=== PATIENT | male | born 1970 | race Caucasian/White ===

== ENCOUNTER → 2016-12-13 | Outpatient (CLI) | payer BC, OTHER ==
[~2016-12-13] MED LIST: ALBUAER INH; AMIO200T4 PO; AMOX500C3 PO; ASPI-232 PO; ATOR-24 PO; CARV3.122 PO; CEPH500C PO; CEPH500C2 PO; CIPR1TAB11 PO; FRS/40 PO; GLC5 PO; GLC850 PO; INSDGI SC; LISI-461 PO; LVQ750 PO; METF-383 PO; POTA20TA16 PO; ROSU40TA PO; SITA100T3 PO; SULF800T23 PO
[2016-12-13 09:56] LABS: ESTIMATED AVERAGE GLUCOSE 289 mg/dl; HA1C FLAG Normal (Normal)
[2016-12-13 10:25] LABS: ALB/GLOB RATIO 1.2 (0.9-2); ALKALINE PHOSPHATASE 126 U/L (45-117); ALT/SGPT 28 U/L (12-78); AST/SGOT 13 U/L (15-37); BLOOD UREA NITROGEN 21 mg/dl (7-18); BUN/CREATININE RATIO 24.2 (10-20); CALCIUM 9.5 mg/dl (8.5-10.1); CARBON DIOXIDE 25 mmol/L (21-32); CHLORIDE 102 mmol/L (98-107); CHOLESTEROL 151 mg/dl (0-200); CREATININE 0.86 mg/dl (0.60-1.40); GLUCOSE 350 mg/dl (70-99); POTASSIUM 4.3 mmol/L (3.5-5.1); SODIUM 137 mmol/L (136-145)
[2016-12-13 10:37] LABS: CHOLESTEROL/HDL RATIO 6.3; HDL CHOLESTEROL 24 mg/dl; TRIGLYCERIDES 724 mg/dl (0-150)
[2016-12-13 10:50] LABS: BETA-HYDROXYBUTYRATE 3.19 mg/dL (0.2-2.81)
== END | disposition home or self-care (01) ==
LOC: C.LAB 07:16
PROVIDERS: ATTEND Family Medicine
DX: E11.9 Type 2 diabetes mellitus without complications (principal)

== ENCOUNTER 2016-12-15 21:05 | Emergency (ER) | payer BC, OTHER ==
[~2016-12-15] VITALS: Ht 172.7 cm; Wt 121.5 kg
[~2016-12-15 21:05] MED LIST changes: -AMIO200T4 PO; -AMOX500C3 PO; -ASPI-232 PO; -CARV3.122 PO; -CEPH500C PO; -CIPR1TAB11 PO; -FRS/40 PO; -INSDGI SC; -LVQ750 PO; -METF-383 PO; -POTA20TA16 PO; -ROSU40TA PO; -SULF800T23 PO
[2016-12-15 21:09] VITALS: TEMP 36.7; Ht 172.7 cm; Wt 121.5 kg
[2016-12-15] MEDS ORDERED: INSDGI SC (21:23)
[2016-12-15] MEDS ORDERED: CEPHALEXIN MONOHYDRATE 250 MG CAP PO STA (21:26)
[2016-12-15] MEDS ORDERED: SULFAMETHOXAZOLE/TRIMETHOPRIM DS 800/160MG TAB PO STA (21:26)
--- NOTE | 2016-12-15 21:27 | EMERGENCY ROOM VISIT NOTE ---
History Report prepared by Vida: Antonietta Frazier Under the Supervision of: Dr. Celestino Monet M.D. First contact with patient: 21:14 Chief Complaint: WOUND INFECTION Stated Complaint: TOE WOUND RIGHT History of Present Illness The patient is a 46 year old male who presents to the Emergency Room with complaints of a constant right toe wound infection beginning a few days ago. The patient states that he has a history of diabetes and neuropathy. He reports that he has an infection on one of his toes on his right foot and saw his PCP yesterday for the pain. He notes that today the toe started swelling and getting red so he decided to come in to the ED. The patient states that he was told to follow up with a formulator compounder. He denies any fever. Source of History: patient Onset: a few days ago Position: toe(s) Quality: other (infection) Timing: constant Associated Symptoms: No fevers Note: Pt has redness and swelling. Review of Systems See HPI for pertinent positives & negatives. A total of 10 systems reviewed and were otherwise negative. Past Medical & Surgical Medical Problems: (1) Diabetes (2) HTN (hypertension) Family History Cancer Diabetes mellitus Gallbladder disease Heart disease Hypertension Kidney disease Kidney stones Social History Smoking Status: Never Smoker Drug Use: none Marital Status: Occupation Status: employed Current/Historical Medications Scheduled Atorvastatin (Lipitor), 1 TAB PO DAILY Cephalexin Monohydrate (Keflex), 1 CAP PO QID Insulin Glargine (Lantus), 20 UNITS SC BID Lisinopril (Zestril), 10 MG PO DAILY Metformin HCl (Metformin HCl), 850 MG PO BID Sitagliptin Phosphate (Januvia), 100 MG PO DAILY Sulfa/Trimethoprim (Bactrim Ds 800MG/160MG), 1 TAB PO BID Allergies Coded Allergies: No Known Allergies (Verified Allergy, Unknown, 07/23/02) Uncoded Allergies: NONE (Allergy, Unknown, 09/04/03) Physical Exam Vital Signs Date Time Temp Pulse Resp B/P (MAP) Pulse Ox O2 Delivery O2 Flow Rate FiO2 12/15/16 21:41 84 16 136/89 97 Room Air 12/15/16 21:09 36.7 89 18 153/103 100 Room Air Physical Exam GENERAL: Patient is a healthy-appearing well-nourished [] HEAD: Normocephalic atraumatic EYES: Ocular movements intact pupils equal and react to light OROPHARYNX mucous membranes are moist no exudates present no erythema or edema present NECK: Supple no nuchal rigidity CHEST: Good equal expansion LUNGS: Clear and equal to auscultation CARDIAC: Normal S1 and S2 ABDOMEN: Soft nontender no guarding BACK: No CVA tenderness EXTREMITIES: No pain upon palpation normal muscle strength in all groups no clubbing cyanosis. The patients second toe was grossly inflamed. NEURO: Patient is following commands and answering questions appropriately. Alert and oriented x3 Cranial Nerves 2-12 grossly intact Medical Decision & Procedures Medications Administered Medications (Trade) Dose Ordered Sig/Paul Route Start Time Stop Time Status Last Admin Dose Admin Cephalexin Monohydrate (Keflex 500MG Home Pack) 1 homepack NOW ONCE PO 12/15/16 21:30 12/15/16 21:31 DC 12/15/16 21:40 1 HOMEPACK Trimethoprim/ Sulfamethoxazole (Septra Ds 800/ 160MG Tab) 1 tab NOW STAT PO 12/15/16 21:26 12/15/16 21:28 DC 12/15/16 21:40 1 TAB Trimethoprim/ Sulfamethoxazole (Sulfameth/ Trimeth Ds 800/ 160MG Home Pack) 1 homepack UD ONCE PO 12/15/16 21:30 12/15/16 21:31 DC 12/15/16 21:40 1 HOMEPACK Cephalexin Monohydrate (Keflex Cap) 500 mg NOW STAT PO 12/15/16 21:26 12/15/16 21:28 DC 12/15/16 21:40 500 MG ED Course 2113: Past medical records reviewed. The patient was evaluated in room C6. A complete history and physical examination was performed. 2125: Keflex Cap 500mg PO, Trimethoprim/Sulfamethoxazole 1 tab PO. 2129: Trimethoprim/Sulfamethoxazole 1 homepack PO, Keflex 500mg Home Pack 1 homepack PO. 2142: Upon reexamination the patient is doing well. I discussed results and treatment plan with the patient. He verbalizes agreement and understanding. The patient is ready for discharge. Medical Decision Differential diagnosis: Etiologies such as cellulitis, abscess, MRSA infection, DVT, necrotizing fasciitis, dermatitis, drug eruption, as well as others were entertained. Medication Reconciliation: I attest that I have personally reviewed the patient' s current medication list Blood Pressure Screening: Patient was found to have an elevated blood pressure and was referred to their primary care doctor for recheck and further treatment This is a 46-year-old male who is a history of diabetes who presents emergency Department with inflammation to his toe. There is no evidence of necrosis yet on exam. I do believe we can start the patient on Keflex and Bactrim however I stressed the need for follow-up with wound clinic. Patient was in agreement with the treatment plan. Impression Primary Impression: Cellulitis Scribe Attestation The scribe's documentation has been prepared under my direction and personally reviewed by me in its entirety. I confirm that the note above accurately reflects all work, treatment, procedures, and medical decision making performed by me. Departure Information Dispostion Home / Self-Care Prescriptions Sulfa/Trimethoprim (Bactrim Ds 800MG/160MG) Tab 1 TAB PO BID for 10 Days, #20 TAB Prov: Celestino Monet MD 12/15/16 Cephalexin Monohydrate (Keflex) 500 Mg Cap 1 CAP PO QID for 10 Days, #40 CAP Prov: Celestino Monet MD 12/15/16 Referrals Jc Cagle M.D. (PCP) Forms HOME CARE DOCUMENTATION FORM, IMPORTANT VISIT INFORMATION, WORK / SCHOOL INSTRUCTIONS Patient Instructions Cellulitis - [facility], [facility], [facility] Additional Instructions Keep toe elevated Follow up with wound clinic You have been examined and treated today on an emergency basis only. This is not a substitute for, or an effort to provide, complete comprehensive medical care. It is impossible to recognize and treat all injuries or illnesses in a single emergency department visit. It is therefore important that you follow up closely with Dr Cagle. Call as soon as possible for an appointment. Thank you for your time and consideration. I look forward to speaking with you again soon. Please don't hesitate to call us if you have any questions. Problem Qualifiers Primary Impression: Cellulitis Site of cellulitis: unspecified site Qualified Codes: L03.90 - Cellulitis, unspecified
[2016-12-15] MEDS ORDERED: CEPH500C PO (21:29)
[2016-12-15] MEDS ORDERED: SULF800T23 PO (21:29)
[2016-12-15] MEDS ORDERED: SEPTRA DS HOME PACK 1 EA VIAL PO ONE (21:30)
[2016-12-15] MEDS ORDERED: CEPHALEXIN 500MG HOME PACK 1 EA BTL PO ONE (21:30)
[2016-12-15 21:41] VITALS: BP 136/89; PULSE 84; O2SAT 97
== END 2016-12-15 21:52 | disposition home or self-care (01) ==
LOC: C.EDB 21:06 → C.EDC 21:52
DX: L03.031 Cellulitis of right toe (principal); E11.40 Type 2 diabetes mellitus with diabetic neuropathy, unspecified; I10 Essential (primary) hypertension; Z83.3 Family history of diabetes mellitus; Z82.49 Family history of ischemic heart disease and other diseases of the circulatory system; Z84.1 Family history of disorders of kidney and ureter; Z79.4 Long term (current) use of insulin; Z79.84 Long term (current) use of oral hypoglycemic drugs; Z79.899 Other long term (current) drug therapy

== ENCOUNTER → 2017-01-04 | Outpatient (CLI) | payer BC, OTHER ==
[~2017-01-04] MED LIST changes: -ALBUAER INH; +AMIO200T4 PO; +AMOX500C3 PO; +ASPI-232 PO; +CARV3.122 PO; +CEPH500C PO; +CIPR1TAB11 PO; +FRS/40 PO; -GLC5 PO; +INSDGI SC; +LVQ750 PO; +METF-383 PO; +POTA20TA16 PO; +ROSU40TA PO; +SULF800T23 PO
--- NOTE | 2017-01-04 10:26 | DIAGNOSTIC IMAGING REPORT ---
RIGHT SECOND TOE 3 VIEWS CLINICAL HISTORY: Right second toe erythema and swelling. FINDINGS: 3 views of the right second toe are obtained. No prior studies are available for comparison at the time of dictation. The skeletal structures are well mineralized. A fracture is identified at the plantar base of the second middle phalanx, seen on the oblique view. No additional fracture is seen. The joint spaces appear maintained. Soft tissue edema is present in the forefoot. No radiodense foreign body seen. IMPRESSION: There is fracture seen at the plantar base of the second middle phalanx. Associated soft tissue swelling is present in the second toe and forefoot. Electronically signed by: Elliot Kidd M.D. 01/04/2017 10:24 AM Dictated Date/Time: 01/04/2017 10:18 AM
== END | disposition home or self-care (01) ==
LOC: C.RAD 09:45
PROVIDERS: ATTEND Emergency Medicine
DX: S92.501A Displaced unspecified fracture of right lesser toe(s), initial encounter for closed fracture (principal); X58.XXXA Exposure to other specified factors, initial encounter

== ENCOUNTER → 2017-01-05 | Outpatient (CLI) | payer BC, OTHER ==
[~2017-01-05] MED LIST changes: +GADAVIST IV PRN
--- NOTE | 2017-01-05 15:06 | DIAGNOSTIC IMAGING REPORT ---
MRI OF THE RIGHT SECOND TOE WITHOUT AND WITH CONTRAST CLINICAL HISTORY: Nonhealing wound. Redness. Swelling. COMPARISON STUDY: Conventional radiographic study dated 01/04/2017 FINDINGS: There is T1 and T2 marrow edema involving the distal phalanx of the second toe. There is surrounding soft tissue edema. There is adjacent soft tissue ulceration. The findings are indicative of acute osteomyelitis. There are no drainable soft tissue abscesses. There is a partially visualized 9 mm focus of marrow replacement involving the base of the second metatarsal. This is incompletely characterized as it is included only on sagittal images.. IMPRESSION: 1. T1 and T2 marrow edema involving the distal phalanx of the second toe consistent with acute osteomyelitis 2. Nonspecific partially visualized 9 mm focus of marrow replacement involving the base of the second metatarsal Electronically signed by: Devin Mo M.D. 01/05/2017 3:05 PM Dictated Date/Time: 01/05/2017 2:56 PM
== END | disposition home or self-care (01) ==
LOC: C.MRI 13:33
PROVIDERS: ATTEND Emergency Medicine
DX: L97.519 Non-pressure chronic ulcer of other part of right foot with unspecified severity (principal)

== ENCOUNTER → 2017-03-02 | Outpatient (CLI) | payer BC, OTHER ==
[~2017-03-02] MED LIST changes: -ATOR-24 PO; -CEPH500C PO; -CEPH500C2 PO; -CIPR1TAB11 PO; -GADAVIST IV PRN; -LVQ750 PO
[2017-03-02 13:08] LABS: HEMATOCRIT 30.9 % (42-52); MEAN CELL VOLUME 81.1 fL (80-100); MEAN CORPUSCULAR HEMOGLOBIN 26.2 pg (25-34); MEAN CORPUSCULAR HGB CONC 32.4 g/dl (32-36); MEAN PLATELET VOLUME 10.7 fL (7.4-10.4); PLATELET COUNT 118 K/uL (130-400); RED BLOOD COUNT 3.81 M/uL (4.7-6.1); WHITE BLOOD COUNT 6.13 K/uL (4.8-10.8)
[2017-03-02 13:30] LABS: BLOOD UREA NITROGEN 37 mg/dl (7-18); BUN/CREATININE RATIO 14.9 (10-20); CALCIUM 9.3 mg/dl (8.5-10.1); CARBON DIOXIDE 24 mmol/L (21-32); CHLORIDE 105 mmol/L (98-107); GLUCOSE 96 mg/dl (70-99); SODIUM 139 mmol/L (136-145)
== END | disposition home or self-care (01) ==
LOC: C.LAB1850 10:28
PROVIDERS: ATTEND Internal Medicine Clinical Cardiac Electrophysiology
DX: I25.10 Atherosclerotic heart disease of native coronary artery without angina pectoris (principal)

== ENCOUNTER → 2017-05-18 | Outpatient (CLI) | payer BC, OTHER ==
[~2017-05-18] MED LIST changes: -AMIO200T4 PO; -AMOX500C3 PO; +CEPH500C PO; -LISI-461 PO; +LISI-729 PO; +LVQ750 PO; -METF-383 PO; +POTA10CA28 PO; -POTA20TA16 PO; +ROSU20TA PO; -ROSU40TA PO; -SULF800T23 PO
[2017-05-18 12:06] LABS: HEMATOCRIT 32.8 % (42-52); MEAN CELL VOLUME 80.6 fL (80-100); MEAN CORPUSCULAR HEMOGLOBIN 26.8 pg (25-34); MEAN CORPUSCULAR HGB CONC 33.2 g/dl (32-36); MEAN PLATELET VOLUME 11.5 fL (7.4-10.4); PLATELET COUNT 127 K/uL (130-400); RED BLOOD COUNT 4.07 M/uL (4.7-6.1)
[2017-05-18 12:15] LABS: BLOOD UREA NITROGEN 29 mg/dl (7-18); BUN/CREATININE RATIO 29.2 (10-20); CALCIUM 9.5 mg/dl (8.5-10.1); CARBON DIOXIDE 27 mmol/L (21-32); CHLORIDE 107 mmol/L (98-107); CREATININE 0.98 mg/dl (0.60-1.40); GLUCOSE 105 mg/dl (70-99); MAGNESIUM 1.7 mg/dl (1.8-2.4); POTASSIUM 4.5 mmol/L (3.5-5.1); SODIUM 140 mmol/L (136-145)
== END | disposition home or self-care (01) ==
LOC: C.LAB1850 11:00
PROVIDERS: ATTEND Internal Medicine Clinical Cardiac Electrophysiology
DX: I48.0 Paroxysmal atrial fibrillation (principal); I25.5 Ischemic cardiomyopathy

== ENCOUNTER 2017-05-24 08:05 | Observation (INO) | payer BC, OTHER ==
[2017-05-24] VITALS (12 sets, daily range): BP systolic 110–154; BP diastolic 55–90; PULSE 73–83; TEMP 36.6–36.8; O2SAT 95–99; Ht 172.7 cm; Wt 107.4 kg
[~2017-05-24] VITALS: Ht 172.7 cm; Wt 107.4 kg
[~2017-05-24 08:05] MED LIST changes: +CEFAZOLIN 1000MG IV PUSH 5 ML IV SCH; +LACTATED RINGER'S 1000ML 1,000 ML IV SCH; +PATIENT'S HEIGHT AND/OR WEIGHT NEEDED SCH
[2017-05-24] MEDS ORDERED: CARV12.52 PO (08:31)
[2017-05-24] MEDS ORDERED: APIX1TAB3 PO (08:34)
[2017-05-24] MEDS ORDERED: SLOW MAG PO (08:40)
[2017-05-24] MEDS ORDERED: CEFAZOLIN 2000MG IV PUSH 10 ML IV SCH (09:00)
[2017-05-24] MEDS ORDERED: BACITRACIN 50000 UNIT VIAL ONE (10:26)
[2017-05-24] MEDS ORDERED: LIDOCAINE HCL 1% 20 ML VIAL ONE (10:26)
[2017-05-24] MEDS ORDERED: BACITRACIN OINT 0.9 GM PKT ONE (10:26)
[2017-05-24] MEDS ORDERED: MIDAZOLAM HCL 5 MG/ML 1 ML VIAL ONE ×2 (10:43→11:17)
[2017-05-24] MEDS ORDERED: FENTANYL CITRATE INJ 50 MCG/1 ML 2 ML VIAL ONE ×2 (10:43→11:17)
--- NOTE | 2017-05-24 10:43 | History & Physical Bridge Note ---
H&P Re-Evaluation Bridge Note: I have examined the patient, reviewed the History & Physical and in the interval since the performance of the History & Physical I have noted the following changes of clinical significance: No changes noted. I reviewed the indications, procedure, risks and alternatives with the patient and his and they understand and he agrees to proceed. Consent obtained. Sedation reviewed as well and consent obtained.
--- NOTE | 2017-05-24 10:58 | Pre Sedation Assessment ---
Pre Sedation Assessment General Date of Sedation: May 24, 2017. Vital Signs Past 12 Hours Date Time Temp Pulse Resp B/P (MAP) Pulse Ox O2 Delivery O2 Flow Rate FiO2 05/24/17 08:41 36.8 83 18 125/78 (94) 98 Room Air Review Cardiovascular: regular rate, rhythm Lungs: chest non-tender, lungs clear, normal breath sounds, no respiratory distress, no accessory muscle use Pre-Sedation Airway Assessment Smoking Status: Never Smoker Hx of Sleep Apnea: Yes Short Thick Neck: Yes Thyro-mental Distance: > 3 Finger Breadths Oral Cavity: WNL Mallampati Classification: Class II ASA Classification: Class III NPO Status Date of Last Intake of Fluids: May 23, 2017 Time of Last Intake of Fluids: 0 Date of Last Intake of Solids: May 23, 2017 Time of Last Intake of Solids: 1999 Procedure Planning Contraindications for Sedation: None Current Medications Reviewed: Yes Notes The planned sedation has been discussed with the patient. Informed Consent was obtained. I have identified the patient, determined the appropriateness of sedation and have assessed the patient immediately prior to the procedure. All medicine(s) and interventions are by my order.
--- NOTE | 2017-05-24 12:04 | Cardiology Procedure Brief Nt ---
Preliminary Cardiology Note Procedure Date May 24, 2017. Pre-Procedure Diagnosis ischemic cardiomyopathy Post-Procedure Diagnosis same Procedure(s) Performed Left subclavian venogram Single-chamber ICD implantation Homoeopath Dr. Malone Special Agent(s) none Estimated Blood Loss 30 cc Preliminary Findings Good lead position, good measurements Recommendations Monitor overnight Specimens None Anesthesia local with sedation Complication(s) None Disposition PCU
--- NOTE | 2017-05-24 12:13 | Post Sedation Assessment ---
Post Sedation Assessment General Date of Sedation May 24, 2017. Vital Signs: Vital Signs Past 12 Hours Date Time Temp Pulse Resp B/P (MAP) Pulse Ox O2 Delivery O2 Flow Rate FiO2 05/24/17 08:41 36.8 83 18 125/78 (94) 98 Room Air Post Procedure Recovery Score Activity: (2) Moves 4 extremities * Respiration: (2) Deep breath/cough Circulation: (2) +/-20% PreAnes Value Consciousness: (2) Fully Awake Oxygen Saturation: (2) > 92% On Room Air Post Anesthesia Score: 10 Discharge Sedation Level of Care: Fast Track Phase II Post Sedation Plan On clinical assessment, the patient appears to have tolerated the sedation without complications. Patient is recovering as anticipated. Patient will continue to be monitored by nursing and may be discharged when sedation discharge criteria are met per below protocol. Upon Completions of procedure and additional 15 minutes continue every 5 minute vital signs and the P.A.R. score; then discharge to a Phase I or Fast Track to Phase II per the following guidelines: * Discharge Patient to appropriate Phase II area if PAR is 8 or greater or return to pre- procedure baseline. The post - procedure orders will be as directed. * If PAR score is less than 8 or not return to pre-procedure baseline then patient will follow Phase I monitoring till PAR is reached for Phase II. The Phase I may be done in procedure room or may call to secure a Phase I area. * If naloxone or flumazenil are used for reversal, hold in Phase I for an additional 60 -120 minutes before discharge to Phase II. Please call the Sedation Physician to re-evaluate and complete post-note for discharge to Phase II area. Do NOT discharge from procedure sedation or Phase 1 until post- sedation evaluation note is complete by procedure /sedation MD Sedation Discharge Instructions to be given to the patient at discharge to home.
[2017-05-24] MEDS ORDERED: KETOROLAC TROMETHAMINE 10 MG TAB PO PRN (12:15)
[2017-05-24] MEDS ORDERED: ACETAMINOPHEN 325 MG TAB PO PRN (12:15)
--- NOTE | 2017-05-24 12:35 | [facility] Operative Report ---
Operative Report Operative Date May 24, 2017. Pre-Operative Diagnosis Ischemic cardiomyopathy Post-Operative Diagnosis same Procedure(s) Performed Left subclavian venogram Single-chamber ICD implantation Surgeon Dr. Malone Change Advisor Surgeon(s) none Estimated Blood Loss 30 cc Findings Good lead position, good measurements Specimens None Anesthesia local with sedation Complication(s) None Disposition PCU Description of Procedure After obtaining informed consent for the procedure, the patient was brought to the laboratory and prepped and draped in the standard sterile manner. The left prepectoral region was anesthetized with 1% lidocaine local anesthetic and dye was injected in the left arm IV site to opacify the left subclavian vein. The subclavian vein was identified and found to be free of obstruction. Left axillary venipuncture was performed by percutaneous technique and a guidewire placed through the left subclavian vein into the superior vena cava. The area was further infiltrated with 1% lidocaine local anesthetic and a 7 cm incision was made parallel to the left clavicle and 2 cm below it and carried down to the anterior pectoralis fascia. An ICD pocket was formed by blunt dissection anterior to the pectoralis fascia and a bacitracin-soaked sponge (50,000 units in 50 cc normal saline solution) was placed in the pocket. A 10.5 [place] Med[employer] lead introducer was placed over the guidewire into the left subclavian vein, the dilator and guidewire were removed and a bipolar dual coil active fixation steroid tipped ventricular ICD lead was advanced through the introducer into the superior vena cava. A guidewire was placed through the introducer and the introducer was stripped from the lead and guidewire. Using a curved stylette the ventricular lead was advanced through the right ventricular outflow tract into the pulmonary artery and then using a straight stylette was positioned in the right ventricular apex. The screw was extended fixing the lead in position. Pacing and sensing thresholds were evaluated in bipolar configuration and are recorded on the implant data sheet. Once the lead was in position it was attached to the anterior pectoralis fascia using 2 sutures of 2-0 silk around the lead collar. The bacitracin-soaked sponge was removed from the pocket, hemostasis was obtained, the ICD was attached to the lead and placed in the pocket with the lead coiled beneath it. The incision was closed with a running double subcutaneous closure of 3-0 Vicryl absorbable suture, followed by running subcuticular skin closure of 4-0 V -Richi absorbable suture. Bacitracin ointment was placed on the incision and a pressure dressing applied. I attest to the content of the Intraoperative Record and any orders documented therein. Any exceptions are noted below.
[2017-05-24] MEDS ORDERED: IV FLUIDS COMPLETED PRN (12:45)
[2017-05-24] MEDS ORDERED: PHARMACY GLYCEMIC MGMT CONSULT PRN (13:14)
[2017-05-24] MEDS: INSULIN ASPART 100 UNITS/ML 3 ML PEN SC SCH ×2 (16:48→20:47)
[2017-05-24] MEDS: CEFAZOLIN IV 1,000 MG in SYRINGE 0 ML IV SCH (16:53)
[2017-05-24] MEDS: CARVEDILOL 12.5 MG TAB PO SCH (20:47)
[2017-05-25] MEDS: CEFAZOLIN IV 1,000 MG in SYRINGE 0 ML IV SCH ×2 (01:07→10:16)
[2017-05-25 03:46] VITALS: BP 123/77; PULSE 83; TEMP 36.6; O2SAT 98
--- NOTE | 2017-05-25 07:01 | DIAGNOSTIC IMAGING REPORT ---
CHEST 2 VIEWS ROUTINE HISTORY: 47 years-old Male EXACT TIME ORDERED Evaluate for pneumothorax and lead placement status post placement of a left subclavian pacer/AICD COMPARISON: None available TECHNIQUE: PA and lateral views of the chest FINDINGS: Cardiac silhouette is upper limits of normal. Status post placement of a single lead left subclavian pacer/AICD with single lead overlying the right ventricle. No postprocedural pneumothorax identified. Prior median sternotomy with probable CABG. No pleural effusion, focal airspace consolidation or overt pulmonary edema. Bones of the chest are grossly intact. Degenerative changes are seen within the spine and shoulders. IMPRESSION: Status post placement of a single lead left subclavian pacer/AICD with lead overlying the right ventricle. No postprocedural pneumothorax identified. The above report was generated using voice recognition software. It may contain grammatical, syntax or spelling errors. Electronically signed by: Dalton Garcia M.D. 05/25/2017 7:00 AM Dictated Date/Time: 05/25/2017 6:58 AM
[2017-05-25 07:30] VITALS: BP 129/76; PULSE 86; TEMP 37; O2SAT 99
[2017-05-25] MEDS: INSULIN ASPART 100 UNITS/ML 3 ML PEN SC SCH ×2 (08:18→11:00)
[2017-05-25] MEDS: CARVEDILOL 12.5 MG TAB PO SCH (08:19)
[2017-05-25 08:26] LABS: ESTIMATED AVERAGE GLUCOSE 85 mg/dl; HA1C FLAG Normal (Normal)
--- NOTE | 2017-05-25 08:50 | Discharge Instructions ---
Discharge Instructions Date of Service May 25, 2017. Admission Reason for Admission: Ischemic Cardiomyopathy Discharge Discharge Diagnosis / Problem: Ischemic cardiomyopathy status post ICD placement Discharge Goals Goal(s): Improve disease control Activity Recommendations Activity Limitations: per Instructions/Follow-up section . Instructions / Follow-Up Instructions / Follow-Up ACTIVITY RECOMMENDATIONS: * Do not raise affected arm over head for 2 weeks. SPECIAL CARE INSTRUCTIONS: * If bleeding occurs, apply direct pressure to area for 5 minutes. * Call your doctor if you have severe pain, fever, drainage or bleeding at site. * Keep dressing on and dry for 48 hours then remove. * Keep any scheduled doctor's appointment. * Implant Card - hand held device with website information given. SKIN IRRITATION: * You may experience some redness and/or swelling in the area where radiation was administered. If any skin irritation occurs, please contact your family physician. FOLLOW UP VISIT: Dr. Malone's office 05/29/17 2:00 PM for wound check [facility] 06/27/16 1:30 PM for device check Current Hospital Diet Patient's current hospital diet: AHA Diet (Heart Healthy), Diabetes Type 2 Diet Discharge Diet Recommended Diet: AHA Diet (Heart Healthy) Pending Studies Studies pending at discharge: no Laboratory Results Hemoglobin A1c Test 05/25/17 06:58 Range/Units Medical Emergencies . Who to Call and When: Medical Emergencies: If at any time you feel your situation is an emergency, please call 911 immediately. . Non-Emergent Contact Non-Emergency issues call your: Primary Care Provider . . "Provider Documentation" section prepared by Mildred Hope. . VTE Core Measure Inpt VTE Proph given/why not?: Other Anticoagulation
--- NOTE | 2017-05-25 08:57 | Discharge Summary ---
Discharge Summary Admission Date: May 24, 2017 at 12:08 Discharge Date: May 25, 2017 Discharge Disposition: Home Primary Diagnosis: Ischemic cardiomyopathy Secondary Diagnoses/Problems: Medical Problems: (1) Cellulitis Status: Acute Procedures: single lead ICD placement Discharge Instructions Last Recorded Wt (Kilograms): 107.400 Activity Recommendations: resume regular activity Allergies: Coded Allergies: Sulfamethoxazole w/Trimethoprim (Verified Allergy, Unknown, "severe vomiting", 05/24/17) Special Care: Call your doctor if: * Temperature above 101 degrees * Pain not relieved by pain medicine ordered * There is increased drainage or redness from any incision * You have any unanswered questions or concerns. Avoid all tobacco products. If you need help to stop smoking, call [place]'s FREE QUITLINE at . This is a free call. Admission HPI The patient is a 47-year-old gentleman with a history of coronary disease, non ST elevation myocardial infarction complicated by cardiogenic shock and subsequent surgical revascularization. His echocardiogram demonstrated persistently low ejection fraction. His LV function is in the range where we should consider prophylactic ICD implant. Admission Physical Exam The patient is alert and oriented. Mood and affect appeared normal. He answered all questions appropriately. HEENT: Pupils are equal and reactive to light and accommodation. Extraocular movements are intact. The sclerae are anicteric. Neuro: Cranial nerves intact Neck: Short thick neck. Extremities: There was no evidence of hypoperfusion. There is no cyanosis or clubbing. There is no edema. Pulse is regular today Skin: I did not appreciate any rashes on examination today. Hospital Course Patient underwent single chamber ICD placement on 05/24/17 without complication. Post procedure chest x-ray demonstrate good lead placement without pneumothorax. Device check performed with excellent sensing and pacing characteristics. Patient deemed stable for discharge. Recheck incision as scheduled in our office on 05/29/17. Total time spent on discharge = This includes examination of the patient, discharge planning, medication reconciliation, and communication with other providers.
[2017-05-25] MEDS ORDERED: ASPIRIN 81 MG ECTAB PO SCH (09:00)
[2017-05-25] MEDS ORDERED: LISINOPRIL 2.5 MG TAB PO SCH (09:00)
[2017-05-25] MEDS ORDERED: SITAGLIPTIN 100 MG TAB PO SCH (09:00)
[2017-05-25] MEDS ORDERED: FUROSEMIDE 20 MG TAB PO SCH (09:00)
[2017-05-25] MEDS ORDERED: POTASSIUM CHLORIDE 10 MEQ TABCR PO SCH (09:00)
[2017-05-25] MEDS ORDERED: ROSUVASTATIN CALCIUM 20 MG TAB PO SCH (09:00)
[2017-05-25] MEDS ORDERED: LANTUS PER UNIT CHARGE SQ ONE (10:00)
--- NOTE | 2017-05-25 10:08 | Pharmacy Progress Note ---
Pharmacy Glycemic Short Note 2 Date of Service May 25, 2017. OUTPATIENT ANTIDIABETIC REGIMEN: * Lantus 40 units SQ daily * Metformin 850mg PO BID * Januvia 100mg PO daily * HbA1c: 4.6% (05/25/17) ASSESSMENT: * Pt admitted yesterday for ICD implantation, pt is POD #1. * Patient has been without basal insulin for ~48 hours now, with BSGs still below goal range. * Current A1c indicates well-controlled diabetes, with maybe even a slightly over-aggressive outpatient regimen. PLAN FOR INPATIENT GLYCEMIC CONTROL: * Basal insulin * Lantus 30 units SQ x1 dose this morning prior to discharge -- patient is eating well post-op and anticipates return to regular diet * Bolus insulin * NovoLog per scale ACHS or Q6hrs while NPO * Goal Range: Low 110 mg/dL - High 140 mg/dL * Correction Factor: 25 mg/dL/unit * Nutritional / Prandial insulin per carb ratio of 1 unit per 8 grams CHO consumed PLAN FOR DISCHARGE: * Anticipate that it will be appropriate to resume home regimen on discharge.
--- NOTE | 2017-05-25 10:12 | Cardiology Follow-Up ---
Subjective Date of Service: May 25, 2017. Pt evaluation today including: conversation w/ patient, physical exam, lab review, review of studies, review of inpatient medication list History of Present Illness Patient feels well today, no significant incisional discomfort, no cardiovascular complaints. Social History Smoking Status: Never Smoker History of Alcohol Use: Yes (Occasionally) Review of Systems Respiratory: No shortness of breath Cardiac: No chest pain Objective Vital Signs Past 12 Hours Date Time Temp Pulse Resp B/P (MAP) Pulse Ox O2 Delivery O2 Flow Rate FiO2 05/25/17 08:00 Room Air 05/25/17 07:30 37.0 86 16 129/76 (93) 99 Room Air 05/25/17 04:00 CPAP 05/25/17 03:46 36.6 83 18 123/77 (92) 98 CPAP 05/25/17 00:00 CPAP 05/24/17 23:44 36.6 83 18 137/81 (99) 98 CPAP Last Recorded Weight-Kilograms: 107.400 Physical Exam Constitutional: Level of Distress: NAD Lungs: Auscultation: breath sounds normal Cardiovascular: Heart Auscultation: RRR, no rubs Extremities: no edema Incision is clean and dry, no swelling or bleeding Data Laboratory Results: Last 24 Hours Test 05/24/17 15:22 05/24/17 20:37 05/25/17 06:53 05/25/17 06:58 Bedside Glucose 104 mg/dl 92 mg/dl 103 mg/dl Estimated Average Glucose 85 mg/dl Hemoglobin A1c 4.6 % Imaging: Chest x-ray shows good lead position, no pneumothorax EKG: Sinus rhythm, appropriate device inhibition Telemetry reviewed: Sinus rhythm, no pacing appropriately ICD evaluation: Excellent pacing characteristics, acceptable sensing. Assessment and Plan #1. Postop day #1: Doing well postop, the device is working well, the x-ray looks good. Stable for discharge today. Follow-up arranged. Procedures: single lead ICD placement
[2017-05-25 10:23] VITALS: BP 129/76; PULSE 86; TEMP 37; O2SAT 99
== END 2017-05-25 12:49 | disposition home or self-care (01) ==
LOC: C.ACU 08:05 → ENRESERV 11:45 → C.2T 12:08
PROVIDERS: ADMIT Internal Medicine Cardiovascular Disease; ATTEND Internal Medicine Cardiovascular Disease
DX: I25.5 Ischemic cardiomyopathy (principal); I48.0 Paroxysmal atrial fibrillation; I25.10 Atherosclerotic heart disease of native coronary artery without angina pectoris; E78.5 Hyperlipidemia, unspecified; I25.2 Old myocardial infarction; E11.9 Type 2 diabetes mellitus without complications; I10 Essential (primary) hypertension; E66.01 Morbid (severe) obesity due to excess calories; G47.33 Obstructive sleep apnea (adult) (pediatric); J45.909 Unspecified asthma, uncomplicated; I50.20 Unspecified systolic (congestive) heart failure; Z83.3 Family history of diabetes mellitus; Z82.49 Family history of ischemic heart disease and other diseases of the circulatory system; Z79.01 Long term (current) use of anticoagulants; Z79.899 Other long term (current) drug therapy; Z79.84 Long term (current) use of oral hypoglycemic drugs; Z79.82 Long term (current) use of aspirin

== ENCOUNTER 2019-12-10 13:06 | Observation (INO) ==
[2019-12-10 14:25] LABS: Basophils # (auto) 0.02 K/uL (0-0.2); Basophils % (auto) 0.2 %; Eosinophils # (auto) 0.09 K/uL (0-0.5); Hematocrit (blood only) 35.8 % (42-52); Hemoglobin 11.7 g/dL (14.0-18.0); Immature Granulocytes # (auto) 0.04 K/uL (0.00-0.02); Immature Granulocytes % (auto) 0.4 %; Lymphocytes # (auto) 1.29 K/uL (1.2-3.4); Lymphocytes % (auto) 13.9 %; Mean Corpuscular Hemoglobin 25.6 pg (25-34); Mean Corpuscular Hgb Conc 32.7 g/dL (32-36); Mean Corpuscular Volume 78.3 fL (80-100); Mean Platelet Volume 10.2 fL (7.4-10.4); Monocytes # (auto) 0.71 K/uL (0.11-0.59); Monocytes % (auto) 7.7 %; Neutrophils # (auto) 7.13 K/uL (1.4-6.5); Neutrophils % (auto) 76.8 %; Platelet Count 167 K/uL (130-400); RDW Coefficient of Variation 13.9 % (11.5-14.5); RDW Standard Deviation 39.2 fL (36.4-46.3); Red Blood Count 4.57 M/uL (4.7-6.1); White Blood Count 9.28 K/uL (4.8-10.8)
--- NOTE | 2019-12-10 14:35 | Emergency Department Note ---
Impression & Plan Defibrillator discharge, Hypomagnesemia, Acute dehydration, Elevated troponin ED Provider Note NAME: TARA GALLEGOS AGE: 49 SEX: M : 1970 ARRIVES VIA: Walk-In INFORMANT: [Patient] ED PROVIDER(S): [Elliot Mo MD] CHIEF COMPLAINT: Defibrillator firing HISTORY OF PRESENT ILLNESS: The patient is a 49-year-old male who presents to the ED with a defibrillator firing twice today. He has had the defibrillator for about 2-1/2 to 3 years and it has never gone off. Patient states that around 10:00 in the morning and then at 1:00 in the PM, his defibrillator went off. He was not having chest pain or dyspnea. He was not exerting himself. With the first firing, he felt his heart flutter a bit just before it went off. No cough or cold or congestion. He has had no recent fevers. He has been in baseline health. He has noticed some increased leg edema over the last several months that he thinks may be related to his medications. The patient states he now feels back to baseline. He states she has a history of a poor EF. His recycling assistant is Dr. Pagan. REVIEW OF SYSTEMS: See HPI for pertinent positives and negatives. A total of ten systems were reviewed and were otherwise negative. PMHx/PSHx: See Below SOCIAL HISTORY: See Below. PHYSICAL EXAM: GENERAL: Patient is in no acute distress. HEENT: No acute trauma, normocephalic atraumatic, mucous membranes moist, no nasal congestion, no scleral icterus. NECK: No stridor, no adenopathy, no meningismus, trachea is midline. LUNGS: Clear to auscultation bilaterally, no wheeze, no rhonchi, breath sounds equal. HEART: Without murmurs gallops or rubs, regular rate and rhythm. ABDOMEN: Soft, nontender, bowel sounds positive, no hernias, no peritonitis. EXTREMITIES: No cyanosis, moderate bilateral pedal edema, full range of motion of all the joints without pain or difficulty, no signs for acute trauma. NEUROLOGIC: Oriented x 3, no acute motor or sensory deficits, no focal weakness. SKIN: No rash, no jaundice, no diaphoresis. DIFFERENTIAL DIAGNOSIS: Cardiac ischemia, aortic dissection, pulmonary embolism, V. tach, A. fib, a flutter, SVT, CHF, pneumothorax, pneumonia, pericarditis, myocarditis, esophageal rupture, GERD, cholecystitis, pancreatitis, musculoskeletal, as well as other pathologies. EMERGENCY DEPARTMENT COURSE/PROCEDURES: ECG: Indication was chest pain. The ECG shows a normal sinus rhythm with a rate of 95. There is an old inferior infarct. The QTc is 442. There is no ST elevation, no PVCs. Continuous Cardiac Monitoring: An order was placed for continuous cardiac monitoring. The monitor shows a rate of 92 with normal sinus rhythm. MEDICAL DECISION MAKING: There is no leukocytosis. The patient does have a mild anemia, this appears baseline looking back at previous testing. There is a normal platelet count. No concerning coagulopathy. Creatinine is elevated somewhat at 1.43, this is above baseline for him. Magnesium was quite low at 1.5. Alk phos was elevated, the bilirubin was normal. EKG shows a sinus rhythm, no acute ischemia. Cardiac enzyme testing x1 is slightly elevated. This elevation could be consistent with cardiac strain or injury or the elevation could be from the defibrillation firing itself. Chest film does not show pneumonia or CHF. There was no pneumothorax. The patient was given oral and IV magnesium, he received a small IV saline bolus. I discussed this case with cardiology. Hospitalization, monitoring were suggested. I spoke to the patient and medical case manager. The on-call hospitalist was consulted. Of note, we did have a defibrillator evaluation performed. It appears that the patient was shocked 3 times for V. tach. All 3 shocks were successful. Past Med/Surg History Medical History Atrial fibrillation, currently in sinus rhythm CAD (coronary artery disease) (Chronic) Diabetes mellitus type II, uncontrolled (Chronic) Diabetic peripheral neuropathy associated with type 2 diabetes mellitus (Chronic) Dyslipidemia (Chronic) Goiter (Chronic) History of cellulitis lower extremity History of diabetic ulcer of foot (Resolved) HTN (hypertension) (Chronic) Ischemic cardiomyopathy (Chronic) Sleep apnea (Chronic) cpap Surgical History H/O vasectomy (Chronic) History of implantable cardiac defibrillator (ICD) 05/2017 MEDTRONIC Hx of CABG (Chronic) [place], [place]ATH - UNABLE TO STENT AND THEN CABG X - [facility] FOLLOWS WITH DR PAAGN Hx of foot surgery REMOVAL OF BIG TOE AND SECOND TOE 04/2017 Family History Other Diabetes Heart disease Social History Preferred Language: Portuguese Communication Ability: Effective Visual Impairment: No Limitations Supervisor Matrix Required: No Beliefs That Will Affect Care: None marital status: Current Living Situation: Spouse current occupational status: employed Feels Safe at Home: Yes Smoking Status: Never smoker Second Hand Exposure: No ; Hx Alcohol Use: Yes Alcohol type: beer Hx Substance Use: No Allergies Allergies Allergy/AdvReac Type Severity Reaction Status Date / Time Bactrim Allergy Unknown "severe Verified 05/24/17 08:28 vomiting" sulfamethoxazole AdvReac Unknown "severe Verified 12/10/19 14:48 vomiting" trimethoprim AdvReac Unknown "severe Verified 12/10/19 14:48 vomiting" Home Meds Home Medications Medication Instructions Recorded Confirmed insulin glargine [Lantus Solostar 40 unit SUBCUT DAILY 12/10/19 12/10/19 U-100 Insulin] insulin lispro [Humalog KwikPen 20 unit SUBCUT TIDM 12/10/19 12/10/19 Insulin] Previous Rx's Medication Instructions Recorded metformin 850 mg tablet 850 mg PO BID #180 tab 12/23/18 sitagliptin 100 mg tablet 100 mg PO QAM #90 tab 12/23/18 apixaban 5 mg tablet 5 mg PO BID #180 tab 07/14/19 furosemide 20 mg tablet 20 mg PO DAILY #90 tab 07/14/19 magnesium chloride 64 mg 64 mg PO BID #90 tab 07/14/19 (magnesium chloride) tablet,delayed release potassium chloride 10 mEq 10 meq PO QAM #90 tab 07/14/19 tablet,extended release rosuvastatin 20 mg tablet 20 mg PO HS #90 tab 07/14/19 sacubitril 24 mg-valsartan 26 mg 1 tab PO BID #60 tab 10/13/19 tablet Results & Data (ED) Vital Signs Vital Signs - 24 hr 12/10/19 13:12 12/10/19 14:30 12/10/19 15:00 Temperature 37.0 C Temperature Source Oral Pulse Rate 101 H 91 H 92 H Respiratory Rate 18 13 14 Blood Pressure 149/93 H 155/84 H 148/89 H Blood Pressure Mean 111 99 112 Pulse Oximetry 99 99 Oxygen Delivery Method Room Air Room Air Sepsis Recent Fever Within 48 Hours No Sepsis New/Unexplained Change in Mental Status No Sepsis Action Taken by Nursing No Action Required Home Medications Current Medication List: was personally reviewed by me Laboratory Data Attestation: I reviewed the patient's lab results. Result diagrams: 12/10/19 14:15 12/10/19 14:15 Lab Results 12/10/19 12/10/19 12/10/19 Range/Units 14:15 14:15 14:15 WBC 9.28 (4.8-10.8) K/uL RBC 4.57 L (4.7-6.1) M/uL Hgb 11.7 L (14.0-18.0) g/dL Hct 35.8 L (42-52) % MCV 78.3 L (80-100) fL MCH 25.6 (25-34) pg MCHC 32.7 (32-36) g/dL RDW Std Deviation 39.2 (36.4-46.3) fL RDW Coeff of Baldo 13.9 (11.5-14.5) % Plt Count 167 (130-400) K/uL MPV 10.2 (7.4-10.4) fL Immature Gran % (Auto) 0.4 % Neut % (Auto) 76.8 % Lymph % (Auto) 13.9 % [place] % (Auto) 7.7 % Eos % (Auto) 1.0 % Baso % (Auto) 0.2 % Neut # (Auto) 7.13 H (1.4-6.5) K/uL Lymph # (Auto) 1.29 (1.2-3.4) K/uL [place] # (Auto) 0.71 H (0.11-0.59) K/uL Eos # (Auto) 0.09 (0-0.5) K/uL Baso # (Auto) 0.02 (0-0.2) K/uL Immature Gran # (Auto) 0.04 H (0.00-0.02) K/uL PT 12.2 H (9.0-12.0) Seconds INR 1.2 H (0.9-1.1) APTT 29.3 (21.0-31.0) Seconds PTT Ratio 1.1 Sodium 138 (136-145) mmol/L Potassium 4.6 (3.5-5.1) mmol/L Chloride 105 (98-107) mmol/L Carbon Dioxide 26 (21-32) mmol/L Anion Gap 7.0 (3-11) BUN 28 H (7-18) mg/dl Creatinine 1.43 H (0.6-1.4) mg/dl Est Cr Clr Drug Dosing 79.2 ml/min Est GFR ( Amer) 65.7 Est GFR (Non-Af Amer) 56.7 BUN/Creatinine Ratio 19.3 (10-20) Glucose 221 H (70-99) mg/dl Calcium 9.5 (8.5-10.1) mg/dl Magnesium 1.5 L (1.8-2.4) mg/dl Total Bilirubin 0.4 (0.2-1) mg/dl AST 14 L (15-37) U/L ALT 23 (12-78) U/L Alkaline Phosphatase 140 H (45-117) U/L Troponin I 0.503 H* (0-0.045) ng/ml Total Protein 8.1 (6.4-8.2) gm/dl Albumin 3.3 L (3.4-5.0) gm/dl Globulin 4.8 H (2.5-4.0) gm/dl Albumin/Globulin Ratio 0.7 L (0.9-2) Administered Medications Magnesium Sulfate/Dextrose (Magnesium Sulfate / D5w) 1 gm in 100 mls @ 100 mls/hr IV Q1H BRITANY Stop: 12/10/19 17:37 Last Admin: 12/10/19 17:03 Dose: 100 mls/hr Documented by: [id number] Discontinued Medications Sodium Chloride (Nss 1000ml) 500 mls @ 999 mls/hr IV .Q31M ONE Stop: 12/10/19 15:17 Last Infusion: 12/10/19 16:11 Dose: 0 mls/hr Documented by: [id number] Admin: 12/10/19 15:03 Dose: 999 mls/hr Documented by: [id number] Magnesium Oxide (Mag-Ox) 400 mg PO NOW STA Stop: 12/10/19 15:38 Last Admin: 12/10/19 17:03 Dose: 400 mg Documented by: [id number] Imaging Data Radiologist's Impression: R chest 1V portable CLINICAL HISTORY: Chest pain. COMPARISON STUDY: Chest radiograph April 15, 2018. FINDINGS: Lung volumes are normal. Lungs are clear. There is no pneumothorax or pleural effusion. Cardiomegaly is unchanged. There is a left subclavian pacer/AICD, median sternotomy wires and mediastinal surgical clips. Mediastinal contours are normal. There is no evidence for pulmonary edema. The patient is mi ldly rotated. IMPRESSION: No acute cardiopulmonary findings. Blood Pressure Blood Pressure Findings: Elevated blood pressure Blood Pressure Disposition: further management by hospitalist Discharge Plan Visit Data Chief Complaint: Cardiac Assessment Stated Complaint: INTERNAL DEFIB ED Provider: Elliot Mo Discharge Problem: Defibrillator discharge, Hypomagnesemia, Acute dehydration, Elevated troponin Patient Disposition: Admitted As Inpatient Condition: Good Forms Stand Alone Forms: [employer] Prescriptions Prescriptions: No Action metformin 850 mg tablet 850 mg PO BID Qty: 180 RF: 3 sitagliptin 100 mg tablet 100 mg PO QAM Qty: 90 RF: 3 Entresto 24-26 mg tablet 1 tab PO BID Qty: 60 RF: 2 Eliquis 5 mg tablet 5 mg PO BID Qty: 180 RF: 1 furosemide 20 mg tablet 20 mg PO DAILY Qty: 90 RF: 3 magnesium chloride 64 mg tablet,delayed release (DR/EC) 64 mg PO BID Qty: 90 RF: 3 potassium chloride 10 mEq tablet extended release 10 meq PO QAM Qty: 90 RF: 3 rosuvastatin 20 mg tablet 20 mg PO HS Qty: 90 RF: 3 insulin lispro [Humalog KwikPen Insulin] 100 unit/mL insulin pen 20 unit SUBCUT TIDM RF: 0 Lantus Solostar U-100 Insulin 100 unit/mL (3 mL) insulin pen 40 unit SUBCUT DAILY RF: 0 Referrals Referrals: Jc Cagle MD [Primary Care Provider] -
[2019-12-10 14:37] LABS: INR 1.2 (0.9-1.1); Partial Thromboplastin Ratio 1.1; Partial Thromboplastin Time 29.3 Seconds (21.0-31.0); Prothrombin Time 12.2 Seconds (9.0-12.0)
[2019-12-10 14:45] LABS: Albumin Level 3.3 gm/dl (3.4-5.0); BUN Creatinine Ratio 19.3 (10-20); Calcium 9.5 mg/dl (8.5-10.1); Creatinine Clr Calc Pharmacy 79.2 ml/min; Est GFR (African American) 65.7; Est GFR (Non-African American) 56.7; Potassium 4.6 mmol/L (3.5-5.1)
[2019-12-10] MEDS ORDERED: SODIUM CHLORIDE 0.9% 1000ML 500 ML IV ONE (14:47)
[2019-12-10 15:02] LABS: Albumin Globulin Ratio 0.7 (0.9-2); Bilirubin,Total 0.4 mg/dl (0.2-1); Globulin 4.8 gm/dl (2.5-4.0); Total Protein 8.1 gm/dl (6.4-8.2); Troponin I 0.503 ng/ml (0-0.045)
--- NOTE | 2019-12-10 15:09 | XRay Report ---
XR chest 1V portable CLINICAL HISTORY: Chest pain. COMPARISON STUDY: Chest radiograph April 15, 2018. FINDINGS: Lung volumes are normal. Lungs are clear. There is no pneumothorax or pleural effusion. Car diomegaly is unchanged. There is a left subclavian pacer/AICD, median sternotomy wires and mediastina l surgical clips. Mediastinal contours are normal. There is no evidence for pulmonary edema. The andrea ent is mildly rotated. IMPRESSION: No acute cardiopulmonary findings. ACT 112: Negative or not required by law. Electronically signed by: Marcus Josue M.D. 12/10/2019 3:08 PM
[2019-12-10 15:31] LABS: Magnesium 1.5 mg/dl (1.8-2.4)
[2019-12-10] MEDS ORDERED: MAGNESIUM OXIDE 400 MG TAB PO STA (15:37)
--- NOTE | 2019-12-10 16:58 | History & Physical Report ---
Date of Service December 10, 2019 Assessment & Plan (1) Defibrillator discharge: Pt is 49 y/o M with PMH Ischemic cardiomyopathy s/p ICD with EF 35 to 40% in 2018, CAD s/p CABG in 2017, insulin-dependent DM II, JENNIFER on CPAP, dyslipidemia presented to ER with complaint of ICD firing x 2 today with reported mild palpitations prior to initial device firing today. Denies any associated chest pain, shortness of breath, dizziness, syncope. In ER pt afebrile, P: 101 down to 92, R: 18, BP: 149/93, 99% on RA. No leukocytosis, magnesium: 1.5 Pt asymptomatic at this time In ER magnesium sulfate IV total 2 grams given and 400mg magnesium po In ER medtronic device interrogation: 3 shocks for VT/VF, AF>6hrs for 2 days Tele to monitor Cardiology consult, ER spoke to Dr Perez CBC, BMP, magnesium labs in am (2) Ischemic cardiomyopathy: CAD s/p CABG in 2017 S/P ICD in 2017. EF: 35-40% on echo in 2018 No CP, SOB Pt reports has not been taking metoprolol succinate 200mg daily as he thought that was discontinued when he started the Entresto. Outpatient cardiology note in 07/2019 states he was to stop lisinopril and start Entresto, stop aspirin Continue rosuvastatin Consider restarting metoprolol at lower dose Pt with noted creatine elevation at 1.4 from 1.1 on prior labs in 08/2018. Will continue Entresto currently with close monitoring and further recommendation per cardiology. Cardiology consult, would appreciate further recommendation regarding metoprolol and Entresto. (3) Hypomagnesemia: Magnesium: 1.5 In ER given total 2GM magnesium sulfate IV and 400mg oral magnesium Continue home oral magnesium supplement Monitor magnesium level (4) Elevated troponin: Troponin: 0.5. No CP, SOB, no acute ST changes on EKG Suspect secondary to ICD firing Trend troponin (5) Atrial fibrillation, currently in sinus rhythm: H/O Atrial fibrillation Current sinus rhythm Continue Eliquis (6) Renal insufficiency: Cr 1.4.Cr was 1.1 on prior labs in 08/2018 Monitor renal functions (7) Type 2 diabetes mellitus: A1c: 5.2 in 08/2018 Continue home Lantus Hold home Humalog, metformin and Januvia NovoLog sliding scale per protocol (8) JENNIFER on CPAP: CPAP HS DVT Prophylaxis -On Eliquis Full Code as per discussion with pt Follows with Dr Cagle for routine care Pt was seen and care coordinated with Dr Camarillo. See addendum History of Present Illness Chief Complaint: ICD firing Primary Care Provider: Jc Cagle MD Pt is 49 y/o M with PMH Ischemic cardiomyopathy s/p ICD with EF 35 to 40% in 2018, CAD s/p CABG in 2017, insulin-dependent DM II, JENNIFER on CPAP, dyslipidemia presented to ER with complaint of ICD firing x 2 today. 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 He states was sitting in vehicle eating lunch around 1PM today when had another firing of ICD and denies any prior symptoms. Patient denies any associated chest pain, shortness of breath, dizziness, syncope. He reports feels at his baseline. Reports some BLE edema for past couple of months. Wears compression hose. Pt follows with Dr Pagan, cardiology. In note 07/2019 device episodes were thought to appear to be more consistent with an SVT, possibly reentrant. Even the ventricular tachycardia episodes were likely an SVT. Pt states that he is not taking metoprolol succinate for couple of months as he thought that was discontinued when he started the Entresto. Outpatient cardio logy note in 07/2019 states he was to stop lisinopril and start Entresto and his aspirin was discontinued. (Appears metoprolol succinate 200mg daily was filled at pharmacy in 10/2019 for 90 day supply.) Pt following with podiatry for callus that was removed and ulcer to right foot, denies any surrounding erythema or any discharge, last seen yesterday. Denies fever/chills, diaphoresis, N/V/D/C, PARKER, dizziness, syncope, vision changes, neck pain, CP, SOB, orthopnea, PND, cough, sore throat, choking, otalgia, rhinorrhea, abdominal pain, paresthesias, weakness, extremity weakness, rashes, urinary symptoms. Allergies Allergy/AdvReac Type Severity Reaction Status Date / Time Bactrim Allergy Unknown "severe Verified 05/24/17 08:28 vomiting" sulfamethoxazole AdvReac Unknown "severe Verified 12/10/19 14:48 vomiting" trimethoprim AdvReac Unknown "severe Verified 12/10/19 14:48 vomiting" Home Medications Home Medications Medication Instructions Recorded Confirmed Type metformin 850 mg tablet 850 mg PO BID #180 tab 12/23/18 12/10/19 Rx sitagliptin 100 mg tablet 100 mg PO QAM #90 tab 12/23/18 12/10/19 Rx apixaban 5 mg tablet 5 mg PO BID #180 tab 07/14/19 12/10/19 Rx furosemide 20 mg tablet 20 mg PO DAILY #90 tab 07/14/19 12/10/19 Rx magnesium chloride 64 mg 64 mg PO BID #90 tab 07/14/19 12/10/19 Rx (magnesium chloride) tablet,delayed release potassium chloride 10 mEq 10 meq PO QAM #90 tab 07/14/19 12/10/19 Rx tablet,extended release rosuvastatin 20 mg tablet 20 mg PO HS #90 tab 07/14/19 12/10/19 Rx sacubitril 24 mg-valsartan 26 mg 1 tab PO BID #60 tab 10/13/19 12/10/19 Rx tablet insulin glargine [Lantus Solostar 40 unit SUBCUT DAILY 12/10/19 12/10/19 History U-100 Insulin] insulin lispro [Humalog KwikPen 20 unit SUBCUT TIDM 12/10/19 12/10/19 History Insulin] Past Med/Surg History Medical History (Updated 12/10/19 @ 20:21 by Nidhi Dobson PA-C) Atrial fibrillation, currently in sinus rhythm CAD (coronary artery disease) (Chronic) Diabetes mellitus type II, uncontrolled (Chronic) Diabetic peripheral neuropathy associated with type 2 diabetes mellitus (Chronic) Dyslipidemia (Chronic) Goiter (Chronic) History of cellulitis lower extremity History of diabetic ulcer of foot (Resolved) HTN (hypertension) (Chronic) Ischemic cardiomyopathy (Chronic) 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) Sepsis (Inactive) Sleep apnea (Chronic) cpap Surgical History H/O vasectomy (Chronic) History of implantable cardiac defibrillator (ICD) 05/2017 MEDTRONIC Hx of CABG (Chronic) [place], [place]ART CATH - UNABLE TO STENT AND THEN CABG X [address] [place] [address] PAGAN Hx of foot surgery REMOVAL OF BIG TOE AND SECOND TOE 04/2017 Family History Other Diabetes Heart disease Social History Preferred Language: Algerian Communication Ability: Effective Visual Impairment: No Limitations Crystallographer Required: No Beliefs That Will Affect Care: None marital status: Current Living Situation: Spouse current occupational status: employed Other Information That Helps Us Care for You: No Feels Safe at Home: Yes Safety Concerns: Feels Safe At This Time Smoking Status: Never smoker Second Hand Exposure: No ; Hx Alcohol Use: Yes Alcohol type: beer Hx Substance Use: No Review of Systems Review of Systems: All systems reviewed & are unremarkable except as noted in HPI & below Physical Exam Physical Exam: General: no distress, obese Head: normocephalic, atraumatic Eyes: PERRL, EOM's intact, conjunctiva non-injected, anicteric ENT: normal inspection external ears, nose, mucous membranes moist Neck: supple, trachea midline Lungs: clear, no respiratory distress, no wheezing/rhonchi/rales CV: RRR, no murmur, 1+ pretibial edema Abd: normal BS, soft, non-tender Ext: no cyanosis, no calf tenderness Neuro: A&O x 3, no focal deficits noted, normal affect Skin: warm, dry Results & Data Results & Data ([facility]) Vital Signs (Past 12 Hours) Vital Signs Temp Pulse Resp BP Pulse Ox 12/10/19 15:00 92 H 14 148/89 H 99 12/10/19 14:30 91 H 13 155/84 H 12/10/19 13:12 37.0 C 101 H 18 149/93 H 99 Laboratory Results Short CBC 12/10/19 Range/Units 14:15 WBC 9.28 (4.8-10.8) K/uL Hgb 11.7 L (14.0-18.0) g/dL Hct 35.8 L (42-52) % Plt Count 167 (130-400) K/uL BMP 12/10/19 14:15 Sodium 138 Potassium 4.6 Chloride 105 Carbon Dioxide 26 BUN 28 H Creatinine 1.43 H Glucose 221 H Calcium 9.5 Cardiac Enzymes 12/10/19 12/10/19 Range/Units 14:15 19:35 Troponin I 0.503 H* 1.530 H* (0-0.045) ng/ml Liver Function 12/10/19 Range/Units 14:15 Total Bilirubin 0.4 (0.2-1) mg/dl AST 14 L (15-37) U/L ALT 23 (12-78) U/L Alkaline Phosphatase 140 H (45-117) U/L Albumin 3.3 L (3.4-5.0) gm/dl Diagnostic Findings CXR: IMPRESSION: No acute cardiopulmonary findings. ECG Rhythm: sinus rhythm Findings: + Q waves (Inferior) Supervising Physician Co-Signing Physician Notes HISTORY: Record reviewed. Patient interviewed and examined. Care coordinated with Nidhi Dobson PA-C; please refer to her documentation for complete history. Briefly, 49 YO male with history of ischemic cardiomyopathy, PAF, DM, and other problems as noted. Experienced discharges of AICD today and came to ED for evaluation. Noted some palpitations; no anginal symptoms, SOB, lightheadedness, loss of consciousness. EXAM: General- no distress Neck- large neck mass, R>L, probable multinodular goiter Lungs- clear to auscultation; no respiratory distress Cardiovascular- RRR; no murmur or gallop appreciated; no JVD; 1-2+ pretibial edema Abdomen- + bowel sounds, soft, nontender Extremities- no cyanosis; no calf tenderness; wearing elastic stockings Neuro- alert, oriented Skin- warm & dry DATA: 12/10/19 14:15 12/10/19 14:15 Mg 1.5. Troponin 0.503. Other lab studies as noted. Chest x-ray reviewed and demonstrated sternotomy, left subclavian pacer/defibrillator, cardiomegaly, no infiltrates, effusions, CHF. EKG performed at 1318 reviewed and demonstrated NSR at 95 / minute, possible age-indeterminate inferior infarct, no acute ST or T-wave changes. ASSESSMENT AND PLAN: AICD DISCHARGE AICD placed for ischemic cardiomyopathy. Device discharged twice today. Mg 1.5. Replace Mg. Check TFT's. Device interrogation. Cardiology consulted. CAD / ISCHEMIC CARDIOMYOPATHY History of CAD, s/p CABG. LVEF 35-40% by echo in 2018. Chronic left ventricular systolic heart failure. Started on Entresto a few months ago. Instructed to stop lisinopril before starting Entresto. Patient apparently confused about instructions and stopped metoprolol succinate 200 mg daily as well as Entresto. Continue Entresto with caution in light of worsening renal function. Hold furosemide; then follow and titrate diuretic therapy. Resume beta liam pending Cardiology input- initially metoprolol tartrate 25 mg BID, with anticipated transition to metoprolol succinate. ELEVATED TROPONIN Serum troponin 0.503 after 2 or 3 discharges of AICD. Known underlying CAD, no anginal symptoms or acute EKG changes. Suspect that troponin elevation secondary to AICD discharges. Trend troponins. Further evaluation / management per Cardiology. PAF Resume metoprolol. Correct low Mg. Continue apixaban. SLEEP APNEA Continue CPAP. RENAL INSUFFICIENCY Serum creatinine 1.43, compared to 1.06 on 06/03/18. May have volume depletion from working outside in hot summer weather. Hold furosemide. Received 500 ml NSS in ED. Continue Entresto with caution. Follow serum chemistries. Check SPEP and UPEP. Consult Nephrology if ongoing concerns. THYROMEGALY Large neck mass, probable multinodular goiter. Check US, TFT's. ELEVATED SERUM GLOBULIN Serum globulin 4.8, alb/glob ration 0.7. Check SPEP and UPEP. Please refer to RHONDA Dobson's documentation for discussion of other issues. 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
[2019-12-10] MEDS: MAGNESIUM SULFATE / D5W 1 GM/100 ML BAG IV SCH ×2 (17:03→17:53)
[2019-12-10] MEDS ORDERED: GLUCOSE 40% GEL 15 GM TUBE PO PRN (18:26)
[2019-12-10] MEDS ORDERED: CARBOHYDRATES FOR HYPOGLYCEMIA PO PRN (18:26)
[2019-12-10] MEDS ORDERED: GLUCAGON FOR INJ 1 MG VIAL SQ PRN (18:26)
[2019-12-10] MEDS ORDERED: DEXTROSE 50% 50 ML SYRINGE IV PRN (18:26)
[2019-12-10] MEDS ORDERED: ACETAMINOPHEN 325 MG TAB PO PRN (18:26)
[2019-12-10] MEDS ORDERED: GLUCOSE 10 TABS/TUBE PO PRN (18:26)
[2019-12-10] MEDS ORDERED: ROSUVASTATIN CALCIUM 20 MG TAB PO SCH (21:00)
[2019-12-10] MEDS: SACUBITRIL-VALSARTAN 24-26 MG TAB PO SCH (21:01)
[2019-12-10] MEDS: MAGNESIUM CHLORIDE 64MG DELAYED REL TAB PO SCH (21:01)
[2019-12-10] MEDS: APIXABAN 5 MG TABLET PO SCH (21:01)
[2019-12-10] MEDS: METOPROLOL TARTRATE 25 MG TAB PO SCH (21:19)
[2019-12-10] MEDS: INSULIN ASPART 100 UNITS/ML 3 ML PEN SC SCH (21:45)
[2019-12-11 06:21] LABS: Hematocrit (blood only) 32.4 % (42-52); Hemoglobin 10.3 g/dL (14.0-18.0); Mean Corpuscular Hemoglobin 25.6 pg (25-34); Mean Corpuscular Hgb Conc 31.8 g/dL (32-36); Mean Corpuscular Volume 80.6 fL (80-100); Mean Platelet Volume 10.4 fL (7.4-10.4); Platelet Count 157 K/uL (130-400); RDW Coefficient of Variation 14.1 % (11.5-14.5); RDW Standard Deviation 41.7 fL (36.4-46.3); Red Blood Count 4.02 M/uL (4.7-6.1); White Blood Count 6.82 K/uL (4.8-10.8)
[2019-12-11 06:55] LABS: Estimated Average Glucose 263 mg/dl; Hemoglobin A1C 10.8 % (4.5-5.6)
[2019-12-11 07:05] LABS: BUN Creatinine Ratio 23.1 (10-20); Calcium 8.9 mg/dl (8.5-10.1); Creatinine Clr Calc Pharmacy 121.1 ml/min; Est GFR (African American) 110.6; Est GFR (Non-African American) 95.4; Magnesium 1.9 mg/dl (1.8-2.4); Potassium 4.1 mmol/L (3.5-5.1)
[2019-12-11 07:18] LABS: T4 Free Thyroxine 1.21 ng/dl (0.8-1.6); Thyroid Stimulating Hormone 1.16 uIu/ml (0.300-4.500); Troponin I 0.785 ng/ml (0-0.045)
--- NOTE | 2019-12-11 07:52 | XRay Report ---
XR chest 1V portable CLINICAL HISTORY: CHF dyspnea COMPARISON STUDY: 12/10/2019 FINDINGS: Moderate stable cardiomegaly. Prior median sternotomy. Unipolar cardiac pacemaker/defibrill ator unchanged in position. Lungs are considered clear. Diaphragms are smooth. IMPRESSION: Chronic and postoperative change. No acute process. No change from the prior exam. ACT 112: Negative or not required by law. The above report was generated using voice recognition software. It may contain grammatical, syntax or spelling errors. Electronically signed by: Arias Manzanares M.D. 12/11/2019 7:50 AM
[2019-12-11] MEDS: INSULIN ASPART 100 UNITS/ML 3 ML PEN SC SCH ×2 (07:57→12:06)
[2019-12-11] MEDS: APIXABAN 5 MG TABLET PO SCH (07:58)
[2019-12-11] MEDS: SACUBITRIL-VALSARTAN 24-26 MG TAB PO SCH (07:58)
[2019-12-11] MEDS: METOPROLOL TARTRATE 25 MG TAB PO SCH (07:58)
[2019-12-11] MEDS: MAGNESIUM CHLORIDE 64MG DELAYED REL TAB PO SCH (07:59)
[2019-12-11] MEDS ORDERED: FUROSEMIDE 20 MG TAB PO SCH (09:00)
[2019-12-11] MEDS ORDERED: INSULIN GLARGINE SOLOSTAR 100 UNITS/ML 3 ML PEN SQ SCH (09:00)
[2019-12-11] MEDS ORDERED: POTASSIUM CHLORIDE 10 MEQ TABCR PO SCH (09:00)
--- NOTE | 2019-12-11 10:16 | Ultrasound Report ---
US thyroid HISTORY: Neck mass large neck mass, probable multinodular goiter COMPARISON: 05/07/2012 FINDINGS: Right lobe: Maximum dimension of the right thyroid is 13 cm. Partially calcified nodule is present m easuring 2.3 x 2.1 cm at maximum. Internal echogenicity of the right thyroid lobe is heterogeneous Left lobe: Maximum dimension 7 cm. 1.4 cm lower pole nodule with a 9 mm upper pole nodule. Isthmus: No nodules. IMPRESSION: 1. Findings consistent with a multinodular thyroid/goiter. 2. Dimensions are similar as compared to the prior study. 3. Mild increase in size of a partially calcified nodule mid right thyroid measuring 2.3 x 2.1 cm at maximum. 4. Ultrasound-guided biopsy if clinically indicated is recommended. ACT 112: Negative or not required by law. The above report was generated using voice recognition software. It may contain grammatical, syntax or spelling errors. Electronically signed by: Arias Manzanares M.D. 12/11/2019 10:14 AM
--- NOTE | 2019-12-11 11:13 | XCELERA ---
[id number] \\[id number]
--- NOTE | 2019-12-11 12:30 | Cardiology Consultation ---
Date of Consultation December 11, 2019 Assessment & Plan (1) Ventricular tachycardia: I reviewed the intracardiac electrograms suggested this was ventricular tachycardia. He has a history of atrial fibrillation and there certainly can be some overlap in rates between ventricular tachycardia and atrial fibrillation. However, this was a very regular tachycardia which did not meet morphology criteria. The etiology of this arrhythmia is likely scar mediated VT from his ischemic cardiomyopathy. I do not believe this was related to acute ischemia. While he did have a slightly low magnesium at the time of admission some likely this precipitated the arrhythmia either. I think we should increase his metoprolol to 250 milligrams daily. I would like to start him on amiodarone 400 milligrams twice daily for 10 days and then reduced to 400 milligrams daily. This is a short-term intervention. We will keep him on amiodarone for a couple of months and then begin weaning. Recurrent events may require more aggressive antiarrhythmic therapy, increasing beta-blockade or catheter based therapy. (2) Elevated troponin: I believe this is likely related to his ventricular tachycardia, therapy for ventricular tachycardia and cardiomyopathy. I do not believe this represents an acute coronary syndrome or requires any additional evaluation at this point. (3) Hypomagnesemia: I think he should double his outpatient dose of magnesium supplementation. (4) Atrial fibrillation with RVR: His device does record occasional episodes of atrial fibrillation. This is an irregular rhythm which also has high rates. I think increasing his metoprolol on the initiation amiodarone will help reduce the chance of inappropriate therapies. (5) CAD (coronary artery disease): Status post surgical revascularization. No current symptoms suggestive of ischemia. Continue aggressive secondary prevention with apixaban, metoprolol and rosuvastatin (6) Ischemic cardiomyopathy: He continues to have element of LV dysfunction. This is not changed much over time. He is on appropriate medical therapy to include metoprolol succinate, Entresto and a diuretic. I think we will monitor his blood pressure response to the increased dose of metoprolol and consider increasing his Entresto at his follow-up visit. History of Present Illness Reason for Consultation: Ventricular tachycardia Requesting Physician: Alfredo Attending Physician: True Fuentes MD History of Present Illness Patient is a 49-year-old gentleman with a history of an ischemic cardiomyopathy, coronary artery disease and atrial fibrillation who presented to the emergency room yesterday after receiving therapy from his ICD. Patient states that initial episode happened mid morning. He was not doing anything particularly strenuous. He felt a very mild sensation of palpitations leading up to a shock from his device. He felt well afterwards and continued his daily activity. However, approximately 2 hours later he received another therapy and proceeded to the emergency room for evaluation. He did not notice any additional symptoms. He did not lose consciousness. He has not had therapy in the past. He claims to have been feeling well otherwise recently. He has maintained his usual level of activity without any new limitations or symptoms. He denies any exertional chest pain or chest pain at rest. No chest pain associated with his event yesterday. He has not report limiting dyspnea. He denies orthopnea or paroxysmal nocturnal dyspnea. He has some mild lower extremity edema for which he uses compression stockings. This may have become slightly worse recently. He feels that his weight however has remained stable at home. He appears to be compliant with his diet. There was some concern that he was noncompliant with his medical therapy but I believe this was erroneous. Currently he is feeling well. He denies any current symptoms of chest discomfort or breathing difficulty. Allergies Allergy/AdvReac Type Severity Reaction Status Date / Time Bactrim Allergy Unknown "severe Verified 05/24/17 08:28 vomiting" sulfamethoxazole AdvReac Unknown "severe Verified 12/10/19 14:48 vomiting" trimethoprim AdvReac Unknown "severe Verified 12/10/19 14:48 vomiting" Home Medications Home Medications Medication Instructions Recorded Confirmed Type metformin 850 mg tablet 850 mg PO BID #180 tab 12/23/18 12/10/19 Rx sitagliptin 100 mg tablet 100 mg PO QAM #90 tab 12/23/18 12/10/19 Rx apixaban 5 mg tablet 5 mg PO BID #180 tab 07/14/19 12/10/19 Rx furosemide 20 mg tablet 20 mg PO DAILY #90 tab 07/14/19 12/10/19 Rx magnesium chloride 64 mg 64 mg PO BID #90 tab 07/14/19 12/10/19 Rx (magnesium chloride) tablet,delayed release potassium chloride 10 mEq 10 meq PO QAM #90 tab 07/14/19 12/10/19 Rx tablet,extended release rosuvastatin 20 mg tablet 20 mg PO HS #90 tab 07/14/19 12/10/19 Rx sacubitril 24 mg-valsartan 26 mg 1 tab PO BID #60 tab 10/13/19 12/10/19 Rx tablet insulin glargine [Lantus Solostar 40 unit SUBCUT DAILY 12/10/19 12/10/19 History U-100 Insulin] insulin lispro [Humalog KwikPen 20 unit SUBCUT TIDM 12/10/19 12/10/19 History Insulin] Patient History Medical History Atrial fibrillation, currently in sinus rhythm CAD (coronary artery disease) (Chronic) Diabetes mellitus type II, uncontrolled (Chronic) Diabetic peripheral neuropathy associated with type 2 diabetes mellitus (Chronic) Dyslipidemia (Chronic) Goiter (Chronic) History of cellulitis lower extremity History of diabetic ulcer of foot (Resolved) HTN (hypertension) (Chronic) Ischemic cardiomyopathy (Chronic) 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) Sepsis (Inactive) Sleep apnea (Chronic) cpap Surgical History H/O vasectomy (Chronic) History of implantable cardiac defibrillator (ICD) 05/2017 [employer] Hx of CABG (Chronic) 2017 [place], HEART CATH - UNABLE TO STENT AND THEN CABG X - [facility] FOLLOWS WITH DR PAGAN Hx of foot surgery REMOVAL OF BIG TOE AND SECOND TOE 04/2017 Family History Other Diabetes Heart disease Social History Preferred Language: Hebrew Communication Ability: Effective Visual Impairment: No 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 Mood and affect appeared normal. He answered all questions appropriately. HEENT: Pupils are equal and reactive to light and accommodation. Extraocular movements are intact. The sclerae are anicteric. Neuro: Cranial nerves intact Neck: Patient has asymmetric enlargement of the neck with what appears to be a firm mass which is nontender and the right neck. Lungs: Clear to auscultation bilaterally. He has good air movement without use of accessory muscles. No rales wheezes or rhonchi. Cardiac: Heart demonstrates a regular rate and rhythm. Normal S1 and S2. No murmurs on examination. Pulses: The patient has palpable radial pulses bilaterally that are equal in intensity Extremities: There was no evidence of hypoperfusion. There is no cyanosis or clubbing. Is wearing compression stockings on both legs. Mild lower extremity edema. Skin: I did not appreciate any rashes on examination today. Results & Data ([facility]) Vital Signs (Past 12 Hours) Vital Signs Temp Pulse Pulse Pulse Resp BP Pulse Ox 12/11/19 12:10 37.1 C 76 21 157/93 H 97 12/11/19 07:49 36.8 C 93 H 20 155/93 H 100 12/11/19 03:39 72 18 97 12/11/19 02:55 36.8 C 71 136/85 98 Laboratory Results Abnormal Lab Results 12/10/19 12/10/19 12/10/19 14:15 14:15 14:15 WBC 9.28 RBC 4.57 L Hgb 11.7 L Hct 35.8 L MCV 78.3 L MCH 25.6 MCHC 32.7 RDW Std Deviation 39.2 RDW Coeff of Baldo 13.9 Plt Count 167 MPV 10.2 Immature Gran % (Auto) 0.4 Neut % (Auto) 76.8 Lymph % (Auto) 13.9 [place] % (Auto) 7.7 Eos % (Auto) 1.0 Baso % (Auto) 0.2 Neut # (Auto) 7.13 H Lymph # (Auto) 1.29 [place] # (Auto) 0.71 H Eos # (Auto) 0.09 Baso # (Auto) 0.02 Immature Gran # (Auto) 0.04 H PT 12.2 H INR 1.2 H APTT 29.3 PTT Ratio 1.1 Sodium 138 Potassium 4.6 Chloride 105 Carbon Dioxide 26 Anion Gap 7.0 BUN 28 H Creatinine 1.43 H Est Cr Clr Drug Dosing 79.2 Est GFR ( Amer) 65.7 Est GFR (Non-Af Amer) 56.7 BUN/Creatinine Ratio 19.3 Glucose 221 H POC Glucose Estimat Average Glucose Hemoglobin A1c Calcium 9.5 Magnesium 1.5 L Total Bilirubin 0.4 AST 14 L ALT 23 Alkaline Phosphatase 140 H Troponin I 0.503 H* Total Protein 8.1 Albumin 3.3 L Globulin 4.8 H Albumin/Globulin Ratio 0.7 L TSH Free T4 Free T3 12/10/19 12/10/19 12/10/19 18:35 19:35 20:20 WBC RBC Hgb Hct MCV MCH MCHC RDW Std Deviation RDW Coeff of Blado Plt Count MPV Immature Gran % (Auto) Neut % (Auto) Lymph % (Auto) [place] % (Auto) Eos % (Auto) Baso % (Auto) Neut # (Auto) Lymph # (Auto) [place] # (Auto) Eos # (Auto) Baso # (Auto) Immature Gran # (Auto) PT INR APTT PTT Ratio Sodium Potassium Chloride Carbon Dioxide Anion Gap BUN Creatinine Est Cr Clr Drug Dosing Est GFR ( Amer) Est GFR (Non-Af Amer) BUN/Creatinine Ratio Glucose POC Glucose 166 H 127 H Estimat Average Glucose Hemoglobin A1c Calcium Magnesium Total Bilirubin AST ALT Alkaline Phosphatase Troponin I 1.530 H* Total Protein Albumin Globulin Albumin/Globulin Ratio TSH Free T4 Free T3 12/11/19 12/11/19 12/11/19 05:57 05:57 05:57 WBC 6.82 RBC 4.02 L Hgb 10.3 L Hct 32.4 L MCV 80.6 MCH 25.6 MCHC 31.8 L RDW Std Deviation 41.7 RDW Coeff of Baldo 14.1 Plt Count 157 MPV 10.4 Immature Gran % (Auto) Neut % (Auto) Lymph % (Auto) [place] % (Auto) Eos % (Auto) Baso % (Auto) Neut # (Auto) Lymph # (Auto) [place] # (Auto) Eos # (Auto) Baso # (Auto) Immature Gran # (Auto) PT INR APTT PTT Ratio Sodium 142 Potassium 4.1 Chloride 110 H Carbon Dioxide 27 Anion Gap 5.0 BUN 22 H Creatinine 0.93 D Est Cr Clr Drug Dosing 121.1 Est GFR ( Amer) 110.6 Est GFR (Non-Af Amer) 95.4 BUN/Creatinine Ratio 23.1 H Glucose 141 H POC Glucose Estimat Average Glucose 263 Hemoglobin A1c 10.8 H Calcium 8.9 Magnesium 1.9 Total Bilirubin AST ALT Alkaline Phosphatase Troponin I 0.785 H* Total Protein Albumin Globulin Albumin/Globulin Ratio TSH 1.160 Free T4 1.21 Free T3 12/11/19 12/11/19 12/11/19 05:57 07:08 12:05 WBC RBC Hgb Hct MCV MCH MCHC RDW Std Deviation RDW Coeff of Baldo Plt Count MPV Immature Gran % (Auto) Neut % (Auto) Lymph % (Auto) [place] % (Auto) Eos % (Auto) Baso % (Auto) Neut # (Auto) Lymph # (Auto) [place] # (Auto) Eos # (Auto) Baso # (Auto) Immature Gran # (Auto) PT INR APTT PTT Ratio Sodium Potassium Chloride Carbon Dioxide Anion Gap BUN Creatinine Est Cr Clr Drug Dosing Est GFR ( Amer) Est GFR (Non-Af Amer) BUN/Creatinine Ratio Glucose POC Glucose 149 H 232 H Estimat Average Glucose Hemoglobin A1c Calcium Magnesium Total Bilirubin AST ALT Alkaline Phosphatase Troponin I Total Protein Albumin Globulin Albumin/Globulin Ratio TSH Free T4 Free T3 2.71 Diagnostic Findings Chest x-ray obtained this admission not reveal any acute cardiopulmonary process Echocardiogram obtained today revealed mild to moderately reduced LV systolic function with ejection fraction between 40 and 45 percent. No significant valvular heart disease. Interrogation of his device did reveal 3 episodes of ventricular tachycardia. This was a very regular and fast rhythm. Attempts at ATP did not resolve the arrhythmia and he did require cardioversion on 3 occasions. Sensing threshold parameters were normal. PG Care Time/CCT Total # of Minutes Spent Total Time Spent with Patient: Total time spent is greater than 50% in coordination of care (as documented) at patient's floor/unit and/or counseling patient: Coding Level of Care Code 21874 Office/OBS Consult Lvl 5 Diagnoses Ventricular tachycardia I47.2 Elevated troponin R79.89 Hypomagnesemia E83.42 Atrial fibrillation with RVR I48.91 CAD (coronary artery disease) I25.10 Coronary Disease-Associated Artery/Lesion type: [place] artery [place] vs. transplanted heart: [place] heart Associated angina: without angina Ischemic cardiomyopathy I25.5 (1) CAD (coronary artery disease) Coronary Disease-Associated Artery/Lesion type: [place] artery [place] vs. transplanted heart: [place] heart Associated angina: without angina Qualified Code(s): I25.10 - Atherosclerotic heart disease of [place] coronary artery without angina pectoris
[2019-12-11] MEDS ORDERED: METOPROLOL SUCC 50MG EXT REL TAB PO ONE (13:00)
--- NOTE | 2019-12-11 13:13 | Hospitalist Progress Note ---
Date of Service December 11, 2019 Assessment & Plan (1) Defibrillator discharge: Defibrillator discharge because of Ventricular Tachycardia Pt is 49 y/o M with PMH Ischemic cardiomyopathy s/p ICD with EF 35 to 40% in 2018, CAD s/p CABG in 2017, insulin-dependent DM II, JENNIFER on CPAP, dyslipidemia presented to ER with complaint of ICD firing x 2 today with reported mild palpitations prior to initial device firing today. Denies any associated chest pain, shortness of breath, dizziness, syncope. In ER pt afebrile, P: 101 down to 92, R: 18, BP: 149/93, 99% on RA. No leukocytosis, magnesium: 1.5 Pt asymptomatic at this time In ER magnesium sulfate IV total 2 grams given and 400mg magnesium po In ER medtronic device interrogation: 3 shocks for VT/VF, AF>6hrs for [address] Pagan discussed with hospitalist that patient did have episode of Ventricular Tachycardia which led to defibrillator firing for which patient came to [facility] on 12/10/2019. Dr. Pagan also reports that his current echocardiogram with unchanged cardiomyopathy. Dr. Pagan allows for hospital discharge from [facility] on 12/11/2019 and recommend increased outpatient magnesium supplements, metoprolol succinate to be as 250 mg daily, amiodarone as 400 mg twice a day for the first 10 days and then as 400 mg once a day dosing patient received metoprolol and amiodarone medication changes in hospital on 12/11/2019. discharge medication sent electronically to [facility] [place] [address] patient may start night time dose of amiodarone on 12/11/2019 and start metoprolol succinate dose on 12/12/2019 at home [facility] cardiology Dr. Pagan reports patient should be having upcoming cardiology clinic appointent Patient should confirm cardiology appointment with [facility] Address: [address] [place] [address], [place] [address] (2) Elevated troponin: -elevated Troponin related to his ventricular tachycardia, therapy for ventricular tachycardia and cardiomyopathy. Cardiology service does not assess this as guest experience representative of an acute coronary syndrome or requires any additional evaluation at this point (3) Ischemic cardiomyopathy: -CAD s/p CABG in 2017 -S/P ICD in 2017. -management as above (4) Hypomagnesemia: -admission serum Magnesium: 1.5, In ER given total 2GM magnesium sulfate IV and 400mg oral magnesium -increase oral magnesium on discharge (5) Atrial fibrillation, currently in sinus rhythm: -history of Atrial fibrillation in the past -Current sinus rhythm -Continue Eliquis (6) Renal insufficiency: Renal insufficiency (improved) Elevated serum globulin level -Cr 1.4 on 12/10/2019 (was 1.1 on prior labs in 08/2018), -normalized creatinine by 12/11/2019 -elevated globulin level of 4.8 gm/dl (reference level of normal is 2.5 to 4) on 12/11/2019, Serum and urine protein electrophoresis labs are pending were sent, to be followed up by primary care doctor (7) Type 2 diabetes mellitus: 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 breathing on room air, no shortness of breath, no dizziness. no headache, ate the food, no vomiting. discharge recommendations and instructions discussed at length Review of Systems Review of Systems: All systems reviewed & are unremarkable except as noted in Subjective Physical Exam Constitutional: comfortable Eyes: PERRL, conjunctivae normal, anicteric sclerae EOM intact bilaterally ENMT: external ear and nose normal, oropharynx normal Neck: trachea midline, no thyromegaly normal visual inspection Respiratory: normal respiratory effort, lungs clear to auscultation Cardiovascular: Rate/Rhythm: regular rate Gastrointestinal (Abdomen): normal bowel sounds, soft, nontender, no hepatosplenomegaly Musculoskeletal: Head/Neck/Chest: normocephalic and head atraumatic Neurologic: PERRL, EOMI, accommodation nl, no face palsy, no dysarthria CN's II-XI intact bilaterally Psychiatric: A+Ox3, euthymic affect Results & Data Results & Data (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
--- NOTE | 2019-12-11 13:21 | Discharge Summary ---
Date of Service December 11, 2019 Admission HPI Per Admitting Provider Pt is 49 y/o M with PMH Ischemic cardiomyopathy s/p ICD with EF 35 to 40% in 2018, CAD s/p CABG in 2017, insulin-dependent DM II, JENNIFER on CPAP, dyslipidemia presented to ER with complaint of ICD firing x 2 today. 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 He states was sitting in vehicle eating lunch around 1PM today when had another firing of ICD and denies any prior symptoms. Patient denies any associated chest pain, shortness of breath, dizziness, syncope. He reports feels at his baseline. Reports some BLE edema for past couple of months. Wears compression hose. Pt follows with Dr Pagan, cardiology. In note 07/2019 device episodes were thought to appear to be more consistent with an SVT, possibly reentrant. Even the ventricular tachycardia episodes were likely an SVT. Pt states that he is not taking metoprolol succinate for couple of months as he thought that was discontinued when he started the Entresto. Outpatient cardiology note in 07/2019 states he was to stop lisinopril and start Entresto and his aspirin was discontinued. (Appears metoprolol succinate 200mg daily was filled at pharmacy in 10/2019 for 90 day supply.) Pt following with podiatry for callus that was removed and ulcer to right foot, denies any surrounding erythema or any discharge, last seen yesterday. Denies fever/chills, diaphoresis, N/V/D/C, PARKER, dizziness, syncope, vision changes, neck pain, CP, SOB, orthopnea, PND, cough, sore throat, choking, otalgia, rhinorrhea, abdominal pain, paresthesias, weakness, extremity weakness, rashes, urinary symptoms. Principal Diagnosis Defibrillator discharge because of Ventricular Tachycardia Elevated troponins Ischemic Cardiomyopathy Hypomagnesemia Diabetes Type 2 with halfway current use of insulin Renal insufficiency (improved) Elevated serum globulin level Discharge Exam Constitutional comfortable Eyes PERRL, conjunctivae normal, anicteric sclerae EOM intact bilaterally ENMT external ear and nose normal, oropharynx normal Neck trachea midline, no thyromegaly normal visual inspection Respiratory normal respiratory effort, lungs clear to auscultation Cardiovascular Rate/Rhythm: regular rate Gastrointestinal (Abdomen) normal bowel sounds, soft, nontender, no hepatosplenomegaly Musculoskeletal Head/Neck/Chest: normocephalic and head atraumatic Neurologic PERRL, EOMI, accommodation nl, no face palsy, no dysarthria CN's II-XI intact bilaterally Psychiatric A+Ox3, euthymic affect Discharge Data Allergies Allergy/AdvReac Type Severity Reaction Status Date / Time Bactrim Allergy Unknown "severe Verified 05/24/17 08:28 vomiting" sulfamethoxazole AdvReac Unknown "severe Verified 12/10/19 14:48 vomiting" trimethoprim AdvReac Unknown "severe Verified 12/10/19 14:48 vomiting" Consultations 12/10/19 15:55 ED Decision to Admit Stat 12/10/19 18:26 Consult Cardiology Routine Ordered Studies 12/11/19 09:00 thyroid Routine Hospital Course (1) Defibrillator discharge: Defibrillator discharge because of Ventricular Tachycardia Pt is 49 y/o M with PMH Ischemic cardiomyopathy s/p ICD with EF 35 to 40% in 2018, CAD s/p CABG in 2017, insulin-dependent DM II, JENNIFER on CPAP, dyslipidemia presented to ER with complaint of ICD firing x 2 today with reported mild palpitations prior to initial device firing today. Denies any associated chest pain, shortness of breath, dizziness, syncope. In ER pt afebrile, P: 101 down to 92, R: 18, BP: 149/93, 99% on RA. No leukocytosis, magnesium: 1.5 Pt asymptomatic at this time In ER magnesium sulfate IV total 2 grams given and 400mg magnesium po In ER medtronic device interrogation: 3 shocks for VT/VF, AF>6hrs for [address] Pagan discussed with hospitalist that patient did have episode of Ventricular Tachycardia which led to defibrillator firing for which patient came to [facility] on 12/10/2019. Dr. Pagan also reports that his current echocardiogram with unchanged cardiomyopathy. Dr. Pagan allows for hospital discharge from [facility] on 12/11/2019 and recommend increased outpatient magnesium supplements, metoprolol succinate to be as 250 mg daily, amiodarone as 400 mg twice a day for the first 10 days and then as 400 mg once a day dosing patient received metoprolol and amiodarone medication changes in hospital on 12/11/2019. discharge medication sent electronically to [facility] [address] [place] [address] patient may start night time dose of amiodarone on 12/11/2019 and start metoprolol succinate dose on 12/12/2019 at home [facility] cardi[facility] Dr. Pagan reports patient should be having upcoming cardiology clinic appointent Patient should confirm cardiology appointment with [facility] Address: [facility] [address], [place] [address] (2) Elevated troponin: -elevated Troponin related to his ventricular tachycardia, therapy for ventricular tachycardia and cardiomyopathy. 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 -management as above (4) Hypomagnesemia: -admission serum Magnesium: 1.5, In ER given total 2GM magnesium sulfate IV and 400mg oral magnesium -increase oral magnesium on discharge (5) Atrial fibrillation, currently in sinus rhythm: -history of Atrial fibrillation in the past -Current sinus rhythm -Continue Eliquis (6) Renal insufficiency: Renal insufficiency (improved) Elevated serum globulin level -Cr 1.4 on 12/10/2019 (was 1.1 on prior labs in 08/2018), -normalized creatinine by 12/11/2019 -elevated globulin level of 4.8 gm/dl (reference level of normal is 2.5 to 4) on 12/11/2019, Serum and urine protein electrophoresis labs are pending were sent, to be followed up by primary care doctor (7) Type 2 diabetes mellitus: Diabetes Type 2 with intermediate teacher current use of insulin -A1c: 5.2 in 08/2018 -given insulin in the hospital -Patient noted to have elevated Hemoglobin A1c of 10.8 on 12/11/2019 and should closely follow home blood sugars and discuss with family doctor about tighter diabetes control with medications or cutting back on daily sugar intake -primary care appointment 12/17/2019 11:20 AM Provider Jc Cagle MD [facility] (8) JENNIFER on CPAP: -CPAP HS Total Time Total Time Spent Total Time Spent (In Minutes): 40 minutes Total Time Includes: Examination of the Patient, Discharge Planning, Medication Reconciliation and Communication With Other Providers Discharge Plan Discharge Items Patient Disposition: Home - Self-Care Reason For Visit: ICD FIRING Discharge Diagnosis: Defibrillator discharge because of Ventricular Tachycardia Elevated troponins Ischemic Cardiomyopathy Hypomagnesemia Diabetes Type 2 with intermediate teacher current use of insulin Renal insufficiency (improved) Elevated serum globulin level Condition on Discharge: Good Activity: Resume your previous activity Non-emergency contact: Primary Care Provider Call non-emergency contact if: you have any medication questions Follow-up/Referrals: Jc Cagle MD [Primary Care Provider] - 12/17/19 11:20 am Diet: Carb Consistent or DM2 and Heart Healthy Addtl Attending Provider Instructions: Dr. Pagan discussed with hospitalist that patient did have episode of Ventricular Tachycardia which led to defibrillator firing for which patient came to [facility] on 12/10/2019. Dr. Pagan also reports that his current echocardiogram with unchanged cardiomyopathy. Dr. Pagan allows for hospital discharge from [facility] on 12/11/2019 and recommend increased outpatient magnesium supplements, metoprolol succinate to be as 250 mg daily, amiodarone as 400 mg twice a day for the first 10 days and then as 400 mg once a day dosing patient received metoprolol and amiodarone medication changes in hospital on 12/11/2019. discharge medication sent electronically to [facility] [address] [place] [id number] patient may start night time dose of amiodarone on 12/11/2019 and start metoprolol succinate dose on 12/12/2019 at home [facility] cardiology Dr. Pagan reports patient should be having upcoming cardiology clinic appointent Patient should confirm cardiology appointment with [facility] Address: [address] [address], [place] [address] Patient noted to have elevated Hemoglobin A1c of 10.8 on 12/11/2019 and should closely follow home blood sugars and discuss with family doctor about tighter diabetes control with medications or cutting back on daily sugar intake primary care appointment 12/17/2019 11:20 AM Provider Jc Cagle MD [facility] Pending Studies at Discharge: Yes Studies:: elevated globulin level of 4.8 gm/dl (reference level of normal is 2.5 to 4) on 12/11/2019, Serum and urine protein electrophoresis labs are pending were sent, to be followed up by primary care doctor Stand-Alone Forms: My [facility], Smoking Cessation Medications and DC Order Prescriptions: New amiodarone 200 mg Tablet 400 mg PO UD 40 Days Qty: 80 RF: 0 metoprolol succinate 50 mg Tablet Extended Release 24 Hr 250 mg PO QAM 30 Days Qty: 150 RF: 0 magnesium chloride [Mag 64] 64 mg Tablet,Delayed Release (Dr/Ec) 64 mg PO QID 30 Days Qty: 120 RF: 0 Continued metformin 850 mg tablet 850 mg PO BID Qty: 180 RF: 3 sitagliptin 100 mg tablet 100 mg PO QAM Qty: 90 RF: 3 Entresto 24-26 mg tablet 1 tab PO BID Qty: 60 RF: 2 Eliquis 5 mg tablet 5 mg PO BID Qty: 180 RF: 1 furosemide 20 mg tablet 20 mg PO DAILY Qty: 90 RF: 3 potassium chloride 10 mEq tablet extended release 10 meq PO QAM Qty: 90 RF: 3 rosuvastatin 20 mg tablet 20 mg PO HS Qty: 90 RF: 3 insulin lispro [Humalog KwikPen Insulin] 100 unit/mL insulin pen 20 unit SUBCUT TIDM RF: 0 Lantus Solostar U-100 Insulin 100 unit/mL (3 mL) insulin pen 40 unit SUBCUT DAILY RF: 0 Discontinued magnesium chloride 64 mg tablet,delayed release (DR/EC) 64 mg PO BID Qty: 90 RF: 3 Discharge Orders: Discharge Order (Routine); Ordered 12/11/19 Ordered By: True Herrera/Other Patient Handouts: Diabetes and Heart Disease, Long-Term Complications of Diabetes, Healthy Meals for Diabetes, Diabetes: The Benefits of Exercise, Managing Diabetes: The A1C Test Admission Data Admit Date/Time: 12/10/19 16:19 Attending Provider: True Fuentes Admit Provider: Abdi Camarillo Primary Care Provider: Jc Cagle Other Providers: Abdi Camarillo ; Joselo Perez
[2019-12-11] MEDS ORDERED: AMIODARONE 200 MG TAB PO SCH ×2 (17:00)
--- NOTE | 2019-12-12 04:46 | Electrocardiogram Report ---
Test Reason : Blood Pressure : / mmHG Vent. Rate : 081 BPM Atrial Rate : 081 BPM P-R Int : 180 ms QRS Dur : 094 ms QT Int : 394 ms P-R-T Axes : 075 -48 111 degrees QTc Int : 457 ms Sinus rhythm with occasional Premature ventricular complexes Left axis deviation Inferior infarct (cited on or before 16-MAY-2017) Nonspecific T wave abnormality Abnormal ECG When compared with ECG of 10-DEC-2019 13:18, Premature ventricular complexes are now Present Confirmed by Joselo Perez ([id number]) on 12/12/2019 4:45:49 AM Referred By: REFERRED SELF Confirmed By:Joselo Perez
[2019-12-12] MEDS ORDERED: METOPROLOL SUCC 50MG EXT REL TAB PO SCH (09:00)
[2019-12-12 19:05] LABS: Alpha 1 Globulin 0.4 g/dL (0.2-0.3); Beta-1-Globulin 0.4 g/dL (0.4-0.6); Beta-2-Globulin 0.4 g/dL (0.2-0.5); Monoclonal Protein Band 1 DNR g/dL (NONE DETECTED); Monoclonal Protein Band 2 DNR g/dL (NONE DETECTED); Monoclonal Protein Band 3 DNR g/dL (NONE DETECTED); Total Protein 6.2 g/dL (6.1-8.1)
[2019-12-15 10:04] LABS: Creatinine Ur 74 mg/dL (20-320); Protein, Urine Random 53 mg/dL (5-25); Ur Protein/Creat Ratio mg/g 716 mg/g creat (22-128); Urine Abnormal Protein Band 1 DNR mg/dL (NONE DETECTED); Urine Abnormal Protein Band 2 DNR mg/dL (NONE DETECTED); Urine Abnormal Protein Band 3 DNR mg/dL (NONE DETECTED); Urine Protein/Creatinine Ratio 0.716 (0.022-0.128)
--- NOTE | 2019-12-16 15:00 | Communication Note ---
Date of Service: December 16, 2019 SPEP results pending at time of discharge. Possible M-spike noted. PCP notified & serum immunoelectrophoresis recommended.
== END 2019-12-11 17:39 | disposition home or self-care (01) ==
LOC: 2E 13:06 → ED 13:06 → SUATTDRO 16:19 → 2E 17:45

== ENCOUNTER 2019-12-25 07:08 | Inpatient (IN) ==
--- NOTE | 2019-12-25 07:46 | Emergency Department Note ---
History of Present Illness General Chief complaint: Foot Injury/Pain Stated complaint: RT FOOT WOUND Time Seen by Provider: 12/25/19 07:18 Source: patient Mode of arrival: ambulatory Limitations: no limitations History of Present Illness This patient is a 49-year-old male who presents the emergency department for evaluation of a right foot wound. Patient reports he has had a wound on his right foot for the past few months. He states there was initially a callus which came off. [facility] sees [facility]. He has been having appointments every few weeks. He states that about 1 week ago, he noticed a foul odor from the wound as well as some increased drainage. 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 They started him on doxycycline which he just started taking yesterday. Patient states that last night, he felt chills but did not develop a fever. He denies a ny fever/chills at this time. He denies any nausea, weakness, chest pain, shortness of breath. Patient has neuropathy in the foot and does not have much pain. He is a type II diabetic. He has had prior amputations with the right first and second toes. Home Medications Home Medications Medication Instructions Recorded Confirmed Type metformin 850 mg tablet 850 mg PO BID #180 tab 12/23/18 12/25/19 Rx sitagliptin 100 mg tablet 100 mg PO QAM #90 tab 12/23/18 12/25/19 Rx apixaban 5 mg tablet 5 mg PO BID #180 tab 07/14/19 12/25/19 Rx potassium chloride 10 mEq 10 meq PO QAM #90 tab 07/14/19 12/25/19 Rx tablet,extended release rosuvastatin 20 mg tablet 20 mg PO HS #90 tab 07/14/19 12/25/19 Rx sacubitril 24 mg-valsartan 26 mg 1 tab PO BID #60 tab 10/13/19 12/25/19 Rx tablet Lantus Solostar U-100 Insulin 40 unit SUBCUT QAM 12/10/19 12/25/19 History insulin lispro [Humalog KwikPen 20 unit SUBCUT TIDM 12/10/19 12/25/19 History Insulin] magnesium chloride [Mag 64] 64 mg PO QID 30 Days #120 tab 12/11/19 12/25/19 Rx metoprolol succinate 250 mg PO QAM 30 Days #150 tab 12/11/19 12/25/19 Rx amiodarone 400 mg PO QAM 12/25/19 12/25/19 History doxycycline hyclate 75 mg PO BID 12/25/19 12/25/19 History furosemide 20 mg PO QAM 12/25/19 12/25/19 History Allergies Allergy/AdvReac Type Severity Reaction Status Date / Time Bactrim Allergy Unknown "severe Verified 05/24/17 08:28 vomiting" sulfamethoxazole AdvReac Unknown "severe Verified 12/25/19 07:55 vomiting" trimethoprim AdvReac Unknown "severe Verified 12/25/19 07:55 vomiting" Past Med/Surg History Medical History Atrial fibrillation, currently in sinus rhythm CAD (coronary artery disease) (Chronic) Diabetes mellitus type II, uncontrolled (Chronic) Diabetic peripheral neuropathy associated with type 2 diabetes mellitus (Ch ronic) Dyslipidemia (Chronic) Goiter (Chronic) History of cellulitis lower extremity History of diabetic ulcer of foot (Resolved) HTN (hypertension) (Chronic) Ischemic cardiomyopathy (Chronic) 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) Sepsis (Inactive) Sleep apnea (Chronic) cpap Surgical History H/O vasectomy (Chronic) History of implantable cardiac defibrillator (ICD) 05/2017 MEDTRONIC Hx of CABG (Chronic) 2017 [place], HEART CATH - UNABLE TO STENT AND THEN CABG X - [facility] FOLLOWS WITH DR KIMBLE Hx of foot surgery REMOVAL OF BIG TOE AND SECOND TOE 04/2017 Family History Other Diabetes Heart disease Social History Smoking Status: Never smoker Second Hand Exposure: No; Hx Alcohol Use: Yes Alcohol type: beer Hx Substance Use: No Preferred Language: Frisian Communication Ability: Effective Visual Impairment: No Limitations Retail Service Specialist Required: No Beliefs That Will Affect Care: None marital status: Current Living Situation: Spouse current occupational status: employed Feels Safe at Home: Yes Review of Systems A total of 10 systems reviewed and were otherwise negative Physical Exam Vital Signs Vital Signs - 24 hr 12/25/19 07:13 12/25/19 08:41 Temperature 36.8 C Temperature Source Oral Pulse Rate 80 Pulse Rate [Finger] 74 Pulse Rhythm Regular Pulse Rhythm [Finger] Regular Pulse Strength Normal Pulse Strength [Finger] Normal Respiratory Rate 20 18 Respiratory Effort / Characteristics Non-Labored Spontaneous Non-Labored Spontaneous Respiratory Depth Normal Normal Respiratory Pattern Regular Regular Blood Pressure 119/73 Blood Pressure [Right Arm] 118/69 Blood Pressure Mean 88 Blood Pressure Mean [Right Arm] 85 Blood Pressure Position Sitting Blood Pressure Position [Right Arm] Lying Pulse Oximetry 100 96 Oxygen Delivery Method Room Air Room Air Sepsis Recent Fever Within 48 Hours No Sepsis New/Unexplained Change in Mental Status N/A Sepsis Action Taken by Nursing No Action Required VITALS: Vitals are noted on the nurse's note and reviewed by myself. GENERAL: This is a 49-year-old male, in no acute distress, nondiaphoretic, well- developed well-nourished. EYES: Pupils equal round and reactive to light and accommodation. MOUTH: Mucous membranes moist. NECK: Supple without nuchal rigidity. No lymphadenopathy. HEART: Regular rate and rhythm without murmurs gallops or rubs. LUNGS: Clear to auscultation bilaterally without wheezes, rales or rhonchi. ABDOMEN: Soft, nontender palpation. EXTREMITIES: There is a necrotic ulcerated wound over the plantar aspect of the right foot, over the head of the first metatarsal. There is a foul odor from the wound. No significant surrounding erythema. There have been prior amputations of the right first and second toes. NEURO: Patient was alert and oriented to person place and time. Decreased distal sensation over the lower extremities bilaterally. Course Consultations Consultation #1: [place] Hospitalist Administered Medications Vancomycin HCl 2,500 mg/ (Sodium Chloride) 550 mls @ 200 mls/hr IV NOW ONE Stop: 12/25/19 11:09 Last Admin: 12/25/19 09:19 Dose: 200 mls/hr Documented by: [id number] Discontinued Medications Piperacillin Sod/Tazobactam (Sod 3.375 gm/ Dextrose) 100 ml in 115 mls @ 230 mls/hr IV NOW STA Stop: 12/25/19 08:54 Last Infusion: 12/25/19 09:12 Dose: 0 mls/hr Documented by: [id number] Admin: 12/25/19 08:42 Dose: 230 mls/hr Documented by: [id number] Medical Decision Making Differential Diagnosis Differential diagnosis includes cellulitis, abscess, osteomyelitis, necrotizing fasciitis, sepsis, among others. Medical Records Attestation: I reviewed the patient's medical records. Home Medications Current Medication List: was personally reviewed by me Laboratory Data Attestation: I reviewed the patient's lab results. Result diagrams: 12/25/19 07:59 12/25/19 07:59 Lab Results 12/25/19 12/25/19 12/25/19 Range/Units 07:59 07:59 08:11 WBC 10.25 (4.8-10.8) K/uL RBC 4.12 L (4.7-6.1) M/uL Hgb 10.3 L (14.0-18.0) g/dL Hct 31.3 L (42-52) % MCV 76.0 L (80-100) fL MCH 25.0 (25-34) pg MCHC 32.9 (32-36) g/dL RDW Std Deviation 41.5 (36.4-46.3) fL RDW Coeff of Baldo 14.8 H (11.5-14.5) % Plt Count 124 L (130-400) K/uL MPV 10.2 (7.4-10.4) fL Immature Gran % (Auto) 0.4 % Neut % (Auto) 80.5 % Lymph % (Auto) 9.2 % [place] % (Auto) 9.1 % Eos % (Auto) 0.6 % Baso % (Auto) 0.2 % Neut # (Auto) 8.26 H (1.4-6.5) K/uL Lymph # (Auto) 0.94 L (1.2-3.4) K/uL [place] # (Auto) 0.93 H (0.11-0.59) K/uL Eos # (Auto) 0.06 (0-0.5) K/uL Baso # (Auto) 0.02 (0-0.2) K/uL Immature Gran # (Auto) 0.04 H (0.00-0.02) K/uL Sodium 133 L (136-145) mmol/L Potassium 4.5 (3.5-5.1) mmol/L Chloride 104 (98-107) mmol/L Carbon Dioxide 22 (21-32) mmol/L Anion Gap 8.0 (3-11) BUN 32 H (7-18) mg/dl Creatinine 1.37 (0.6-1.4) mg/dl Est Cr Clr Drug Dosing 80.8 ml/min Est GFR ( Amer) 69.2 Est GFR (Non-Af Amer) 59.7 BUN/Creatinine Ratio 23.6 H (10-20) Glucose 121 H (70-99) mg/dl Lactate 1.6 (0.4-2.0) mmol/L Calcium 9.5 (8.5-10.1) mg/dl Total Bilirubin 0.6 (0.2-1) mg/dl AST 12 L (15-37) U/L ALT 18 (12-78) U/L Alkaline Phosphatase 119 H (45-117) U/L Total Protein 7.8 (6.4-8.2) gm/dl Albumin 2.8 L (3.4-5.0) gm/dl Globulin 5.0 H (2.5-4.0) gm/dl Albumin/Globulin Ratio 0.6 L (0.9-2) Imaging Data Attestation: I personally reviewed and interpreted this imaging study as follows: Radiologist's Impression: RIGHT FOOT 3 VIEWS CLINICAL HISTORY: Diabetic wound infection. FINDINGS: 3 views of the right foot are compared to study dated 04/16/2018. The skeletal structures are osteopenic. No acute fracture is seen. Again seen is postoperative change from amputation of the first and second toes through the distal metatarsal shafts. Erosive change is seen at the resection margin of the first metatarsal shaft. There is overlying soft tissue edema and subcutaneous gas at this site and this is concerning for osteomyelitis. Milder soft tissue edema is present throughout the remainder of the foot. There is atherosclerotic calcification of the regional arteries. Moderate osteoarthritic changes seen throughout the midfoot. There are large plantar and small dorsal calcaneal enthesophytes. Degenerative spurring seen along the dorsal aspect of the tarsal bones. IMPRESSION: 1. Erosive change is seen at the resection margin of the first metatarsal. There is overlying soft tissue edema and subcutaneous gas, and this is highly conc erning for osteomyelitis. 2. No fracture is seen. 3. Osteopenia, heel spurs, and degenerative change as above. Blood Pressure Blood Pressure Findings: Normal blood pressure MDM Narrative The patient is a 49-year-old male who presents today complaining of a diabetic foot wound. Patient has had a diabetic foot ulcer for the past several months with worsening drainage/odor recently. Patient sees a fleet assistant at the [facility]. A call was made there regarding the patient's recent culture, which has not yet resulted. Labs revealed no leukocytosis. Patient is anemic at his baseline. Kidney function within normal limits. Lactate was not elevated. An additional wound culture as well as blood cultures were obtained in the ER. X-ray shows evidence of osteomyelitis. Patient was started on broad-spectrum IV antibiotics and consultation was placed with the hospitalist service. They will evaluate the patient for further care. Impression & Plan Osteomyelitis of foot Discharge Plan Visit Data Chief Complaint: Foot Injury/Pain Stated Complaint: RT FOOT WOUND ED Provider: Celestino Monet ED Midlevel Provider: Ana Jara Discharge Problem: Osteomyelitis of foot Forms Stand Alone Forms: [facility] [place] Prescriptions Prescriptions: No Action metformin 850 mg tablet 850 mg PO BID Qty: 180 RF: 3 sitagliptin 100 mg tablet 100 mg PO QAM Qty: 90 RF: 3 Entresto 24-26 mg tablet 1 tab PO BID Qty: 60 RF: 2 Eliquis 5 mg tablet 5 mg PO BID Qty: 180 RF: 1 potassium chloride 10 mEq tablet extended release 10 meq PO QAM Qty: 90 RF: 3 rosuvastatin 20 mg tablet 20 mg PO HS Qty: 90 RF: 3 doxycycline hyclate 75 mg tablet,delayed release (DR/EC) 75 mg PO BID RF: 0 amiodarone 200 mg tablet 400 mg PO QAM RF: 0 furosemide 20 mg tablet 20 mg PO QAM RF: 0 insulin lispro [Humalog KwikPen Insulin] 100 unit/mL insulin pen 20 unit SUBCUT TIDM RF: 0 Lantus Solostar U-100 Insulin 100 unit/mL (3 mL) insulin pen 40 unit SUBCUT QAM RF: 0 metoprolol succinate 50 mg Tablet Extended Release 24 Hr 250 mg PO QAM 30 Days Qty: 150 RF: 0 magnesium chloride [Mag 64] 64 mg Tablet,Delayed Release (Dr/Ec) 64 mg PO QID 30 Days Qty: 120 RF: 0 Discharge Problem: Osteomyelitis of foot Qualifiers: Osteomyelitis type: unspecified type Laterality: right Qualified Code(s): M86.9 - Osteomyelitis, unspecified
--- NOTE | 2019-12-25 08:00 | XRay Report ---
RIGHT FOOT 3 VIEWS CLINICAL HISTORY: Diabetic wound infection. FINDINGS: 3 views of the right foot are compared to study dated 04/16/2018. The skeletal structures a re osteopenic. No acute fracture is seen. Again seen is postoperative change from amputation of the f irst and second toes through the distal metatarsal shafts. Erosive change is seen at the resection ma rgin of the first metatarsal shaft. There is overlying soft tissue edema and subcutaneous gas at this site and this is concerning for osteomyelitis. Milder soft tissue edema is present throughout the re mainder of the foot. There is atherosclerotic calcification of the regional arteries. Moderate osteoa rthritic changes seen throughout the midfoot. There are large plantar and small dorsal calcaneal enth esophytes. Degenerative spurring seen along the dorsal aspect of the tarsal bones. IMPRESSION: 1. Erosive change is seen at the resection margin of the first metatarsal. There is overlying soft ti ssue edema and subcutaneous gas, and this is highly concerning for osteomyelitis. 2. No fracture is seen. 3. Osteopenia, heel spurs, and degenerative change as above. Electronically signed by: Elliot Kidd M.D. 12/25/2019 7:59 AM
[2019-12-25 08:13] LABS: Basophils # (auto) 0.02 K/uL (0-0.2); Basophils % (auto) 0.2 %; Eosinophils # (auto) 0.06 K/uL (0-0.5); Eosinophils % (auto) 0.6 %; Hematocrit (blood only) 31.3 % (42-52); Hemoglobin 10.3 g/dL (14.0-18.0); Immature Granulocytes # (auto) 0.04 K/uL (0.00-0.02); Immature Granulocytes % (auto) 0.4 %; Lymphocytes # (auto) 0.94 K/uL (1.2-3.4); Lymphocytes % (auto) 9.2 %; Mean Corpuscular Hgb Conc 32.9 g/dL (32-36); Mean Platelet Volume 10.2 fL (7.4-10.4); Monocytes # (auto) 0.93 K/uL (0.11-0.59); Monocytes % (auto) 9.1 %; Neutrophils # (auto) 8.26 K/uL (1.4-6.5); Neutrophils % (auto) 80.5 %; Platelet Count 124 K/uL (130-400); RDW Coefficient of Variation 14.8 % (11.5-14.5); RDW Standard Deviation 41.5 fL (36.4-46.3); Red Blood Count 4.12 M/uL (4.7-6.1); White Blood Count 10.25 K/uL (4.8-10.8)
[2019-12-25 08:23] LABS: Albumin Level 2.8 gm/dl (3.4-5.0); BUN Creatinine Ratio 23.6 (10-20); Calcium 9.5 mg/dl (8.5-10.1); Creatinine Clr Calc Pharmacy 80.8 ml/min; Est GFR (African American) 69.2; Est GFR (Non-African American) 59.7; Potassium 4.5 mmol/L (3.5-5.1)
[2019-12-25] MEDS ORDERED: PIPERACILL/TAZOBAC CONSULT ACTIVE PRN ×2 (08:25→10:43)
[2019-12-25] MEDS ORDERED: VANCOMYCIN CONSULT ACTIVE PRN (08:25)
[2019-12-25] MEDS ORDERED: VANCOMYCIN HCL 2,500 MG in SODIUM CHLORIDE 0.9% 500 ML IV ONE (08:25)
[2019-12-25] MEDS ORDERED: PIPERACILLIN/TAZOBACTAM 3.375 GM in DEXTROSE 5% 100 ML/100 ML BAG IV STA (08:25)
[2019-12-25 08:26] LABS: Albumin Globulin Ratio 0.6 (0.9-2); Bilirubin,Total 0.6 mg/dl (0.2-1); Total Protein 7.8 gm/dl (6.4-8.2)
[2019-12-25] MEDS ORDERED: ONDANSETRON INJ 2 MG/ML 2 ML VIAL IV PRN (09:07)
[2019-12-25] MEDS ORDERED: GLUCOSE 40% GEL 15 GM TUBE PO PRN (09:07)
[2019-12-25] MEDS ORDERED: GLUCOSE 10 TABS/TUBE PO PRN (09:07)
[2019-12-25] MEDS ORDERED: NITROGLYCERIN SL 0.4 MG/TAB TAB SL PRN (09:07)
[2019-12-25] MEDS ORDERED: DEXTROSE 50% 50 ML SYRINGE IV PRN (09:07)
[2019-12-25] MEDS ORDERED: ACETAMINOPHEN 325 MG TAB PO PRN (09:07)
[2019-12-25] MEDS ORDERED: CARBOHYDRATES FOR HYPOGLYCEMIA PO PRN (09:07)
[2019-12-25] MEDS ORDERED: GLUCAGON FOR INJ 1 MG VIAL SQ PRN (09:07)
[2019-12-25] MEDS ORDERED: POLYETHYLENE (MIRALAX) 17 GM PACK PO PRN (09:07)
[2019-12-25] MEDS ORDERED: PHARMACY GLYCEMIC MGMT CONSULT PRN (09:35)
[2019-12-25] MEDS ORDERED: DAPTOmycin 350 MG in SYRINGE 0 ML IV SCH (09:45)
--- NOTE | 2019-12-25 10:09 | History & Physical Report ---
Date of Service December 25, 2019 Assessment & Plan (1) Osteomyelitis of foot: (2) Foot ulcer, right: This is a 49-year-old male who has significant past medical history of uncontrolled IDDM 2, ischemic cardiomyopathy status post AICD with EF of 35 to 40%, CAD with history of CABG x4 in 2017, JENNIFER on CPAP, HTN, HLD, PAF anticoagulated on Eliquis who presents to ED secondary to worsening right foot wound x1 week. In ED patient remained hemodynamically stable. Lab work notable for H&H 10.3 and 31.3, platelet 124, sodium 133, BUN 32, creatinine 1.37, glucose 121, lactate 1.6. R Foot x-ray Erosive change is seen at the resection margin of the first metatarsal. There is overlying soft tissue edema and subcutaneous gas, and this is highly concerning for osteomyelitis. He was started on IV vancomycin and Zosyn. Blood and wound cultures were obtained. Patient did have wound culture done at [facility] as outpatient, these have yet to result. admit to tele obtain CT of foot, unable to obtain MRI given AICD IV Daptomycin and zosyn consult orthopedics ( amputations previously done by podiatry who no longer have privileges here) wound and blood culture pending obtain esr/crp NWB to R foot consult wound nurse (3) Type 2 diabetes mellitus: Uncontrolled insulin-dependent type 2 DM Counseled on importance of strict glycemic control A1c 10.8 on 12/11/2019 Hold metformin and Januvia Glycemic pharmacist consulted Consult clinical education manager (4) CAD (coronary artery disease): (5) Ischemic cardiomyopathy: History of CABG x4 in 2017, Chronic Systolic CHF Echocardiogram 12/2019 revealed EF 40 to 45%, left atrium severely dilated, mild concentric left ventricular hypertrophy, moderate global hypokinesis with more pronounced hypokinesis and distal lateral inferior gary follows [facility] cardiology, AICD in place euvolemic continue metoprolol, Lasix, Entresto continue amiodarone, mag supplemenation Daily weights, strict I's and O's, low-sodium diet will need cardiology clearance if any procedure warranted (6) HTN (hypertension): Blood pressure stable Continue metoprolol, Lasix (7) CKD (chronic kidney disease) stage 3, GFR 30-59 ml/min: baseline cr 1.0-1.1 bun/cr 32 and 1.37 today ACUTE on CHRONIC CKD 3 monitor renal fxn, avoid nephrotoxic agents gentle IVF (8) Dyslipidemia: Hold Crestor while on rosuvastatin Monitor CK (9) JENNIFER on CPAP: CPAP at HS (10) DVT prophylaxis: SQ lovenox Disposition: admit to tele Follow up: PCP Dr. Cagle upon discharge Pt was seen and examined in collaboration with Dr. Hood, please see addendum History of Present Illness Chief Complaint: Worsening foot wound to right foot x1 week. Primary Care Provider: Jc Cagle MD This is a 49-year-old male who has significant past medical history of uncontrolled IDDM 2, ischemic cardiomyopathy status post AICD with EF of 35 to 40%, CAD with history of CABG x4 in 2017, JENNIFER on CPAP, HTN, HLD, PAF anticoagulated on Eliquis who presents to ED secondary to worsening right foot wound x1 week. Wound has been present for the past approximately 1 month. He has been following with podiatry at foot and ankle. He denies any pain due to history of neuropathy. Over the past week he has noticed increased drainage as well as foul smelling odor. Yesterday and this morning he felt significantly chilled and therefore came to ED due to concern for infection. He denies any documented fever, sweats, lightheadedness, dizziness, syncope, chest pain, shortness of breath, cough, palpitations, nausea, vomiting, diarrhea, abdominal pain, dysuria, increased urgency or frequency with urination. Appetite is normal. He denies any significant weight gain or loss, edema, PND orthopnea. He does have prior history of osteomyelitis requiring resection of right toe 2 and 3. Approximately 1 year ago he had well-controlled diabetes however recent A1c on 12 10 reveals A1c of 10.8. He is insulin-dependent and admits to higher blood sugars. Of significance he was recently hospitalized secondary to firing of his AICD due to V. tach. He was seen and evaluated by cardiology and was felt to be secondary to hypomagnesemia. His magnesium was increased, metoprolol increased to 250 mg daily and he increased amiodarone to 400 mg twice daily for 10 days. He is now on 400 mg daily of amiodarone. This is since been stable and he has had no firings of his AICD. In ED patient remained hemodynamically stable. Lab work notable for H&H 10.3 and 31.3, platelet 124, sodium 133, BUN 32, creatinine 1.37, glucose 121, lactate 1.6. R Foot x-ray Erosive change is seen at the resection margin of the first metatarsal. There is overlying soft tissue edema and subcutaneous gas, and this is highly concerning for osteomyelitis. He was started on IV vancomycin and Zosyn. Blood and wound cultures were obtained. Patient did have wound culture done at foot and ankle specialist as outpatient, these have yet to result. Allergies Allergy/AdvReac Type Severity Reaction Status Date / Time Bactrim Allergy Unknown "severe Verified 05/24/17 08:28 vomiting" sulfamethoxazole AdvReac Unknown "severe Verified 12/25/19 07:55 vomiting" trimethoprim AdvReac Unknown "severe Verified 12/25/19 07:55 vomiting" Home Medications Home Medications Medication Instructions Recorded Confirmed Type metformin 850 mg tablet 850 mg PO BID #180 tab 12/23/18 12/25/19 Rx sitagliptin 100 mg tablet 100 mg PO QAM #90 tab 12/23/18 12/25/19 Rx apixaban 5 mg tablet 5 mg PO BID #180 tab 07/14/19 12/25/19 Rx potassium chloride 10 mEq 10 meq PO QAM #90 tab 07/14/19 12/25/19 Rx tablet,extended release rosuvastatin 20 mg tablet 20 mg PO HS #90 tab 07/14/19 12/25/19 Rx sacubitril 24 mg-valsartan 26 mg 1 tab PO BID #60 tab 10/13/19 12/25/19 Rx tablet Lantus Solostar U-100 Insulin 40 unit SUBCUT QAM 12/10/19 12/25/19 History insulin lispro [Humalog KwikPen 20 unit SUBCUT TIDM 12/10/19 12/25/19 History Insulin] magnesium chloride [Mag 64] 64 mg PO QID 30 Days #120 tab 12/11/19 12/25/19 Rx metoprolol succinate 250 mg PO QAM 30 Days #150 tab 12/11/19 12/25/19 Rx amiodarone 400 mg PO QAM 12/25/19 12/25/19 History doxycycline hyclate 75 mg PO BID 12/25/19 12/25/19 History furosemide 20 mg PO QAM 12/25/19 12/25/19 History Past Med/Surg History Medical History Atrial fibrillation, currently in sinus rhythm CAD (coronary artery disease) (Chronic) Diabetes mellitus type II, uncontrolled (Chronic) Diabetic peripheral neuropathy associated with type 2 diabetes mellitus (Chronic) Dyslipidemia (Chronic) Goiter (Chronic) History of cellulitis lower extremity History of diabetic ulcer of foot (Resolved) HTN (hypertension) (Chronic) Ischemic cardiomyopathy (Chronic) 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) PAF (paroxysmal atrial fibrillation) Sepsis (Inactive) Sleep apnea (Chronic) cpap Surgical History H/O vasectomy (Chronic) History of implantable cardiac defibrillator (ICD) 05/2017 [employer] Hx of CABG (Chronic) 2017 [place], HEART CATH - UNABLE TO STENT AND THEN CABG X - [facility] FOLLOWS WITH DR KIMBLE Hx of foot surgery REMOVAL OF BIG TOE AND SECOND TOE 04/2017 Family History Other Diabetes Heart disease Social History Smoking Status: Never smoker Second Hand Exposure: No; Hx Alcohol Use: Yes Alcohol type: beer Hx Substance Use: No Preferred Language: Luxembourgish Communication Ability: Effective Visual Impairment: No Limitations Ethics Instructor Required: No Beliefs That Will Affect Care: None marital status: Current Living Situation: Spouse and Family current occupational status: employed Other Information That Helps Us Care for You: No Feels Safe at Home: Yes Safety Concerns: Feels Safe At This Time Review of Systems Review of Systems: All systems reviewed & are unremarkable except as noted in HPI & below Physical Exam Physical Exam: Constitutional: WD/WN, male, vitals as above, NAD, sitting up in bed, pleasant, conversing easily Head: Normocephalic, Atraumatic Eyes: PERRL, conjunctivae normal, anicteric sclerae ENMT: external ear and nose normal, oropharynx normal Neck: trachea midline, no thyromegaly normal visual inspection Respiratory: normal respiratory effort, lungs clear to auscultation, no wheeze, rales, rhonchi. Normal insp/exp effort, no accessory muscle use Cardiovascular: RRR, 1/6 JESS noted RUSB, AICD LACW, no edema, bilateral pedal pulse in PT pulse +2 vessels: no JVD or carotid bruit Chest: normal inspection of chest Abdomen: normal bowel sounds, soft, nontender, no hepatosplenomegaly Musculoskeletal: no cyanosis or clubbing, extremities motor strength 5/5 , patient with significant wound to plantar aspect of right foot at base of right great toe and MTP region, erythematous wound bed with clear foul-smelling drainage, patient with decreased sensation to right lateral foot Skin: no rashes, warm and dry normal turgor Neurologic: PERRL, EOMI, accommodation nl, no face palsy, no dysarthria CN's II-XI intact bilaterally and moves all extremities Psychiatric: A+Ox3, euthymic affect Lymphatic: no cervical or axillary lymphadenopathy : deferred Results & Data Results & Data ([facility]) Vital Signs (Past 12 Hours) Vital Signs Temp Pulse Pulse Resp BP BP Pulse Ox 12/25/19 08:41 74 18 118/69 96 12/25/19 07:13 36.8 C 80 20 119/73 100 Laboratory Results Short CBC 12/25/19 12/25/19 Range/Units 07:59 07:59 WBC 10.25 (4.8-10.8) K/uL Hgb 10.3 L (14.0-18.0) g/dL Hct 31.3 L (42-52) % Plt Count 124 L (130-400) K/uL Creatinine 1.37 (0.6-1.4) mg/dl BMP 12/25/19 07:59 Sodium 133 L Potassium 4.5 Chloride 104 Carbon Dioxide 22 BUN 32 H Creatinine 1.37 Glucose 121 H Calcium 9.5 Liver Function 12/25/19 Range/Units 07:59 Total Bilirubin 0.6 (0.2-1) mg/dl AST 12 L (15-37) U/L ALT 18 (12-78) U/L Alkaline Phosphatase 119 H (45-117) U/L Albumin 2.8 L (3.4-5.0) gm/dl Diagnostic Findings R Foot Xray: IMPRESSION: 1. Erosive change is seen at the resection margin of the first metatarsal. There is overlying soft tissue edema and subcutaneous gas, and this is highly concerning for osteomyelitis. 2. No fracture is seen. 3. Osteopenia, heel spurs, and degenerative change as above. Medications Administered Vancomycin HCl 2,500 mg/ (Sodium Chloride) 550 mls @ 200 mls/hr IV NOW ONE Stop: 12/25/19 11:09 Last Admin: 12/25/19 09:19 Dose: 200 mls/hr Documented by: [id number] Discontinued Medications Piperacillin Sod/Tazobactam (Sod 3.375 gm/ Dextrose) 100 ml in 115 mls @ 230 mls/hr IV NOW STA Stop: 12/25/19 08:54 Last Infusion: 12/25/19 09:12 Dose: 0 mls/hr Documented by: [id number] Admin: 12/25/19 08:42 Dose: 230 mls/hr Documented by: [id number] Code Status & VTE Plan Code Status Full Code VTE Prophylaxis Plan VTE Prophylaxis will be ordered: Yes Supervising Physician Co-Signing Physician Notes Attending addendum : 49 yo male with complex past medical hx presetned with rt foot diabetic infection Xray shows possible osteomyelitis ordered for CT of foot Ortho consulted cardiology consulted for pre op eval empiric abx with Zosyn and daptomycin please refer to further documentation by Heidi Hector PA-C for discussion of other chronic issues Kaley Hood MD (1) Type 2 diabetes mellitus Diabetes mellitus complication detail: with other circulatory complications Diabetes mellitus complication status: with circulatory complication Diabetes mellitus exterminator helper insulin use: with exterminator helper use Qualified Code(s): E11.59 - Type 2 diabetes mellitus with other circulatory complications; Z79.4 - senior care (current) use of insulin (2) CAD (coronary artery disease) Associated angina: without angina Coronary Disease-Associated Artery/Lesion type: [place] artery [place] vs. transplanted heart: [place] heart Qualified Code(s): I25.10 - Atherosclerotic heart disease of [place] coronary artery without angina pectoris (3) Osteomyelitis of foot Laterality: right Osteomyelitis type: unspecified type Qualified Code(s): M86.9 - Osteomyelitis, unspecified (4) HTN (hypertension) Hypertension type: unspecified Qualified Code(s): I10 - Essential (primary) hypertension
[2019-12-25] MEDS ORDERED: SODIUM CHLORIDE 0.9% 1000ML 1,000 ML IV SCH (10:15)
--- NOTE | 2019-12-25 10:25 | Pharmacy Report ---
Glycemic Control Consultation - Date of Service December 25, 2019 - Scope Scope: Glycemic Pharmacist consulted for glycemic control and to write orders per [facility] inpatient glycemic control protocol. - Objective Weight: 118.9 kg Accuchecks BSG (last 24hrs): 12/25/19 07:59 Glucose 121 H Laboratory Data (last 24hrs): 12/25/19 07:59 Potassium 4.5 Carbon Dioxide 22 Anion Gap 8.0 Creatinine 1.37 Est Cr Clr Drug Dosing 80.8 - Recent Pertinent Medications Outpatient Anti-diabetic Regimen: * Lantus 40 units Qam, Lispro 20 units TIDM, sitagliptan * A1c = 10.8 % 12/11/19 Risk Factors for Insulin Resistance: * Infection: osteomyelitis * Diet: yes - Assessment & Plan Assessment & Plan: ASSESSMENT: * 49 year old with PMHx significant for DM2, ischemic cardiomyopathy, CAD with CABG, htn, hld, PAF. Presents to ED with worsening right foot. Foot xray concerning for osteomyelitis * Patient DM2, with A1C of 10.8% on admission. Pharmacy consulted for glycemic management. Plan to stress home dose as likely insulin coverage at home not adequate * Spoke with RN this AM and confirmed patient already took AM Lantus 40 units prior to admission, therefore will hold further basal today * Appears patient NPO at midnight / will reassess basal needs in AM PLAN FOR INPATIENT GLYCEMIC CONTROL: * Basal insulin * Lantus 40 units daily (patient took CALENDER OPERATOR 12/24) * Bolus insulin * NovoLog per scale ACHS or Q6hrs while NPO * Goal Range: Low 110 mg/dL - High 140 mg/dL * Correction Factor: 15 mg/dL/unit * Nutritional / Prandial insulin per carb ratio of 1 unit per 4 grams CHO consumed * Please note that the plan above was derived based on current level of insulin resistance and hospital stress. These recommendations are appropriate for inpatient admission only. Plan of care upon discharge will need to be reassessed to avoid potential outpatient hypo/hyperglycemia. Thank you.
[2019-12-25] MEDS ORDERED: DAPTOMYCIN CONSULT ACTIVE PRN (10:43)
[2019-12-25 10:51] LABS: C Reactive Protein 16.1 mg/dl (0-0.29)
[2019-12-25] MEDS: MAGNESIUM CHLORIDE 64MG DELAYED REL TAB PO SCH ×3 (11:49→19:31)
[2019-12-25] MEDS: INSULIN ASPART 100 UNITS/ML 3 ML PEN SC SCH ×3 (11:49→20:28)
[2019-12-25] MEDS: PIPERACILLIN/TAZOBACTAM 4.5 GM in DEXTROSE 5% 100 ML IV SCH ×2 (12:59→21:50)
[2019-12-25] MEDS ORDERED: IOVERSOL 100ml IV PRN (14:48)
--- NOTE | 2019-12-25 15:14 | CT Scan Report ---
CT foot RT w con HISTORY: Right foot wound. Assess for osteomyelitis. Abnormal x-ray. TECHNIQUE: Multiaxial CT images the right performed following the use of 2 venous contrast. COMPARISON STUDY: Right foot radiograph 12/25/2019. FINDINGS: Diffuse soft tissue edema seen throughout the foot. This most pronounced at the head of the first metatarsal. Prior amputation of the first and second toes. There is a 2.6 cm skin ulceration a t the level of the first metatarsal head. There is packing material noted within the wound. The soft tissue gas extends to the distal first metatarsal. There is gas seen within the medullary cavity of t he first metatarsal. Therefore, these findings are consistent with osteomyelitis. Dorsal to abutting the mid shaft of the first metatarsal there is a 14 x 7 mm peripheral enhancing gas and fluid collect ion. This is consistent with an abscess. Extensive edema surrounding the head of the first metatarsal which demonstrates faint peripheral enhancement. This likely represents a developing abscess. There is also extensive soft tissue thickening and edema with possible developing abscess at the head of th e second metatarsal. This measures 11 mm. Irregularity at the head of the second metatarsal with mild periostitis. This favors old postoperative change. However, a developing osteomyelitis cannot be exc luded. No acute fractures within the foot. Plantar and posterior calcaneal spurs are noted. Degenerat samson changes are seen throughout the foot. Mild periostitis along the medial shaft of the first metata rsal remains unchanged. IMPRESSION: 1. Prior amputation of the first and second toes. 2. A 2.6 cm focal skin ulceration at the level of the first metatarsal head. There is packing materia l noted within the wound. There is also soft tissue gas projecting stents to the head of the first me tatarsal and is seen within the medullary cavity of the first metatarsal. Therefore, this is consiste nt with osteomyelitis. 3. A 14 x 7 mm abscess dorsal to and abutting the mid shaft of the first metatarsal. 4. Focal areas of edema surrounding the heads of the first and second tarsals demonstrating partial p eripheral enhancement. These areas are concerning for developing abscesses. 5. Irregularity at the head of the second metatarsal with mild periostitis. This could be due to the old postoperative change or developing osteomyelitis. ACT 112: Negative or not required by law. Electronically signed by: Eric Olea M.D. 12/25/2019 3:13 PM
--- NOTE | 2019-12-25 15:48 | Ultrasound Report ---
RIGHT LOWER EXTREMITY ARTERIAL DOPPLER ULTRASOUND CLINICAL HISTORY: ulcer COMPARISON STUDY: Bilateral lower extremity arterial Doppler ultrasound April 15, 2018. TECHNIQUE: Ankle to brachial indices were obtained. Grayscale, color and duplex Doppler sonography of the arterial system of the right lower extremity was performed. FINDINGS: Right ankle-brachial index measured 1.23 when using posterior tibial artery and 1.17 when u sing the dorsalis pedis. The left measures 1.29 when using posterior tibial artery and 1.25 when usin g the dorsalis pedis. There is triphasic flow within the right common femoral, superficial femoral, p opliteal, anterior tibial, posterior tibial, peroneal and dorsalis pedis vessels. No elevated velocit ies were identified. IMPRESSION: 1. Normal bilateral ankle to brachial indices. 2. No evidence for a hemodynamically significant stenosis within the right lower extremity. Patent ve ssels. ACT 112: Negative or not required by law. Electronically signed by: Marcus Josue M.D. 12/25/2019 3:46 PM
--- NOTE | 2019-12-25 16:29 | Cardiology Consultation ---
Date of Consultation December 25, 2019 Assessment & Plan (1) Preop cardiovascular exam: (2) Ventricular tachycardia: (3) PAF (paroxysmal atrial fibrillation): (4) CAD (coronary artery disease): (5) Ischemic cardiomyopathy: (6) HTN (hypertension): ASSESSMENT/PLAN: 1. Preoperative cardiac assessment: He appears to be well compensated with his cardiac issues since amiodarone was started approximately 2 weeks ago for ventricular tachycardia. He is able to achieve greater than 4 METS without anginal symptoms. Given his multiple cardiac issues including ischemic cardiomyopathy and recent ventricular tachycardia, his cardiac risk is somewhat elevated however he appears to be optimized at this time and these issues would not preclude him from undergoing appropriate surgery for osteomyelitis. Would recommend he remain on amiodarone and metoprolol succinate without interruption throughout the perioperative period. 2. Ventricular tachycardia: He has not had any further ICD shocks. Continue amiodarone. Monitor ECG. Avoid medications which can prolonged QT while on amiodarone if possible. 3. Ischemic cardiomyopathy: He appears compensated. He is not hypervolemic. Lab suggest possible mild azotemia. Monitor renal function closely. Can continue beta-liam and Entresto (if renal function remains stable). ICD in place. 4. ICD: As per EP. No shocks since amiodarone earlier this month. 5. Paroxysmal atrial fibrillation: Sinus on telemetry. ECG ordered after being loaded with amiodarone. Anticoagulation therapy is on hold per primary service for possible upcoming surgical procedure. Resume anticoagulation when safe from a surgical standpoint. 6. Hypertension: Blood pressure well controlled. No changes made at this time. 7. CAD s/p CABG: No angina. Resume high-intensity statin therapy. Continue beta-liam. 8. Disposition: Cardiology will sign off at this time. Please call with any other questions or concerns. Thank you for allowing me to participate in the care of your patient. Please call for any other questions or concerns. Sincerely, Han Perez M.D. History of Present Illness Reason for Consultation: pre-op cardiac assessment Requesting Physician: Dr. Hood Attending Physician: Kaley Hood MD History of Present Illness Mr. Cunningham is a very pleasant 49-year-old gentleman with a history significant for CAD s/p CABG x 4 (2017, ischemic cardiomyopathy, ventricular tachycardia on amiodarone, ICD, paroxysmal AFib, hypertension, dyslipidemia, type 2 diabetes, and obstructive sleep apnea on CPAP Q. His primary channel account manager is Dr. Pagan. He was recently hospitalized on 12/10/2019 with ICD shock. He was found have ventricular tachycardia and amiodarone 400 mg twice daily was initiated and has since been reduced to 400 mg once daily. Metoprolol succinate was also increased to 250 mg daily. He has not had any further ICD shocks. He reported to the emergency department earlier today with concerns of osteomyelitis involving his right foot wound. He was started empirically on doxycycline recently by his quality inspector and on presentation here, he was placed on vancomycin and Zosyn by the hospitalist service. Ortho was consulted for possible surgical intervention. A CT scan of the foot demonstrated soft tissue gas within the right foot, consistent with osteomyelitis. There was also a 14 x 7 mm abscess near the first metatarsal. Despite his right foot issues, he remains active. He states that he is on his feet all day for work. He recently has walked 0.5 miles at a time without chest pain or shortness of breath. Approximately 1 month ago, he was walking 1 mi at a time, also without exertional cardiac symptoms. He is able to climb a flight of stairs and go grocery shopping without exertional symptoms. He has not had any further ICD shock. He is tolerating his cardiac medications well. He denies palpitations, syncope, near-syncope, significant edema, or bleeding such as melena, hematochezia, or hematuria. Review of systems: As above. Review of systems otherwise negative/unremarkable. Family history: Father had CAD and diabetes, passing away at the age of 62 from MS. Social history: He does not smoke. No drug abuse. Rare alcohol. Lives at home with his and daughter. He also has a son. 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 He is unaccompanied. Allergies Allergy/AdvReac Type Severity Reaction Status Date / Time Bactrim Allergy Unknown "severe Verified 05/24/17 08:28 vomiting" sulfamethoxazole AdvReac Unknown "severe Verified 12/25/19 07:55 vomiting" trimethoprim AdvReac Unknown "severe Verified 12/25/19 07:55 vomiting" Home Medications Home Medications Medication Instructions Recorded Confirmed Type metformin 850 mg tablet 850 mg PO BID #180 tab 12/23/18 12/25/19 Rx sitagliptin 100 mg tablet 100 mg PO QAM #90 tab 12/23/18 12/25/19 Rx apixaban 5 mg tablet 5 mg PO BID #180 tab 07/14/19 12/25/19 Rx potassium chloride 10 mEq 10 meq PO QAM #90 tab 07/14/19 12/25/19 Rx tablet,extended release rosuvastatin 20 mg tablet 20 mg PO HS #90 tab 07/14/19 12/25/19 Rx sacubitril 24 mg-valsartan 26 mg 1 tab PO BID #60 tab 10/13/19 12/25/19 Rx tablet Lantus Solostar U-100 Insulin 40 unit SUBCUT QAM 12/10/19 12/25/19 History insulin lispro [Humalog KwikPen 20 unit SUBCUT TIDM 12/10/19 12/25/19 History Insulin] magnesium chloride [Mag 64] 64 mg PO QID 30 Days #120 tab 12/11/19 12/25/19 Rx metoprolol succinate 250 mg PO QAM 30 Days #150 tab 12/11/19 12/25/19 Rx amiodarone 400 mg PO QAM 12/25/19 12/25/19 History doxycycline hyclate 75 mg PO BID 12/25/19 12/25/19 History furosemide 20 mg PO QAM 12/25/19 12/25/19 History Patient History Medical History Atrial fibrillation, currently in sinus rhythm CAD (coronary artery disease) (Chronic) Diabetes mellitus type II, uncontrolled (Chronic) Diabetic peripheral neuropathy associated with type 2 diabetes mellitus (Chronic) Dyslipidemia (Chronic) Goiter (Chronic) History of cellulitis lower extremity History of diabetic ulcer of foot (Resolved) HTN (hypertension) (Chronic) Ischemic cardiomyopathy (Chronic) 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) PAF (paroxysmal atrial fibrillation) Sepsis (Inactive) Sleep apnea (Chronic) cpap Surgical History H/O vasectomy (Chronic) History of implantable cardiac defibrillator (ICD) 05/2017 [employer] Hx of CABG (Chronic) 2017 MS, HEART CATH - UNABLE TO STENT AND THEN CABG X - [facility] FOLLOWS WITH DR SHYANNE Hx of foot surgery REMOVAL OF BIG TOE AND SECOND TOE 04/2017 Family History Other Diabetes Heart disease Social History Smoking Status: Never smoker Second Hand Exposure: No; Hx Alcohol Use: Yes Alcohol type: beer Hx Substance Use: No Preferred Language: Emirati Communication Ability: Effective Visual Impairment: No Limitations Clay Temperer Required: No Beliefs That Will Affect Care: None marital status: Current Living Situation: Spouse and Family current occupational status: employed Other Information That Helps Us Care for You: No Feels Safe at Home: Yes Safety Concerns: Feels Safe At This Time Physical Exam Physical Exam: Gen.: No acute distress. Alert and oriented. HEENT: Anicteric sclera. Neck: Thick neck, cannot assess JVD. Goiter. No bruits. Normal carotid upstrokes bilaterally. Cardiac: PMI was nonpalpable. No ventricular heave. Regular. Normal S1-S2. No murmurs, rubs, or gallops. Pulmonary: Clear to auscultation bilaterally without wheezes, rales, or rhonchi. Abdomen: Soft, nontender, nondistended, with normoactive bowel sounds. No bruits noted. Extremities: 2+ radial pulses bilaterally. 2+ posterior tibialis pulses bilaterally. Trace bilateral lower extremity edema. No cyanosis. Right foot was bandaged. Psychiatric: Affect appears appropriate. Results & Data ([facility]) Vital Signs (Past 12 Hours) Vital Signs Temp Pulse Pulse Resp BP BP BP 12/25/19 11:45 36.8 C 69 18 128/84 12/25/19 10:34 37.2 C 69 18 117/73 12/25/19 09:52 70 16 116/67 12/25/19 08:41 74 18 118/69 12/25/19 07:13 36.8 C 80 20 119/73 Pulse Ox 12/25/19 11:45 100 12/25/19 10:34 100 12/25/19 09:52 98 12/25/19 08:41 96 12/25/19 07:13 100 Laboratory Results Laboratory Results - last 24 hr 07/23/20 07/23/20 07/23/20 07:59 07:59 07:59 WBC 10.25 RBC 4.12 L Hgb 10.3 L Hct 31.3 L MCV 76.0 L MCH 25.0 MCHC 32.9 RDW Std Deviation 41.5 RDW Coeff of Baldo 14.8 H Plt Count 124 L MPV 10.2 Immature Gran % (Auto) 0.4 Neut % (Auto) 80.5 Lymph % (Auto) 9.2 Andrews % (Auto) 9.1 Eos % (Auto) 0.6 Baso % (Auto) 0.2 Neut # (Auto) 8.26 H Lymph # (Auto) 0.94 L Andrews # (Auto) 0.93 H Eos # (Auto) 0.06 Baso # (Auto) 0.02 Immature Gran # (Auto) 0.04 H ESR 66 H Sodium 133 L Potassium 4.5 Chloride 104 Carbon Dioxide 22 Anion Gap 8.0 BUN 32 H Creatinine 1.37 Est Cr Clr Drug Dosing 80.8 Est GFR ( Amer) 69.2 Est GFR (Non-Af Amer) 59.7 BUN/Creatinine Ratio 23.6 H Glucose 121 H POC Glucose Lactate Calcium 9.5 Total Bilirubin 0.6 AST 12 L ALT 18 Alkaline Phosphatase 119 H Total Creatine Kinase C-Reactive Protein Total Protein 7.8 Albumin 2.8 L Globulin 5.0 H Albumin/Globulin Ratio 0.6 L 12/25/19 12/25/19 12/25/19 07:59 07:59 08:11 WBC RBC Hgb Hct MCV MCH MCHC RDW Std Deviation RDW Coeff of Baldo Plt Count MPV Immature Gran % (Auto) Neut % (Auto) Lymph % (Auto) Andrews % (Auto) Eos % (Auto) Baso % (Auto) Neut # (Auto) Lymph # (Auto) Andrews # (Auto) Eos # (Auto) Baso # (Auto) Immature Gran # (Auto) ESR Sodium Potassium Chloride Carbon Dioxide Anion Gap BUN Creatinine Est Cr Clr Drug Dosing Est GFR ( Amer) Est GFR (Non-Af Amer) BUN/Creatinine Ratio Glucose POC Glucose Lactate 1.6 Calcium Total Bilirubin AST ALT Alkaline Phosphatase Total Creatine Kinase 52 Cancelled C-Reactive Protein 16.10 H Total Protein Albumin Globulin Albumin/Globulin Ratio 12/25/19 12/25/19 12/25/19 10:37 11:09 16:22 WBC RBC Hgb Hct MCV MCH MCHC RDW Std Deviation RDW Coeff of Baldo Plt Count MPV Immature Gran % (Auto) Neut % (Auto) Lymph % (Auto) Andrews % (Auto) Eos % (Auto) Baso % (Auto) Neut # (Auto) Lymph # (Auto) Andrews # (Auto) Eos # (Auto) Baso # (Auto) Immature Gran # (Auto) ESR Sodium Potassium Chloride Carbon Dioxide Anion Gap BUN Creatinine Est Cr Clr Drug Dosing Est GFR ( Amer) Est GFR (Non-Af Amer) BUN/Creatinine Ratio Glucose POC Glucose 120 H 113 H 100 H Lactate Calcium Total Bilirubin AST ALT Alkaline Phosphatase Total Creatine Kinase C-Reactive Protein Total Protein Albumin Globulin Albumin/Globulin Ratio Diagnostic Findings Telemetry personally reviewed: Sinus rhythm. No arrhythmia. Foot CT scan from 12/25/2019 report reviewed as noted above in the HPI. Lower extremity arterial duplex 12/25/2019: Normal bilateral BRIANNE. No evidence of hemodynamically significant stenosis within the right lower extremity per Radiology. ECG personally reviewed: ECG 12/11/2019: Sinus rhythm with PVCs 81 bpm. Nonspecific T-wave abnormality. Inferior infarct. Echo 12/11/2019: LV EF 40-45%. Moderate global hypokinesis with more pronounced hypokinesis in the distal lateral and inferior gary. Severe left atrial dilation. Normal RVSP. No significant valvular abnormalities reported. Medications Administered Current Inpatient Medications Acetaminophen (Tylenol) 650 mg PO Q4H PRN PRN Reason: Pain or Fever Stop: 01/24/20 09:06 Amiodarone HCl (Cordarone) 400 mg PO QAM [facility] Stop: 01/25/20 08:59 Dextrose (Dextrose 50%) 25 - 50 ml IV UD PRN; Protocol PRN Reason: Hypoglycemia Protocol Stop: 01/24/20 09:06 Enoxaparin Sodium (Lovenox) 40 mg SQ QAM [facility] Stop: 01/25/20 08:59 Furosemide (Lasix) 20 mg PO QAM [facility] Stop: 01/25/20 08:59 Glucagon (Glucagen) 1 mg SQ UD PRN; Protocol PRN Reason: Hypoglycemia Protocol Stop: 01/24/20 09:06 Glucose (Dex4 Glucose) 4 - 8 tabs PO UD PRN; Protocol PRN Reason: Hypoglycemia Protocol Stop: 01/24/20 09:06 Glucose (Glucose 40%) 15 - 30 gm PO UD PRN; Protocol PRN Reason: Hypoglycemia Protocol Stop: 01/24/20 09:06 Sodium Chloride (Nss 1000ml) 1,000 mls @ 80 mls/hr IV .[id number] [facility] Stop: 12/25/19 22:44 Last Admin: 12/25/19 10:56 Dose: 80 mls/hr Documented by: Piperacillin Sod/Tazobactam (Sod 4.5 gm/ Dextrose) 120 mls @ 28.75 mls/hr IV Q8H [facility]; Protocol Stop: 02/05/20 13:59 Last Admin: 12/25/19 12:59 Dose: 28.8 mls/hr Documented by: Daptomycin 525 mg/ Syringe 10.5 mls @ 5 mls/min IV DAILY@1600 [facility]; Protocol Stop: 02/05/20 15:59 Insulin Aspart (Novolog Flexpen) 0 units SC ACHS [facility]; Protocol Stop: 01/24/20 11:29 Last Admin: 12/25/19 11:49 Dose: 8 units Documented by: Ioversol (Optiray 320 100ml) 94 ml IV ONCE PRN PRN Reason: Interaction Checking Stop: 12/29/19 14:47 Last Admin: 12/25/19 14:48 Dose: 94 ml Documented by: Magnesium Chloride (Slow-Mag) 64 mg PO QID [facility] Stop: 01/24/20 12:59 Last Admin: 12/25/19 11:49 Dose: 64 mg Documented by: Metoprolol Succinate (Toprol Xl) 250 mg PO QAM [facility] Stop: 01/25/20 08:59 Miscellaneous (Carbohydrates For Hypoglycemia) 15 - 30 gm PO UD PRN PRN Reason: Hypoglycemia Protocol Stop: 01/24/20 09:06 Miscellaneous Information (Consult Glycemic Management Pharmacy) 1 ea N/A UD P RN; Protocol PRN Reason: Consult Stop: 01/24/20 09:34 Miscellaneous Information (Consult) 1 ea N/A UD PRN PRN Reason: Consult Stop: 01/24/20 10:42 Miscellaneous Information (Consult) 1 ea N/A UD PRN PRN Reason: Consult Stop: 01/24/20 10:42 Nitroglycerin (Nitrostat) 0.4 mg SL UD PRN PRN Reason: Chest Pain Stop: 01/24/20 09:06 Ondansetron HCl (Zofran) 4 mg IV Q6H PRN PRN Reason: Nausea Stop: 01/24/20 09:06 Polyethylene Glycol (Miralax Powder Packet) 17 gm PO DAILY PRN PRN Reason: Constipation Stop: 01/24/20 09:06 Potassium Chloride (Klor-Con M10) 10 meq PO QAM [facility] Stop: 01/25/20 08:59 Sacubitril/Valsartan (Entresto 24/26mg) 1 tab PO BID [facility] Stop: 01/24/20 20:59 PG Care Time/CCT Total # of Minutes Spent Total Time Spent with Patient: Total time spent is greater than 50% in coordination of care (as documented) at patient's floor/unit and/or counseling patient: Coding Level of Care Code 54751 Inpt Consult Level 4 Diagnoses Preop cardiovascular exam Z01.810 Ventricular tachycardia I47.2 PAF (paroxysmal atrial fibrillation) I48.0 CAD (coronary artery disease) I25.10 Associated angina: without angina Coronary Disease-Associated Artery/Lesion type: [place] artery [place] vs. transplanted heart: [place] heart Ischemic cardiomyopathy I25.5 HTN (hypertension) I10 Hypertension type: unspecified (1) CAD (coronary artery disease) Associated angina: without angina Coronary Disease-Associated Artery/Lesion type: [place] artery [place] vs. transplanted heart: [place] heart Qualified Code(s): I25.10 - Atherosclerotic heart disease of [place] coronary artery without angina pectoris (2) HTN (hypertension) Hypertension type: unspecified Qualified Code(s): I10 - Essential (primary) hypertension
[2019-12-25] MEDS: DAPTOmycin 525 MG in SYRINGE 0 ML IV SCH (16:48)
[2019-12-25] MEDS: SACUBITRIL-VALSARTAN 24-26 MG TAB PO SCH (19:31)
[2019-12-26] MEDS: PIPERACILLIN/TAZOBACTAM 4.5 GM in DEXTROSE 5% 100 ML IV SCH ×3 (05:45→21:38)
[2019-12-26] MEDS: INSULIN ASPART 100 UNITS/ML 3 ML PEN SC SCH ×4 (05:49→20:28)
--- NOTE | 2019-12-26 08:16 | Discharge Summary ---
Date of Service December 26, 2019 Admission HPI Per Admitting Provider This is a 49-year-old male who has significant past medical history of uncontrolled IDDM 2, ischemic cardiomyopathy status post AICD with EF of 35 to 40%, CAD with history of CABG x4 in 2017, JENNIFER on CPAP, HTN, HLD, PAF a nticoagulated on Eliquis who presents to ED secondary to worsening right foot wound x1 week. Wound has been present for the past approximately 1 month. He has been following with podiatry at [facility]. He denies any pain due to history of neuropathy. Over the past week he has noticed increased drainage as well as foul smelling odor. Yesterday and this morning he felt significantly chilled and therefore came to ED due to concern for infection. He denies any documented fever, sweats, lightheadedness, dizziness, syncope, chest pain, shortness of breath, cough, palpitations, nausea, vomiting, diarrhea, abdominal pain, dysuria, increased urgency or frequency with urination. Appetite is normal. He denies any significant weight gain or loss, edema, PND orthopnea. He does have prior history of osteomyelitis requiring resection of right toe 2 and 3. Approximately 1 year ago he had well-controlled diabetes however recent A1c on 12 10 reveals A1c of 10.8. He is insulin-dependent and admits to higher blood sugars. Of significance he was recently hospitalized secondary to firing of his AICD due to V. tach. He was seen and evaluated by cardiology and was felt to be secondary to hypomagnesemia. His magnesium was increased, metoprolol increased to 250 mg daily and he increased amiodarone to 400 mg twice daily for 10 days. He is now on 400 mg daily of amiodarone. This is since been stable and he has had no firings of his AICD. In ED patient remained hemodynamically stable. Lab work notable for H&H 10.3 and 31.3, platelet 124, sodium 133, BUN 32, creatinine 1.37, glucose 121, lactate 1.6. R Foot x-ray Erosive change is seen at the resection margin of the first metatarsal. There is overlying soft tissue edema and subcutaneous gas, and this is highly concerning for osteomyelitis. He was started on IV vancomycin and Zosyn. Blood and wound cultures were obtained. Patient did have wound culture done at [facility] as outpatient, these have yet to result. Discharge Data Allergies Allergy/AdvReac Type Severity Reaction Status Date / Time Bactrim Allergy Unknown "severe Verified 05/24/17 08:28 vomiting" sulfamethoxazole AdvReac Unknown "severe Verified 12/25/19 07:55 vomiting" trimethoprim AdvReac Unknown "severe Verified 12/25/19 07:55 vomiting" Consultations 12/25/19 08:45 ED Decision to Admit Stat 12/25/19 09:10 Consult Case Management - Discharge Planning Routine 12/25/19 10:43 Consult Orthopedic Surgery Routine 12/25/19 10:58 Consult Cardiology Routine 12/25/19 11:43 Consult Anesthesiology Routine Ordered Studies 12/25/19 CT foot RT w con Routine 12/25/19 14:30 US arterial duplex LE RT Routine Discharge Plan Discharge Items Reason For Visit: LEFT FOOT INFECTION,DIABETIC WOUND Medications and DC Order Prescriptions: No Action metformin 850 mg tablet 850 mg PO BID Qty: 180 RF: 3 sitagliptin 100 mg tablet 100 mg PO QAM Qty: 90 RF: 3 Entresto 24-26 mg tablet 1 tab PO BID Qty: 60 RF: 2 Eliquis 5 mg tablet 5 mg PO BID Qty: 180 RF: 1 potassium chloride 10 mEq tablet extended release 10 meq PO QAM Qty: 90 RF: 3 rosuvastatin 20 mg tablet 20 mg PO HS Qty: 90 RF: 3 doxycycline hyclate 75 mg tablet,delayed release (DR/EC) 75 mg PO BID RF: 0 amiodarone 200 mg tablet 400 mg PO QAM RF: 0 furosemide 20 mg tablet 20 mg PO QAM RF: 0 insulin lispro [Humalog KwikPen Insulin] 100 unit/mL insulin pen 20 unit SUBCUT TIDM RF: 0 Lantus Solostar U-100 Insulin 100 unit/mL (3 mL) insulin pen 40 unit SUBCUT QAM RF: 0 metoprolol succinate 50 mg Tablet Extended Release 24 Hr 250 mg PO QAM 30 Days Qty: 150 RF: 0 magnesium chloride [Mag 64] 64 mg Tablet,Delayed Release (Dr/Ec) 64 mg PO QID 30 Days Qty: 120 RF: 0 Admission Data Admit Date/Time: 12/25/19 09:08 Attending Provider: Kaley Hood Admit Provider: Erwin,Kaley H. Primary Care Provider: Jc Cagle Other Providers: Kaley Hood ; Raul Das ; Vance Terry ; Jose Luis Astudillo ; Mildred Peterson ; Thony Sanchez ; Mallory Boyle ; Prem Lai ; Arias Cat ; Walter Rodriguez ; Arias Hernandez ; Marc Shipman. ; Walter Marion ; Tom Caicedo ; Rickey Augustine ; Clayton Tate ; Gerber Galeano ; Chente Hartman ; Mallory Slater ; Grey Rodas ; Jr Brooks ; Linda Sagastume ; Abdi Beltran ; Kenya Murray ; Joselo Perez. ; Alfonzo Felix Coding
[2019-12-26 08:30] LABS: Hematocrit (blood only) 32.6 % (42-52); Hemoglobin 10.4 g/dL (14.0-18.0); Mean Corpuscular Hemoglobin 24.8 pg (25-34); Mean Corpuscular Hgb Conc 31.9 g/dL (32-36); Mean Corpuscular Volume 77.6 fL (80-100); Mean Platelet Volume 10.4 fL (7.4-10.4); Platelet Count 144 K/uL (130-400); RDW Coefficient of Variation 15.2 % (11.5-14.5); RDW Standard Deviation 43.2 fL (36.4-46.3); White Blood Count 8.28 K/uL (4.8-10.8)
[2019-12-26 08:48] LABS: BUN Creatinine Ratio 18.7 (10-20); Calcium 9.1 mg/dl (8.5-10.1); Creatinine Clr Calc Pharmacy 85.3 ml/min; Est GFR (African American) 73.7; Est GFR (Non-African American) 63.6; Potassium 4.3 mmol/L (3.5-5.1)
--- NOTE | 2019-12-26 08:53 | Orthopedic Consultation ---
Date of Consultation December 26, 2019 Assessment & Plan (1) Foot ulcer, right: Infection of the right diabetic foot ulcer at the plantar surface of the the first metatarsal with osteomyelitis of the first metatarsal that is remaining. CT as noted with a small abscess noted in the same area. Plan for irrigation debridement and possible partial or full resection of the remaining first metatarsal bone today. Possible debridement of questionable early abscesses as noted in the CT scan. Current wound surface culture showing rare gram-positive cocci History of Present Illness Reason for Consultation: Infection right first metatarsal diabetic ulcer with first metatarsal osteomyelitis Attending Physician: Kaley Hood MD History of Present Illness Patient is a 49-year-old male who has significant past medical history of uncontrolled IDDM 2 with peripheral neuropathy, ischemic cardiomyopathy status post AICD with EF of 35 to 40%, CAD with history of CABG x4 in 2017, JENNIFER on CPAP, HTN, HLD, PAF anticoagulated on Eliquis who presents to ED secondary to worsening right foot wound x1 week. Wound has been present for the past approximately 1 month. He has been following with [facility]. The patient states he has been seeing Dr. Baldwin who has since moved from the area. He states that at one time they did do a wound VAC on the ulceration. He denies any fevers or chills. Denies any unusual nausea vomiting or overall feeling ill. Over the last week, he noticed a worsening of his ulcer with drainage. The drainage began to become malodorous and he needs to be seen. [facility] He was then seen by [facility] service and was admitted for further care. We have been asked to see him for his foot infection. Allergies Allergy/AdvReac Type Severity Reaction Status Date / Time Bactrim Allergy Unknown "severe Verified 05/24/17 08:28 vomiting" sulfamethoxazole AdvReac Unknown "severe Verified 12/25/19 07:55 vomiting" trimethoprim AdvReac Unknown "severe Verified 12/25/19 07:55 vomiting" Home Medications Home Medications Medication Instructions Recorded Confirmed Type metformin 850 mg tablet 850 mg PO BID #180 tab 12/23/18 12/25/19 Rx sitagliptin 100 mg tablet 100 mg PO QAM #90 tab 12/23/18 12/25/19 Rx apixaban 5 mg tablet 5 mg PO BID #180 tab 07/14/19 12/25/19 Rx potassium chloride 10 mEq 10 meq PO QAM #90 tab 07/14/19 12/25/19 Rx tablet,extended release rosuvastatin 20 mg tablet 20 mg PO HS #90 tab 07/14/19 12/25/19 Rx sacubitril 24 mg-valsartan 26 mg 1 tab PO BID #60 tab 10/13/19 12/25/19 Rx tablet Lantus Solostar U-100 Insulin 40 unit SUBCUT QAM 12/10/19 12/25/19 History insulin lispro [Humalog KwikPen 20 unit SUBCUT TIDM 12/10/19 12/25/19 History Insulin] magnesium chloride [Mag 64] 64 mg PO QID 30 Days #120 tab 12/11/19 12/25/19 Rx metoprolol succinate 250 mg PO QAM 30 Days #150 tab 12/11/19 12/25/19 Rx amiodarone 400 mg PO QAM 12/25/19 12/25/19 History doxycycline hyclate 75 mg PO BID 12/25/19 12/25/19 History furosemide 20 mg PO QAM 12/25/19 12/25/19 History Patient History Medical History Atrial fibrillation, currently in sinus rhythm CAD (coronary artery disease) (Chronic) Diabetes mellitus type II, uncontrolled (Chronic) Diabetic peripheral neuropathy associated with type 2 diabetes mellitus (Chronic) Dyslipidemia (Chronic) Goiter (Chronic) History of cellulitis lower extremity History of diabetic ulcer of foot (Resolved) HTN (hypertension) (Chronic) Ischemic cardiomyopathy (Chronic) 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) PAF (paroxysmal atrial fibrillation) Sepsis (Inactive) Sleep apnea (Chronic) cpap Surgical History H/O vasectomy (Chronic) History of implantable cardiac defibrillator (ICD) 05/2017 [employer] Hx of CABG (Chronic) 2017 [place], HEART CATH - UNABLE TO STENT AND THEN CABG X 4 - [facility] FOLLOWS WITH DR KIMBLE Hx of foot surgery REMOVAL OF BIG TOE AND SECOND TOE 04/2017 Family History Other Diabetes Heart disease Social History Smoking Status: Never smoker Second Hand Exposure: No; Hx Alcohol Use: Yes Alcohol type: beer Hx Substance Use: No Preferred Language: Turkish Communication Ability: Effective Visual Impairment: No Limitations Home And School Visitor Required: No Beliefs That Will Affect Care: None marital status: Current Living Situation: Spouse and Family current occupational status: employed Other Information That Helps Us Care for You: No Feels Safe at Home: Yes Safety Concerns: Feels Safe At This Time Review of Systems Review of Systems: No recent fevers, chills, lightheadedness, increased cough or sputum production. No history of shortness of breath at rest or chest pain, chest pressure. No unusual nausea ,vomiting, diarrhea, abdominal pain, melena, hematuria, pyuria, dysuria Physical Exam Physical Exam: Patient is a 49-year-old white male, alert and oriented x3, pleasant cooperative, no acute distress. Focusing the exam on the right lower e xtremity, his sock is removed from the right foot revealing an OPTi foam bandage over the bottom of his foot at the first metatarsal region. This is removed revealing a fairly sizable ulcer approximately 2 to 3 cm in width with a central portion that is approximately 3 to 4 mm that has green purulent drainage. There is a very foul odor to it. Patient is nontender at this time and has history of neuropathy. Large area of erythema around the outer circumference of the ulcer itself. Dressing was placed back on. Results & Data ([facility]) Vital Signs (Past 12 Hours) Vital Signs Temp Pulse Pulse Resp BP Pulse Ox 12/26/19 07:04 36.7 C 76 20 119/72 99 12/26/19 03:33 74 16 97 12/26/19 03:12 37.3 C 72 16 153/92 H 99 12/25/19 23:41 79 16 98 12/25/19 23:19 37.4 C 78 16 113/73 98 Laboratory Results Laboratory Results WBC 8.28 K/uL (4.8-10.8) 12/26/19 08:07 RBC 4.20 M/uL (4.7-6.1) L 12/26/19 08:07 Hgb 10.4 g/dL (14.0-18.0) L 12/26/19 08:07 Hct 32.6 % (42-52) L 12/26/19 08:07 MCV 77.6 fL (80-100) L 12/26/19 08:07 MCH 24.8 pg (25-34) L 12/26/19 08:07 MCHC 31.9 g/dL (32-36) L 12/26/19 08:07 RDW Std Deviation 43.2 fL (36.4-46.3) 12/26/19 08:07 RDW Coeff of Baldo 15.2 % (11.5-14.5) H 12/26/19 08:07 Plt Count 144 K/uL (130-400) 12/26/19 08:07 MPV 10.4 fL (7.4-10.4) 12/26/19 08:07 Immature Gran % (Auto) 0.4 % 12/25/19 07:59 Neut % (Auto) 80.5 % 12/25/19 07:59 Lymph % (Auto) 9.2 % 12/25/19 07:59 [place] % (Auto) 9.1 % 12/25/19 07:59 Eos % (Auto) 0.6 % 12/25/19 07:59 Baso % (Auto) 0.2 % 12/25/19 07:59 Neut # (Auto) 8.26 K/uL (1.4-6.5) H 12/25/19 07:59 Lymph # (Auto) 0.94 K/uL (1.2-3.4) L 12/25/19 07:59 [place] # (Auto) 0.93 K/uL (0.11-0.59) H 12/25/19 07:59 Eos # (Auto) 0.06 K/uL (0-0.5) 12/25/19 07:59 Baso # (Auto) 0.02 K/uL (0-0.2) 12/25/19 07:59 Immature Gran # (Auto) 0.04 K/uL (0.00-0.02) H 12/25/19 07:59 ESR 66 mm/hr (0-14) H 12/25/19 07:59 Sodium 137 mmol/L (136-145) 12/26/19 08:07 Potassium 4.3 mmol/L (3.5-5.1) 12/26/19 08:07 Chloride 107 mmol/L (98-107) 12/26/19 08:07 Carbon Dioxide 23 mmol/L (21-32) 12/26/19 08:07 Anion Gap 7.0 (3-11) 12/26/19 08:07 BUN 24 mg/dl (7-18) H 12/26/19 08:07 Creatinine 1.30 mg/dl (0.6-1.4) 12/26/19 08:07 Est Cr Clr Drug Dosing 85.3 ml/min 12/26/19 08:07 Est GFR ( Amer) 73.7 12/26/19 08:07 Est GFR (Non-Af Amer) 63.6 12/26/19 08:07 BUN/Creatinine Ratio 18.7 (10-20) 12/26/19 08:07 Glucose 109 mg/dl (70-99) H 12/26/19 08:07 POC Glucose 106 mg/dl (70-99) H 12/26/19 05:44 Lactate 1.6 mmol/L (0.4-2.0) 12/25/19 08:11 Calcium 9.1 mg/dl (8.5-10.1) 12/26/19 08:07 Total Bilirubin 0.6 mg/dl (0.2-1) 12/25/19 07:59 AST 12 U/L (15-37) L 12/25/19 07:59 ALT 18 U/L (12-78) 12/25/19 07:59 Alkaline Phosphatase 119 U/L (45-117) H 12/25/19 07:59 Total Creatine Kinase 52 U/L (39-308) 12/25/19 07:59 Total Creatine Kinase Cancelled 12/25/19 07:59 C-Reactive Protein 16.10 mg/dl (0-0.29) H 12/25/19 07:59 Total Protein 7.8 gm/dl (6.4-8.2) 12/25/19 07:59 Albumin 2.8 gm/dl (3.4-5.0) L 12/25/19 07:59 Globulin 5.0 gm/dl (2.5-4.0) H 12/25/19 07:59 Albumin/Globulin Ratio 0.6 (0.9-2) L 12/25/19 07:59 Diagnostic Findings Patient: TARA GALLEGOS Date: 12/25/19 MR#: [id number] [address] [facility] Acct ID:[id number]: Date: 1970City Zip: [place] [address] Age: 49Location: 2S Sex: M Room/Bed: [facility] Att Phy: Kaley Hood MDDiagnosis: LEFT FOOT INFECTION,DIABETIC WOUND Radha Phy: EricksonyamilaJc MDService Date: 12/25/19 Fam Phy:Interpreting Phy: Eric Olea MD Admit Phy: Kaley Hood MD Ordering Phy: Kaley Hood MD cc: ~ CT foot RT w con HISTORY: Right foot wound. Assess for osteomyelitis. Abnormal x-ray. TECHNIQUE: Multiaxial CT images the right performed following the use of 2 venous contrast. COMPARISON STUDY: Right foot radiograph 12/25/2019. FINDINGS: Diffuse soft tissue edema seen throughout the foot. This most pronounced at the head of the first metatarsal. Prior amputation of the first and second toes. There is a 2.6 cm skin ulceration at the level of the first metatarsal head. There is packing material noted within the wound. The soft tissue gas extends to the distal first metatarsal. There is gas seen within the medullary cavity of the first metatarsal. Therefore, these findings are consistent with osteomyelitis. Dorsal to abutting the mid shaft of the first metatarsal there is a 14 x 7 mm peripheral enhancing gas and fluid collection. This is consistent with an abscess. Extensive edema surrounding the head of the first metatarsal which demonstrates faint peripheral enhancement. This likely represents a developing abscess. There is also extensive soft tissue thickening and edema with possible developing abscess at the head of the second metatarsal. This measures 11 mm. Irregularity at the head of the second metatarsal with mild periostitis. This favors old postoperative change. However, a developing osteomyelitis cannot be excluded. No acute fractures within the foot. Plantar and posterior calcaneal spurs are noted. Degenerative changes are seen throughout the foot. Mild periostitis along the medial shaft of the first metatarsal remains unchanged. IMPRESSION: 1. Prior amputation of the first and second toes. 2. A 2.6 cm focal skin ulceration at the level of the first metatarsal head. There is packing material noted within the wound. There is also soft tissue gas projecting stents to the head of the first metatarsal and is seen within the medullary cavity of the first metatarsal. Therefore, this is consistent with osteomyelitis. 3. A 14 x 7 mm abscess dorsal to and abutting the mid shaft of the first metatarsal. 4. Focal areas of edema surrounding the heads of the first and second tarsals demonstrating partial peripheral enhancement. These areas are concerning for developing abscesses. 5. Irregularity at the head of the second metatarsal with mild periostitis. This could be due to the old postoperative change or developing osteomyelitis.
[2019-12-26] MEDS: MAGNESIUM CHLORIDE 64MG DELAYED REL TAB PO SCH ×4 (09:46→20:27)
[2019-12-26] MEDS: FUROSEMIDE 20 MG TAB PO SCH (09:47)
[2019-12-26] MEDS: AMIODARONE 200 MG TAB PO SCH (09:47)
[2019-12-26] MEDS: SACUBITRIL-VALSARTAN 24-26 MG TAB PO SCH ×2 (09:47→20:27)
[2019-12-26] MEDS: POTASSIUM CHLORIDE 10 MEQ TABCR PO SCH (09:47)
[2019-12-26] MEDS: METOPROLOL SUCC 50MG EXT REL TAB PO SCH (09:47)
[2019-12-26] MEDS ORDERED: ONDANSETRON INJ 2 MG/ML 2 ML VIAL ONE (12:30)
[2019-12-26] MEDS ORDERED: fentaNYL citrate 100 MCG/2 ML VIAL ONE (12:30)
[2019-12-26] MEDS ORDERED: MIDAZOLAM HCL 1 MG/ML 2ML VIAL ONE ×2 (12:30→14:01)
[2019-12-26] MEDS ORDERED: DEXAMETHASONE SOD INJ 4 MG/ML VIAL ONE (12:30)
[2019-12-26] MEDS ORDERED: PROPOFOL IV EMULSION 10 MG/ML 20 ML VIAL IV ONE ×3 (12:30→14:51)
[2019-12-26] MEDS ORDERED: INSULIN GLARGINE SOLOSTAR 100 UNITS/ML 3 ML PEN SC ONE (12:30)
[2019-12-26] MEDS ORDERED: LIDOCAINE HCL 2% 2 ML VIAL/AMP(20MG/ML) INFIL ONE (12:30)
--- NOTE | 2019-12-26 13:00 | Anesthesiology Consultation ---
Date of Service December 26, 2019 Assessment & Plan (1) Encounter for pre-operative examination: Chart Review Chart Review: Acceptable Risk for Surgery History Surgery Operation Date: 12/26/19 10:00 Proposed Procedures p Right Incision and Drainage Foot Ulcer, Possible Stimulan Beads - Vance Terry DO s Possible Excision of 1st Metatarsal - Vance Terry DO Height/Weight Height: 5 ft 8 in Weight: 119.3 kg Allergies Allergy/AdvReac Type Severity Reaction Status Date / Time Bactrim Allergy Unknown "severe Verified 05/24/17 08:28 vomiting" sulfamethoxazole AdvReac Unknown "severe Verified 12/25/19 07:55 vomiting" trimethoprim AdvReac Unknown "severe Verified 12/25/19 07:55 vomiting" Medications Home Medications Medication Instructions Recorded Confirmed Last Taken metformin 850 mg tablet 850 mg PO BID #180 tab 12/23/18 12/25/19 12/24/19 sitagliptin 100 mg tablet 100 mg PO QAM #90 tab 12/23/18 12/25/19 12/24/19 apixaban 5 mg tablet 5 mg PO BID #180 tab 07/14/19 12/25/19 12/24/19 potassium chloride 10 mEq 10 meq PO QAM #90 tab 07/14/19 12/25/19 12/24/19 tablet,extended release rosuvastatin 20 mg tablet 20 mg PO HS #90 tab 07/14/19 12/25/19 12/24/19 sacubitril 24 mg-valsartan 26 mg 1 tab PO BID #60 tab 10/13/19 12/25/19 12/24/19 tablet Lantus Solostar U-100 Insulin 40 unit SUBCUT QAM 12/10/19 12/25/19 12/24/19 insulin lispro [Humalog KwikPen 20 unit SUBCUT TIDM 12/10/19 12/25/19 12/24/19 Insulin] magnesium chloride [Mag 64] 64 mg PO QID 30 Days #120 tab 12/11/19 12/25/19 12/24/19 metoprolol succinate 250 mg PO QAM 30 Days #150 tab 12/11/19 12/25/19 12/24/19 amiodarone 400 mg PO QAM 12/25/19 12/25/19 12/24/19 doxycycline hyclate 75 mg PO BID 12/25/19 12/25/19 12/24/19 furosemide 20 mg PO QAM 12/25/19 12/25/19 12/24/19 Active Medications Generic Name Dose Route Start Last Admin Trade Name Ese PRN Reason Stop Dose Admin Amiodarone HCl 400 mg 12/26/19 09:00 12/26/19 09:47 Cordarone PO 01/25/20 08:59 400 mg QAM BRITANY Administration Furosemide 20 mg 12/26/19 09:00 12/26/19 09:47 Lasix PO 01/25/20 08:59 20 mg QAM BRITANY Administration Piperacillin Sod/Tazobactam 120 mls @ 28.75 mls/hr 12/25/19 14:00 12/26/19 10:01 Sod 4.5 gm/ Dextrose IV 02/05/20 13:59 Infused Q8H BRITANY Infusion Protocol Daptomycin 525 mg/ Syringe 10.5 mls @ 5 mls/min 12/25/19 16:00 12/25/19 16:48 IV 02/05/20 15:59 5 mls/min DAILY@1600 BRITANY Administration Protocol Insulin Aspart 0 units 12/25/19 11:30 12/26/19 12:33 Novolog Flexpen SC 01/24/20 11:29 Not Given ACHS BRITANY Protocol Ioversol 94 ml 12/25/19 14:48 12/25/19 14:48 Optiray 320 100ml IV 12/29/19 14:47 94 ml ONCE PRN Administration Interaction Checking Magnesium Chloride 64 mg 12/25/19 13:00 12/26/19 09:46 Slow-Mag PO 01/24/20 12:59 64 mg QID BRITANY Administration Metoprolol Succinate 250 mg 12/26/19 09:00 12/26/19 09:47 Toprol Xl PO 01/25/20 08:59 250 mg QAM BRITANY Administration Potassium Chloride 10 meq 12/26/19 09:00 12/26/19 09:47 Klor-Con M10 PO 01/25/20 08:59 10 meq QAM BRITANY Administration Sacubitril/Valsartan 1 tab 12/25/19 21:00 12/26/19 09:47 Entresto 24/26mg PO 01/24/20 20:59 1 tab BID BRITANY Administration Past Medical History Medical History Atrial fibrillation, currently in sinus rhythm CAD (coronary artery disease) (Chronic) Diabetes mellitus type II, uncontrolled (Chronic) Diabetic peripheral neuropathy associated with type 2 diabetes mellitus (Chronic) Dyslipidemia (Chronic) Goiter (Chronic) History of cellulitis lower extremity History of diabetic ulcer of foot (Resolved) HTN (hypertension) (Chronic) Ischemic cardiomyopathy (Chronic) 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) PAF (paroxysmal atrial fibrillation) Sepsis (Inactive) Sleep apnea (Chronic) cpap Ventricular tachycardia ICD shock Past Family History Family History Other Diabetes Heart disease Past Surgical History Surgical History H/O vasectomy (Chronic) History of implantable cardiac defibrillator (ICD) 05/2017 [employer] Hx of CABG (Chronic) 2017 [place], HEART CATH - UNABLE TO STENT AND THEN CABG X 4 - [facility] FOLLOWS WITH DR KIMBLE Hx of foot surgery REMOVAL OF BIG TOE AND SECOND TOE 04/2017 Social History Smoking Status: Never smoker Hx Alcohol Use: Yes Alcohol type: beer alcohol intake frequency: holidays/special occasions only Hx Substance Use: No substance use type: does not use Physical Exam Vital Signs Last Vital Signs Temp 36.9 C 12/26/19 10:51 Pulse 74 12/26/19 10:51 Resp 19 12/26/19 10:51 BP 129/76 12/26/19 10:51 Pulse Ox 99 12/26/19 10:51 Testing Laboratory Results 12/26/19 08:07 12/26/19 08:07 12/25/19 07:59 Aerobic Blood Culture - Preliminary Blood No growth in Aerobic bottle after 24 hours. Anaerobic Blood Culture - Preliminary No growth in Anaerobic bottle after 24 hours. 12/25/19 08:11 Aerobic Blood Culture - Preliminary Blood No growth in Aerobic bottle after 24 hours. Anaerobic Blood Culture - Preliminary No growth in Anaerobic bottle after 24 hours. 12/25/19 08:28 Gram Stain - Final Foot 12/26/19 12/26/19 12:07 05:44 POC Glucose 123 H 106 H Electrocardiogram Date: 12/11/19 Findings: + NSR @ (81 PVC's) Echocardiogram Date: 12/11/19 EF: 40-45% RWMA: + hypokinetic Valvular Disease: + no significant valvular disease
[2019-12-26] MEDS ORDERED: GENTAMICIN SULFATE 40 MG/ML 2 ML VIAL ONE (13:08)
[2019-12-26] MEDS ORDERED: VANCOMYCIN HCL 1000MG/20ML VIAL ONE (13:08)
[2019-12-26] MEDS ORDERED: BACITRACIN INJ 50,000 UNIT VIAL ONE ×2 (13:08→14:17)
[2019-12-26] MEDS ORDERED: BUPIVACAINE 0.5 % 5 MG/1 ML MPF 30ML VIAL ONE (13:08)
[2019-12-26] MEDS ORDERED: ROPIVACAINE 0.5% 5 MG/ML 30 ML VIAL ONE (13:29)
[2019-12-26] MEDS ORDERED: SODIUM CHLORIDE 0.9% INJ 10 ML VIAL ONE (13:29)
--- NOTE | 2019-12-26 13:29 | History & Physical Bridge Note ---
Date of Service December 26, 2019 History & Physical Bridge Note I have examined the patient, reviewed the History & Physical and in the interval since the performance of the History & Physical I have noted the following changes of clinical significance: no changes noted
[2019-12-26] MEDS ORDERED: ATROPINE SULFATE 0.1 MG/ML 10ML SYR IV PRN (13:39)
[2019-12-26] MEDS ORDERED: fentaNYL citrate 100 MCG/2 ML VIAL IV PRN (13:39)
[2019-12-26] MEDS ORDERED: LABETALOL HCL IV 5 MG/ML 20ML IV PRN (13:39)
[2019-12-26] MEDS ORDERED: ONDANSETRON INJ 2 MG/ML 2 ML VIAL IV PRN (13:39)
[2019-12-26] MEDS ORDERED: PHENYLEPHRINE 100MCG/ML 5ML SYR ONE (14:18)
--- NOTE | 2019-12-26 14:48 | Pharmacy Report ---
Pharmacy Glycemic Short Note 2 - Date of Service December 26, 2019 - Glycemic Short BSG Results (Last 24 hours): 12/25/19 12/25/19 12/26/19 16:22 20:20 05:44 Glucose POC Glucose 100 H 98 106 H 12/26/19 12/26/19 08:07 12:07 Glucose 109 H POC Glucose 123 H ASSESSMENT: * 49 year old with PMHx significant for DM2, ischemic cardiomyopathy, CAD with CABG, htn, hld, PAF. Presents to ED with worsening right foot. Foot xray concerning for osteomyelitis * Patient DM2, with A1C of 10.8% on admission. Pharmacy consulted for glycemic management. Plan to stress home dose as likely insulin coverage at home not adequate * Spoke with RN this AM and confirmed patient already took AM Lantus 40 units prior to admission, therefore will hold further basal today * Appears patient NPO at midnight / will reassess basal needs in AM 12/25 * Patient received total of 60 units of insulin yesterday, of which 40 were basal insulin * Fasting BSG 106 mg/dL - patient NPO this AM / ordered 50% of basal insulin at lunch time for NPO status * Patient in OR currently / plan to loosen CR slightly with dinner as BSGs yesterday on lower end of range PLAN FOR INPATIENT GLYCEMIC CONTROL: * Basal insulin * Lantus 20 x 1 at lunch * Bolus insulin * NovoLog per scale ACHS or Q6hrs while NPO * Goal Range: Low 110 mg/dL - High 140 mg/dL * Correction Factor: 15 mg/dL/unit * Nutritional / Prandial insulin per carb ratio of 1 unit per 6 grams CHO consumed * Please note that the plan above was derived based on current level of insulin resistance and hospital stress. These recommendations are appropriate for inpatient admission only. Plan of care upon discharge will need to be reassessed to avoid potential outpatient hypo/hyperglycemia. Thank you.
--- NOTE | 2019-12-26 15:41 | Anesthesiology Progress Note ---
Date of Service December 26, 2019 Anesthesia Post Procedure Vital Signs Vital Signs: Temp Pulse Pulse Pulse Resp BP Pulse Ox 12/26/19 15:35 36.1 C L 68 15 123/78 99 12/26/19 15:25 72 16 129/74 99 12/26/19 15:19 36.1 C L 75 16 115/72 97 12/26/19 13:53 77 12/26/19 12:52 36.7 C 75 20 135/97 99 12/26/19 10:51 36.9 C 74 19 129/76 99 12/26/19 07:04 36.7 C 76 20 119/72 99 12/26/19 03:33 74 16 97 12/26/19 03:12 37.3 C 72 16 153/92 H 99 12/25/19 23:41 79 16 98 12/25/19 23:19 37.4 C 78 16 113/73 98 12/25/19 19:44 36.7 C 75 19 124/78 99 12/25/19 16:21 37.1 C 69 20 110/64 100 Transfer of Care Handoff Completed per policy Notes Mental Status: alert / awake / arousable Patient Amnestic to Procedure: Yes Nausea / Vomiting: adequately controlled Pain: adequately controlled Airway Patency, RR, SpO2: stable & adequate BP & HR: stable & adequate Hydration State: stable & adequate Anesthetic Complications: no major complications apparent
--- NOTE | 2019-12-26 15:41 | Post Operative Brief Note ---
Immediate Post Op Note v1 Date of Surgery December 26, 2019 Pre & Post Diagnosis Operation Date: 12/26/19 10:00 Pre-Op Diagnosis: Right foot plantar neuropathic diabetic ulcer measuring 4 cm x 4 cm x 1.5 cm, deep abscess dorsal forefoot, osteomyelitis first metatarsal, osteomyelitis second metatarsal, infection right foot, cellulitis right foot Post-Op Diagnosis: Right foot plantar neuropathic diabetic ulcer measuring 4 cm x 4 cm x 1.5 cm, deep abscess dorsal forefoot, osteomyelitis first metatarsal, osteomyelitis second metatarsal, infection right foot, cellulitis right foot I identified the patient and participated in the time-out.: Yes Procedure Operation Date: 12/26/19 10:00 Actual Procedures p Right foot irrigation and debridement plantar neuropathic diabetic ulcer measuring 4 cm x 4 cm x 1.5 cm, irrigation and debridement right foot including skin/dermis/plantar fascia/flexor tendon and extensor tendon, placement of antibiotic Stimulan Beads, Evacuation of Abscess dorsal forefoot, Excision Partial First Metatarsal, Excision partial second metatarsal (Right) - Vance Terry DO Surgeon Vance Terry DO [employer] Jose Luis Astudillo PA-C Estimated Blood Loss 15 Findings Consistent with Post-Op Diagnosis Specimens Aerobic anaerobic Gram stain right foot plantar diabetic neuropathic ulcer. Aerobic anaerobic Gram stain first metatarsal infected bone. First metatarsal for pathology Drains Other (1/2 inch iodoform gauze packing) Anesthesia Type MAC Regional Complications none Disposition Accompanied Patient To Recovery: No Disposition: Recovery Room Overlapping Procedure I was present for: the critical portions of procedure. I was immediately available: during the entire case.
[2019-12-26] MEDS ORDERED: MAGNESIUM HYDROXIDE SUSP 30 ML UDC PO PRN (15:58)
[2019-12-26] MEDS ORDERED: NALOXONE HCL 0.4 MG/1 ML VIAL/CARP IV PRN (15:58)
[2019-12-26] MEDS ORDERED: OXYCODONE HCL IR 5 MG TAB (IMMEDIATE RELEASE) PO PRN (15:58)
[2019-12-26] MEDS ORDERED: bisacodyL 10 MG SUPP PR PRN (15:58)
[2019-12-26] MEDS ORDERED: HYDROmorphone INJ 0.5 MG/0.5 ML SYR IV PRN (15:58)
[2019-12-26] MEDS ORDERED: SODIUM CHLORIDE 0.9% 1000ML 1,000 ML IV SCH (16:00)
[2019-12-26] MEDS: DAPTOmycin 525 MG in SYRINGE 0 ML IV SCH (16:02)
--- NOTE | 2019-12-26 17:07 | Hospitalist Progress Note ---
Date of Service December 26, 2019 Assessment & Plan (1) Osteomyelitis of foot: (2) Foot ulcer, right: This is a 49-year-old male who has significant past medical history of uncontrolled IDDM 2, ischemic cardiomyopathy status post AICD with EF of 35 to 40%, CAD with history of CABG x4 in 2017, JENNIFER on CPAP, HTN, HLD, PAF anticoagulated on Eliquis who presents to ED secondary to worsening right foot wound x1 week. . R Foot x-ray Erosive change is seen at the resection margin of the first met atarsal. There is overlying soft tissue edema and subcutaneous gas, and this is highly concerning for osteomyelitis. CT of foot shows extensive osteomyelitis appreciate input from [facility] s/p rt put surgery I&D with partial metatarsal amputation He was started on IV vancomycin and Zosyn-cont (3) Type 2 diabetes mellitus: Uncontrolled insulin-dependent type 2 DM Counseled on importance of strict glycemic control A1c 10.8 on 12/11/2019 Hold metformin and Celestino Glycemic pharmacist consulted Consult inclusion paraeducator (4) CAD (coronary artery disease): (5) Ischemic cardiomyopathy: History of CABG x4 in 2017, Chronic Systolic CHF Echocardiogram 12/2019 revealed EF 40 to 45%, left atrium severely dilated, mild concentric left ventricular hypertrophy, moderate global hypokinesis with more pronounced hypokinesis and distal lateral inferior gary follows [facility] [place] cardiology, AICD in place euvolemic continue metoprolol, Lasix, Entresto continue amiodarone, mag supplemenation Daily weights, strict I's and O's, low-sodium diet apprecaite input from Cardiology for pre op risk assessment (6) HTN (hypertension): Blood pressure stable Continue metoprolol, Lasix (7) CKD (chronic kidney disease) stage 3, GFR 30-59 ml/min: ACUTE on CHRONIC CKD 3 monitor renal fxn, avoid nephrotoxic agents gentle IVF baseline cr 1.0-1.1 bun/cr 32 and 1.37 today (8) Dyslipidemia: Hold Crestor while on daptomycin (9) JENNIFER on CPAP: CPAP at HS (10) DVT prophylaxis: SQ lovenox Disposition:monitor in tele Follow up: PCP Dr. Cagle upon discharge Admission and Anticipated Discharge Date Admission Date: December 25, 2019 Subjective Status post right foot surgery today, Pt resting in bed, pain controlled, denies complaints no fever of chills no complain of shortness of breath . no fever or chills Physical Exam Physical Exam: Constitutional: WD/WN, male, vitals as above, NAD, sitting up in bed, pleasant, conversing easily Head: Normocephalic, Atraumatic Eyes: PERRL, conjunctivae normal, anicteric sclerae ENMT: external ear and nose normal, oropharynx normal Neck: trachea midline, no thyromegaly normal visual inspection Respiratory: normal respiratory effort, lungs clear to auscultation, no wheeze, rales, rhonchi. Normal insp/exp effort, no accessory muscle use Cardiovascular: RRR, 1/6 JESS noted RUSB, AICD LACW, no edema, bilateral pedal pulse in PT pulse +2 vessels: no JVD or carotid bruit Chest: normal inspection of chest Abdomen: normal bowel sounds, soft, nontender, no hepatosplenomegaly Musculoskeletal: s/p right foot surgery bandage present Skin: no rashes, warm and dry normal turgor Neurologic: PERRL, EOMI, accommodation nl, no face palsy, no dysarthria CN's II-XI intact bilaterally and moves all extremities Psychiatric: A+Ox3, euthymic affect Results & Data Results & Data ([facility]) Vital Signs (Past 12 Hours) Vital Signs Temp Pulse Pulse Pulse Resp BP Pulse Ox 12/26/19 15:52 36.9 C 67 22 133/78 100 12/26/19 15:35 36.1 C L 68 15 123/78 99 12/26/19 15:25 72 16 129/74 99 12/26/19 15:19 36.1 C L 75 16 115/72 97 12/26/19 13:53 77 12/26/19 12:52 36.7 C 75 20 135/97 99 12/26/19 10:51 36.9 C 74 19 129/76 99 12/26/19 07:04 36.7 C 76 20 119/72 99 (1) Osteomyelitis of foot Laterality: right Osteomyelitis type: unspecified type Qualified Code(s): M86.9 - Osteomyelitis, unspecified (2) Type 2 diabetes mellitus Diabetes mellitus exterminator insulin use: with retirement use Diabetes mellitus complication status: with circulatory complication Diabetes mellitus complication detail: with other circulatory complications Qualified Code(s): E11.59 - Type 2 diabetes mellitus with other circulatory complications; Z79.4 - USP (current) use of insulin (3) CAD (coronary artery disease) Coronary Disease-Associated Artery/Lesion type: [place] artery [place] vs. transplanted heart: [place] heart Associated angina: without angina Qualified Code(s): I25.10 - Atherosclerotic heart disease of [place] coronary artery without angina pectoris (4) HTN (hypertension) Hypertension type: unspecified Qualified Code(s): I10 - Essential (primary) hypertension
--- NOTE | 2019-12-26 18:03 | Operative Report (OR) ---
DATE OF OPERATION: 12/26/2019 PREOPERATIVE DIAGNOSES: 1. Right foot plantar diabetic neuropathic ulcer measuring 4 cm x 4 cm x 1.5 cm. 2. Deep abscess dorsal forefoot. 3. Osteomyelitis of first metatarsal. 4. Osteomyelitis of the second metatarsal. 5. Deep infection, right foot. 6. Cellulitis, right foot. POSTOPERATIVE DIAGNOSES: 1. Right foot plantar diabetic neuropathic ulcer measuring 4 cm x 4 cm x 1.5 cm. 2. Deep abscess dorsal forefoot. 3. Osteomyelitis of first metatarsal. 4. Osteomyelitis of the second metatarsal. 5. Deep infection, right foot. 6. Cellulitis, right foot. PROCEDURES: 1. Right foot resection, first metatarsal. 2. Right foot resection, second metatarsal. 3. Evacuation deep abscess dorsal mid foot. 4. Irrigation and debridement plantar diabetic neuropathic foot ulcer measuring 4 cm x 4 cm x 1.5 cm. 5. Debridement of right foot, skin, dermis, fascia, flexor hallucis longus tendon and extensor hallucis longus tendon. 6. Implantation of Stimulan antibiotic beads. SURGEON: Vance Terry DO. CLIENT PROFESSIONAL: Jose Luis Astudillo PA-C, who was present for patient positioning, sterile prep and drape, management of retractors and instruments. He was present through the critical portions of the case including wound closure, application of sterile dressing and transport of the patient to recovery. ANESTHESIA: MAC, regional. SPECIMENS: 1. Aerobic, anaerobic, Gram stain, right foot plantar diabetic neuropathic ulcer. 2. Aerobic, anaerobic, Gram stain first metatarsal infected bone. 3. First metatarsal resected pieces for pathology. COMPLICATIONS: None. BLOOD LOSS: 15 mL. DRAINS: A 1/2 inch iodoform gauze packing. PERTINENT HISTORY: This is a 49-year-old gentleman who has been unfortunately dealing with severe infection, ulceration and previous osteomyelitis of his right foot for an extended period of time. 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 Ellis, who is no longer in the area and Waleska Schwartz DPM. The patient has had several surgeries in the right foot and was in and out of wound care and in and out of the podiatric offices and he presented with a cardiac event with his AICD within the last 2 weeks and then presented with foul odor and large ulceration with drainage of his right foot. Subsequently had an x-ray and CT scan, which demonstrated a deep abscess and osteomyelitis of first and second metatarsals. The patient was then scheduled for surgery as indicated. All potential risks, benefits, complications, alternatives, rehab, potential for incomplete relief of symptoms, need for further surgery, DVT, PE, , persistent pain, swelling, scarring, weakness, neurovascular injury, wound complications, need for further surgery and amputation were discussed with the patient. The patient decided to proceed with the procedure as indicated. The patient is also aware of the high risk of recurrence due to the extensive degree of infection that has collected in his right foot. DESCRIPTION OF PROCEDURE: The patient was taken to the operative suite, placed supine on the operating table. After review of consent and identification of proper operative site, the patient was sedated. Right lower extremity was then sterilely prepped and draped in usual fashion, elevated and partially exsanguinated from the hindfoot proximally with an Esmarch bandage. Esmarch tourniquet applied over sterile surgical towel. Next, a 15 blade scalpel was used to make a dorsal incision at the site of prior incision across the bridge of the distal 1/3rd of the first metatarsal and second metatarsal. This incision was then deepened through subcutaneous tissue. An ellipse of hypertrophic scar tissue was then excised exposing the first and second metatarsals. Periosteum was elevated proximally with a Rich elevator. The plantar ulceration on the plantar aspect of the foot is 4 cm x 4 cm x 1.5 cm, was then carefully debrided with a 15 blade scalpel and a rongeur. There was noted to be foul smelling material and darkened tissue plantar. This was then taken for specimen and culture for aerobic, anaerobic, Gram stain which was then passed off. Next, after the grossly necrotic tissue was then sharply excised with a 15 blade scalpel and a rongeur in the plantar aspect of the foot, attention was then directed toward the dorsal portion of the foot. The periosteum was then stripped further in the first and second metatarsals with a Rich elevator. The abscess which had been anticipated with the CT scan was encountered. This was evacuated and irrigated with lavage with bacitracin. Next, Hohmann retractors were placed in the incision and the distal aspect of the first metatarsal was then resected with a sagittal saw. Next, the Hohmann retractors were placed surrounding the second metatarsal proximal mid shaft and the second metatarsal was then resected using a sagittal saw. Of note, the bone of the first metatarsal had a foul odor and darkened color with softened consistency, particularly distally as anticipated by the CT scan. Next, careful debridement with a 15 blade scalpel was then performed of the flexor tendon of the great toe as well as debridement of the extensor tendon of the extensor hallucis longus. This was then placed on stretch and then resected. Next, the fascia was debrided as well as the dermis and skin in the plantar aspect of the ulceration. Next, pulsatile lavage, 3 liters of bacitracin was then used to lavage the entire incision both plantar and dorsal. Next, top gloves and top sheet were changed and antibiotic laden Stimulan calcium sulfate beads were created with vancomycin and gentamicin. These were then packed into the plantar ulcer as well as to the dorsal incision. No grossly infected tissue remained and then a 1/2 inch iodoform gauze packing was placed to the plantar ulcer. Next, revision of the ulceration was performed with a 15 blade scalpel to help close the medial and lateral corners by excising the curved edges. This was then closed with space closed with interrupted 4-0 nylon sutures. The dorsal incision was then closed under low tension with 4-0 nylon suture. A sterile compressive dressing and Kaden wrap was then applied over the right foot. The tourniquet was released, the patient was awakened and taken to recovery in stable condition. I attest to the content of the Intraoperative Record and any orders documented therein. Any exception s are noted below.
[2019-12-26] MEDS: DOCUSATE SODIUM 100 MG CAP PO SCH (20:26)
[2019-12-27] MEDS: PIPERACILLIN/TAZOBACTAM 4.5 GM in DEXTROSE 5% 100 ML IV SCH ×3 (05:46→21:13)
[2019-12-27] MEDS: INSULIN ASPART 100 UNITS/ML 3 ML PEN SC SCH ×4 (08:17→21:02)
[2019-12-27] MEDS: DOCUSATE SODIUM 100 MG CAP PO SCH ×2 (08:18→20:59)
[2019-12-27] MEDS: MULTIVITAMIN TAB PO SCH (08:19)
[2019-12-27] MEDS: AMIODARONE 200 MG TAB PO SCH (08:19)
[2019-12-27] MEDS: SACUBITRIL-VALSARTAN 24-26 MG TAB PO SCH ×2 (08:19→20:59)
[2019-12-27] MEDS: MAGNESIUM CHLORIDE 64MG DELAYED REL TAB PO SCH ×4 (08:19→20:59)
[2019-12-27] MEDS: FUROSEMIDE 20 MG TAB PO SCH (08:19)
[2019-12-27] MEDS: POTASSIUM CHLORIDE 10 MEQ TABCR PO SCH (08:19)
[2019-12-27] MEDS: METOPROLOL SUCC 50MG EXT REL TAB PO SCH (08:19)
[2019-12-27] MEDS: ENOXAPARIN INJ 40 MG/0.4 ML SYR SQ SCH (08:20)
[2019-12-27 08:25] LABS: Hematocrit (blood only) 28.9 % (42-52); Hemoglobin 9.4 g/dL (14.0-18.0); Mean Corpuscular Hemoglobin 25.1 pg (25-34); Mean Corpuscular Hgb Conc 32.5 g/dL (32-36); Mean Corpuscular Volume 77.3 fL (80-100); Mean Platelet Volume 9.8 fL (7.4-10.4); Platelet Count 135 K/uL (130-400); RDW Coefficient of Variation 15.2 % (11.5-14.5); RDW Standard Deviation 43.1 fL (36.4-46.3); Red Blood Count 3.74 M/uL (4.7-6.1); White Blood Count 6.54 K/uL (4.8-10.8)
[2019-12-27 08:54] LABS: BUN Creatinine Ratio 16.5 (10-20); Calcium 8.9 mg/dl (8.5-10.1); Creatinine Clr Calc Pharmacy 87.2 ml/min; Est GFR (African American) 75.8; Est GFR (Non-African American) 65.4; Potassium 4.3 mmol/L (3.5-5.1)
[2019-12-27] MEDS ORDERED: INSULIN GLARGINE SOLOSTAR 100 UNITS/ML 3 ML PEN SC ONE ×2 (09:00→21:00)
--- NOTE | 2019-12-27 09:38 | Pharmacy Report ---
Pharmacy Glycemic Short Note 2 - Date of Service December 27, 2019 - Glycemic Short BSG Results (Last 24 hours): 12/26/19 12/26/19 12/26/19 12:07 15:21 16:24 Glucose POC Glucose 123 H 116 H 107 H 12/26/19 12/27/19 12/27/19 20:07 06:59 07:30 Glucose 123 H POC Glucose 106 H 110 H ASSESSMENT: * Patient NPO up until dinner yesterday for I&D of right foot * BSGs ranging 106-123 mg/dL yesterday - patient received only 6 units of pra ndial insulin with dinner, no basal insulin received * Fasting BSG of 110 mg/dL this morning * Patient now ordered diet - will initiate basal today at half of home dose (i.e. 20 units of Lantus x 1 this morning) * Will utilize scale this evening to give more basal insulin if needed * Continues on Zosyn and daptomycin for treatment of osteomyelitis of right foot PLAN FOR INPATIENT GLYCEMIC CONTROL: * Basal insulin * Lantus 20 SC x 1 this morning * Lantus scale this evening (0-20 units - see EHR for details) * Bolus insulin - tighten CR * NovoLog per scale ACHS or Q6hrs while NPO * Goal Range: Low 110 mg/dL - High 140 mg/dL * Correction Factor: 15 mg/dL/unit * Nutritional / Prandial insulin per carb ratio of 1 unit per 5 grams CHO consumed DISCHARGE: * Patient with poorly controlled diabetes based on A1c of 10.8. Patient also has complications associated with diabetes including, diabetic peripheral neuropathy and history of diabetic foot infections * Per telehealth nurse educator note, COVID-19 pandemic may be partially to blame for poor A1c * Reasonable A1c goal would be less than 7% for most adult patients * Will follow inpatient insulin needs and recommend outpatient adjustments as necessary * Recommend prompt outpatient follow-up * Per telehealth nurse educator note, patient has upcoming appointment with COREY robles * Please note that the plan above was derived based on current level of insulin resistance and hospital stress. These recommendations are appropriate for inpatient admission only. Plan of care upon discharge will need to be reassessed to avoid potential outpatient hypo/hyperglycemia. Thank you.
--- NOTE | 2019-12-27 09:46 | Orthopedic Progress Note ---
Date of Service December 27, 2019 Assessment & Plan (1) Osteomyelitis of foot: 49 yo male stable POD #1 s/p right foot I&D, partial resection metatarsals 1 and 2, implantation Stimulan beads 1. Med management- cont IV Zosyn and Dapto 2. DVT prophylaxis- Lovenox, SCDs 3. PT/OT 4. D/C planning- per medicine Admission and Anticipated Discharge Date Admission Date: December 25, 2019 Subjective Pt resting in bed, pain controlled, denies complaints Physical Exam Physical Exam: Dressing d/c'd, some packing pulled, no significant erythema, new dressing applied Results & Data ([facility]) Vital Signs (Past 12 Hours) Vital Signs Temp Pulse Pulse Pulse Resp BP Pulse Ox 12/27/19 06:56 37.2 C 72 20 112/71 100 12/27/19 03:15 74 25 H 100 12/27/19 03:11 36.5 C 76 18 108/67 99 12/27/19 00:04 37.7 C H 79 16 119/70 99 12/26/19 23:18 80 18 97 Laboratory Results 12/27/19 12/27/19 12/27/19 Range/Units 07:30 07:30 06:59 WBC 6.54 (4.8-10.8) K/uL RBC 3.74 L (4.7-6.1) M/uL Hgb 9.4 L (14.0-18.0) g/dL Hct 28.9 L (42-52) % MCV 77.3 L (80-100) fL MCH 25.1 (25-34) pg MCHC 32.5 (32-36) g/dL RDW Std Deviation 43.1 (36.4-46.3) fL RDW Coeff of Baldo 15.2 H (11.5-14.5) % Plt Count 135 (130-400) K/uL MPV 9.8 (7.4-10.4) fL Sodium 137 (136-145) mmol/L Potassium 4.3 (3.5-5.1) mmol/L Chloride 109 H (98-107) mmol/L Carbon Dioxide 21 (21-32) mmol/L Anion Gap 7.0 (3-11) BUN 21 H (7-18) mg/dl Creatinine 1.27 (0.6-1.4) mg/dl Est Cr Clr Drug Dosing 87.2 ml/min Est GFR ( Amer) 75.8 Est GFR (Non-Af Amer) 65.4 BUN/Creatinine Ratio 16.5 (10-20) Glucose 123 H (70-99) mg/dl POC Glucose 110 H (70-99) mg/dl Calcium 8.9 (8.5-10.1) mg/dl 12/26/19 12/26/19 12/26/19 Range/Units 20:07 16:24 15:21 WBC (4.8-10.8) K/uL RBC (4.7-6.1) M/uL Hgb (14.0-18.0) g/dL Hct (42-52) % MCV (80-100) fL MCH (25-34) pg MCHC (32-36) g/dL RDW Std Deviation (36.4-46.3) fL RDW Coeff of Baldo (11.5-14.5) % Plt Count (130-400) K/uL MPV (7.4-10.4) fL Sodium (136-145) mmol/L Potassium (3.5-5.1) mmol/L Chloride (98-107) mmol/L Carbon Dioxide (21-32) mmol/L Anion Gap (3-11) BUN (7-18) mg/dl Creatinine (0.6-1.4) mg/dl Est Cr Clr Drug Dosing ml/min Est GFR ( Amer) Est GFR (Non-Af Amer) BUN/Creatinine Ratio (10-20) Glucose (70-99) mg/dl POC Glucose 106 H 107 H 116 H (70-99) mg/dl Calcium (8.5-10.1) mg/dl 12/26/19 Range/Units 12:07 WBC (4.8-10.8) K/uL RBC (4.7-6.1) M/uL Hgb (14.0-18.0) g/dL Hct (42-52) % MCV (80-100) fL MCH (25-34) pg MCHC (32-36) g/dL RDW Std Deviation (36.4-46.3) fL RDW Coeff of Baldo (11.5-14.5) % Plt Count (130-400) K/uL MPV (7.4-10.4) fL Sodium (136-145) mmol/L Potassium (3.5-5.1) mmol/L Chloride (98-107) mmol/L Carbon Dioxide (21-32) mmol/L Anion Gap (3-11) BUN (7-18) mg/dl Creatinine (0.6-1.4) mg/dl Est Cr Clr Drug Dosing ml/min Est GFR ( Amer) Est GFR (Non-Af Amer) BUN/Creatinine Ratio (10-20) Glucose (70-99) mg/dl POC Glucose 123 H (70-99) mg/dl Calcium (8.5-10.1) mg/dl Microbiology 12/26/19 14:48 Gram Stain - Final Foot 12/26/19 14:32 Gram Stain - Final Foot,Right 12/25/19 08:28 Gram Stain - Final Foot Wound Culture - Preliminary Pin-point growth present, reincubating. 12/25/19 07:59 Aerobic Blood Culture - Preliminary Blood No growth in Aerobic bottle after 24 hours. Anaerobic Blood Culture - Preliminary No growth in Anaerobic bottle after 24 hours. 12/25/19 08:11 Aerobic Blood Culture - Preliminary Blood No growth in Aerobic bottle after 24 hours. Anaerobic Blood Culture - Preliminary No growth in Anaerobic bottle after 24 hours. (1) Osteomyelitis of foot Laterality: right Osteomyelitis type: unspecified type Qualified Code(s): M86.9 - Osteomyelitis, unspecified
[2019-12-27] MEDS: DAPTOmycin 525 MG in SYRINGE 0 ML IV SCH (15:58)
--- NOTE | 2019-12-27 18:43 | Hospitalist Progress Note ---
Date of Service December 27, 2019 Assessment & Plan (1) Osteomyelitis of foot: (2) Foot ulcer, right: This is a 49-year-old male who has significant past medical history of uncontrolled IDDM 2, ischemic cardiomyopathy status post AICD with EF of 35 to 40%, CAD with history of CABG x4 in 2017, JENNIFER on CPAP, HTN, HLD, PAF anticoagulated on Eliquis who presents to ED secondary to worsening right foot wound x1 week. . R Foot x-ray Erosive change is seen at the resection margin of the first met atarsal. There is overlying soft tissue edema and subcutaneous gas, and this is highly concerning for osteomyelitis. CT of foot shows extensive osteomyelitis appreciate input from [facility] s/p rt put surgery I&D with partial metatarsal amputation He was started on IV vancomycin and Zosyn-cont Wound culture shows group B streptococcus,\ Patient is continued on Zosyn, Patient will need PICC line placement for long-term antibiotic: 6 weeks We will wait till wound culture sensitivities back to determine mine appropriate antibiotic (3) Type 2 diabetes mellitus: Uncontrolled insulin-dependent type 2 DM Counseled on importance of strict glycemic control A1c 10.8 on 12/11/2019 Hold metformin and Celestino Glycemic pharmacist consulted (4) CAD (coronary artery disease): (5) Ischemic cardiomyopathy: History of CABG x4 in 2017, Chronic Systolic CHF Echocardiogram 12/2019 revealed EF 40 to 45%, left atrium severely dilated, mild concentric left ventricular hypertrophy, moderate global hypokinesis with more pronounced hypokinesis and distal lateral inferior gary follows [facility] [place] cardiology, AICD in place euvolemic continue metoprolol, Lasix, Entresto continue amiodarone, mag supplemenation Daily weights, strict I's and O's, low-sodium diet apprecaite input from Cardiology for pre op risk assessment (6) HTN (hypertension): Blood pressure stable Continue metoprolol, Lasix (7) CKD (chronic kidney disease) stage 3, GFR 30-59 ml/min: ACUTE on CHRONIC CKD 3 monitor renal fxn, avoid nephrotoxic agents gentle IVF baseline cr 1.0-1.1 Creatinine improved to baseline with IV hydration (8) Dyslipidemia: Hold Crestor while on daptomycin (9) JENNIFER on CPAP: CPAP at HS (10) DVT prophylaxis: SQ lovenox Disposition:monitor in tele Follow up: PCP Dr. Cagle upon discharge Admission and Anticipated Discharge Date Admission Date: December 25, 2019 Subjective Doing well, no complaint of pain or discomfort No pain at right foot surgical site No fever or chills, no shortness of breath/no cough/ no chest pain Physical Exam Physical Exam: Constitutional: WD/WN, male, vitals as above, NAD, sitting up in bed, pleasant, conversing easily Head: Normocephalic, Atraumatic Eyes: PERRL, conjunctivae normal, anicteric sclerae ENMT: external ear and nose normal, oropharynx normal Neck: trachea midline, no thyromegaly normal visual inspection Respiratory: normal respiratory effort, lungs clear to auscultation, no wheeze, rales, rhonchi. Normal insp/exp effort, no accessory muscle use Cardiovascular: RRR, 1/6 JESS noted RUSB, AICD LACW, no edema, bilateral pedal pulse in PT pulse +2 vessels: no JVD or carotid bruit Chest: normal inspection of chest Abdomen: normal bowel sounds, soft, nontender, no hepatosplenomegaly Musculoskeletal: s/p right foot surgery bandage present Skin: no rashes, warm and dry normal turgor Neurologic: PERRL, EOMI, accommodation nl, no face palsy, no dysarthria CN's II-XI intact bilaterally and moves all extremities Psychiatric: A+Ox3, euthymic affect Results & Data Results & Data ([facility]) Vital Signs (Past 12 Hours) Vital Signs Temp Pulse Pulse Pulse Resp BP Pulse Ox 12/27/19 15:08 36.8 C 65 19 122/76 99 12/27/19 12:35 73 12/27/19 12:34 12/27/19 11:12 36.8 C 73 18 105/54 L 92 12/27/19 11:07 37.0 C 78 19 100/65 100 12/27/19 06:56 37.2 C 72 20 112/71 100 Pulse Ox 12/27/19 15:08 12/27/19 12:35 12/27/19 12:34 92 12/27/19 11:12 12/27/19 11:07 12/27/19 06:56 (1) Type 2 diabetes mellitus Diabetes mellitus complication detail: with other circulatory complications Diabetes mellitus complication status: with circulatory complication Diabetes mellitus termite control servicer insulin use: with fpc use Qualified Code(s): E11.59 - Type 2 diabetes mellitus with other circulatory complications; Z79.4 - FCI (current) use of insulin (2) CAD (coronary artery disease) Associated angina: without angina Coronary Disease-Associated Artery/Lesion type: [place] artery [place] vs. transplanted heart: [place] heart Qualified Code(s): I25.10 - Atherosclerotic heart disease of [place] coronary artery without angina pectoris (3) Osteomyelitis of foot Laterality: right Osteomyelitis type: unspecified type Qualified Code(s): M86.9 - Osteomyelitis, unspecified (4) HTN (hypertension) Hypertension type: unspecified Qualified Code(s): I10 - Essential (primary) hypertension
[2019-12-28] MEDS: PIPERACILLIN/TAZOBACTAM 4.5 GM in DEXTROSE 5% 100 ML IV SCH ×2 (05:28→14:59)
--- NOTE | 2019-12-28 08:04 | Pharmacy Report ---
Pharmacy Glycemic Short Note 2 - Date of Service December 28, 2019 - Glycemic Short BSG Results (Last 24 hours): 12/27/19 12/27/19 12/27/19 07:30 11:04 16:16 Glucose 123 H POC Glucose 176 H 90 12/27/19 12/28/19 20:29 07:08 Glucose POC Glucose 123 H 150 H ASSESSMENT: * Patient now POD #2 s/p right foot I&D * BSGs ranging 90-176 mg/dL yesterday * Received 30 units of basal insulin and 36 units of prandial/correctional insulin (66 units total) * Will scale back slightly on correction factor and increase upper end of goal range given BSG of 90 mg/dL at dinner following correctional insulin for BSG of 176 mg/dL at lunch * Fasting BSG of 150 mg/dL this morning - will order Lantus 20 units BID (to align with home dose) * Continues on Zosyn and daptomycin for treatment of osteomyelitis of right foot PLAN FOR INPATIENT GLYCEMIC CONTROL: * Basal insulin - increase * Lantus 20 units SC BID * Bolus insulin - loosen CF and slightly increase upper end of goal range * NovoLog per scale ACHS or Q6hrs while NPO * Goal Range: Low 110 mg/dL - High 150 mg/dL * Correction Factor: 20 mg/dL/unit * Nutritional / Prandial insulin per carb ratio of 1 unit per 5 grams CHO consumed DISCHARGE: * Patient with poorly controlled diabetes based on A1c of 10.8. Patient also has complications associated with diabetes including, diabetic peripheral neuropathy and history of diabetic foot infections * Per nurses educator note, COVID-19 pandemic may be partially to blame for poor A1c * Reasonable A1c goal would be less than 7% for most adult patients * Will follow inpatient insulin needs and recommend outpatient adjustments as necessary * Recommend prompt outpatient follow-up * Per nurses educator note, patient has upcoming appointment with [facility] pharmacist * Please note that the plan above was derived based on current level of insulin resistance and hospital stress. These recommendations are appropriate for inpatient admission only. Plan of care upon discharge will need to be reassessed to avoid potential outpatient hypo/hyperglycemia. Thank you.
[2019-12-28] MEDS: FUROSEMIDE 20 MG TAB PO SCH (08:25)
[2019-12-28] MEDS: SACUBITRIL-VALSARTAN 24-26 MG TAB PO SCH ×2 (08:25→21:37)
[2019-12-28] MEDS: MAGNESIUM CHLORIDE 64MG DELAYED REL TAB PO SCH ×4 (08:25→21:37)
[2019-12-28] MEDS: MULTIVITAMIN TAB PO SCH (08:25)
[2019-12-28] MEDS: POTASSIUM CHLORIDE 10 MEQ TABCR PO SCH (08:25)
[2019-12-28] MEDS: DOCUSATE SODIUM 100 MG CAP PO SCH ×2 (08:25→21:34)
[2019-12-28] MEDS: METOPROLOL SUCC 50MG EXT REL TAB PO SCH (08:25)
[2019-12-28] MEDS: ENOXAPARIN INJ 40 MG/0.4 ML SYR SQ SCH (08:26)
[2019-12-28] MEDS: AMIODARONE 200 MG TAB PO SCH (08:26)
[2019-12-28] MEDS: INSULIN GLARGINE SOLOSTAR 100 UNITS/ML 3 ML PEN SC SCH ×2 (08:26→21:33)
[2019-12-28] MEDS: INSULIN ASPART 100 UNITS/ML 3 ML PEN SC SCH ×4 (08:27→21:35)
[2019-12-28 09:13] LABS: BUN Creatinine Ratio 17.4 (10-20); Calcium 9.4 mg/dl (8.5-10.1); Creatinine Clr Calc Pharmacy 95.3 ml/min; Est GFR (African American) 84.6; Potassium 4.3 mmol/L (3.5-5.1)
--- NOTE | 2019-12-28 10:09 | Orthopedic Progress Note ---
Date of Service December 28, 2019 Assessment & Plan (1) Osteomyelitis of foot: 49 yo male stable POD #2 s/p right foot I&D, partial 1st and 2nd metatarsal resection, Group B Strep on culture 1. Med management- continue IV abx 2. DVT prophylaxis- ASA, SCDs 3. PT/OT 4. D/C planning- per medicine, pt to require 6 weeks IV abx Admission and Anticipated Discharge Date Admission Date: December 25, 2019 Subjective Pt resting in chair, denies complaints Physical Exam Physical Exam: Dressing changed, some packing pulled, surgical wounds as expected Results & Data ([facility]) Vital Signs (Past 12 Hours) Vital Signs Temp Pulse Pulse Resp BP Pulse Ox 12/28/19 09:15 65 12/28/19 07:05 37.0 C 69 18 125/74 98 12/28/19 03:33 36.5 C 66 16 124/77 99 12/28/19 03:32 68 16 96 12/27/19 23:25 36.4 C L 66 18 105/66 98 12/27/19 22:30 72 20 99 12/27/19 22:20 67 Laboratory Results 12/28/19 12/28/19 12/27/19 Range/Units 07:50 07:08 21:20 Sodium 138 (136-145) mmol/L Potassium 4.3 (3.5-5.1) mmol/L Chloride 109 H (98-107) mmol/L Carbon Dioxide 24 (21-32) mmol/L Anion Gap 5.0 (3-11) BUN 20 H (7-18) mg/dl Creatinine 1.16 (0.6-1.4) mg/dl Est Cr Clr Drug Dosing 95.3 ml/min Est GFR ( Amer) 84.6 Est GFR (Non-Af Amer) 73.0 BUN/Creatinine Ratio 17.4 (10-20) Glucose 155 H (70-99) mg/dl POC Glucose 150 H (70-99) mg/dl Calcium 9.4 (8.5-10.1) mg/dl Nasal Screen MRSA (PCR) Negative (Negative) 12/27/19 12/27/19 12/27/19 Range/Units 20:29 16:16 11:04 Sodium (136-145) mmol/L Potassium (3.5-5.1) mmol/L Chloride (98-107) mmol/L Carbon Dioxide (21-32) mmol/L Anion Gap (3-11) BUN (7-18) mg/dl Creatinine (0.6-1.4) mg/dl Est Cr Clr Drug Dosing ml/min Est GFR ( Amer) Est GFR (Non-Af Amer) BUN/Creatinine Ratio (10-20) Glucose (70-99) mg/dl POC Glucose 123 H 90 176 H (70-99) mg/dl Calcium (8.5-10.1) mg/dl Nasal Screen MRSA (PCR) (Negative) (1) Osteomyelitis of foot Laterality: right Osteomyelitis type: unspecified type Qualified Code(s): M86.9 - Osteomyelitis, unspecified
[2019-12-28] MEDS ORDERED: DAPTOMYCIN CONSULT ACTIVE PRN (15:34)
--- NOTE | 2019-12-28 15:36 | Hospitalist Progress Note ---
Date of Service December 28, 2019 Assessment & Plan (1) Osteomyelitis of foot: (2) Foot ulcer, right: This is a 49-year-old male who has significant past medical history of uncontrolled IDDM 2, ischemic cardiomyopathy status post AICD with EF of 35 to 40%, CAD with history of CABG x4 in 2017, JENNIFER on CPAP, HTN, HLD, PAF anticoagulated on Eliquis who presents to ED secondary to worsening right foot wound x1 week. . R Foot x-ray Erosive change is seen at the resection margin of the first met atarsal. There is overlying soft tissue edema and subcutaneous gas, and this is highly concerning for osteomyelitis. CT of foot shows extensive osteomyelitis appreciate input from [facility] s/p rt put surgery I&D with partial metatarsal amputation Wound culture : Staph aureus MSSA /Group B streptococcus Abx adjusted to IV Daptomycin and Rocephin as per sensitivity ordered for PICC line placement will need 6 weeks of IV abx (3) Type 2 diabetes mellitus: Uncontrolled insulin-dependent type 2 DM Counseled on importance of strict glycemic control A1c 10.8 on 12/11/2019 Hold metformin and Celestino Glycemic pharmacist consulted (4) CAD (coronary artery disease): (5) Ischemic cardiomyopathy: History of CABG x4 in 2017, Chronic Systolic CHF Echocardiogram 12/2019 revealed EF 40 to 45%, left atrium severely dilated, mild concentric left ventricular hypertrophy, moderate global hypokinesis with more pronounced hypokinesis and distal lateral inferior gary follows [facility] cardiology, AICD in place euvolemic continue metoprolol, Lasix, Entresto continue amiodarone, mag supplemenation Daily weights, strict I's and O's, low-sodium diet apprecaite input from Cardiology for pre op risk assessment (6) HTN (hypertension): Blood pressure stable Continue metoprolol, Lasix (7) CKD (chronic kidney disease) stage 3, GFR 30-59 ml/min: ACUTE on CHRONIC CKD 3 monitor renal fxn, avoid nephrotoxic agents gentle IVF baseline cr 1.0-1.1 Creatinine improved to baseline with IV hydration (8) Dyslipidemia: Hold Crestor while on daptomycin (9) JENNIFER on CPAP: CPAP at HS (10) DVT prophylaxis: SQ lovenox Disposition:monitor in tele Follow up: PCP Dr. Cagle upon discharge Admission and Anticipated Discharge Date Admission Date: December 25, 2019 Subjective sitting on chair offers no complain no pain or discomfort at rt foot surgical site no fever or chills Physical Exam Physical Exam: Constitutional: WD/WN, male, vitals as above, NAD, sitting up in bed, pleasant, conversing easily Head: Normocephalic, Atraumatic Eyes: PERRL, conjunctivae normal, anicteric sclerae ENMT: external ear and nose normal, oropharynx normal Neck: trachea midline, no thyromegaly normal visual inspection Respiratory: normal respiratory effort, lungs clear to auscultation, no wheeze, rales, rhonchi. Normal insp/exp effort, no accessory muscle use Cardiovascular: RRR, 1/6 JESS noted RUSB, AICD LACW, no edema, bilateral pedal pulse in PT pulse +2 vessels: no JVD or carotid bruit Chest: normal inspection of chest Abdomen: normal bowel sounds, soft, nontender, no hepatosplenomegaly Musculoskeletal: s/p right foot surgery bandage present Skin: no rashes, warm and dry normal turgor Neurologic: PERRL, EOMI, accommodation nl, no face palsy, no dysarthria CN's II-XI intact bilaterally and moves all extremities Psychiatric: A+Ox3, euthymic affect Results & Data Results & Data ([facility]) Vital Signs (Past 12 Hours) Vital Signs Temp Pulse Pulse Resp BP Pulse Ox 12/28/19 11:08 36.7 C 65 18 119/77 100 12/28/19 09:15 65 12/28/19 07:05 37.0 C 69 18 125/74 98 (1) Type 2 diabetes mellitus Diabetes mellitus complication detail: with other circulatory complications Diabetes mellitus complication status: with circulatory complication Diabetes mellitus usp insulin use: with usp use Qualified Code(s): E11.59 - Type 2 diabetes mellitus with other circulatory complications; Z79.4 - nursing home (current) use of insulin (2) CAD (coronary artery disease) Associated angina: without angina Coronary Disease-Associated Artery/Lesion type: [place] artery [place] vs. transplanted heart: [place] heart Qualified Code(s): I25.10 - Atherosclerotic heart disease of [place] coronary artery without angina pectoris (3) Osteomyelitis of foot Laterality: right Osteomyelitis type: unspecified type Qualified Code(s): M86.9 - Osteomyelitis, unspecified (4) HTN (hypertension) Hypertension type: unspecified Qualified Code(s): I10 - Essential (primary) hypertension
[2019-12-28] MEDS ORDERED: DAPTOmycin 350 MG in SYRINGE 0 ML IV SCH (15:45)
[2019-12-28] MEDS ORDERED: cefTRIAXone SODIUM 2,000 MG in DEXTROSE 5% 50 ML IV SCH (16:00)
[2019-12-28] MEDS ORDERED: DAPTOmycin 525 MG in SYRINGE 0 ML IV SCH (16:00)
[2019-12-28] MEDS: DAPTOmycin 525 MG in SYRINGE 0 ML IV SCH (16:49)
--- NOTE | 2019-12-29 08:23 | Pharmacy Report ---
Pharmacy Glycemic Short Note 2 - Date of Service December 29, 2019 - Glycemic Short BSG Results (Last 24 hours): 12/28/19 12/28/19 12/28/19 07:50 11:05 16:11 Glucose 155 H POC Glucose 198 H 108 H 12/29/19 07:23 Glucose POC Glucose 144 H OUTPATIENT: * Lantus 40 units SC qAM * Insulin lispro 20 units TIDM * Sitagliptin 100 mg PO daily ASSESSMENT: * Patient now POD #3 s/p right foot I&D * BSGs ranging 108-198 mg/dL yesterday * Received 40 units of basal insulin and 29 units of prandial/correctional insulin (69 units total) * Fasting BSG of 144 mg/dL this morning - will continue current Lantus dose * Continues on Zosyn and daptomycin for treatment of osteomyelitis of right foot - will likely require long-term antibiotics PLAN FOR INPATIENT GLYCEMIC CONTROL: * Basal insulin - continue * Lantus 20 units SC BID * Bolus insulin - continue * NovoLog per scale ACHS or Q6hrs while NPO * Goal Range: Low 110 mg/dL - High 150 mg/dL * Correction Factor: 20 mg/dL/unit * Nutritional / Prandial insulin per carb ratio of 1 unit per 5 grams CHO consumed DISCHARGE: * Patient with poorly controlled diabetes based on A1c of 10.8%. Patient also has complications associated with diabetes including, diabetic peripheral neuropathy and history of diabetic foot infections * Per informatics educator note, COVID-19 pandemic may be partially to blame for poor A1c - based on inpatient insulin requirements, this seems likely * --May be reasonable to continue home regimen and encourage increased compliance and ensure prompt outpatient follow-up with managing [facility] pharmacist * Reasonable A1c goal would be less than 7% for most adult patients * Please note that the plan above was derived based on current level of insulin resistance and hospital stress. These recommendations are appropriate for inpatient admission only. Plan of care upon discharge will need to be reassessed to avoid potential outpatient hypo/hyperglycemia. Thank you.
[2019-12-29] MEDS: DOCUSATE SODIUM 100 MG CAP PO SCH ×2 (09:55→20:17)
[2019-12-29] MEDS: AMIODARONE 200 MG TAB PO SCH (09:55)
[2019-12-29] MEDS: MULTIVITAMIN TAB PO SCH (09:56)
[2019-12-29] MEDS: ENOXAPARIN INJ 40 MG/0.4 ML SYR SQ SCH (09:56)
[2019-12-29] MEDS: MAGNESIUM CHLORIDE 64MG DELAYED REL TAB PO SCH ×4 (09:56→20:12)
[2019-12-29] MEDS: METOPROLOL SUCC 50MG EXT REL TAB PO SCH (09:56)
[2019-12-29] MEDS: POTASSIUM CHLORIDE 10 MEQ TABCR PO SCH (09:56)
[2019-12-29] MEDS: SACUBITRIL-VALSARTAN 24-26 MG TAB PO SCH ×2 (09:56→20:12)
[2019-12-29] MEDS: INSULIN GLARGINE SOLOSTAR 100 UNITS/ML 3 ML PEN SC SCH ×2 (10:01→20:10)
[2019-12-29] MEDS: INSULIN ASPART 100 UNITS/ML 3 ML PEN SC SCH ×4 (10:02→20:11)
--- NOTE | 2019-12-29 11:06 | Orthopedic Progress Note ---
Date of Service December 29, 2019 Assessment & Plan (1) Osteomyelitis of foot: 49 yo male stable POD #3 s/p right foot I&D, partial 1st and 2nd metatarsal resection, Cx showing Group B Strep/Staph Aureus Daily dressing changes Med management- continue IV abx DVT prophylaxis- ASA, SCDs PT/OT D/C planning- per medicine, pt to require 6 weeks IV abx Admission and Anticipated Discharge Date Admission Date: December 25, 2019 Subjective POD 3 Pt sitting up in bed. Awake, alert watching TV. No complaints this AM. Pain controlled. Physical Exam Physical Exam: Dressings removed. Mild drainage noted on the dressing. No foul odor. Remainder of packing removed. Small amount of tissue maceration on the plantar surface likely due to drainage from packing. Most of the wound covered with acticoat 7 flex. The dorsal portion of the wound is well approximated. Some eschar noted. Not much erythema noted. Mild serous drainage noted when remainder of packing removed. Wounds redressed. Results & Data ([facility]) Vital Signs (Past 12 Hours) Vital Signs Temp Pulse Pulse Resp BP Pulse Ox 12/29/19 09:20 63 12/29/19 07:30 36.7 C 66 18 123/78 98 12/29/19 04:35 36.5 C 62 18 118/73 99 12/29/19 03:25 69 16 97 12/29/19 00:49 67 12/28/19 23:25 65 18 97 12/28/19 23:00 36.7 C 63 20 119/75 100 Diagnostic Findings Name: TARA GALLEGOS Acct: [id number] Status: ADM IN : 1970 [facility] Date: 12/25/19 Age: 49 Sex: M Dis Date: Loc: [address] Rm/Bed: W260-1 Spec: [id number] Collected: 12/26/19-1432 Received: 12/26/19-[address]: Vance Terry,D.O. Copy To: Kaley Hood MD Source: Foot,Right OV Order: Ordered: Aer/Madalyn Cult/Sm Comments: Comment #1 Right Foot Deep Procedure Result Verified Site Gram Stain Final 12/27/19-834 Gram Stain Result Many Polys Many Gram Positive Cocci Aero/Madalyn Cult Preliminary 12/29/19 Organism 1 Group B Beta Strep Quantity Few Sens No Sensitivities to Follow +MixWound Plus Low Counts of Probable Skin Shelbi Organism 2 Staphylococcus aureus Quantity Rare Sens No Sensitivities to Follow Please see culture number [id number] for sensitivities. (1) Osteomyelitis of foot Laterality: right Osteomyelitis type: unspecified type Qualified Code(s): M86.9 - Osteomyelitis, unspecified
[2019-12-29] MEDS: FUROSEMIDE 20 MG TAB PO SCH (12:33)
[2019-12-29] MEDS: DAPTOmycin 525 MG in SYRINGE 0 ML IV SCH (16:13)
--- NOTE | 2019-12-29 17:24 | Hospitalist Progress Note ---
Date of Service December 29, 2019 Assessment & Plan (1) Osteomyelitis of foot: (2) Foot ulcer, right: This is a 49-year-old male who has significant past medical history of uncontrolled IDDM 2, ischemic cardiomyopathy status post AICD with EF of 35 to 40%, CAD with history of CABG x4 in 2017, JENNIFER on CPAP, HTN, HLD, PAF anticoagulated on Eliquis who presents to ED secondary to worsening right foot wound x1 week. . R Foot x-ray Erosive change is seen at the resection margin of the first met atarsal. There is overlying soft tissue edema and subcutaneous gas, and this is highly concerning for osteomyelitis. CT of foot shows extensive osteomyelitis appreciate input from [facility] s/p rt put surgery I&D with partial metatarsal amputation Wound culture : Staph aureus MSSA /Group B streptococcus Abx adjusted to IV Daptomycin and Rocephin as per sensitivity pt has Midline placed will follow drug sensitivity for antibiotics when available will need 6 weeks of IV abx for IV abx (3) Type 2 diabetes mellitus: Uncontrolled insulin-dependent type 2 DM Counseled on importance of strict glycemic control A1c 10.8 on 12/11/2019 Hold metformin and Celestino Glycemic pharmacist consulted (4) CAD (coronary artery disease): (5) Ischemic cardiomyopathy: History of CABG x4 in 2017, Chronic Systolic CHF Echocardiogram 12/2019 revealed EF 40 to 45%, left atrium severely dilated, mild concentric left ventricular hypertrophy, moderate global hypokinesis with more pronounced hypokinesis and distal lateral inferior gary [facility], AICD in place euvolemic continue metoprolol, Lasix, Entresto continue amiodarone, mag supplemenation Daily weights, strict I's and O's, low-sodium diet apprecaite input from Cardiology for pre op risk assessment (6) HTN (hypertension): Blood pressure stable Continue metoprolol, Lasix (7) CKD (chronic kidney disease) stage 3, GFR 30-59 ml/min: ACUTE on CHRONIC CKD 3 monitor renal fxn, avoid nephrotoxic agents gentle IVF baseline cr 1.0-1.1 Creatinine improved to baseline with IV hydration (8) Dyslipidemia: Hold Crestor while on daptomycin (9) JENNIFER on CPAP: CPAP at HS (10) DVT prophylaxis: SQ lovenox Disposition:monitor in tele Follow up: PCP Dr. Cagle upon discharge Admission and Anticipated Discharge Date Admission Date: December 25, 2019 Subjective POD 3 Pt sitting up in bed. Awake, alert watching TV. No complaints this AM. Pain controlled. Physical Exam Physical Exam: Constitutional: WD/WN, male, vitals as above, NAD, sitting up in bed, pleasant, conversing easily Head: Normocephalic, Atraumatic Eyes: PERRL, conjunctivae normal, anicteric sclerae ENMT: external ear and nose normal, oropharynx normal Neck: trachea midline, no thyromegaly normal visual inspection Respiratory: normal respiratory effort, lungs clear to auscultation, no wheeze, rales, rhonchi. Normal insp/exp effort, no accessory muscle use Cardiovascular: RRR, 1/6 JESS noted RUSB, AICD LACW, no edema, bilateral pedal pulse in PT pulse +2 vessels: no JVD or carotid bruit Chest: normal inspection of chest Abdomen: normal bowel sounds, soft, nontender, no hepatosplenomegaly Musculoskeletal: s/p right foot surgery bandage present Skin: no rashes, warm and dry normal turgor Neurologic: PERRL, EOMI, accommodation nl, no face palsy, no dysarthria CN's II-XI intact bilaterally and moves all extremities Psychiatric: A+Ox3, euthymic affect Results & Data Results & Data ([facility]) Vital Signs (Past 12 Hours) Vital Signs Temp Pulse Pulse Resp BP Pulse Ox 12/29/19 14:59 36.7 C 64 18 122/77 98 12/29/19 11:19 36.6 C 90 18 145/80 H 99 12/29/19 09:20 63 12/29/19 07:30 36.7 C 66 18 123/78 98 (1) Type 2 diabetes mellitus Diabetes mellitus complication detail: with other circulatory complications Diabetes mellitus complication status: with circulatory complication Diabetes mellitus senior care insulin use: with senior care use Qualified Code(s): E11.59 - Type 2 diabetes mellitus with other circulatory complications; Z79.4 - [facility] (current) use of insulin (2) CAD (coronary artery disease) Associated angina: without angina Coronary Disease-Associated Artery/Lesion type: [place] artery [place] vs. transplanted heart: [place] heart Qualified Code(s): I25.10 - Atherosclerotic heart disease of [place] coronary artery without angina pectoris (3) Osteomyelitis of foot Laterality: right Osteomyelitis type: unspecified type Qualified Code(s): M86.9 - Osteomyelitis, unspecified (4) HTN (hypertension) Hypertension type: unspecified Qualified Code(s): I10 - Essential (primary) hypertension
[2019-12-30] MEDS: AMIODARONE 200 MG TAB PO SCH (08:24)
[2019-12-30] MEDS: METOPROLOL SUCC 50MG EXT REL TAB PO SCH (08:25)
[2019-12-30] MEDS: MAGNESIUM CHLORIDE 64MG DELAYED REL TAB PO SCH ×4 (08:25→20:09)
[2019-12-30] MEDS: POTASSIUM CHLORIDE 10 MEQ TABCR PO SCH (08:25)
[2019-12-30] MEDS: FUROSEMIDE 20 MG TAB PO SCH (08:25)
[2019-12-30] MEDS: MULTIVITAMIN TAB PO SCH (08:25)
[2019-12-30] MEDS: SACUBITRIL-VALSARTAN 24-26 MG TAB PO SCH ×2 (08:26→20:09)
[2019-12-30] MEDS: ENOXAPARIN INJ 40 MG/0.4 ML SYR SQ SCH (08:26)
[2019-12-30] MEDS: INSULIN GLARGINE SOLOSTAR 100 UNITS/ML 3 ML PEN SC SCH ×2 (08:27→20:16)
[2019-12-30] MEDS: INSULIN ASPART 100 UNITS/ML 3 ML PEN SC SCH ×5 (08:29→20:15)
[2019-12-30] MEDS: DOCUSATE SODIUM 100 MG CAP PO SCH ×2 (08:32→20:15)
--- NOTE | 2019-12-30 09:47 | Pharmacy Report ---
Pharmacy Glycemic Short Note 2 - Date of Service December 30, 2019 - Glycemic Short BSG Results (Last 24 hours): 12/29/19 12/29/19 12/29/19 11:30 16:52 20:05 POC Glucose 181 H 86 42 L* 12/29/19 12/29/19 12/30/19 20:06 20:08 07:25 POC Glucose 129 H 136 H 145 H OUTPATIENT: * Lantus 40 units SC qAM * Insulin lispro 20 units TIDM * Sitagliptin 100 mg PO daily ASSESSMENT: 12/29 * 73 units SQ insulin administered over last 24 hrs while patient tolerating diet * BSGs have ranged 42-181 over last 24 hrs * Fasting BSG 145 this AM with 40 units basal on board - plan to continue the same * Patient did experience hypoglycemia last evening, likely secondary to excess Novolog with dinner meal. It appears that the patient's dinner BSG was 86 and he only consumed 10gm CHOs, however was given 8 units Novolog * Post-prandial BSG pattern demonstrates mildly elevated BSG prelunch however BSGs 100 or less pre-dinner - perhaps due to insulin "stacking." Will trial using larger breakfast Novolog doses with reduced prandial doses at other meal-times. PLAN FOR INPATIENT GLYCEMIC CONTROL: * Basal insulin - continue * Lantus 20 units SC BID * Bolus insulin - change * NovoLog per scale ACHS or Q6hrs while NPO * Goal Range: Low 110 mg/dL - High 150 mg/dL * Correction Factor: 20 mg/dL/unit * Nutritional / Prandial insulin per carb ratio of 1 unit per 5 grams CHO consumed with breakfast only, use 1 unit per 6 grams CHO consume with lunch and dinner DISCHARGE: * Patient with poorly controlled diabetes based on A1c of 10.8%. Patient also has complications associated with diabetes including, diabetic peripheral neuropathy and history of diabetic foot infections * Per tobacco prevention health educator note, COVID-19 pandemic may be partially to blame for poor A1c - based on inpatient insulin requirements, this seems likely * --May be reasonable to continue home regimen and encourage increased compliance and ensure prompt outpatient follow-up with managing [facility] pharmacist * Reasonable A1c goal would be less than 7% for most adult patients * Please note that the plan above was derived based on current level of insulin resistance and hospital stress. These recommendations are appropriate for inpatient admission only. Plan of care upon discharge will need to be reassessed to avoid potential outpatient hypo/hyperglycemia. Thank you.
[2019-12-30] MEDS ORDERED: CEFEPIME 2,000 MG in SYRINGE 7.5 ML IV SCH (12:30)
--- NOTE | 2019-12-30 15:59 | Orthopedic Progress Note ---
Date of Service December 30, 2019 Assessment & Plan (1) Osteomyelitis of foot: 49 yo male stable POD #4 s/p right foot I&D, partial 1st and 2nd metatarsal resection, Cx showing Group B Strep/Staph Aureus/Prevotella [place] Daily dressing changes Med management- continue IV abx DVT prophylaxis- ASA, SCDs PT/OT D/C planning- per medicine, pt to require 6 weeks IV abx Admission and Anticipated Discharge Date Admission Date: December 25, 2019 Subjective POD 4 Pt sitting in chair at bedside. No complaints today. Comfortable. Pain controlled. Physical Exam Physical Exam: Pt is able to get to his bed on his own. Dressings with moderate drainage noted. Dressing removed. A bit less maceration around the main body of the ulcer today. Stimulan beads showing. No purulent drainage. All serous. No erythema. No pain on palpation of the foot. (h/o neuropathy) Redressed. Results & Data ([facility]) Vital Signs (Past 12 Hours) Vital Signs Temp Pulse Pulse Pulse Resp BP BP 12/30/19 14:56 36.3 C L 62 19 119/77 12/30/19 11:09 36.8 C 75 18 107/69 12/30/19 10:00 60 12/30/19 07:24 36.6 C 65 19 133/75 12/30/19 04:43 58 L 12/30/19 04:00 36.5 C 65 65 H 124/76 Pulse Ox 12/30/19 14:56 100 12/30/19 11:09 100 12/30/19 10:00 12/30/19 07:24 98 12/30/19 04:43 12/30/19 04:00 99 (1) Osteomyelitis of foot Laterality: right Osteomyelitis type: unspecified type Qualified Code(s): M86.9 - Osteomyelitis, unspecified
[2019-12-30] MEDS: DAPTOmycin 525 MG in SYRINGE 0 ML IV SCH (16:20)
--- NOTE | 2019-12-30 17:32 | Hospitalist Progress Note ---
Date of Service December 30, 2019 Assessment & Plan (1) Osteomyelitis of foot: (2) Foot ulcer, right: This is a 49-year-old male who has significant past medical history of uncontrolled IDDM 2, ischemic cardiomyopathy status post AICD with EF of 35 to 40%, CAD with history of CABG x4 in 2017, JENNIFER on CPAP, HTN, HLD, PAF anticoagulated on Eliquis who presents to ED secondary to worsening right foot wound x1 week. . R Foot x-ray Erosive change is seen at the resection margin of the first met atarsal. There is overlying soft tissue edema and subcutaneous gas, and this is highly concerning for osteomyelitis. CT of foot shows extensive osteomyelitis appreciate input from Orthpedics s/p rt put surgery I&D with partial metatarsal amputation Postoperative day 4 Orthopedics following for wound check Appreciate input wound culture : multiple organisms : Staph aureus MSSA /Group B streptococcus /pervotella Abx adjusted to IV Daptomycin -should cover for MSSA and Group B strep no sensitivity was done for Provetella on culture 12/26/19 and Pasturella noted on culture 12/23/19 pt has Midline placed /IV team unable to place a PICC Will need 6-week of IV antibiotics to treat osteomyelitis Prescription for 6 weeks of IV daptomycin given to case management We will put patient on Augmentin 1 tablet p.o. twice daily for 6 weeks: Should cover for either Prevotella or Pasteurella (3) Type 2 diabetes mellitus: Uncontrolled insulin-dependent type 2 DM Counseled on importance of strict glycemic control A1c 10.8 on 12/11/2019 Hold metformin and Januvia Glycemic pharmacist consulted (4) CAD (coronary artery disease): (5) Ischemic cardiomyopathy: History of CABG x4 in 2017, Chronic Systolic CHF Echocardiogram 12/2019 revealed EF 40 to 45%, left atrium severely dilated, mild concentric left ventricular hypertrophy, moderate global hypokinesis with more pronounced hypokinesis and distal lateral inferior gary [place] [facility] [place], AICD in place euvolemic continue metoprolol, Lasix, Entresto continue amiodarone, mag supplemenation Daily weights, strict I's and O's, low-sodium diet apprecaite input from Cardiology for pre op risk assessment (6) HTN (hypertension): Blood pressure stable Continue metoprolol, Lasix (7) CKD (chronic kidney disease) stage 3, GFR 30-59 ml/min: ACUTE on CHRONIC CKD 3 monitor renal fxn, avoid nephrotoxic agents gentle IVF baseline cr 1.0-1.1 Creatinine improved to baseline with IV hydration (8) Dyslipidemia: Hold Crestor for 6 weeks while on daptomycin Will need weekly CPK, BMP check (9) JENNIFER on CPAP: CPAP at HS (10) DVT prophylaxis: SQ lovenox Disposition: Expected to be discharged home with home IV antibiotics next 1-2 days Follow up: PCP Dr. Cagle upon discharge Will need [facility] [place] orthopedics Dr. Terry follow-up Wound clinic follow-up Admission and Anticipated Discharge Date Admission Date: December 25, 2019 Subjective POD 4 Pt sitting in chair at bedside. No complaints today. Comfortable. Pain controlled. Physical Exam Physical Exam: Constitutional: WD/WN, male, vitals as above, NAD, sitting up in bed, pleasant, conversing easily Head: Normocephalic, Atraumatic Eyes: PERRL, conjunctivae normal, anicteric sclerae ENMT: external ear and nose normal, oropharynx normal Neck: trachea midline, no thyromegaly normal visual inspection Respiratory: normal respiratory effort, lungs clear to auscultation, no wheeze, rales, rhonchi. Normal insp/exp effort, no accessory muscle use Cardiovascular: RRR, 1/6 JESS noted RUSB, AICD LACW, no edema, bilateral pedal pulse in PT pulse +2 vessels: no JVD or carotid bruit Chest: normal inspection of chest Abdomen: normal bowel sounds, soft, nontender, no hepatosplenomegaly Musculoskeletal: s/p right foot surgery bandage present Skin: no rashes, warm and dry normal turgor Neurologic: PERRL, EOMI, accommodation nl, no face palsy, no dysarthria CN's II-XI intact bilaterally and moves all extremities Psychiatric: A+Ox3, euthymic affect Results & Data Results & Data ([facility]) Vital Signs (Past 12 Hours) Vital Signs Temp Pulse Pulse Pulse Resp BP BP 12/30/19 14:56 36.3 C L 62 19 119/77 12/30/19 11:09 36.8 C 75 18 107/69 12/30/19 10:00 60 12/30/19 07:24 36.6 C 65 19 133/75 Pulse Ox 12/30/19 14:56 100 12/30/19 11:09 100 12/30/19 10:00 12/30/19 07:24 98 (1) Osteomyelitis of foot Laterality: right Osteomyelitis type: unspecified type Qualified Code(s): M86.9 - Osteomyelitis, unspecified (2) Type 2 diabetes mellitus Diabetes mellitus long-term insulin use: with intermediate accountant use Diabetes mellitus complication status: with circulatory complication Diabetes mellitus complication detail: with other circulatory complications Qualified Code(s): E11.59 - Type 2 diabetes mellitus with other circulatory complications; Z79.4 - terminal press operator (current) use of insulin (3) CAD (coronary artery disease) Coronary Disease-Associated Artery/Lesion type: [place] artery [place] vs. transplanted heart: [place] heart Associated angina: without angina Qualified Code(s): I25.10 - Atherosclerotic heart disease of [place] coronary artery without angina pectoris (4) HTN (hypertension) Hypertension type: unspecified Qualified Code(s): I10 - Essential (primary) hypertension
[2019-12-30] MEDS: AMOXICILLIN/CLAVULANATE 875 MG TAB PO SCH (20:15)
[2019-12-30] MEDS ORDERED: INSULIN GLARGINE SOLOSTAR 100 UNITS/ML 3 ML PEN SC SCH (21:00)
[2019-12-31] MEDS ORDERED: INSULIN ASPART 100 UNITS/ML 3 ML PEN SC SCH (07:30)
[2019-12-31] MEDS: ENOXAPARIN INJ 40 MG/0.4 ML SYR SQ SCH (07:53)
[2019-12-31] MEDS: MULTIVITAMIN TAB PO SCH (07:53)
[2019-12-31] MEDS: AMIODARONE 200 MG TAB PO SCH (07:53)
[2019-12-31] MEDS: FUROSEMIDE 20 MG TAB PO SCH (07:53)
[2019-12-31] MEDS: AMOXICILLIN/CLAVULANATE 875 MG TAB PO SCH ×2 (07:53→16:23)
[2019-12-31] MEDS: POTASSIUM CHLORIDE 10 MEQ TABCR PO SCH (07:53)
[2019-12-31] MEDS: SACUBITRIL-VALSARTAN 24-26 MG TAB PO SCH ×2 (07:53→20:42)
[2019-12-31] MEDS: METOPROLOL SUCC 50MG EXT REL TAB PO SCH (07:54)
[2019-12-31] MEDS: MAGNESIUM CHLORIDE 64MG DELAYED REL TAB PO SCH ×4 (07:54→20:42)
[2019-12-31] MEDS: INSULIN ASPART 100 UNITS/ML 3 ML PEN SC SCH ×4 (07:54→20:41)
[2019-12-31] MEDS: INSULIN GLARGINE SOLOSTAR 100 UNITS/ML 3 ML PEN SC SCH ×2 (07:54→20:41)
[2019-12-31] MEDS: DOCUSATE SODIUM 100 MG CAP PO SCH ×2 (07:59→20:44)
[2019-12-31 08:59] LABS: Creatinine Clr Calc Pharmacy 92.9 ml/min; Est GFR (African American) 82.1; Est GFR (Non-African American) 70.8
--- NOTE | 2019-12-31 15:46 | Orthopedic Progress Note ---
Date of Service December 31, 2019 Assessment & Plan (1) Osteomyelitis of foot: 49 yo male stable POD #4 s/p right foot I&D, partial 1st and 2nd metatarsal resection, Cx showing Group B Strep/Staph Aureus/Prevotella Bivia We will make the patient n.p.o. after midnight. He may require a second irrigation debridement of which had been discussed with him in the past. Plan for I&D tomorrow after being assessed by Dr. Terry Med management- continue IV abx DVT prophylaxis- Lovenox, SCDs -plan to hold Lovenox in the a.m. PT/OT D/C planning- per medicine, pt to require 6 weeks IV abx Admission and Anticipated Discharge Date Admission Date: December 25, 2019 Subjective Patient sitting in his chair at the bedside. No complaints today. Pain controlled. Physical Exam Physical Exam: Dressings removed from the right foot. Noticeably less drainage today on the dressing. However, the incision on the dorsum of the foot now has thickened purulent drainage compared to the previous days. The neuropathic ulcer that has been debrided with implantation of beads appears abou t the same. Mall amount of maceration on the medial aspect of the ulcer edge. Stimulan beads visible. Mild erythema noted around the dorsal wound. Wound redressed. Results & Data ([facility]) Vital Signs (Past 12 Hours) Vital Signs Temp Pulse Pulse Pulse Resp BP Pulse Ox 12/31/19 15:26 36.5 C 69 20 107/70 100 12/31/19 11:42 36.5 C 97 H 20 118/71 98 12/31/19 07:41 36.5 C 63 20 129/80 99 12/31/19 07:22 56 L 12/31/19 04:00 36.5 C 62 19 126/73 100 (1) Osteomyelitis of foot Laterality: right Osteomyelitis type: unspecified type Qualified Code(s): M86.9 - Osteomyelitis, unspecified
[2019-12-31] MEDS: DAPTOmycin 525 MG in SYRINGE 0 ML IV SCH (16:22)
--- NOTE | 2019-12-31 17:40 | Hospitalist Progress Note ---
Date of Service December 31, 2019 Assessment & Plan (1) Osteomyelitis of foot: (2) Foot ulcer, right: per Dr. Mcconnell, previous hospitalist note: This is a 49-year-old male who has significant past medical history of uncontrolled IDDM 2, ischemic cardiomyopathy status post AICD with EF of 35 to 40%, CAD with history of CABG x4 in 2017, JENNIFER on CPAP, HTN, HLD, PAF anticoagulated on Eliquis who presents to ED secondary to worsening right foot wound x1 week. R Foot x-ray Erosive change is seen at the resection margin of the first metatarsal. There is overlying soft tissue edema and subcutaneous gas, and this is highly concerning for osteomyelitis. CT of foot shows extensive osteomyelitis s/p I&D with partial metatarsal amputation Postoperative day 5 Appreciate input wound culture : multiple organisms : Staph aureus MSSA /Group B streptococcus /pervotella Abx adjusted to IV Daptomycin -should cover for MSSA and Group B strep no sensitivity was done for Provetella on culture 12/26/19 and Pasturella noted on culture 12/23/19 pt has Midline placed /IV team unable to place a PICC ID consulted- recommend Ceftri 2g IV daily and Flagyl 500mg TID x 6 weeks with weekly labs for repeat I&D tomorrow per Ortho (3) Type 2 diabetes mellitus: per Dr. Mcconnell, previous hospitalist note: Uncontrolled insulin-dependent type 2 DM Counseled on importance of strict glycemic control A1c 10.8 on 12/11/2019 Hold metformin and Celestino Glycemic pharmacist consulted (4) CAD (coronary artery disease): (5) Ischemic cardiomyopathy: per Dr. Mcconnell, previous hospitalist note: History of CABG x4 in 2017, Chronic Systolic CHF Echocardiogram 12/2019 revealed EF 40 to 45%, left atrium severely dilated, mild concentric left ventricular hypertrophy, moderate global hypokinesis with more pronounced hypokinesis and distal lateral inferior gary [place] [facility] [place], AICD in place euvolemic continue metoprolol, Lasix, Entresto continue amiodarone, Mg supplemenation -- euvolemic, no cardiac symptoms (6) HTN (hypertension): Blood pressure stable Continue metoprolol, Lasix (7) CKD (chronic kidney disease) stage 3, GFR 30-59 ml/min: ACUTE on CHRONIC CKD 3 baseline cr 1.0-1.1 Creatinine improved to baseline with IV hydration (8) Dyslipidemia: on Crestor (9) JENNIFER on CPAP: CPAP at HS (10) DVT prophylaxis: SQ lovenox Disposition: d/c home with IV Ceftri 2g daily and PO Flagyl TID x 6 weeks, when cleared by Ortho Follow up: PCP Dr. Cagle upon discharge Will need [facility] [place] orthopedics Dr. Terry follow-up Wound clinic follow-up Admission and Anticipated Discharge Date Admission Date: December 25, 2019 Subjective ff up for Right Foot Osteo s/p I&D seen sitting up in bed, comfortable in good spirits states he feels fine overall no chest pain, palpitations, dizziness no nausea/vomiting no leg or foot pain tolerating PT/OT no other symptoms Review of Systems Review of Systems: All systems reviewed & are unremarkable except as noted in HPI & below Physical Exam Physical Exam: General- oriented x 3, not in distress, speaks in sentences with no effort or accessory muscle use Head- atraumatic Eyes- PERRL, EOMI, anicteric ENT- oropharynx clear Neck- supple, no JVD, no adenopathy, no thyromegaly; carotids +2/2, no bruits appreciated Lungs- clear to auscultation bilaterally, no rales/wheezes Heart- normal rate, regular rhythm; no murmur, no gallop, no rub appreciated Abdomen- normal bowel sounds, nondistended, soft, nontender, no masses or hepatosplenomegaly Extremities- no pretibial edema, no calf tenderness; peripheral pulses intact right foot: (+) heavy dressing and boot in place Neuro- alert, oriented x 3; CN 2-12 grossly intact; motor 5/5 bilaterally;sensation 100% on all extremities; no other gross focal neurologic deficits Skin- warm & dry Results & Data Results & Data ([facility]) Vital Signs (Past 12 Hours) Vital Signs Temp Pulse Pulse Resp BP Pulse Ox 12/31/19 15:45 57 L 12/31/19 15:26 36.5 C 69 20 107/70 100 12/31/19 11:42 36.5 C 97 H 20 118/71 98 12/31/19 07:41 36.5 C 63 20 129/80 99 12/31/19 07:22 56 L Laboratory Results Laboratory Results - last 24 hr 12/30/19 12/31/19 12/31/19 20:05 07:46 08:08 Creatinine 1.19 Est Cr Clr Drug Dosing 92.9 Est GFR ( Amer) 82.1 Est GFR (Non-Af Amer) 70.8 POC Glucose 117 H 137 H 12/31/19 12/31/19 11:50 16:36 Creatinine Est Cr Clr Drug Dosing Est GFR ( Amer) Est GFR (Non-Af Amer) POC Glucose 139 H 87 (1) Type 2 diabetes mellitus Diabetes mellitus complication detail: with other circulatory complications Diabetes mellitus complication status: with circulatory complication Diabetes mellitus chcf insulin use: with chcf use Qualified Code(s): E11.59 - Type 2 diabetes mellitus with other circulatory complications; 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 transplanted heart: [place]i heart Qualified Code(s): I25.10 - Atherosclerotic heart disease of [place] coronary artery without angina pectoris (3) Osteomyelitis of foot Laterality: right Osteomyelitis type: unspecified type Qualified Code(s): M86.9 - Osteomyelitis, unspecified (4) HTN (hypertension) Hypertension type: unspecified Qualified Code(s): I10 - Essential (primary) hypertension
[2019-12-31] MEDS: metroNIDAZOLE 500 MG TAB PO SCH (20:41)
[2020-01-01] MEDS: INSULIN ASPART 100 UNITS/ML 3 ML PEN SC SCH ×4 (08:51→21:14)
[2020-01-01] MEDS: cefTRIAXone SODIUM 2,000 MG in DEXTROSE 5% 50 ML IV SCH (09:01)
[2020-01-01] MEDS: INSULIN GLARGINE SOLOSTAR 100 UNITS/ML 3 ML PEN SC SCH (09:33)
[2020-01-01] MEDS: DOCUSATE SODIUM 100 MG CAP PO SCH ×2 (11:40→21:13)
[2020-01-01] MEDS: MULTIVITAMIN TAB PO SCH (11:40)
[2020-01-01] MEDS: MAGNESIUM CHLORIDE 64MG DELAYED REL TAB PO SCH ×4 (11:40→21:12)
[2020-01-01] MEDS ORDERED: BACITRACIN INJ 50,000 UNIT VIAL ONE (12:00)
[2020-01-01] MEDS ORDERED: VANCOMYCIN HCL 1000MG/20ML VIAL ONE (12:00)
[2020-01-01] MEDS ORDERED: BUPIVACAINE 0.5 % 5 MG/1 ML MPF 30ML VIAL ONE (12:01)
[2020-01-01] MEDS ORDERED: GENTAMICIN SULFATE 40 MG/ML 2 ML VIAL ONE ×2 (12:01→13:39)
[2020-01-01] MEDS ORDERED: fentaNYL citrate 100 MCG/2 ML VIAL ONE (12:06)
[2020-01-01] MEDS ORDERED: MIDAZOLAM HCL 1 MG/ML 2ML VIAL ONE ×2 (12:06)
--- NOTE | 2020-01-01 12:37 | Anesthesiology Consultation ---
Date of Service January 01, 2020 Assessment & Plan Chart Review Chart Review: Acceptable Risk for Surgery and Patient NOT seen in Pre Admission Testing Consults Requested none Proposed Anesthesia Risk / Benefits Reviewed With: PT / POA / Parent / Guardian, Accepts Plan and Informed Consent Obtained History Surgery Operation Date: 12/26/19 10:00 Proposed Procedures p Right Incision and Drainage Foot Ulcer, Possible Stimulan Beads - Vance Terry DO s Possible Excision of 1st Metatarsal - Vance Terry DO Operation Date: 01/01/20 08:20 Proposed Procedures p Right Foot Incision and Drainage - Vance Terry DO Height/Weight Height: 5 ft 8 in Weight: 117.5 kg Allergies Allergy/AdvReac Type Severity Reaction Status Date / Time Bactrim Allergy Unknown "severe Verified 05/24/17 08:28 vomiting" sulfamethoxazole AdvReac Unknown "severe Verified 12/25/19 07:55 vomiting" trimethoprim AdvReac Unknown "severe Verified 12/25/19 07:55 vomiting" Medications Home Medications Medication Instructions Recorded Confirmed Last Taken metformin 850 mg tablet 850 mg PO BID #180 tab 12/23/18 12/25/19 12/24/19 sitagliptin 100 mg tablet 100 mg PO QAM #90 tab 12/23/18 12/25/19 12/24/19 apixaban 5 mg tablet 5 mg PO BID #180 tab 07/14/19 12/25/19 12/24/19 potassium chloride 10 mEq 10 meq PO QAM #90 tab 07/14/19 12/25/19 12/24/19 tablet,extended release rosuvastatin 20 mg tablet 20 mg PO HS #90 tab 07/14/19 12/25/19 12/24/19 sacubitril 24 mg-valsartan 26 mg 1 tab PO BID #60 tab 10/13/19 12/25/19 12/24/19 tablet Lantus Solostar U-100 Insulin 40 unit SUBCUT QAM 12/10/19 12/25/19 12/24/19 insulin lispro [Humalog KwikPen 20 unit SUBCUT TIDM 12/10/19 12/25/19 12/24/19 Insulin] magnesium chloride [Mag 64] 64 mg PO QID 30 Days #120 tab 12/11/19 12/25/19 12/24/19 metoprolol succinate 250 mg PO QAM 30 Days #150 tab 12/11/19 12/25/19 12/24/19 amiodarone 400 mg PO QAM 12/25/19 12/25/19 12/24/19 doxycycline hyclate 75 mg PO BID 12/25/19 12/25/19 12/24/19 furosemide 20 mg PO QAM 12/25/19 12/25/19 12/24/19 amoxicillin-pot clavulanate 1 tab PO BIDM 42 Days #84 tab 12/30/19 Unknown [Augmentin] daptomycin 525 mg IV DAILY 42 Days #42 ea 12/30/19 Unknown ceftriaxone 2 gm IV DAILY #42 ea 01/01/20 Unknown Active Medications Generic Name Dose Route Start Last Admin Trade Name Freq PRN Reason Stop Dose Admin Amiodarone HCl 400 mg 12/26/19 09:00 12/31/19 07:53 Cordarone PO 01/25/20 08:59 400 mg QAM BRITANY Administration Docusate Sodium 100 mg 12/26/19 21:00 01/01/20 11:40 Colace PO 01/25/20 20:59 Not Given BID BRITANY Furosemide 20 mg 12/26/19 09:00 12/31/19 07:53 Lasix PO 01/25/20 08:59 20 mg QAM BRITANY Administration Heparin Sodium (Beef Lung) 5 ml 12/29/19 10:24 12/31/19 06:13 Heparin Sod 10 Unit/Ml Flush FLUSH 01/28/20 10:23 5 ml PRN PRN Administration Flush Ceftriaxone Sodium 2,000 mg/ 70 mls @ 100 mls/hr 01/01/20 09:00 01/01/20 09:51 Dextrose IV 02/12/20 08:59 Infused DAILY [facility] Infusion Protocol Insulin Aspart 0 units 12/30/19 07:30 01/01/20 08:51 Novolog Flexpen SC 01/29/20 07:29 Not Given AC@0730 [facility] Protocol Insulin Aspart 0 units 12/30/19 11:30 01/01/20 11:40 Novolog Flexpen SC 01/29/20 11:29 Not Given ACHS@1130,1630,2100 [facility] Protocol Insulin Glargine 20 units 12/28/19 09:00 01/01/20 09:33 Lantus Solostar Pen SC 01/27/20 08:59 Not Given BID BRITANY Magnesium Chloride 64 mg 12/25/19 13:00 01/01/20 11:40 Slow-Mag PO 01/24/20 12:59 Not Given QID BRITANY Metoprolol Succinate 250 mg 12/26/19 09:00 12/31/19 07:54 Toprol Xl PO 01/25/20 08:59 250 mg QAM BRITANY Administration Metronidazole 500 mg 12/31/19 21:00 12/31/19 20:41 Flagyl PO 02/11/20 20:59 500 mg TID BRITANY Administration Protocol Multivitamins 1 tab 12/27/19 09:00 01/01/20 11:40 Multivitamin Tab PO 01/26/20 08:59 Not Given QAM BRITANY Potassium Chloride 10 meq 12/26/19 09:00 12/31/19 07:53 Klor-Con M10 PO 01/25/20 08:59 10 meq QAM BRITANY Administration Sacubitril/Valsartan 1 tab 12/25/19 21:00 12/31/19 20:42 Entresto 24/26mg PO 01/24/20 20:59 1 tab BID BRITANY Administration NPO Date Last Intake of Fluids: 12/31/19 Time Last Intake of Fluids: 22:00 Last Intake of Fluids Comment: sips with meds this morning Date Last Intake of Solids: 12/31/19 Time Last Intake of Solids: 17:00 Past Medical History Medical History Atrial fibrillation, currently in sinus rhythm CAD (coronary artery disease) (Chronic) Diabetes mellitus type II, uncontrolled (Chronic) Diabetic peripheral neuropathy associated with type 2 diabetes mellitus (Chronic) Dyslipidemia (Chronic) Goiter (Chronic) History of cellulitis lower extremity History of diabetic ulcer of foot (Resolved) HTN (hypertension) (Chronic) Ischemic cardiomyopathy (Chronic) 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) PAF (paroxysmal atrial fibrillation) Sepsis (Inactive) Sleep apnea (Chronic) cpap Ventricular tachycardia ICD shock Past Family History Family History Other Diabetes Heart disease Past Surgical History Surgical History H/O vasectomy (Chronic) History of implantable cardiac defibrillator (ICD) 05/2017 [employer] Hx of CABG (Chronic) 2016 [place], HEART CATH - UNABLE TO STENT AND THEN CABG X 4 - [facility] FOLLOWS WITH DR KIMBLE Hx of foot surgery REMOVAL OF BIG TOE AND SECOND TOE 04/2017 Social History Smoking Status: Never smoker Hx Alcohol Use: Yes Alcohol type: beer alcohol intake frequency: holidays/special occasions only Hx Substance Use: No substance use type: does not use Physical Exam Vital Signs Last Vital Signs Temp 36.6 C 01/01/20 12:29 Pulse 63 01/01/20 12:29 Resp 20 01/01/20 12:29 BP 142/86 H 01/01/20 12:29 Pulse Ox 100 01/01/20 12:29 Testing Laboratory Results 12/27/19 07:30 12/31/19 08:08 12/26/19 14:48 Gram Stain - Final Foot Aerobic and Anaerobic Culture - Preliminary Group B Beta Strep Staphylococcus aureus Prevotella bivia 12/26/19 14:32 Gram Stain - Final Foot,Right Aerobic and Anaerobic Culture - Preliminary Group B Beta Strep Staphylococcus aureus Prevotella bivia 12/25/19 08:28 Gram Stain - Final Foot Wound Culture - Final Staphylococcus aureus Group B Beta Strep Pasteurella multocida 12/25/19 07:59 Aerobic Blood Culture - Final Blood No growth in Aerobic bottle after 5 days. Anaerobic Blood Culture - Final No growth in Anaerobic bottle after 5 days. 12/25/19 08:11 Aerobic Blood Culture - Final Blood No growth in Aerobic bottle after 5 days. Anaerobic Blood Culture - Final No growth in Anaerobic bottle after 5 days. 01/01/20 01/01/20 11:34 07:30 POC Glucose 126 H 114 H
[2020-01-01] MEDS ORDERED: fentaNYL citrate 100 MCG/2 ML VIAL IV PRN (12:39)
[2020-01-01] MEDS ORDERED: METOCLOPRAMIDE HCL INJ 5 MG/ML 2 ML VIAL IV PRN (12:39)
[2020-01-01] MEDS ORDERED: ONDANSETRON INJ 2 MG/ML 2 ML VIAL IV PRN (12:39)
[2020-01-01] MEDS ORDERED: ATROPINE SULFATE 0.1 MG/ML 10ML SYR IV PRN (12:39)
[2020-01-01] MEDS ORDERED: HYDROmorphone INJ 2 MG/ML SYR/VIAL IV PRN (12:39)
[2020-01-01] MEDS ORDERED: ePHEDrine sulfate 50 MG/ML AMP IV PRN (12:39)
[2020-01-01] MEDS ORDERED: KETOROLAC 30 MG/ML VIAL IV PRN (12:39)
[2020-01-01] MEDS ORDERED: PROMETHAZINE HCL 12.5 MG in SODIUM CHLORIDE 0.9% 50 ML IV PRN (12:39)
--- NOTE | 2020-01-01 13:45 | History & Physical Bridge Note ---
Date of Service January 01, 2020 History & Physical Bridge Note I have examined the patient, reviewed the History & Physical and in the interval since the performance of the History & Physical I have noted the following changes of clinical significance: no changes noted
--- NOTE | 2020-01-01 13:55 | Pharmacy Report ---
Pharmacy Glycemic Short Note 2 - Date of Service January 01, 2020 - Glycemic Short BSG Results (Last 24 hours): 12/31/19 12/31/19 01/01/20 16:36 20:17 07:30 POC Glucose 87 109 H 114 H 01/01/20 11:34 POC Glucose 126 H OUTPATIENT: * Lantus 40 units SC qAM * Insulin lispro 20 units TIDM * Sitagliptin 100 mg PO daily ASSESSMENT: 12/31 * BSGs well controlled over last 24 hours * Fasting within goal range, 114 today will continue current basal, however will work to go back to once daily dosing, administer evening dose with dinner tonight * Continue current novolog parameters, prandial BSGs within goal range 12/29 * 73 units SQ insulin administered over last 24 hrs while patient tolerating diet * BSGs have ranged 42-181 over last 24 hrs * Fasting BSG 145 this AM with 40 units basal on board - plan to continue the same * Patient did experience hypoglycemia last evening, likely secondary to excess Novolog with dinner meal. It appears that the patient's dinner BSG was 86 and he only consumed 10gm CHOs, however was given 8 units Novolog * Post-prandial BSG pattern demonstrates mildly elevated BSG prelunch however BSGs 100 or less pre-dinner - perhaps due to insulin "stacking." Will trial using larger breakfast Novolog doses with reduced prandial doses at other meal-times. PLAN FOR INPATIENT GLYCEMIC CONTROL: * Basal insulin - continue * Lantus 20 units SC BID- adjusting to go back to qAM dosing * Bolus insulin - change * NovoLog per scale ACHS or Q6hrs while NPO * Goal Range: Low 110 mg/dL - High 150 mg/dL * Correction Factor: 20 mg/dL/unit * Nutritional / Prandial insulin per carb ratio of 1 unit per 5 grams CHO consumed with breakfast only, use 1 unit per 6 grams CHO consume with lunch and dinner DISCHARGE: * Patient with poorly controlled diabetes based on A1c of 10.8%. Patient also has complications associated with diabetes including, diabetic peripheral neuropathy and history of diabetic foot infections * Per post closing specialist note, COVID-19 pandemic may be partially to blame for poor A1c - based on inpatient insulin requirements, this seems likely * --May be reasonable to continue home regimen and encourage increased compliance and ensure prompt outpatient follow-up with managing MTM pharmacist * Reasonable A1c goal would be less than 7% for most adult patients * Please note that the plan above was derived based on current level of insulin resistance and hospital stress. These recommendations are appropriate for inpatient admission only. Plan of care upon discharge will need to be reassessed to avoid potential outpatient hypo/hyperglycemia. Thank you.
[2020-01-01] MEDS ORDERED: PROPOFOL IV EMULSION 10 MG/ML 20 ML VIAL IV ONE (14:00)
[2020-01-01] MEDS ORDERED: LIDOCAINE HCL 2% 2 ML VIAL/AMP(20MG/ML) INFIL ONE (14:00)
[2020-01-01] MEDS: metroNIDAZOLE 500 MG TAB PO SCH ×3 (14:34→21:12)
[2020-01-01] MEDS: SACUBITRIL-VALSARTAN 24-26 MG TAB PO SCH ×2 (14:34→21:12)
--- NOTE | 2020-01-01 14:51 | Post Operative Brief Note ---
Immediate Post Op Note v1 Date of Surgery January 01, 2020 Pre & Post Diagnosis Operation Date: 12/26/19 10:00 Pre-Op Diagnosis: Left Foot Infection Post-Op Diagnosis: Left Foot Infection Operation Date: 01/01/20 08:20 Pre-Op Diagnosis: LEFT FOOT RECURRENT DEEP INFECTION, osteomyelitis first and second metatarsals, recurrent abscess right foot, DIABETIC neuropathic ulceration plantar foot 3.0 cm diameter Post-Op Diagnosis: LEFT FOOT RECURRENT DEEP INFECTION, osteomyelitis first and second metatarsals, recurrent abscess right foot, DIABETIC neuropathic ulceration plantar foot 3.0 cm diameter I identified the patient and participated in the time-out.: Yes Procedure Operation Date: 12/26/19 10:00 Actual Procedures p Right Incision and Drainage Foot Ulcer, Placement of Stimulan Beads, Evacuation of Abscess, Excision Partial First and Second Metatarsal(Right) - Vance Terry DO Operation Date: 01/01/20 08:20 Actual Procedures p Right Foot repeat irrigation and debridement of deep infection, debridement first metatarsal bone, debridement second metatarsal bone, debridement fascia/flexor tendon/extensor tendon, removal of deep implanted calcium sulfate beads and implantation of new calcium sulfate antibiotic beads(Right) - Vance Terry DO Surgeon Vance Terry DO Critical Care Paramedic Jose Luis Astudillo PA-C Estimated Blood Loss 2 Findings Consistent with Post-Op Diagnosis Specimens None Drains Other (1/2 inch iodoform gauze packing) Anesthesia Type MAC Regional Complications none Disposition Accompanied Patient To Recovery: No Disposition: Recovery Room Overlapping Procedure I was present for: the critical portions of procedure. I was immediately available: during the entire case.
--- NOTE | 2020-01-01 15:27 | Anesthesiology Progress Note ---
Date of Service January 01, 2020 Anesthesia Post Procedure Vital Signs Vital Signs: Temp Pulse Pulse Pulse Resp BP BP 01/01/20 15:05 36.2 C L 62 16 138/72 01/01/20 14:55 61 15 122/73 01/01/20 14:49 36.2 C L 62 16 119/93 01/01/20 12:29 36.6 C 63 20 142/86 H 01/01/20 11:29 36.6 C 59 L 18 120/78 01/01/20 07:28 58 L 01/01/20 07:02 36.4 C L 62 16 115/71 01/01/20 03:07 61 14 01/01/20 03:04 36.1 C L 65 20 118/75 12/31/19 23:57 59 L 12/31/19 23:32 60 18 12/31/19 22:32 36.6 C 60 20 116/71 12/31/19 19:00 36.5 C 62 18 165/84 H 12/31/19 15:45 57 L Pulse Ox 01/01/20 15:05 100 01/01/20 14:55 100 01/01/20 14:49 100 01/01/20 12:29 100 01/01/20 11:29 100 01/01/20 07:28 01/01/20 07:02 99 01/01/20 03:07 97 01/01/20 03:04 99 12/31/19 23:57 12/31/19 23:32 98 12/31/19 22:32 98 12/31/19 19:00 100 12/31/19 15:45 Transfer of Care Handoff Completed per policy Notes Mental Status: alert / awake / arousable and participated in evaluation Patient Amnestic to Procedure: Yes Nausea / Vomiting: adequately controlled Pain: adequately controlled Airway Patency, RR, SpO2: stable & adequate BP & HR: stable & adequate Hydration State: stable & adequate Anesthetic Complications: no major complications apparent
[2020-01-01] MEDS: POTASSIUM CHLORIDE 10 MEQ TABCR PO SCH (15:35)
[2020-01-01] MEDS: AMIODARONE 200 MG TAB PO SCH (15:35)
[2020-01-01] MEDS: FUROSEMIDE 20 MG TAB PO SCH (15:35)
[2020-01-01] MEDS: METOPROLOL SUCC 50MG EXT REL TAB PO SCH (15:36)
--- NOTE | 2020-01-01 15:50 | Hospitalist Progress Note ---
Date of Service delayed entry date of service noted below January 01, 2020 Assessment & Plan (1) Osteomyelitis of foot: (2) Foot ulcer, right: per Dr. Mcconnell, previous hospitalist note: This is a 49-year-old male who has significant past medical history of uncontrolled IDDM 2, ischemic cardiomyopathy status post AICD with EF of 35 to 40%, CAD with history of CABG x4 in 2017, JENNIFER on CPAP, HTN, HLD, PAF anticoagulated on Eliquis who presents to ED secondary to worsening right foot wound x1 week. R Foot x-ray Erosive change is seen at the resection margin of the first metatarsal. There is overlying soft tissue edema and subcutaneous gas, and this is highly concerning for osteomyelitis. CT of foot shows extensive osteomyelitis s/p I&D with partial metatarsal amputation wound culture : multiple organisms : Staph aureus MSSA /Group B streptococcus /pervotella Abx adjusted to IV Daptomycin -should cover for MSSA and Group B strep no sensitivity was done for Provetella on culture 12/26/19 and Pasturella noted on culture 12/23/19 pt has Midline placed /IV team unable to place a PICC ID consulted- recommend Ceftri 2g IV daily and Flagyl 500mg TID x 6 weeks with weekly labs s/p repeat I&D, antibiotic bead placement tolerated procedure well continue to monitor (3) Type 2 diabetes mellitus: per Dr. Mcconnell, previous hospitalist note: Uncontrolled insulin-dependent type 2 DM Counseled on importance of strict glycemic control A1c 10.8 on 12/11/2019 Hold metformin and Januvia Glycemic pharmacist consulted (4) CAD (coronary artery disease): (5) Ischemic cardiomyopathy: per Dr. Mcconnell, previous hospitalist note: History of CABG x4 in 2017, Chronic Systolic CHF Echocardiogram 12/2019 revealed EF 40 to 45%, left atrium severely dilated, mild concentric left ventricular hypertrophy, moderate global hypokinesis with more pronounced hypokinesis and distal lateral inferior gary follows [facility] [place] cardiology, AICD in place euvolemic continue metoprolol, Lasix, Entresto continue amiodarone, Mg supplemenation -- euvolemic, no cardiac symptoms (6) HTN (hypertension): Blood pressure stable Continue metoprolol, Lasix (7) CKD (chronic kidney disease) stage 3, GFR 30-59 ml/min: ACUTE on CHRONIC CKD 3 baseline cr 1.0-1.1 Creatinine improved to baseline with IV hydration (8) Dyslipidemia: on Crestor (9) JENNIFER on CPAP: CPAP at HS (10) DVT prophylaxis: SQ lovenox Disposition: d/c home with IV Ceftri 2g daily and PO Flagyl TID x 6 weeks, when cleared by Ortho Follow up: PCP Dr. Cagle upon discharge Will need [facility] orthopedics Dr. Terry follow-up Wound clinic follow-up Admission and Anticipated Discharge Date Admission Date: December 25, 2019 Subjective ff up for right foot OM s/p washout, antibiotic beads placement sitting in bed, comfortable states he feels fine overall no chest pain, dyspnea, nausea minimal pain on the left foot no other symptoms Review of Systems Review of Systems: All systems reviewed & are unremarkable except as noted in HPI & below Physical Exam Physical Exam: General- oriented x 3, not in distress, speaks in sentences with no effort or accessory muscle use Eyes- anicteric Neck- no JVD Lungs- clear breath sounds bilaterally Heart- normal rate, regular rhythm; no murmurs Abdomen- normal bowel sounds, nondistended, soft, nontender Extremities- no pretibial edema, no calf tenderness right foot: heavy bandage in place Neuro- alert, oriented x 3; no gross focal neurologic deficits Skin- warm & dry Results & Data Results & Data ([facility]) Vital Signs (Past 12 Hours) Vital Signs Temp Pulse Pulse Pulse Resp BP BP 01/01/20 15:48 36.5 C 62 18 131/81 01/01/20 15:05 36.2 C L 62 16 138/72 01/01/20 14:55 61 15 122/73 01/01/20 14:49 36.2 C L 62 16 119/93 01/01/20 12:29 36.6 C 63 20 142/86 H 01/01/20 11:29 36.6 C 59 L 18 120/78 01/01/20 07:28 58 L 01/01/20 07:02 36.4 C L 62 16 115/71 Pulse Ox 01/01/20 15:48 100 01/01/20 15:05 100 01/01/20 14:55 100 01/01/20 14:49 100 01/01/20 12:29 100 07/30/20 11:29 100 01/01/20 07:28 01/01/20 07:02 99 Laboratory Results noted and reviewed (1) Type 2 diabetes mellitus Diabetes mellitus complication detail: with other circulatory complications Diabetes mellitus complication status: with circulatory complication Diabetes mellitus terminal make up operator insulin use: with terminal make up operator use Qualified Code(s): E11.59 - Type 2 diabetes mellitus with other circulatory complications; Z79.4 - continuous churn buttermaker (current) use of insulin (2) CAD (coronary artery disease) Associated angina: without angina Coronary Disease-Associated Artery/Lesion type: [place] artery [place] vs. transplanted heart: [place] heart Qualified Code(s): I25.10 - Atherosclerotic heart disease of [place] coronary artery without angina pectoris (3) Osteomyelitis of foot Laterality: right Osteomyelitis type: unspecified type Qualified Code(s): M86.9 - Osteomyelitis, unspecified (4) HTN (hypertension) Hypertension type: unspecified Qualified Code(s): I10 - Essential (primary) hypertension
[2020-01-01] MEDS ORDERED: INSULIN GLARGINE SOLOSTAR 100 UNITS/ML 3 ML PEN SC SCH (16:30)
--- NOTE | 2020-01-01 16:32 | Operative Report (OR) ---
DATE OF OPERATION: 01/01/2020 PREOPERATIVE DIAGNOSES: 1. Right foot recurrent deep infection with abscess. 2. Osteomyelitis, first and second metatarsals distally. 3. Abscess, right foot. 4. Diabetic neuropathic ulcer measuring 3.0 cm in diameter, plantar foot. POSTOPERATIVE DIAGNOSES: 1. Right foot recurrent deep infection with abscess. 2. Osteomyelitis, first and second metatarsals distally. 3. Abscess, right foot. 4. Diabetic neuropathic ulcer measuring 3.0 cm in diameter, plantar foot. PROCEDURES PERFORMED: 1. Right foot repeat irrigation and debridement deep infection. 2. Incision and drainage, recurrent abscess, right foot. 3. Debridement of first and second metatarsal bone. 4. Debridement of fascia/flexor tendon/extensor tendon of the right foot. 5. Removal of Stimulan beads. 6. Implantation of Stimulan antibiotic beads. SURGEON: Vance Terry DO. DENTISTRY PROFESSOR: Jose Luis Astudillo PA-C who was present for patient positioning, sterile prep and drape, management of retractors and instruments. He was present through the critical portions of the case including wound closure, application of sterile dressing and transport of the patient to recovery. ANESTHESIA: MAC regional with ankle block. SPECIMENS: None. DRAINS: 1/2 inch iodoform gauze packing. COMPLICATIONS: None. BLOOD LOSS: 2 mL. 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 He had undergone incision and drainage of severe abscess and debridement of a large plantar ulcer previously. Noted increasing purulence over the last 48 hours and scheduled the patient for repeat irrigation and debridement as noted above. The patient was scheduled for surgery as indicated. All potential risks, benefits, complications, alternatives, rehab potential for incomplete relief of symptoms, need for further surgery, DVT, PE, , persistent pain, swelling, scarring, weakness, neurovascular injury, wound complications, need for further surgery or amputation was discussed with the patient. The patient decided to proceed with the procedure as indicated. DESCRIPTION OF PROCEDURE: The patient was taken to the operative suite, placed supine on the operating table. After review of consent and identification of proper operative site, the patient was sedated and MAC regional was performed with sterile prep with Betadine and then injection of ankle block to the right lower extremity with 30 mL of 0.5% Marcaine without epinephrine. Next, sterile prep and drape was performed. The limb was elevated and partially exsanguinated from the mid foot proximally using a 4-inch Esmarch bandage and an Esmarch tourniquet was applied over sterile surgical towel at the level of the ankle. Next, the sutures placed previously were removed and the plantar Acticoat Flex was removed. The antibiotic beads, which were placed previously, were also removed and the more dorsal flap incision was then opened. The pulsatile lavage was then used to give initial cleansing of the tissues and then a rongeur was then used to debride the first and second metatarsals of any softened bone of which there was very little compared to the previous procedure. The abscess collection between the first and second metatarsals was then cleared with pulsatile lavage. The beads which were placed previously were removed without difficulty using a rongeur and a large curette. The tissue was then debrided including the fascia of the flexor tendon and the extensor tendon including sharp dissection using Metzenbaum scissors. After all devitalized tissue was removed, which was markedly less compared to prior surgery was completed, the pulsatile lavage 3 liters with bacitracin was then used to cleanse the tissue. Once this was completed, top gloves and top sheet were changed, new antibiotic laden cement beads with vancomycin and gentamicin was then fashioned and then placed into the foot, both dorsally and in the plantar aspect. Acticoat Flex was used to make a small pouch at the ulcer site and then the dorsal flap was then closed using interrupted 3-0 nylon sutures and a small 1/2 inch iodoform gauze wick drain was placed. Next, a sterile compressive dressing was applied. The tourniquet was released. The patient was awakened and taken to recovery room in stable condition. I attest to the content of the Intraoperative Record and any orders documented therein. Any exception s are noted below.
[2020-01-02] MEDS: MAGNESIUM CHLORIDE 64MG DELAYED REL TAB PO SCH ×4 (08:52→21:54)
[2020-01-02] MEDS: cefTRIAXone SODIUM 2,000 MG in DEXTROSE 5% 50 ML IV SCH (08:52)
[2020-01-02] MEDS: SACUBITRIL-VALSARTAN 24-26 MG TAB PO SCH ×2 (08:53→21:54)
[2020-01-02] MEDS: metroNIDAZOLE 500 MG TAB PO SCH ×3 (08:53→21:54)
[2020-01-02] MEDS: MULTIVITAMIN TAB PO SCH (08:53)
[2020-01-02] MEDS: INSULIN ASPART 100 UNITS/ML 3 ML PEN SC SCH ×4 (09:03→21:54)
[2020-01-02] MEDS: POTASSIUM CHLORIDE 10 MEQ TABCR PO SCH (10:25)
[2020-01-02] MEDS: FUROSEMIDE 20 MG TAB PO SCH (10:25)
[2020-01-02] MEDS: AMIODARONE 200 MG TAB PO SCH (10:26)
[2020-01-02] MEDS: METOPROLOL SUCC 50MG EXT REL TAB PO SCH (10:26)
[2020-01-02] MEDS: DOCUSATE SODIUM 100 MG CAP PO SCH ×2 (10:28→21:55)
[2020-01-02] MEDS ORDERED: INSULIN GLARGINE SOLOSTAR 100 UNITS/ML 3 ML PEN SC ONE (11:30)
[2020-01-02 12:55] LABS: Basophils # (auto) 0.04 K/uL (0-0.2); Basophils % (auto) 0.5 %; Eosinophils # (auto) 0.17 K/uL (0-0.5); Eosinophils % (auto) 2.1 %; Hematocrit (blood only) 34.2 % (42-52); Hemoglobin 10.8 g/dL (14.0-18.0); Immature Granulocytes # (auto) 0.15 K/uL (0.00-0.02); Immature Granulocytes % (auto) 1.9 %; Lymphocytes # (auto) 1.73 K/uL (1.2-3.4); Lymphocytes % (auto) 21.8 %; Mean Corpuscular Hemoglobin 25.2 pg (25-34); Mean Corpuscular Hgb Conc 31.6 g/dL (32-36); Mean Corpuscular Volume 79.9 fL (80-100); Mean Platelet Volume 9.8 fL (7.4-10.4); Monocytes # (auto) 0.49 K/uL (0.11-0.59); Monocytes % (auto) 6.2 %; Neutrophils # (auto) 5.37 K/uL (1.4-6.5); Neutrophils % (auto) 67.5 %; Platelet Count 191 K/uL (130-400); RDW Coefficient of Variation 15.9 % (11.5-14.5); RDW Standard Deviation 45.4 fL (36.4-46.3); Red Blood Count 4.28 M/uL (4.7-6.1); White Blood Count 7.95 K/uL (4.8-10.8)
[2020-01-02] MEDS: ENOXAPARIN INJ 40 MG/0.4 ML SYR SQ SCH (13:01)
[2020-01-02 13:12] LABS: BUN Creatinine Ratio 15.5 (10-20); Calcium 9.6 mg/dl (8.5-10.1); Creatinine Clr Calc Pharmacy 85.7 ml/min; Est GFR (African American) 75.1; Est GFR (Non-African American) 64.8; Potassium 4.6 mmol/L (3.5-5.1)
--- NOTE | 2020-01-02 13:58 | Pharmacy Report ---
Pharmacy Glycemic Short Note 2 - Date of Service January 02, 2020 - Glycemic Short BSG Results (Last 24 hours): 01/01/20 01/01/20 01/01/20 14:51 16:47 21:13 Glucose POC Glucose 95 99 93 01/02/20 01/02/20 01/02/20 07:46 11:55 12:39 Glucose 150 H POC Glucose 121 H 153 H OUTPATIENT: * Lantus 40 units SC qAM * Insulin lispro 20 units TIDM * Sitagliptin 100 mg PO daily ASSESSMENT: 01/01 * BSGs continue to be controlled, continuing current novolog parameters, lantus adjusted to once daily dosing today 12/31 * BSGs well controlled over last 24 hours * Fasting within goal range, 114 today will continue current basal, however will work to go back to once daily dosing, administer evening dose with dinner tonight * Continue current novolog parameters, prandial BSGs within goal range 12/29 * 73 units SQ insulin administered over last 24 hrs while patient tolerating diet * BSGs have ranged 42-181 over last 24 hrs * Fasting BSG 145 this AM with 40 units basal on board - plan to continue the same * Patient did experience hypoglycemia last evening, likely secondary to excess Novolog with dinner meal. It appears that the patient's dinner BSG was 86 and he only consumed 10gm CHOs, however was given 8 units Novolog * Post-prandial BSG pattern demonstrates mildly elevated BSG prelunch however BSGs 100 or less pre-dinner - perhaps due to insulin "stacking." Will trial using larger breakfast Novolog doses with reduced prandial doses at other meal-times. PLAN FOR INPATIENT GLYCEMIC CONTROL: * Basal insulin - continue * Lantus 20 units SC BID- adjusting to go back to qAM dosing * Bolus insulin - change * NovoLog per scale ACHS or Q6hrs while NPO * Goal Range: Low 110 mg/dL - High 150 mg/dL * Correction Factor: 20 mg/dL/unit * Nutritional / Prandial insulin per carb ratio of 1 unit per 5 grams CHO consumed with breakfast only, use 1 unit per 6 grams CHO consume with lunch and dinner DISCHARGE: * Patient with poorly controlled diabetes based on A1c of 10.8%. Patient also has complications associated with diabetes including, diabetic peripheral neuropathy and history of diabetic foot infections * Per breastfeeding educator note, COVID-19 pandemic may be partially to blame for poor A1c - based on inpatient insulin requirements, this seems likely * --May be reasonable to continue home regimen and encourage increased compliance and ensure prompt outpatient follow-up with managing MTM pharmacist * Reasonable A1c goal would be less than 7% for most adult patients * Please note that the plan above was derived based on current level of insulin resistance and hospital stress. These recommendations are appropriate for inpatient admission only. Plan of care upon discharge will need to be reassessed to avoid potential outpatient hypo/hyperglycemia. Thank you.
--- NOTE | 2020-01-02 15:52 | Orthopedic Progress Note ---
Date of Service January 02, 2020 Assessment & Plan (1) Osteomyelitis of foot: Status post repeat irrigation debridement with implantation new Stimulan beads right foot postop day 1. Maintain limited weightbearing right lower extremity. Continue IV antibiotics. Plan for dressing change in the a.m. (2) Foot ulcer, right: (3) Osteomyelitis: (4) Diabetes mellitus type II, uncontrolled: Admission and Anticipated Discharge Date Admission Date: December 25, 2019 Subjective Patient sitting in his chair at the bedside. No complaints today. Pain controlled. Physical Exam Physical Exam: Right lower extremity dressing intact. No strikethrough. No foul odor. Reduced edema right lower extremity. Calf soft and nontender. Results & Data ([facility]) Vital Signs (Past 12 Hours) Vital Signs Temp Pulse Pulse Pulse Resp BP Pulse Ox 01/02/20 15:06 36.7 C 54 L 18 95/63 L 99 01/02/20 11:12 36.8 C 67 19 99/63 L 100 01/02/20 07:37 36.8 C 59 L 20 113/76 99 01/02/20 07:19 52 L (1) Osteomyelitis of foot Laterality: right Osteomyelitis type: unspecified type Qualified Code(s): M86.9 - Osteomyelitis, unspecified
[2020-01-03 07:54] LABS: Creatinine Clr Calc Pharmacy 84.9 ml/min; Est GFR (African American) 74.4; Est GFR (Non-African American) 64.2
[2020-01-03] MEDS: ENOXAPARIN INJ 40 MG/0.4 ML SYR SQ SCH (08:18)
[2020-01-03] MEDS: FUROSEMIDE 20 MG TAB PO SCH (08:19)
[2020-01-03] MEDS: AMIODARONE 200 MG TAB PO SCH (08:19)
[2020-01-03] MEDS: METOPROLOL SUCC 50MG EXT REL TAB PO SCH (08:19)
[2020-01-03] MEDS: MULTIVITAMIN TAB PO SCH (08:20)
[2020-01-03] MEDS: cefTRIAXone SODIUM 2,000 MG in DEXTROSE 5% 50 ML IV SCH (08:21)
[2020-01-03] MEDS: MAGNESIUM CHLORIDE 64MG DELAYED REL TAB PO SCH ×4 (08:21→21:37)
[2020-01-03] MEDS: POTASSIUM CHLORIDE 10 MEQ TABCR PO SCH (08:21)
[2020-01-03] MEDS: SACUBITRIL-VALSARTAN 24-26 MG TAB PO SCH ×2 (08:22→21:37)
[2020-01-03] MEDS: metroNIDAZOLE 500 MG TAB PO SCH ×3 (08:22→21:37)
[2020-01-03] MEDS: INSULIN ASPART 100 UNITS/ML 3 ML PEN SC SCH ×4 (08:24→21:08)
[2020-01-03] MEDS: DOCUSATE SODIUM 100 MG CAP PO SCH ×2 (08:26→21:39)
[2020-01-03] MEDS ORDERED: INSULIN GLARGINE SOLOSTAR 100 UNITS/ML 3 ML PEN SC SCH (09:00)
--- NOTE | 2020-01-03 10:27 | Orthopedic Progress Note ---
Date of Service January 03, 2020 Assessment & Plan (1) Osteomyelitis of foot: Status post repeat irrigation debridement with implantation new Stimulan beads right foot postop day 2. Maintain limited weightbearing right lower extremity w shoe. Continue IV antibiotics- ceftriaxone with multiple organisms. As per primary service. (2) Foot ulcer, right: Infection of the right diabetic foot ulcer at the plantar surface of the the first metatarsal with osteomyelitis of the first metatarsal that is remaining. CT as noted with a small abscess noted in the same area. Plan for irrigation debridement and possible partial or full resection of the remaining first metatarsal bone today. Possible debridement of questionable early abscesses as noted in the CT scan. Current wound surface culture showing rare gram-positive cocci (3) Osteomyelitis: (4) Diabetes mellitus type II, uncontrolled: Admission and Anticipated Discharge Date Admission Date: December 25, 2019 Subjective POD #2, Doing well. Denies SOB, CP, N/V. Pain controlled well. Physical Exam Physical Exam: Right foot post op shoe in tact. Dressings c/d/i. Incisions c/d/i after removal of dressings. No active drainage, no familia erythema. Patient A&Ox3. Results & Data ([facility]) Vital Signs (Past 12 Hours) Vital Signs Temp Pulse Pulse Pulse Resp BP Pulse Ox 01/03/20 07:59 36.6 C 58 L 18 132/80 97 01/03/20 07:32 58 L 01/03/20 04:00 36.4 C L 53 L 18 106/65 98 01/03/20 03:13 54 L 16 96 01/03/20 02:59 55 L 01/02/20 23:37 36.6 C 58 L 18 111/65 99 01/02/20 23:14 58 L 16 98 (1) Osteomyelitis of foot Laterality: right Osteomyelitis type: unspecified type Qualified Code(s): M86.9 - Osteomyelitis, unspecified
--- NOTE | 2020-01-03 19:50 | Hospitalist Progress Note ---
Date of Service delayed entry date of service 01/01January 03, 2020 Assessment & Plan (1) Osteomyelitis of foot: (2) Foot ulcer, right: per Dr. Mcconnell, previous hospitalist note: This is a 49-year-old male who has significant past medical history of uncontrolled IDDM 2, ischemic cardiomyopathy status post AICD with EF of 35 to 40%, CAD with history of CABG x4 in 2017, JENNIFER on CPAP, HTN, HLD, PAF anticoagulated on Eliquis who presents to ED secondary to worsening right foot wound x1 week. R Foot x-ray Erosive change is seen at the resection margin of the first metatarsal. There is overlying soft tissue edema and subcutaneous gas, and this is highly concerning for osteomyelitis. CT of foot shows extensive osteomyelitis s/p I&D with partial metatarsal amputation wound culture : multiple organisms : Staph aureus MSSA /Group B streptococcus /pervotella Abx adjusted to IV Daptomycin -should cover for MSSA and Group B strep no sensitivity was done for Provetella on culture 12/26/19 and Pasturella noted on culture 12/23/19 pt has Midline placed /IV team unable to place a PICC ID consulted- recommend Ceftri 2g IV daily and Flagyl 500mg TID x 6 weeks with weekly labs s/p repeat I&D, antibiotic bead placement tolerated procedure well stable overall, afebrile continue antibiotics d/c when cleared by Ortho (3) Type 2 diabetes mellitus: per Dr. Mcconnell, previous hospitalist note: Uncontrolled insulin-dependent type 2 DM Counseled on importance of strict glycemic control A1c 10.8 on 12/11/2019 Hold metformin and Januvia Glycemic pharmacist consulted (4) CAD (coronary artery disease): (5) Ischemic cardiomyopathy: per Dr. Mcconnell, previous hospitalist note: History of CABG x4 in 2017, Chronic Systolic CHF Echocardiogram 12/2019 revealed EF 40 to 45%, left atrium severely dilated, mild concentric left ventricular hypertrophy, moderate global hypokinesis with more pronounced hypokinesis and distal lateral inferior gary follows [facility] cardiology, AICD in place euvolemic continue metoprolol, Lasix, Entresto continue amiodarone, Mg supplemenation -- euvolemic, no cardiac symptoms (6) HTN (hypertension): Blood pressure stable Continue metoprolol, Lasix (7) CKD (chronic kidney disease) stage 3, GFR 30-59 ml/min: ACUTE on CHRONIC CKD 3 baseline cr 1.0-1.1 Creatinine improved to baseline with IV hydration (8) Dyslipidemia: on Crestor (9) JENNIFER on CPAP: CPAP at HS (10) DVT prophylaxis: SQ lovenox Disposition: d/c home with IV Ceftri 2g daily and PO Flagyl TID x 6 weeks, when cleared by Ortho Follow up: PCP Dr. Cagle upon discharge Will need [facility] orthopedics Dr. Terry follow-up Wound clinic follow-up Admission and Anticipated Discharge Date Admission Date: December 25, 2019 Subjective ff up for r foot osteomyelitis seen resting in chair, comfortable no Chest pain, dyspnea, palpitations no pain on the foot denies other symptoms Review of Systems Review of Systems: All systems reviewed & are unremarkable except as noted in HPI & below Physical Exam Physical Exam: General- oriented x 3, not in distress, speaks in sentences with no effort or accessory muscle use Eyes- anicteric Neck- no JVD Lungs- clear BS BL Heart- normal rate, regular rhythm; no murmurs Abdomen- normal bowel sounds, nondistended, soft, nontender Extremities- no pretibial edema, no calf tenderness R foot: heavy dressing, boot in place Neuro- alert, oriented x 3; no gross focal neurologic deficits Skin- warm & dry Results & Data Results & Data ([facility]) Vital Signs (Past 12 Hours) Vital Signs Temp Pulse Pulse Resp BP Pulse Ox 01/03/20 16:00 55 L 01/03/20 14:51 36.4 C L 52 L 20 107/70 99 01/03/20 11:48 36.4 C L 59 L 20 112/71 100 01/03/20 07:59 36.6 C 58 L 18 132/80 97 Laboratory Results noted and reviewed (1) Osteomyelitis of foot Laterality: right Osteomyelitis type: unspecified type Qualified Code(s): M86.9 - Osteomyelitis, unspecified (2) Type 2 diabetes mellitus Diabetes mellitus senior care insulin use: with senior care use Diabetes mellitus complication status: with circulatory complication Diabetes mellitus complication detail: with other circulatory complications Qualified Code(s): E11.59 - Type 2 diabetes mellitus with other circulatory complications; Z79.4 - terminal operations manager (current) use of insulin (3) CAD (coronary artery disease) Coronary Disease-Associated Artery/Lesion type: [place] artery [place] vs. transplanted heart: [place] heart Associated angina: without angina Qualified Code(s): I25.10 - Atherosclerotic heart disease of [place] coronary artery without angina pectoris (4) HTN (hypertension) Hypertension type: unspecified Qualified Code(s): I10 - Essential (primary) hypertension
--- NOTE | 2020-01-03 19:55 | Hospitalist Progress Note ---
Date of Service January 03, 2020 Assessment & Plan (1) Osteomyelitis of foot: (2) Foot ulcer, right: per Dr. Mcconnell, previous hospitalist note: This is a 49-year-old male who has significant past medical history of uncontrolled IDDM 2, ischemic cardiomyopathy status post AICD with EF of 35 to 40%, CAD with history of CABG x4 in 2017, JENNIFER on CPAP, HTN, HLD, PAF anticoagulated on Eliquis who presents to ED secondary to worsening right foot wound x1 week. R Foot x-ray Erosive change is seen at the resection margin of the first metatarsal. There is overlying soft tissue edema and subcutaneous gas, and this is highly concerning for osteomyelitis. CT of foot shows extensive osteomyelitis s/p I&D with partial metatarsal amputation wound culture : multiple organisms : Staph aureus MSSA /Group B streptococcus /pervotella Abx adjusted to IV Daptomycin -should cover for MSSA and Group B strep no sensitivity was done for Provetella on culture 12/26/19 and Pasturella noted on culture 12/23/19 pt has Midline placed /IV team unable to place a PICC ID consulted- recommend Ceftri 2g IV daily and Flagyl 500mg TID x 6 weeks with weekly labs s/p repeat I&D, antibiotic bead placement tolerated procedure well remains stable continue antibiotics d/c when cleared by Ortho (3) Type 2 diabetes mellitus: per Dr. Mcconnell, previous hospitalist note: Uncontrolled insulin-dependent type 2 DM Counseled on importance of strict glycemic control A1c 10.8 on 12/11/2019 Hold metformin and Januvia Glycemic pharmacist consulted (4) CAD (coronary artery disease): (5) Ischemic cardiomyopathy: per Dr. Mcconnell, previous hospitalist note: History of CABG x4 in 2017, Chronic Systolic CHF Echocardiogram 12/2019 revealed EF 40 to 45%, left atrium severely dilated, mild concentric left ventricular hypertrophy, moderate global hypokinesis with more pronounced hypokinesis and distal lateral inferior gary follows [facility] cardiology, AICD in place euvolemic continue metoprolol, Lasix, Entresto continue amiodarone, Mg supplemenation -- euvolemic, no cardiac symptoms (6) HTN (hypertension): Blood pressure stable Continue metoprolol, Lasix (7) CKD (chronic kidney disease) stage 3, GFR 30-59 ml/min: ACUTE on CHRONIC CKD 3 baseline cr 1.0-1.1 Creatinine improved to baseline with IV hydration (8) Dyslipidemia: on Crestor (9) JENNIFER on CPAP: CPAP at HS (10) DVT prophylaxis: SQ lovenox Disposition: d/c home with IV Ceftri 2g daily and PO Flagyl TID x 6 weeks, when cleared by Ortho Follow up: PCP Dr. Cagle upon discharge Will need [facility] Dr. Terry follow-up Wound clinic follow-up Admission and Anticipated Discharge Date Admission Date: December 25, 2019 Subjective ff up for R foot osteomyelitis seen resting in bed, comfortable minimal foot pain no chest pain, dizziness, SOB no other symptoms Review of Systems Review of Systems: All systems reviewed & are unremarkable except as noted in HPI & below Physical Exam Physical Exam: General- oriented x 3, not in distress, speaks in sentences with no effort or accessory muscle use Eyes- anicteric Neck- no JVD Lungs- clear breath sounds , no rales, BL Heart- normal rate, regular rhythm; no murmurs Abdomen- normal bowel sounds, nondistended, soft, nontender Extremities- no pretibial edema, no calf tenderness R foot: heavily dressed, boot in place Neuro- alert, oriented x 3; no gross focal neurologic deficits Skin- warm & dry Results & Data Results & Data ([facility]) Vital Signs (Past 12 Hours) Vital Signs Temp Pulse Pulse Resp BP Pulse Ox 01/03/20 16:00 55 L 01/03/20 14:51 36.4 C L 52 L 20 107/70 99 01/03/20 11:48 36.4 C L 59 L 20 112/71 100 01/03/20 07:59 36.6 C 58 L 18 132/80 97 (1) Osteomyelitis of foot Laterality: right Osteomyelitis type: unspecified type Qualified Code(s): M86.9 - Osteomyelitis, unspecified (2) Type 2 diabetes mellitus Diabetes mellitus exterminator termite insulin use: with exterminator termite use Diabetes mellitus complication status: with circulatory complication Diabetes mellitus complication detail: with other circulatory complications Qualified Code(s): E11.59 - Type 2 diabetes mellitus with other circulatory complications; Z79.4 - skilled nursing (current) use of insulin (3) CAD (coronary artery disease) Coronary Disease-Associated Artery/Lesion type: [place] artery [place] vs. transplanted heart: [place] heart Associated angina: without angina Qualified Code(s): I25.10 - Atherosclerotic heart disease of [place] coronary artery without angina pectoris (4) HTN (hypertension) Hypertension type: unspecified Qualified Code(s): I10 - Essential (primary) hypertension
[2020-01-04] MEDS ORDERED: INSULIN GLARGINE SOLOSTAR 100 UNITS/ML 3 ML PEN SC SCH (09:00)
[2020-01-04] MEDS: AMIODARONE 200 MG TAB PO SCH (09:01)
[2020-01-04] MEDS: FUROSEMIDE 20 MG TAB PO SCH (09:01)
[2020-01-04] MEDS: ENOXAPARIN INJ 40 MG/0.4 ML SYR SQ SCH (09:01)
[2020-01-04] MEDS: MULTIVITAMIN TAB PO SCH (09:02)
[2020-01-04] MEDS: POTASSIUM CHLORIDE 10 MEQ TABCR PO SCH (09:02)
[2020-01-04] MEDS: METOPROLOL SUCC 50MG EXT REL TAB PO SCH (09:02)
[2020-01-04] MEDS: MAGNESIUM CHLORIDE 64MG DELAYED REL TAB PO SCH ×2 (09:03→13:34)
[2020-01-04] MEDS: SACUBITRIL-VALSARTAN 24-26 MG TAB PO SCH (09:03)
[2020-01-04] MEDS: metroNIDAZOLE 500 MG TAB PO SCH ×2 (09:03→13:34)
[2020-01-04] MEDS: cefTRIAXone SODIUM 2,000 MG in DEXTROSE 5% 50 ML IV SCH (09:05)
[2020-01-04] MEDS: INSULIN ASPART 100 UNITS/ML 3 ML PEN SC SCH ×2 (09:06→13:35)
[2020-01-04] MEDS: DOCUSATE SODIUM 100 MG CAP PO SCH (09:09)
--- NOTE | 2020-01-04 09:34 | Orthopedic Progress Note ---
Date of Service January 04, 2020 Assessment & Plan (1) Osteomyelitis of foot: Status post repeat irrigation debridement with implantation new Stimulan beads right foot postop day 3. Maintain limited weightbearing right lower extremity w shoe. Continue IV antibiotics- ceftriaxone with multiple organisms, PICC in place with set up. As per primary service and ID Stable orthopedically for D/C and will sign off. Thank you for consult. F/U with Dr. Terry 10-12 days post op, call [phone] for appt. (2) Foot ulcer, right: Infection of the right diabetic foot ulcer at the plantar surface of the the first metatarsal with osteomyelitis of the first metatarsal that is remaining. CT as noted with a small abscess noted in the same area. Plan for irrigation debridement and possible partial or full resection of the remaining first metatarsal bone today. Possible debridement of questionable early abscesses as noted in the CT scan. Current wound surface culture showing rare gram-positive cocci (3) Osteomyelitis: (4) Diabetes mellitus type II, uncontrolled: Admission and Anticipated Discharge Date Admission Date: December 25, 2019 Subjective POD #3, Doing well. Denies SOB, CP, N/V. Pain controlled well. Physical Exam Physical Exam: Right foot dressings c/d/i, shoe in tact. Patient sitting bedside comfortable, A&Ox3. Results & Data ([facility]) Vital Signs (Past 12 Hours) Vital Signs Temp Pulse Pulse Resp BP Pulse Ox 01/04/20 07:52 36.6 C 66 18 115/71 96 01/04/20 07:35 55 L 01/04/20 04:00 36.3 C L 55 L 18 124/75 98 01/04/20 03:55 55 L 16 96 01/04/20 00:00 57 L 01/03/20 23:25 36.8 C 56 L 20 124/78 97 01/03/20 23:15 58 L 18 98 (1) Osteomyelitis of foot Laterality: right Osteomyelitis type: unspecified type Qualified Code(s): M86.9 - Osteomyelitis, unspecified
--- NOTE | 2020-01-04 12:14 | Hospitalist Progress Note ---
Date of Service January 04, 2020 Assessment & Plan (1) Osteomyelitis of foot: (2) Foot ulcer, right: per Dr. Mcconnell, previous hospitalist note: This is a 49-year-old male who has significant past medical history of uncontrolled IDDM 2, ischemic cardiomyopathy status post AICD with EF of 35 to 40%, CAD with history of CABG x4 in 2017, JENNIFER on CPAP, HTN, HLD, PAF anticoagulated on Eliquis who presents to ED secondary to worsening right foot wound x1 week. R Foot x-ray Erosive change is seen at the resection margin of the first metatarsal. There is overlying soft tissue edema and subcutaneous gas, and this is highly concerning for osteomyelitis. CT of foot shows extensive osteomyelitis s/p I&D with partial metatarsal amputation wound culture : multiple organisms : Staph aureus MSSA /Group B streptococcus /pervotella Abx adjusted to IV Daptomycin -should cover for MSSA and Group B strep no sensitivity was done for Provetella on culture 12/26/19 and Pasturella noted on culture 12/23/19 pt has Midline placed /IV team unable to place a PICC ID consulted- recommend Ceftri 2g IV daily and Flagyl 500mg TID x 6 weeks with weekly labs 01/01/2020: S/p repeat I&D, antibiotic bead placement by Dr. Vance Terry, [facility] tolerated procedure well remains stable Cleared by orthopedic surgery for discharge Patient recommended to maintain limited weightbearing right lower extremity with shoe Will need IV ceftriaxone and Flagyl p.o. 3 times daily for 39 more days to complete 6 weeks of therapy= Wound care and dressing changes per home health services [facility] Terry 10 to 12 days post surgery which is between January 11-2019. For DVT prophylaxis, the patient is already on Eliquis twice a day Will need weekly lab draws while on IV antibiotics(6 weeks) including CBC, CMP, CRP starting next week and follow-up with PCP Will need for overwire exchange of midline IV access on January 26, 2020 as midline access on the last for 30 days (3) Type 2 diabetes mellitus: per Dr. Mcconnell, previous hospitalist note: Uncontrolled insulin-dependent type 2 DM Counseled on importance of strict glycemic control A1c 10.8 on 12/11/2019 Continue Januvia and metformin Follow-up with PCP for further evaluation and management of diabetic medication regimen (4) CAD (coronary artery disease): (5) Ischemic cardiomyopathy: per Dr. Hood's, previous hospitalist note: History of CABG x4 in 2017, Chronic Systolic CHF Echocardiogram 12/2019 revealed EF 40 to 45%, left atrium severely dilated, mild concentric left ventricular hypertrophy, moderate global hypokinesis with more pronounced hypokinesis and distal lateral inferior gary follows [facility] cardiology, AICD in place euvolemic continue metoprolol, Lasix, Entresto continue amiodarone, Mg supplemenation -- euvolemic, no cardiac symptoms (6) Paroxysmal atrial fibrillation: Resume Eliquis twice daily (7) HTN (hypertension): Blood pressure stable Continue metoprolol, Lasix (8) CKD (chronic kidney disease) stage 3, GFR 30-59 ml/min: ACUTE on CHRONIC CKD 3 baseline cr 1.0-1.1 Creatinine improved to baseline with IV hydration (9) Dyslipidemia: on Crestor (10) JENNIFER on CPAP: CPAP at (11) DVT prophylaxis: Given SQ lovenox, will transition to usual Eliquis twice a day Disposition: Discharge home today with home services Follow-up with Dr. Ya 10 to 12 days after surgery Follow-up with Dr. Cagle next week Admission and Anticipated Discharge Date Admission Date: December 25, 2019 Subjective Follow-up for right foot osteomyelitis Seen resting in chair, comfortable, no distress, in good spirits States he feels fine overall Very minimal discomfort in the left foot Ambulating with no problems No chest pain, shortness of breath, paresis, dizziness No other symptoms States he is ready and would like to be discharged today Review of Systems Review of Systems: All systems reviewed & are unremarkable except as noted in HPI & below Physical Exam Physical Exam: General- oriented x 3, not in distress, speaks in sentences with no effort or accessory muscle use Eyes- anicteric Neck- no JVD Lungs- clear breath sounds bilaterally, no rales, no wheezing Heart- normal rate, regular rhythm; no murmurs Abdomen- normal bowel sounds, nondistended, soft, nontender Extremities- no pretibial edema, no calf tenderness Right foot-dressing in place, boot in place, no swelling or redness or tenderness on the right lower leg Neuro- alert, oriented x 3; no gross focal neurologic deficits Skin- warm & dry Results & Data Results & Data ([facility]) Vital Signs (Past 12 Hours) Vital Signs Temp Pulse Pulse Resp BP Pulse Ox 01/04/20 11:21 36.5 C 60 18 126/76 99 01/04/20 07:52 36.6 C 66 18 115/71 96 01/04/20 07:35 55 L 01/04/20 04:00 36.3 C L 55 L 18 124/75 98 01/04/20 03:55 55 L 16 96 (1) Osteomyelitis of foot Laterality: right Osteomyelitis type: unspecified type Qualified Code(s): M86.9 - Osteomyelitis, unspecified (2) Type 2 diabetes mellitus Diabetes mellitus oysterman insulin use: with oysterman use Diabetes mellitus complication status: with circulatory complication Diabetes mellitus complication detail: with other circulatory complications Qualified Code(s): E11.59 - Type 2 diabetes mellitus with other circulatory complications; Z79.4 - [facility] (current) use of insulin (3) CAD (coronary artery disease) Coronary Disease-Associated Artery/Lesion type: [place] artery [place] vs. transplanted heart: [place] heart Associated angina: without angina Qualified Code(s): I25.10 - Atherosclerotic heart disease of [place] coronary artery without angina pectoris (4) HTN (hypertension) Hypertension type: unspecified Qualified Code(s): I10 - Essential (primary) hypertension
--- NOTE | 2020-01-04 13:13 | Discharge Summary ---
Date of Service January 04, 2020 Admission HPI Per Admitting Provider This is a 49-year-old male who has significant past medical history of uncontrolled IDDM 2, ischemic cardiomyopathy status post AICD with EF of 35 to 40%, CAD with history of CABG x4 in 2017, JENNIFER on CPAP, HTN, HLD, PAF anticoagulated on Eliquis who presents to ED secondary to worsening right foot wound x1 week. Wound has been present for the past approximately 1 month. He has been following with podiatry at [facility]. He denies any pain due to history of neuropathy. Over the past week he has noticed increased drainage as well as foul smelling odor. Yesterday and this morning he felt significantly chilled and therefore came to ED due to concern for infection. He denies any documented fever, sweats, lightheadedness, dizziness, syncope, chest pain, shortness of breath, cough, palpitations, nausea, vomiting, diarrhea, abdominal pain, dysuria, increased urgency or frequency with urination. Appetite is normal. He denies any significant weight gain or loss, edema, PND orthopnea. He does have prior history of osteomyelitis requiring resection of right toe 2 and 3. Approximately 1 year ago he had well-controlled diabetes however recent A1c on 12 10 reveals A1c of 10.8. He is insulin-dependent and admits to higher blood sugars. Of significance he was recently hospitalized secondary to firing of his AICD due to V. tach. He was seen and evaluated by cardiology and was felt to be secondary to hypomagnesemia. His magnesium was increased, metoprolol increased to 250 mg daily and he increased amiodarone to 400 mg twice daily for 10 days. He is now on 400 mg daily of amiodarone. This is since been stable and he has had no firings of his AICD. In ED patient remained hemodynamically stable. Lab work notable for H&H 10.3 and 31.3, platelet 124, sodium 133, BUN 32, creatinine 1.37, glucose 121, lactate 1.6. R Foot x-ray Erosive change is seen at the resection margin of the first metatarsal. There is overlying soft tissue edema and subcutaneous gas, and this is highly concerning for osteomyelitis. He was started on IV vancomycin and Zosyn. Blood and wound cultures were obtained. Patient did have wound culture done at [facility] as outpatient, these have yet to result. Admission Exam Per Admitting Provider Constitutional: WD/WN, male, vitals as above, NAD, sitting up in bed, pleasant, conversing easily Head: Normocephalic, Atraumatic Eyes: PERRL, conjunctivae normal, anicteric sclerae ENMT: external ear and nose normal, oropharynx normal Neck: trachea midline, no thyromegaly normal visual inspection Respiratory: normal respiratory effort, lungs clear to auscultation, no wheeze, rales, rhonchi. Normal insp/exp effort, no accessory muscle use Cardiovascular: RRR, 1/6 JESS noted RUSB, AICD LACW, no edema, bilateral pedal pulse in PT pulse +2 vessels: no JVD or carotid bruit Chest: normal inspection of chest Abdomen: normal bowel sounds, soft, nontender, no hepatosplenomegaly Musculoskeletal: no cyanosis or clubbing, extremities motor strength 5/5 , patient with significant wound to plantar aspect of right foot at base of right great toe and MTP region, erythematous wound bed with clear foul-smelling drainage, patient with decreased sensation to right lateral foot Skin: no rashes, warm and dry normal turgor Neurologic: PERRL, EOMI, accommodation nl, no face palsy, no dysarthria CN's II-XI intact bilaterally and moves all extremities Psychiatric: A+Ox3, euthymic affect Lymphatic: no cervical or axillary lymphadenopathy : deferred Principal Diagnosis Right foot osteomyelitis, status post incision and drainage, placement of antibiotic beads Discharge Exam General- oriented x 3, not in distress, speaks in sentences with no effort or accessory muscle use Eyes- anicteric Neck- no JVD Lungs- clear breath sounds bilaterally, no rales, no wheezing Heart- normal rate, regular rhythm; no murmurs Abdomen- normal bowel sounds, nondistended, soft, nontender Extremities- no pretibial edema, no calf tenderness Right foot-dressing in place, boot in place, no swelling or redness or tenderness on the right lower leg Neuro- alert, oriented x 3; no gross focal neurologic deficits Skin- warm & dry Discharge Data Allergies Allergy/AdvReac Type Severity Reaction Status Date / Time Bactrim Allergy Unknown "severe Verified 05/24/17 08:28 vomiting" sulfamethoxazole AdvReac Unknown "severe Verified 12/25/19 07:55 vomiting" trimethoprim AdvReac Unknown "severe Verified 12/25/19 07:55 vomiting" Consultations 12/25/19 08:45 ED Decision to Admit Stat 12/25/19 09:10 Consult Case Management - Discharge Planning Routine 12/25/19 10:43 Consult Orthopedic Surgery Routine 12/25/19 10:58 Consult Cardiology Routine 12/25/19 11:43 Consult Anesthesiology Routine 12/26/19 15:58 Consult Case Management - Discharge Planning Routine 12/31/19 09:43 Consult Infectious Diseases Routine Procedures Performed Operation Date: 12/26/19 10:00 Actual Procedures p Right Incision and Drainage Foot Ulcer, Placement of Stimulan Beads, Evacuation of Abscess, Excision Partial First and Second Metatarsal(Right) - Vance Terry DO Operation Date: 01/01/20 08:20 Actual Procedures p Right Foot repeat irrigation and debridement of deep infection, debridement first metatarsal and second metatarsal bone and fascia, removal and implantation of new antibiotic beads(Right) - Vance Terry DO Ordered Studies 12/25/19 CT foot RT w con Routine COMPARISON STUDY: Right foot radiograph 12/25/2019. FINDINGS: Diffuse soft tissue edema seen throughout the foot. This most pronounced at the head of the first metatarsal. Prior amputation of the first and second toes. There is a 2.6 cm skin ulceration at the level of the first metatarsal head. There is packing material noted within the wound. The soft tissue gas extends to the distal first metatarsal. There is gas seen within the medullary cavity of the first metatarsal. Therefore, these findings are consistent with osteomyelitis. Dorsal to abutting the mid shaft of the first metatarsal there is a 14 x 7 mm peripheral enhancing gas and fluid collection. This is consistent with an abscess. Extensive edema surrounding the head of the first metatarsal which demonstrates faint peripheral enhancement. This likely re presents a developing abscess. There is also extensive soft tissue thickening and edema with possible developing abscess at the head of the second metatarsal. This measures 11 mm. Irregularity at the head of the second metatarsal with mild periostitis. This favors old postoperative change. However, a developing osteomyelitis cannot be excluded. No acute fractures within the foot. Plantar and posterior calcaneal spurs are noted. Degenerative changes are seen throughout the foot. Mild periostitis along the medial shaft of the first metatarsal remains unchanged. IMPRESSION: 1. Prior amputation of the first and second toes. 2. A 2.6 cm focal skin ulceration at the level of the first metatarsal head. There is packing material noted within the wound. There is also soft tissue gas projecting stents to the head of the first metatarsal and is seen within the medullary cavity of the first metatarsal. Therefore, this is consistent with osteomyelitis. 3. A 14 x 7 mm abscess dorsal to and abutting the mid shaft of the first metatarsal. 4. Focal areas of edema surrounding the heads of the first and second tarsals demonstrating partial peripheral enhancement. These areas are concerning for dev eloping abscesses. 5. Irregularity at the head of the second metatarsal with mild periostitis. This could be due to the old postoperative change or developing osteomyelitis. 12/25/19 14:30 US arterial duplex LE RT Routine COMPARISON STUDY: Bilateral lower extremity arterial Doppler ultrasound April 15, 2018. TECHNIQUE: Ankle to brachial indices were obtained. Grayscale, color and duplex Doppler sonography of the arterial system of the right lower extremity was performed. FINDINGS: Right ankle-brachial index measured 1.23 when using posterior tibial artery and 1.17 when using the dorsalis pedis. The left measures 1.29 when using posterior tibial artery and 1.25 when using the dorsalis pedis. There is triphasic flow within the right common femoral, superficial femoral, popliteal, anterior tibial, posterior tibial, peroneal and dorsalis pedis vessels. No elevated velocities were identified. IMPRESSION: 1. Normal bilateral ankle to brachial indices. 2. No evidence for a hemodynamically significant stenosis within the right lower extremity. Patent vessels. 12/26/19 13:38 US - OR guided needle placemen Routine Hospital Course (1) Osteomyelitis of foot: (2) Foot ulcer, right: per Dr. Hood's, previous hospitalist note: This is a 49-year-old male who has significant past medical history of uncontrolled IDDM 2, ischemic cardiomyopathy status post AICD with EF of 35 to 40%, CAD with history of CABG x4 in 2017, JENNIFER on CPAP, HTN, HLD, PAF anticoagulated on Eliquis who presents to ED secondary to worsening right foot wound x1 week. R Foot x-ray Erosive change is seen at the resection margin of the first metatarsal. There is overlying soft tissue edema and subcutaneous gas, and this is highly concerning for osteomyelitis. CT of foot shows extensive osteomyelitis 12/26/2019: S/p I&D with partial metatarsal amputation by Dr. Vance Terry, [facility] wound culture : Staph aureus MSSA /Group B streptococcus /pervotella 01/01/2020: S/p repeat I&D, antibiotic bead placement by Dr. Vance Terry, [facility] tolerated procedure well remains stable [facility] service consulted-Dr. Arias Hill recommends: Ceftri 2g IV daily and Flagyl 500mg TID x 6 weeks with weekly labs Patient tolerating antibiotics well Cleared by orthopedic surgery for discharge Patient recommended to maintain limited weightbearing right lower extremity with shoe Will need IV ceftriaxone and Flagyl p.o. 3 times daily for 39 more days to complete 6 weeks of therapy= Wound care and dressing changes per home health services Follow-up with [facility] Dr. Terry 10 to 12 days post surgery which is between January 11-2019. For DVT prophylaxis, the patient is already on Eliquis twice a day Will need weekly lab draws while on IV antibiotics(6 weeks) including CBC, CMP, CRP starting next week and follow-up with PCP After antibiotics have been completed, CRP every 2 weeks until 05/06/2020 Will need for overwire exchange of midline IV access on January 22, 2020 as midline access only be used for maximum of 30 days. This can be done at the medical treatment unit of [facility]. (3) Type 2 diabetes mellitus: per Dr. Barlows, previous hospitalist note: Uncontrolled insulin-dependent type 2 DM Counseled on importance of strict glycemic control A1c 10.8 on 12/11/2019 Continue insulin, Januvia and metformin -- Follow-up with PCP for further evaluation and management of diabetic medication regimen (4) CAD (coronary artery disease): (5) Ischemic cardiomyopathy: per Dr. Mcconnell, previous hospitalist note: History of CABG x4 in 2017, Chronic Systolic CHF Echocardiogram 12/2019 revealed EF 40 to 45%, left atrium severely dilated, mild concentric left ventricular hypertrophy, moderate global hypokinesis with more pronounced hypokinesis and distal lateral inferior gary follows [facility] cardiology, AICD in place euvolemic continue metoprolol, Lasix, Entresto continue amiodarone, Mg supplemenation -- euvolemic, no cardiac symptoms (6) Paroxysmal atrial fibrillation: Resume Eliquis twice daily (7) HTN (hypertension): Blood pressure stable Continue metoprolol, Lasix (8) CKD (chronic kidney disease) stage 3, GFR 30-59 ml/min: ACUTE on CHRONIC CKD 3 baseline cr 1.0-1.1 Creatinine improved to baseline with IV hydration (9) Dyslipidemia: on Crestor (10) JENNIFER on CPAP: CPAP at HS (11) DVT prophylaxis: Given SQ lovenox, will transition to usual Eliquis twice a day Disposition: Discharge home today with home services Follow-up with Dr. Cagle next week Follow-up with Dr. Terry 10 to 12 days after surgery Total Time Total Time Spent Total Time Spent (In Minutes): 65 minutes Discharge Plan Discharge Items Patient Disposition: Home - Home Health Services Reason For Visit: LEFT FOOT INFECTION,DIABETIC WOUND Discharge Diagnosis: Osteomyelitis of the Right foot, status post irrigation and debridement, status post implantation of antibiotic beads Activity: As commented below Activity Comment: Maintain limited weightbearing of the right lower extremity with shoe Driving/Machine Use: No driving until reevaluated and allowed by orthopedic surgeon Weightbearing Comment: Limited weightbearing on the right lower extremity with shoe Non-emergency contact: Primary Care Provider Call non-emergency contact if: you have any medication questions Follow-up/Referrals: Vance Terry DO [Surgeon] - Jc Cagle MD [Primary Care Provider] - Diet: Regular and Heart Healthy Addtl Attending Provider Instructions: You can resume your Eliquis this evening of January 04, 2020. You can also resume your Rosuvastatin. Your antibiotics are ceftriaxone and Flagyl x6 weeks. Last day of antibiotics would be on February 05, 2020. You need weekly blood work care of your primary care physician while on IV antibiotics (total of 6 weeks). Please drink plenty of fluids, and eat yogurt daily, at least 1 month after finishing antibiotic course. Your midline IV access should not be used beyond January 25, 2020. The midline IV access needs to be changed via an [id number] exchange at [facility] medical treatment unit on January 22, 2020. Please call [facility] to arrange for this procedure. Follow up with Dr. Terry 10-12 days after surgery, which is between January 11- 2019. Please call [phone] for appt. Maintain partial weight bearing Right foot with walker/ cane as needed. Home Health Services for IV antibiotics as ordered and dressing changes beginning 01/05/20. Elevate as needed. Follow-up with primary care physician in 1 week. [facility] will be calling you soon for the appointment schedule. Please call your primary care physician or orthopedic surgeon, or return to the ER immediately if with worsening of symptoms, Increasing leg or foot swelling, redness, pain, discharge or bleeding, diarrhea, fevers or chills, nausea or vomiting. Pending Studies at Discharge: Yes Studies:: Weekly blood work care of primary care physician: CBC, BASIC METABOLIC PANEL , CRP , while on IV antibiotics. Then, CRP only every 2 weeks until 05/06/2020. PLEASE FAX THE REPORTS TO DR GRAVES'S OFFICE AT [facility]. Stand-Alone Forms: My [facility] [employer], Smoking Cessation Medications and DC Order Prescriptions: New ceftriaxone 2 gram recon soln 2 gm IV DAILY Qty: 42 RF: 0 metronidazole 500 mg Tablet 500 mg PO TID Qty: 117 RF: 0 Continued metformin 850 mg tablet 850 mg PO BID Qty: 180 RF: 3 sitagliptin 100 mg tablet 100 mg PO QAM Qty: 90 RF: 3 Entresto 24-26 mg tablet 1 tab PO BID Qty: 60 RF: 2 Eliquis 5 mg tablet 5 mg PO BID Qty: 180 RF: 1 potassium chloride 10 mEq tablet extended release 10 meq PO QAM Qty: 90 RF: 3 amiodarone 200 mg tablet 400 mg PO QAM RF: 0 furosemide 20 mg tablet 20 mg PO QAM RF: 0 rosuvastatin 20 mg tablet 20 mg PO HS RF: 0 insulin lispro [Humalog KwikPen Insulin] 100 unit/mL insulin pen 20 unit SUBCUT TIDM RF: 0 Lantus Solostar U-100 Insulin 100 unit/mL (3 mL) insulin pen 40 unit SUBCUT QAM RF: 0 metoprolol succinate 50 mg Tablet Extended Release 24 Hr 250 mg PO QAM 30 Days Qty: 150 RF: 0 magnesium chloride [Mag 64] 64 mg Tablet,Delayed Release (Dr/Ec) 64 mg PO QID 30 Days Qty: 120 RF: 0 Discontinued rosuvastatin 20 mg tablet 20 mg PO HS Qty: 90 RF: 3 doxycycline hyclate 75 mg tablet,delayed release (DR/EC) 75 mg PO BID RF: 0 Discharge Orders: Discharge Order (Routine); Ordered 01/04/20 Ordered By: Mathew Barber Admission Data Admit Date/Time: 12/25/19 09:08 Attending Provider: Mathew Barber Admit Provider: Kaley Hood Primary Care Provider: Jc Cagle Other Providers: Kaley Hood ; Raul Das ; Vance Terry ; Jose Luis Astudillo ; Mildred Peterson Thomas J ; Mallory Boyle ; Prem Lai ; Arias Cat ; Walter Rodriguez ; Arias Hernandez ; Marc Shipman ; Walter Marion ; Tom Caicedo ; Rickey Augustine ; Clayton Tate ; Gerber Galeano ; Chente Hartman ; Mallory Slater ; Grey Rodas ; Jr Brooks ; Linda Sagastume ; Abdi Beltran ; Kenya Murray ; Joselo Perez ; Alfonzo Felix ; Michele Lucia ; Chelsea Forrester ; Robby Najera I. ; Christophe Kilpatrick II ; Holly Muñoz ; Arias Swartz
== END 2020-01-04 14:55 | disposition home health service (06) | DRG 629 ==
LOC: ED 07:08 → SUATTDRO 09:08 → 2S 09:08 → 2W 12-28 15:30

== ENCOUNTER 2024-03-17 14:27 | Inpatient (IN) ==
[2024-03-17 15:23] LABS: Basophils # (auto) 0.09 K/uL (0.00-0.20); Basophils % (auto) 0.6 %; Eosinophils # (auto) 0.07 K/uL (0.00-0.50); Eosinophils % (auto) 0.4 %; Hematocrit (blood only) 38.5 % (42.0-52.0); Hemoglobin 12.8 g/dl (14.0-18.0); Immature Granulocytes # (auto) 0.12 K/uL (0.01-0.20); Immature Granulocytes % (auto) 0.7 %; Lymphocytes # (auto) 1.34 K/uL (1.20-3.40); Lymphocytes % (auto) 8.2 %; Mean Corpuscular Hemoglobin 28.3 pg (25.0-34.0); Mean Corpuscular Hgb Conc 33.2 g/dL (32.0-36.0); Mean Platelet Volume 10.5 fL (9.4-12.4); Monocytes # (auto) 1.43 K/uL (0.11-0.59); Monocytes % (auto) 8.8 %; Neutrophils # (auto) 13.25 K/uL (1.40-6.50); Neutrophils % (auto) 81.3 %; Platelet Count 215 K/uL (130-400); RDW Coefficient of Variation 13.3 % (11.5-14.5); RDW Standard Deviation 41.3 fL (36.4-46.3); Red Blood Count 4.53 M/uL (4.70-6.10)
[2024-03-17 15:43] LABS: Bilirubin,Total 0.7 mg/dl (0.2-1.0); Creatinine Clr Calc Pharmacy 45.3 ml/min; Potassium 4.9 mmol/L (3.5-5.1)
--- NOTE | 2024-03-17 16:13 | Emergency Department Note ---
Impression & Plan Open wound of left foot, Type 2 diabetes mellitus, ISIDORO (acute kidney injury) ED Provider Note ED Provider Note NAME: TARA GALLEGOS AGE:53 SEX: Male : 1970 ARRIVES VIA: Private vehicle INFORMANT: Patient ED PROVIDER(s): Wendi Altman DO CHIEF COMPLAINT: Left foot wound HPI: This is a 53-year-old male presents emergency department due to concern for left foot wound. Patient states he checks his feet frequently as he is a diabetic. He states he did check his feet on Sunday and they were well- appearing there were no wounds, blisters, or ulcerative areas. He states he did not check them yesterday and then when he checked them today he noticed a large wound on the bottom of his left foot as well as a wound on the top. He states since arrival here it does appear more red compared to prior. He states on Sunday he did not feel well generally but could not elicit any other focal symptoms other than fatigue. No recent change in medications. Patient has had prior wound infections that resulted in loss of toes on the opposite foot. He denies any trauma. He does have peripheral neuropathy and has minimal sensation to bilateral feet. He denies fevers, chills, chest pain, abdominal pain, other joint pains, or any other rash/sores. PAST MEDICAL HISTORY:See Below PAST SURGICAL HISTORY:See Below FAMILY HISTORY:See Below SOCIAL HISTORY:See Below HOME MEDICATIONS:See Below ALLERGIES:See Below VITALS:See Below PHYSICAL EXAMINATION: GENERAL: alert, well appearing, well nourished, no distress, non-toxic EYE EXAM: normal conjunctiva, PERRL and EOM's grossly intact OROPHARYNX: no exudate, no erythema, lips, buccal mucosa, and tongue normal and mucous membranes are moist NECK: supple, no nuchal rigidity, no adenopathy, non-tender LUNGS: Clear to auscultation. Normal chest wall mechanics, no w/r/r HEART: no murmurs, S1 normal and S2 normal SKIN: no rashes, petechiae, orbruising UPPER EXTREMITIES: upper extremities are grossly normal. FROM, nml pulses b/l. LOWER EXTREMITIES: No pitting edema. FROM, nml pulses b/l. Ulcerative wound noted to left foot along the dorsal surface, no active discharge/drainage/bleeding, surrounding erythema that appears to be a sending towards the distal tib/fib, no joint effusions, plantar aspect of the midfoot with large raised area that appears discolored, no active drainage or bleeding; no crepitus noted, +foul odor, wound culture obtained NEURO EXAM: Normal sensorium, cranial nerves II-XII grossly intact, normal speech, no facial droop,nogross weakness of arms, no gross weakness of legs. Gross sensation intact. No ataxia. Vital Signs: reviewed and remarkable Differential Diagnosis: cellulitis, abscess, septic arthritis, osteomyelitis, nec fasc, as well as others were considered MEDICAL DECISION MAKING: This is a 53 yo male who presents to the ER due to concern for left foot wound. He was afebrile and VS stable. Labs drawn and sent, IV established. Patient initially seen in a triage room, once a regular room was available he was monitored on telemetry. Wound culture obtained, procal/lactic acid/CPK added. Xray ordered and interpreted by me at bedside. After discussion with pharmacist, IV daptomycin and zosyn added additionally after review of the prior wound cultures. Patient with leukocytosis, elevated procal, and ISIDORO. Case discussed with the hospitalist team for additional evaluation and mgmt. No clinical evidence at this time for nec fasc. VS stable. Consultation(s): 1635: Discussed with Dr. Logan and Prabha, [facility] hospitalist team, for additional evaluation and management. ER Treatment Provided: See below Diagnostics Interpreted By Me: -Cardiac Monitoring: An order was placed for continuous cardiac monitoring. The monitor shows a rate of 82 with normal sinus rhythm. -Laboratory studies: As stated above and show below. -Imaging studies: xr left foot: no fb, no fx Triage Nursing Note Reviewed Prior/Outside Records Reviewed Past Med/Surg History Problem List (Updated 03/17/24 @ 16:13 by Wendi Altman DO) ISIDORO (acute kidney injury) (Acute) Open wound of left foot (Acute) Paroxysmal atrial fibrillation Preop cardiovascular exam DVT prophylaxis Foot ulcer, right Osteomyelitis of foot (Acute) Renal insufficiency Elevated troponin (Acute) Acute dehydration (Acute) Hypomagnesemia (Acute) Defibrillator discharge (Acute) Positive blood culture Atrial fibrillation with RVR (Acute) Osteomyelitis Necrotizing fasciitis Discharge planning issues Encounter for pre-operative examination Acute blood loss anemia Type 2 diabetes mellitus (Acute) CKD (chronic kidney disease) stage 3, GFR 30-59 ml/min Tenosynovitis Peripheral arterial disease Encounter for pre-operative examination CAD (coronary artery disease) (Chronic) JENNIFER on CPAP (Chronic) Ventricular tachycardia ICD shock PAF (paroxysmal atrial fibrillation) Atrial fibrillation, currently in sinus rhythm Diabetes mellitus type II, uncontrolled (Chronic) Goiter (Chronic) Dyslipidemia (Chronic) HTN (hypertension) (Chronic) Diabetic peripheral neuropathy associated with type 2 diabetes mellitus (Chronic) Ischemic cardiomyopathy (Chronic) Medical History History of kidney stones NO SURGERY REQUIRED Thyroid goiter HX BIOSPY TO MONITOR Myocardial Infarction 2017 History of cellulitis LOWER LEG CAD (coronary artery disease) Sleep apnea CPAP Surgical History History of cardiac cath 2017 (NO STENTS) Hx of foot surgery REMOVAL OF BIG TOE AND SECOND TOE (RT FOOT) History of implantable cardiac defibrillator (ICD) 05/2017 [employer] H/O vasectomy Hx of CABG 2017 [place], HEART CATH - UNABLE TO STENT AND THEN CABG X - [facility] FOLLOWS WITH DR KIMBLE Family History Father Family history of diabetes mellitus Other Diabetes Heart disease No family history of adverse response to anesthesia Social History Smoking Status: Never smoker Second Hand Exposure: No; Do You Dip or Chew Tobacco: No; Hx Alcohol Use: Yes Alcohol type: beer Hx Substance Use: No Preferred Language: Macedonian Communication Ability: Effective Visual Impairment: No Limitations Head Chopper Required: No Beliefs That Will Affect Care: None marital status: Current Living Situation: Spouse current occupational status: employed Feels Safe at Home: Yes Assistive Devices: Glasses and Hospital Bed Allergies Allergies Allergy/AdvReac Type Severity Reaction Status Date / Time Bactrim Allergy Unknown "severe Verified 05/24/17 08:28 vomiting" sulfamethoxazole AdvReac Mild "severe Verified 02/18/24 09:18 vomiting" trimethoprim AdvReac Mild "severe Verified 02/18/24 09:18 vomiting" Home Meds Home Medications Medication Instructions Recorded Confirmed insulin lispro 100 unit/mL 10 unit subcut TIDM 12/10/19 03/17/24 subcutaneous pen (Humalog KwikPen (U-100) Insulin) multivitamin 1 tab PO QAM 10/25/20 03/17/24 empagliflozin 10 mg tablet 10 mg PO DAILY 08/13/23 03/17/24 (Jardiance) insulin glargine 100 unit/mL (3 45 unit subcut QAM 02/18/24 03/17/24 mL) subcutaneous pen (Lantus Solostar U-100 Insulin) tirzepatide 5 mg/0.5 mL 15 mg subcut .weekly 02/18/24 03/17/24 subcutaneous pen injector metformin 850 mg tablet 1,000 mg PO BID 03/17/24 03/17/24 metoprolol succinate 200 mg 400 mg PO QAM 03/17/24 03/17/24 tablet,extended release 24 hr Previous Rx's Medication Instructions Recorded magnesium chloride 64 mg 64 mg PO DAILY #90 tabs 01/18/21 (magnesium chloride) tablet,delayed release apixaban 5 mg tablet (Eliquis) 5 mg PO BID #180 tabs 06/12/23 icosapent ethyl 1 gram capsule 2 g (2 x 1 gram) PO BID #360 caps 08/16/23 (Vascepa) digoxin 125 mcg (0.125 mg) tablet 125 mcg PO DAILY #90 tabs 09/06/23 furosemide 20 mg tablet 40 mg (2 x 20 mg) PO QAM #180 tabs 09/06/23 sacubitril 97 mg-valsartan 103 mg 1 tab PO BID #180 tabs 11/19/23 tablet (Entresto) potassium chloride 10 mEq 10 meq PO QAM #90 tabs 11/22/23 tablet,extended release rosuvastatin 20 mg tablet 20 mg PO HS #90 tabs 11/22/23 Results & Data (ED) Vital Signs Vital Signs - 24 hr 03/17/24 14:42 03/17/24 16:07 Temperature 36.4 C L 36.8 C Temperature Source Oral Oral Pulse Rate 84 Pulse Rate [Left Finger] 85 Respiratory Rate 16 Respiratory Effort / Characteristics Non-Labored Spontaneous Respiratory Depth Normal Respiratory Pattern Regular Blood Pressure 106/70 Blood Pressure Mean 82 Pulse Oximetry 99 Oxygen Delivery Method Room Air Sepsis Recent Fever Within 48 Hours No Sepsis New/Unexplained Change in Mental Status N/A Sepsis Action Taken by Nursing No Action Required Laboratory Data 03/17/24 15:04 03/17/24 15:04 Lab Results 03/17/24 03/17/24 Range/Units 15:04 16:45 WBC 16.30 H (4.8-10.8) K/ul RBC 4.53 L (4.70-6.10) M/uL Hgb 12.8 L (14.0-18.0) g/dl Hct 38.5 L (42.0-52.0) % MCV 85.0 (80.0-100.0) fL MCH 28.3 (25.0-34.0) pg MCHC 33.2 (32.0-36.0) g/dL RDW Std Deviation 41.3 (36.4-46.3) fL RDW Coeff of Baldo 13.3 (11.5-14.5) % Plt Count 215 (130-400) K/uL MPV 10.5 (9.4-12.4) fL Immature Gran % (Auto) 0.7 % Neut % (Auto) 81.3 % Lymph % (Auto) 8.2 % [place] % (Auto) 8.8 % Eos % (Auto) 0.4 % Baso % (Auto) 0.6 % Neut # (Auto) 13.25 H (1.40-6.50) K/uL Lymph # (Auto) 1.34 (1.20-3.40) K/uL [place]more # (Auto) 1.43 H (0.11-0.59) K/uL Eos # (Auto) 0.07 (0.00-0.50) K/uL Baso # (Auto) 0.09 (0.00-0.20) K/uL Immature Gran # (Auto) 0.12 (0.01-0.20) K/uL Sodium 136 (136-145) mmol/L Potassium 4.9 (3.5-5.1) mmol/L Chloride 100 (98-107) mmol/L Carbon Dioxide 23 (21-32) mmol/L Anion Gap 13 H (3-11) BUN 59 H (6-23) mg/dl Creatinine 2.27 H (0.6-1.4) mg/dl Est Cr Clr Drug Dosing 45.3 ml/min eGFR 33.44 BUN/Creatinine Ratio 26.0 H (10-20) Glucose 116 H (70-99(Fasting)) mg/dl Calcium 10.0 (8.6-10.3) mg/dl Total Bilirubin 0.7 (0.2-1.0) mg/dl AST 29 (13-39) U/L ALT 25 (7-52) U/L Alkaline Phosphatase 90 (34-104) U/L Total Creatine Kinase 35 (30-223) U/L Total Protein 8.0 (6.0-8.3) gm/dl Albumin 4.0 (3.4-5.0) gm/dl Globulin 4.0 (2.5-4.0) gm/dl Albumin/Globulin Ratio 1.0 (0.9-2) Procalcitonin 1.49 H (0-0.5) ng/ml Urine Color Yellow Urine Appearance Cloudy A (Clear) Urine pH 5.0 (4.5-7.5) Ur Specific [place] 1.022 (1.000-1.030) Urine Protein 2+ H (Negative) Urine Glucose (UA) 3+ H (Negative) Urine Ketones 1+ H (Negative) Urine Blood 1+ H (Negative) Urine Nitrite Negative (Negative) Urine Bilirubin Negative (Negative) Urine Urobilinogen Negative (Negative) Ur Leukocyte Esterase Negative (Negative) Urine WBC (Auto) 0-5 (0-5) /hpf Urine RBC (Auto) 0-2 (0-2) /hpf U Hyaline Cast (Auto) >20 H (0-2) /lpf U Epithel Cells (Auto) 3-5 H (0-2) /hpf Urine Bacteria (Auto) None Seen (None Seen) Administered Medications Discontinued Medications Piperacillin Sod/Tazobactam Sod (Zosyn) 4.5 gm in 100 mls @ 200 mls/hr IV NOW ONE; Protocol Stop: 03/17/24 16:47 Last Infusion: 03/17/24 17:44 Dose: Infused Documented By: Admin: 03/17/24 17:07 Dose: 200 mls/hr Documented By: SÁNCHEZ Daptomycin 525 mg/ Syringe 10.5 mls @ 5.25 mls/min IV NOW STA; Protocol Stop: 03/17/24 16:54 Last Admin: 03/17/24 18:06 Dose: 5.25 mls/min Documented By: FELIZ Imaging Data Radiologist's Impression: Foot X-Ray 03/17/24 16:02 XR foot LT min 3V routine CLINICAL HISTORY: large wound, DM hx, no trauma TECHNIQUE: 3 views of the left foot were obtained. Comparison: None available at the time of this dictation. FINDINGS: No fractures are present. Extensive destructive changes are seen in the mid foot. Plantar and Achilles enthesophytes are seen. Soft tissue swelling is seen about the foot. Suggestion of an ulcer in the lateral foot. IMPRESSION: Soft tissue swelling without definite evidence of osteoarthritis. Chronic appearing destructive changes are seen. ACT 112: Negative or not required by law. Electronically signed by: Raulito Fernandez M.D. 03/17/2024 4:43 PM Discharge Plan Visit Data Chief Complaint: Wound Stated Complaint: DIABETIC ULCERS OPEN ED Provider: Wendi Altman Discharge Problem: Open wound of left foot, Type 2 diabetes mellitus, ISIDORO (acute kidney injury) Patient Disposition: Admitted As Inpatient Discharge Instructions Interventions: ED Discharge Assessment Last Done: 03/17/24 18:22
[2024-03-17] MEDS ORDERED: DAPTOmycin 425 MG in SYRINGE 0 ML IV STA (16:18)
--- NOTE | 2024-03-17 16:36 | History & Physical Report ---
Date of Service March 17, 2024 Assessment & Plan (1) Open wound of left foot: (2) Diabetes mellitus type II, uncontrolled: (3) Diabetic peripheral neuropathy associated with type 2 diabetes mellitus: (4) CAD (coronary artery disease): (5) PAF (paroxysmal atrial fibrillation): (6) Ischemic cardiomyopathy: (7) HTN (hypertension): (8) CKD (chronic kidney disease) stage 3, GFR 30-59 ml/min: Plan: Diabetic Left Foot Wound Peripheral neuropathy -Admit to [facility] -Podiatry consult and wound consultation -WBC 16.30, procalcitonin elevated at 1.49, check CRP -Blood culture x 1 -Initiated daptomycin and Zosyn IV in the ER, continue for now, transition to p.o. antibiotic at earliest timeframe -Wound culture obtained of the left foot -X-ray foot: showing No fractures are present. Extensive destructive changes are seen in the mid foot. Plantar and Achilles enthesophytes are seen. Soft tissue swelling is seen about the foot. Suggestion of an ulcer in the lateral foot. - Check CT foot with/wo contrast as pt cannot have MRI due to pacemaker - Make NPO at midnight in case OR needed in Am pending podiatry consult -Afebrile currently, BP is stable DM II -Last A1C 5.4 in September 2023, check with am labs -ISS with Accu-Cheks ACHS, continue home glargine 45 units QAM CAD History of cardiac quadruple bypass surgery in 2017 HTN -Follows with [facility] cardiology, Dr. Pagan -Continue statin therapy, Entresto, metoprolol succinate, Lasix, Jardiance for heart failure and diabetes management Paroxysymal Atrial Fibrillation s/p Pacemaker insertion - Rate controlled on digoxin, metoprolol succinate - Anticoagulated on Eliquis - Pacemaker last interrogated on 02/09/24 ith battery status of 3 years, longest period of afib from 01/13-02/03 was 12 hours at that time. nsSVT occurred for 1 minute during same timeframe. ISIDORO on CKD stage III -BUN 59, creatinine 2.27, baseline creatinine of 1.5-1.7 reviewed in epic -Avoid nephrotoxic medications, renally reduce meds including IV antibiotics -Trend BMP with a.m. labs DVT ppx: teds, scds Lines: PIV x 2 FEN/GI: DM/HH diet CODE: Full code Dispo: From home, likely to remain in the hospital x 1-2 days A total of 76 minutes were spent with greater than 50% of that time face to face with the patient, personally reviewing all current laboratories, imaging studies, past medication reconciliation, outpatient chart review, and discussion with specialists to collaborate care for the patient with attending. Please see attending documentation for corrections and/or additions. History of Present Illness Chief Complaint: Left foot wound Primary Care Provider: Jc Cagle MD This is a 53-year-old male with PMHx of DM type II on insulin, CAD status post quadruple coronary bypass grafting 2017, pacemaker placement 2017, paroxysmal A- fib, HTN, HLD, CKD stage III, obesity, JENNIFER on CPAP, diabetic neuropathy with hx of multiple amputations of toes on the right foot in 2019, who presents to the hospital with acute onset of left-sided foot wound. He noticed significant increase in erythema therefore came to the ER. Pt reports checking his feet regularly and last checked them on Sunday where things appeared was normal. He reports not feeling well on Sunday with some generalized malaise, fatigue but did not have any focal source of infection. He denies any recent sick contacts, and lives at home with his . Today reports there is a wound on the dorsal lateral edge of the foot and another wound developing on the plantar aspect of the mid foot. Pt has severe diabetic neuropathy so denies any pain. WBC is 16.3 and procalcitonin is elevated at 1.49. Wound cultures were obtained. Pt was placed on daptomycin and zosyn IV. Blood culture x 1 also obtained. Allergies Allergy/AdvReac Type Severity Reaction Status Date / Time Bactrim Allergy Unknown "severe Verified 05/24/17 08:28 vomiting" sulfamethoxazole AdvReac Mild "severe Verified 03/20/24 08:17 vomiting" trimethoprim AdvReac Mild "severe Verified 03/20/24 08:17 vomiting" Home Medications Medication Instructions Recorded Confirmed Type insulin lispro 100 unit/mL 10 unit subcut TIDM 12/10/19 03/17/24 History subcutaneous pen (Humalog KwikPen (U-100) Insulin) multivitamin 1 tab PO QAM 10/25/20 03/17/24 History magnesium chloride 64 mg 64 mg PO DAILY #90 tabs 01/18/21 03/17/24 Rx (magnesium chloride) tablet,delayed release apixaban 5 mg tablet (Eliquis) 5 mg PO BID #180 tabs 06/12/23 03/17/24 Rx empagliflozin 10 mg tablet 10 mg PO DAILY 08/13/23 03/17/24 History (Jardiance) icosapent ethyl 1 gram capsule 2 g (2 x 1 gram) PO BID #360 caps 08/16/23 03/17/24 Rx (Vascepa) digoxin 125 mcg (0.125 mg) tablet 125 mcg PO DAILY #90 tabs 09/06/23 03/17/24 Rx sacubitril 97 mg-valsartan 103 mg 1 tab PO BID #180 tabs 11/19/23 03/17/24 Rx tablet (Entresto) potassium chloride 10 mEq 10 meq PO QAM #90 tabs 11/22/23 03/17/24 Rx tablet,extended release rosuvastatin 20 mg tablet 20 mg PO HS #90 tabs 11/22/23 03/17/24 Rx tirzepatide 5 mg/0.5 mL 15 mg subcut .weekly 02/18/24 03/17/24 History subcutaneous pen injector metformin 850 mg tablet 1,000 mg PO BID 03/17/24 03/17/24 History metoprolol succinate 200 mg 400 mg PO QAM 03/17/24 03/17/24 History tablet,extended release 24 hr L.acidop,casei,lactis,rham-B.lact,jerry 1 cap PO DAILY #30 caps 03/24/24 Rx 625 mg (10 billion cell) capsule (Advanced Probiotic) amoxicillin 875 mg-potassium 1 tab PO BIDM 10 days #20 tabs 03/24/24 Rx clavulanate 125 mg tablet insulin glargine 100 unit/mL (3 25 unit (0.25 mL) subcut QAM #0 mL 03/24/24 03/17/24 Rx mL) subcutaneous pen (Lantus Solostar U-100 Insulin) Past Med/Surg History Problem List (Updated 03/20/24 @ 16:26 by Giacomo Swartz DO) Necrotizing fasciitis of ankle and foot ISIDORO (acute kidney injury) (Acute) Open wound of left foot (Acute) Paroxysmal atrial fibrillation Preop cardiovascular exam PAF (paroxysmal atrial fibrillation) DVT prophylaxis Foot ulcer, right Osteomyelitis of foot (Acute) Ventricular tachycardia ICD shock Renal insufficiency Elevated troponin (Acute) Acute dehydration (Acute) Hypomagnesemia (Acute) Defibrillator discharge (Acute) Positive blood culture Atrial fibrillation with RVR (Acute) Osteomyelitis Necrotizing fasciitis Discharge planning issues Encounter for pre-operative examination Acute blood loss anemia Type 2 diabetes mellitus (Acute) CKD (chronic kidney disease) stage 3, GFR 30-59 ml/min Tenosynovitis Peripheral arterial disease Encounter for pre-operative examination Atrial fibrillation, currently in sinus rhythm CAD (coronary artery disease) (Chronic) Diabetes mellitus type II, uncontrolled (Chronic) Goiter (Chronic) Dyslipidemia (Chronic) JENNIFER on CPAP (Chronic) Ischemic cardiomyopathy (Chronic) Diabetic peripheral neuropathy associated with type 2 diabetes mellitus (Chronic) HTN (hypertension) (Chronic) Medical History (Updated 03/20/24 @ 16:26 by Giacomo Swartz DO) Neuropathy Bilateral feet Type 2 diabetes mellitus History of kidney stones NO SURGERY REQUIRED Thyroid goiter HX BIOSPY TO MONITOR Myocardial Infarction 2016 History of cellulitis LOWER LEG CAD (coronary artery disease) Sleep apnea CPAP Surgical History History of cardiac cath 2017 (NO STENTS) Hx of foot surgery REMOVAL OF BIG TOE AND SECOND TOE (RT FOOT) History of implantable cardiac defibrillator (ICD) 05/2017 [employer]TR[employer] H/O vasectomy Hx of CABG 2017 DC, HEART CATH - UNABLE TO STENT AND THEN CABG X [address] [place] [address] PAGAN Family History Father Family history of diabetes mellitus Other Diabetes Heart disease No family history of adverse response to anesthesia Social History Smoking Status: Never smoker Second Hand Exposure: No; Do You Dip or Chew Tobacco: No; Hx Alcohol Use: Yes Alcohol type: beer Hx Substance Use: No Preferred Language: Chinese Communication Ability: Effective Visual Impairment: No Limitations Piercer Required: No Beliefs That Will Affect Care: None marital status: Current Living Situation: Spouse current occupational status: employed Feels Safe at Home: Yes Assistive Devices: None Review of Systems Review of Systems: Constitutional: No fever, sweats or chills Eyes: No diplopia, no worsening or blurred vision ENT: normal hearing, no trouble swallowing Respiratory: No cough, sputum, dyspnea at rest or on exertion Cardiovascular: No chest pain, tightness or palpitations Abdomen: No pain, nausea, vomiting, diarrhea or constipation Musculoskeletal: No joint pain, calf pain, swelling, + foot ulceration as per HPI Neurologic: No weakness, + peripheral neuropathy up to level of the ankles bilaterally, no balance problems Psychiatric: No anxiety or depression Skin: No rash or itch Physical Exam Physical Exam: General: awake, alert, no apparent distress, white male, BMI of 35.5 Head: Normocephalic, atraumatic ENT: PERRL, EOMI, no pharyngeal exudate, mucous membranes moist Chest: Clear to auscultation, on room air, no adventitious breath sounds Cardiac: Regular rate and rhythm, no murmur, no JVD, normal peripheral pulses, good capillary refill Abdominal: NABS x 4 quadrants, soft, nondistended, nontender to palpation, no rebound or guarding Extremities: Left foot ulceration on the left lateral foot with blackened center, eschar and appears that skin has sloughed off the dorsal aspect of the foot, Left plantar wound with callous in midfoot, appears to have fluctuant material deep, no surrounding erythema or purulent material is expressed. No peripheral edema or erythema, calfs nontender to palpation Psych: Normal mood and affect Neuro: AAO x 3, strength intact bilaterally and rated 5/5, no motor deficits, speech is clear, + peripheral sensory deficits Results & Data Results & Data Vital Signs (Past 12 Hours) Vital Signs Temp Pulse Pulse Resp BP Pulse Ox O2 Del Method 03/17/24 16:07 36.8 C 85 03/17/24 14:42 36.4 C L 84 16 106/70 99 Room Air Laboratory Results 03/17/24 Unknown Gram Stain - Pending Foot,Left Wound Culture - Pending 03/17/24 15:04 WBC 16.30 H RBC 4.53 L Hgb 12.8 L Hct 38.5 L MCV 85.0 MCH 28.3 MCHC 33.2 RDW Std Deviation 41.3 RDW Coeff of Baldo 13.3 Plt Count 215 MPV 10.5 Immature Gran % (Auto) 0.7 Neut % (Auto) 81.3 Lymph % (Auto) 8.2 [place] % (Auto) 8.8 Eos % (Auto) 0.4 Baso % (Auto) 0.6 Neut # (Auto) 13.25 H Lymph # (Auto) 1.34 [place] # (Auto) 1.43 H Eos # (Auto) 0.07 Baso # (Auto) 0.09 Immature Gran # (Auto) 0.12 Sodium 136 Potassium 4.9 Chloride 100 Carbon Dioxide 23 Anion Gap 13 H BUN 59 H Creatinine 2.27 H Est Cr Clr Drug Dosing 45.3 eGFR 33.44 BUN/Creatinine Ratio 26.0 H Glucose 116 H Calcium 10.0 Total Bilirubin 0.7 AST 29 ALT 25 Alkaline Phosphatase 90 Total Protein 8.0 Albumin 4.0 Globulin 4.0 Albumin/Globulin Ratio 1.0 Procalcitonin 1.49 H Code Status & VTE Plan Code Status Full code Supervising Physician Co-Signing Physician Notes 53-year-old male with T2DM on insulin, peripheral diabetic neuropathy, CAD status post quadruple CABG 2016, paroxysmal A-fib, HTN, HLD, CKD stage III and other chronic medical conditions presented to the ED with acute onset of left- sided. He reports that his left was in his usual health 2 days ago, he forgot to take his foot yesterday but when he checked his foot today he noticed drainage. Patient does have bilateral neuropathy on lower legs and feet, does not recall having trauma. Denies fever but reports feeling not well and appetite decreased. Denies nausea or vomiting or belly pain or acute changes in his bowel or bladder habit. WBC was elevated, procalcitonin was elevated. Wound culture and blood culture was sent. For diabetes left foot wound and cellulitis, CT foot was reviewed, continue with daptomycin and Zosyn. cpk wnl. hold statin while on dapto. Follow cultures. Infectious disease consult. iv hep drip in place of home eliquis For ISIDORO, c/w ivf, labs in AM. hold lasix and entresto. On exam: GENERAL: Alert and oriented x3. NAD, on RA. HEENT: No pallor, no icterus. Pupils equal, round and reactive to light. Oral mucosa moist. NECK: No JVD, no neck masses. HEART: S1 and S2 heard. Regular rate and rhythm. No murmur, no gallop. RESPIRATORY SYSTEM: Normal AP diameter. No accessory muscle use. No wheezing, no crackles. ABDOMEN: Soft, bowel sounds present, nontender, no distention. CENTRAL NERVOUS SYSTEM: No facial droop. Speech is clear. Obeys simple commands. Moves extremities. EXTREMITIES: RLE - callus noted on soles. LLE - new dressing in place, soakage present, foul smelling, tracking erythema upto mid to upper leg. I have seen and examined the patient and have discussed the case with the provider above. I agree with the assessment and plan as stated. (4) CAD (coronary artery disease) Associated angina: without angina Coronary Disease-Associated Artery/Lesion type: [place] artery [place] vs. transplanted heart: [place] heart Qualified Code(s): I25.10 - Atherosclerotic heart disease of council coronary artery without angina pectoris (7) HTN (hypertension) Hypertension type: unspecified Qualified Code(s): I10 - Essential (primary) hypertension
--- NOTE | 2024-03-17 16:44 | XRay Report ---
XR foot LT min 3V routine CLINICAL HISTORY: large wound, DM hx, no trauma TECHNIQUE: 3 views of the left foot were obtained. Comparison: None available at the time of this dictation. FINDINGS: No fractures are present. Extensive destructive changes are seen in the mid foot. Plantar and Abril s enthesophytes are seen. Soft tissue swelling is seen about the foot. Suggestion of an ulcer in the lateral foot. IMPRESSION: Soft tissue swelling without definite evidence of osteoarthritis. Chronic appearing destructive cooper es are seen. ACT 112: Negative or not required by law. Electronically signed by: Raulito Fernandez M.D. 03/17/2024 4:43 PM
[2024-03-17] MEDS: PIPERACILLIN/TAZOBACTAM 4.5 GM/100 ML BAG IV ONE (17:07)
[2024-03-17 17:21] LABS: Appearance Urine Cloudy (Clear); Bacteria Urine Automated None Seen (None Seen); Bilirubin Urine Negative (Negative); Blood Urine 1+ (Negative); Cast Urine Automated >20 /lpf (0-2); Color Urine Yellow; Glucose Urine UA 3+ (Negative); Ketones Urine 1+ (Negative); Leukocyte Esterase Urine Negative (Negative); Nitrite Urine Negative (Negative); Protein Urine 2+ (Negative); RBC Urine Automated 0-2 /hpf (0-2); Specific Gravity Urine 1.022 (1.000-1.030); Urobilinogen Urine Negative (Negative); WBC Urine Automated 0-5 /hpf (0-5)
[2024-03-17] MEDS: DAPTOmycin 525 MG in SYRINGE 0 ML IV STA (18:06)
[2024-03-17] MEDS ORDERED: ACETAMINOPHEN 325 MG TAB PO PRN (19:13)
[2024-03-17] MEDS ORDERED: ONDANSETRON INJ 2 MG/ML 2 ML VIAL IV PRN (19:13)
[2024-03-17] MEDS ORDERED: GLUCOSE 10 TAB/TUBE PO PRN (19:13)
[2024-03-17] MEDS ORDERED: GLUCOSE 40% GEL 15 GM TUBE PO PRN (19:13)
[2024-03-17] MEDS ORDERED: GLUCAGON FOR INJ 1 MG VIAL SQ PRN (19:13)
[2024-03-17] MEDS ORDERED: CARBOHYDRATES FOR HYPOGLYCEMIA PO PRN (19:13)
[2024-03-17] MEDS ORDERED: DEXTROSE 50% 50 ML SYRINGE IV PRN (19:13)
--- NOTE | 2024-03-17 19:14 | CT Scan Report ---
CT foot LT wo con CLINICAL HISTORY: DM foot wound TECHNIQUE: Multidetector row helical CT of the left foot was performed without intravenous contrast. Coronal and sagittal reformations were obtained. Automated dose lowering techniques and/or adjustment according to patient size were utilized for this examination. CT DOSE: 426.12 mGy.cm Comparison: Comparison is made to foot radiograph 03/17/2024 FINDINGS: The osseous structures are without fracture or dislocation. The joint spaces are maintained. Soft tis erick swelling and subcutaneous emphysema are seen in the medial and lateral midfoot with associated pr ominent fluid. IMPRESSION: Soft tissue swelling and subcutaneous emphysema compatible with cellulitis. No evidence of bone erosi ons to suggest osteomyelitis. ACT 112: Negative or not required by law. Electronically signed by: Raulito Fernandez M.D. 03/17/2024 7:12 PM
[2024-03-17] MEDS ORDERED: Heparin IV Adult Wt-Based Low-Dose *NO* INITIAL Bolus Protocol IV SCH (20:10)
[2024-03-17] MEDS ORDERED: VALSARTAN/SACUBITRIL 103/97MG TAB PO SCH (21:00)
[2024-03-17] MEDS ORDERED: ROSUVASTATIN CALCIUM 20 MG TAB PO SCH (21:00)
[2024-03-17] MEDS ORDERED: APIXABAN 5 MG TABLET PO SCH (21:00)
[2024-03-17] MEDS ORDERED: HEPARIN SOD 5,000 UNIT/0.5 ML VIAL SQ SCH (21:00)
[2024-03-17 22:42] LABS: Basophils # (auto) 0.07 K/uL (0.00-0.20); Basophils % (auto) 0.5 %; Eosinophils # (auto) 0.07 K/uL (0.00-0.50); Eosinophils % (auto) 0.5 %; Hematocrit (blood only) 37.3 % (42.0-52.0); Hemoglobin 12.8 g/dl (14.0-18.0); Immature Granulocytes % (auto) 0.7 %; Lymphocytes # (auto) 1.25 K/uL (1.20-3.40); Lymphocytes % (auto) 8.4 %; Mean Corpuscular Hemoglobin 28.8 pg (25.0-34.0); Mean Corpuscular Hgb Conc 34.3 g/dL (32.0-36.0); Mean Corpuscular Volume 83.8 fL (80.0-100.0); Mean Platelet Volume 10.3 fL (9.4-12.4); Monocytes # (auto) 1.12 K/uL (0.11-0.59); Monocytes % (auto) 7.6 %; Neutrophils # (auto) 12.21 K/uL (1.40-6.50); Neutrophils % (auto) 82.3 %; Platelet Count 210 K/uL (130-400); RDW Coefficient of Variation 13.3 % (11.5-14.5); Red Blood Count 4.45 M/uL (4.70-6.10); White Blood Count 14.82 K/ul (4.8-10.8)
[2024-03-17 23:16] LABS: INR 1.2 (0.9-1.1); Partial Thromboplastin Ratio 1.2; Partial Thromboplastin Time 32 Seconds (21-31)
[2024-03-17] MEDS: SODIUM CHLORIDE 0.9% 1,000 ML IV SCH (23:28)
[2024-03-17] MEDS: HEPARIN SODIUM/DEXTROSE 25,000 UNITS/500 ML BAG IV SCH (23:28)
[2024-03-17] MEDS: INSULIN ASPART PER UNIT CHARGE SC SCH (23:31)
[2024-03-18 06:21] LABS: Hematocrit (blood only) 30.8 % (42.0-52.0); Hemoglobin 10.8 g/dl (14.0-18.0); Mean Corpuscular Hemoglobin 29.1 pg (25.0-34.0); Mean Corpuscular Hgb Conc 35.1 g/dL (32.0-36.0); Mean Platelet Volume 10.8 fL (9.4-12.4); Platelet Count 162 K/uL (130-400); RDW Coefficient of Variation 13.2 % (11.5-14.5); RDW Standard Deviation 40.3 fL (36.4-46.3); Red Blood Count 3.71 M/uL (4.70-6.10); White Blood Count 11.64 K/ul (4.8-10.8)
[2024-03-18 06:34] LABS: BUN Creatinine Ratio 26.5 (10-20); Calcium 8.7 mg/dl (8.6-10.3); Creatinine Clr Calc Pharmacy 43.2 ml/min; Potassium 4.4 mmol/L (3.5-5.1)
[2024-03-18 07:09] LABS: Estimated Average Glucose 97 mg/dl
[2024-03-18] MEDS: MAGNESIUM CHLORIDE W/CALCIUM 64MG DELAYED REL TAB PO SCH (08:22)
[2024-03-18] MEDS: DIGOXIN 0.125 MG TAB PO SCH (08:22)
[2024-03-18] MEDS: MULTIVITAMIN TAB PO SCH (08:22)
[2024-03-18] MEDS ORDERED: EMPAGLIFLOZIN 10 MG TAB PO SCH (09:00)
[2024-03-18] MEDS: METOPROLOL SUCC 50MG EXT REL TAB PO SCH (09:12)
--- NOTE | 2024-03-18 09:37 | Hospitalist Progress Note ---
Date of Service March 18, 2024 Assessment & Plan (1) Open wound of left foot: (2) Diabetes mellitus type II, uncontrolled: (3) Diabetic peripheral neuropathy associated with type 2 diabetes mellitus: (4) CAD (coronary artery disease): (5) PAF (paroxysmal atrial fibrillation): (6) Ischemic cardiomyopathy: (7) HTN (hypertension): (8) CKD (chronic kidney disease) stage 3, GFR 30-59 ml/min: Plan: Diabetic Left Foot Wound Peripheral neuropathy -Admit to [facility] -Podiatry consult and wound consultation -WBC 16.30, procalcitonin elevated at 1.49, CRP-pending -Afebrile currently, BP is stable -Blood culture x 1 - pending -wound cultx -pending -Initiated daptomycin and Zosyn IV in the ER, continue for now -X-ray foot: No fractures are present. Extensive destructive changes are seen in the mid foot. Plantar and Achilles enthesophytes are seen. Soft tissue swelling is seen about the foot. Suggestion of an ulcer in the lateral foot. - CT foot with/wo contrast (pt has a pacemaker) FINDINGS: The osseous structures are without fracture or dislocation. The joint spaces are maintained. Soft tissue swelling and subcutaneous emphysema are seen in the medial and lateral midfoot with associated prominent fluid. IMPRESSION: Soft tissue swelling and subcutaneous emphysema compatible with cellulitis. No evidence of bone erosions to suggest osteomyelitis. -Podiatry consult and wound consultation DM II -Last A1C 5.4 in September 2023, current A1c 5.0% -ISS with Accu-Cheks ACHS, continue glargine (at home 45 units QAM) CAD History of cardiac quadruple bypass surgery in 2017 HTN chronic CHF -Follows with [facility] cardiology, Dr. Pagan -Continue statin therapy, metoprolol succinate - Entresto, lasix, jardiance on hold Paroxysymal Atrial Fibrillation s/p Pacemaker insertion - Rate controlled on digoxin, metoprolol succinate - Anticoagulated on Eliquis - Pacemaker last interrogated on 02/09/24 ith battery status of 3 years, longest period of afib from 01/13-02/03 was 12 hours at that time. nsSVT occurred for 1 minute during same timeframe. - iv heparin for now ISIDORO on CKD stage III -BUN 59, creatinine 2.27, baseline creatinine of 1.5-1.7 reviewed in [facility] -Avoid nephrotoxic medications, renally reduce meds including IV antibiotics -Trend BMP with a.m. labs DVT ppx: iv heparin Lines: PIV x 2 CODE: Full code Dispo: From home Admission and Anticipated Discharge Date Admission Date: March 17, 2024 Subjective Pt seen in follow up of diabetic foot infection Currently sitting up in bed in [facility] Overall feels well, denies any fever, chills, chest pain, shortness of breath Left foot in dressings - + soaking, + foul smell noted Podiatry consulted blood cultx, wound cultx pending Review of Systems Review of Systems: All systems reviewed & are unremarkable except as noted in Subjective Physical Exam Physical Exam: General: obese M in NAD Head: Normocephalic, atraumatic ENT: PERRL, EOMI,mucous membranes moist Chest: Clear to auscultation, on room air, no adventitious breath sounds Cardiac: Regular rate and rhythm, no murmur Abdominal: soft, nondistended, nontender to palpation Extremities: Left foot ulceration , erythema, + drains, + foul smell. Dressings applied Psych: Normal mood and affect Neuro: AAO x 3, speech fluent, answers appropriately, moves extremities Results & Data Results & Data Vital Signs (Past 12 Hours) Vital Signs Temp Pulse Pulse Resp BP Pulse Ox O2 Del Method 03/18/24 09:03 94 H 123/69 03/18/24 08:39 37.1 C 94 H 16 93/61 L 97 Room Air 03/18/24 08:22 97 H 03/18/24 07:21 37.3 C 97 H 18 100/65 99 Room Air 03/18/24 05:30 80 03/18/24 04:00 36.6 C 91 H 18 117/71 98 CPAP 03/17/24 23:05 37.0 C 85 18 128/72 97 Room Air 03/17/24 21:55 84 Laboratory Results 03/18/24 03/18/24 03/18/24 Range/Units 08:59 08:03 05:42 WBC 11.64 H (4.8-10.8) K/ul RBC 3.71 L (4.70-6.10) M/uL Hgb 10.8 L (14.0-18.0) g/dl Hct 30.8 L (42.0-52.0) % MCV 83.0 (80.0-100.0) fL MCH 29.1 (25.0-34.0) pg MCHC 35.1 (32.0-36.0) g/dL RDW Std Deviation 40.3 (36.4-46.3) fL RDW Coeff of Baldo 13.2 (11.5-14.5) % Plt Count 162 (130-400) K/uL MPV 10.8 (9.4-12.4) fL Immature Gran % (Auto) % Neut % (Auto) % Lymph % (Auto) % [place] % (Auto) % Eos % (Auto) % Baso % (Auto) % Neut # (Auto) (1.40-6.50) K/uL Lymph # (Auto) (1.20-3.40) K/uL [place] # (Auto) (0.11-0.59) K/uL Eos # (Auto) (0.00-0.50) K/uL Baso # (Auto) (0.00-0.20) K/uL Immature Gran # (Auto) (0.01-0.20) K/uL PT (9.0-12.0) Seconds INR (0.9-1.1) APTT (21-31) Seconds PTT Ratio Heparin Anti-Xa, Unfract Pending 1.30 H* (0.3-0.7) IU/ml Sodium 135 L (136-145) mmol/L Potassium 4.4 (3.5-5.1) mmol/L Chloride 102 (98-107) mmol/L Carbon Dioxide 22 (21-32) mmol/L Anion Gap 11 (3-11) BUN 62 H (6-23) mg/dl Creatinine 2.34 H (0.6-1.4) mg/dl Est Cr Clr Drug Dosing 43.2 ml/min eGFR 32.25 BUN/Creatinine Ratio 26.5 H (10-20) Glucose 88 (70-99(Fasting)) mg/dl POC Glucose 103 H (70-99) mg/dl Estimat Average Glucose 97 mg/dl Hemoglobin A1c 5.0 (4.5-5.6) % Lactate (0.4-2.0) mmol/L Calcium 8.7 (8.6-10.3) mg/dl Total Bilirubin (0.2-1.0) mg/dl AST (13-39) U/L ALT (7-52) U/L Alkaline Phosphatase (34-104) U/L Total Creatine Kinase (30-223) U/L C-React Prot High Sens Total Protein (6.0-8.3) gm/dl Albumin (3.4-5.0) gm/dl Globulin (2.5-4.0) gm/dl Albumin/Globulin Ratio (0.9-2) Procalcitonin (0-0.5) ng/ml Urine Color Urine Appearance (Clear) Urine pH (4.5-7.5) Ur Specific [place] (1.000-1.030) Urine Protein (Negative) Urine Glucose (UA) (Negative) Urine Ketones (Negative) Urine Blood (Negative) Urine Nitrite (Negative) Urine Bilirubin (Negative) Urine Urobilinogen (Negative) Ur Leukocyte Esterase (Negative) Urine WBC (Auto) (0-5) /hpf Urine RBC (Auto) (0-2) /hpf U Hyaline Cast (Auto) (0-2) /lpf U Epithel Cells (Auto) (0-2) /hpf Urine Bacteria (Auto) (None Seen) 03/17/24 03/17/24 03/17/24 Range/Units Unknown 22:24 20:19 WBC 14.82 H (4.8-10.8) K/ul RBC 4.45 L (4.70-6.10) M/uL Hgb 12.8 L (14.0-18.0) g/dl Hct 37.3 L (42.0-52.0) % MCV 83.8 (80.0-100.0) fL MCH 28.8 (25.0-34.0) pg MCHC 34.3 (32.0-36.0) g/dL RDW Std Deviation 41.0 (36.4-46.3) fL RDW Coeff of Baldo 13.3 (11.5-14.5) % Plt Count 210 (130-400) K/uL MPV 10.3 (9.4-12.4) fL Immature Gran % (Auto) 0.7 % Neut % (Auto) 82.3 % Lymph % (Auto) 8.4 % [place] % (Auto) 7.6 % Eos % (Auto) 0.5 % Baso % (Auto) 0.5 % Neut # (Auto) 12.21 H (1.40-6.50) K/uL Lymph # (Auto) 1.25 (1.20-3.40) K/uL [place] # (Auto) 1.12 H (0.11-0.59) K/uL Eos # (Auto) 0.07 (0.00-0.50) K/uL Baso # (Auto) 0.07 (0.00-0.20) K/uL Immature Gran # (Auto) 0.10 (0.01-0.20) K/uL PT 13.0 H (9.0-12.0) Seconds INR 1.2 H (0.9-1.1) APTT 32 H (21-31) Seconds PTT Ratio 1.2 Heparin Anti-Xa, Unfract (0.3-0.7) IU/ml Sodium (136-145) mmol/L Potassium (3.5-5.1) mmol/L Chloride (98-107) mmol/L Carbon Dioxide (21-32) mmol/L Anion Gap (3-11) BUN (6-23) mg/dl Creatinine (0.6-1.4) mg/dl Est Cr Clr Drug Dosing ml/min eGFR BUN/Creatinine Ratio (10-20) Glucose (70-99(Fasting)) mg/dl POC Glucose 93 (70-99) mg/dl Estimat Average Glucose mg/dl Hemoglobin A1c (4.5-5.6) % Lactate 1.4 (0.4-2.0) mmol/L Calcium (8.6-10.3) mg/dl Total Bilirubin (0.2-1.0) mg/dl AST (13-39) U/L ALT (7-52) U/L Alkaline Phosphatase (34-104) U/L Total Creatine Kinase (30-223) U/L C-React Prot High Sens Total Protein (6.0-8.3) gm/dl Albumin (3.4-5.0) gm/dl Globulin (2.5-4.0) gm/dl Albumin/Globulin Ratio (0.9-2) Procalcitonin (0-0.5) ng/ml Urine Color Urine Appearance (Clear) Urine pH (4.5-7.5) Ur Specific [place] (1.000-1.030) Urine Protein (Negative) Urine Glucose (UA) (Negative) Urine Ketones (Negative) Urine Blood (Negative) Urine Nitrite (Negative) Urine Bilirubin (Negative) Urine Urobilinogen (Negative) Ur Leukocyte Esterase (Negative) Urine WBC (Auto) (0-5) /hpf Urine RBC (Auto) (0-2) /hpf U Hyaline Cast (Auto) (0-2) /lpf U Epithel Cells (Auto) (0-2) /hpf Urine Bacteria (Auto) (None Seen) 03/17/24 03/17/24 03/17/24 Range/Units 16:52 16:45 15:04 WBC 16.30 H (4.8-10.8) K/ul RBC 4.53 L (4.70-6.10) M/uL Hgb 12.8 L (14.0-18.0) g/dl Hct 38.5 L (42.0-52.0) % MCV 85.0 (80.0-100.0) fL MCH 28.3 (25.0-34.0) pg MCHC 33.2 (32.0-36.0) g/dL RDW Std Deviation 41.3 (36.4-46.3) fL RDW Coeff of Baldo 13.3 (11.5-14.5) % Plt Count 215 (130-400) K/uL MPV 10.5 (9.4-12.4) fL Immature Gran % (Auto) 0.7 % Neut % (Auto) 81.3 % Lymph % (Auto) 8.2 % [place] % (Auto) 8.8 % Eos % (Auto) 0.4 % Baso % (Auto) 0.6 % Neut # (Auto) 13.25 H (1.40-6.50) K/uL Lymph # (Auto) 1.34 (1.20-3.40) K/uL [place] # (Auto) 1.43 H (0.11-0.59) K/uL Eos # (Auto) 0.07 (0.00-0.50) K/uL Baso # (Auto) 0.09 (0.00-0.20) K/uL Immature Gran # (Auto) 0.12 (0.01-0.20) K/uL PT (9.0-12.0) Seconds INR (0.9-1.1) APTT (21-31) Seconds PTT Ratio Heparin Anti-Xa, Unfract (0.3-0.7) IU/ml Sodium 136 (136-145) mmol/L Potassium 4.9 (3.5-5.1) mmol/L Chloride 100 (98-107) mmol/L Carbon Dioxide 23 (21-32) mmol/L Anion Gap 13 H (3-11) BUN 59 H (6-23) mg/dl Creatinine 2.27 H (0.6-1.4) mg/dl Est Cr Clr Drug Dosing 45.3 ml/min eGFR 33.44 BUN/Creatinine Ratio 26.0 H (10-20) Glucose 116 H (70-99(Fasting)) mg/dl POC Glucose (70-99) mg/dl Estimat Average Glucose mg/dl Hemoglobin A1c (4.5-5.6) % Lactate (0.4-2.0) mmol/L Calcium 10.0 (8.6-10.3) mg/dl Total Bilirubin 0.7 (0.2-1.0) mg/dl AST 29 (13-39) U/L ALT 25 (7-52) U/L Alkaline Phosphatase 90 (34-104) U/L Total Creatine Kinase 35 (30-223) U/L C-React Prot High Sens Pending Total Protein 8.0 (6.0-8.3) gm/dl Albumin 4.0 (3.4-5.0) gm/dl Globulin 4.0 (2.5-4.0) gm/dl Albumin/Globulin Ratio 1.0 (0.9-2) Procalcitonin 1.49 H (0-0.5) ng/ml Urine Color Yellow Urine Appearance Cloudy A (Clear) Urine pH 5.0 (4.5-7.5) Ur Specific [place] 1.022 (1.000-1.030) Urine Protein 2+ H (Negative) Urine Glucose (UA) 3+ H (Negative) Urine Ketones 1+ H (Negative) Urine Blood 1+ H (Negative) Urine Nitrite Negative (Negative) Urine Bilirubin Negative (Negative) Urine Urobilinogen Negative (Negative) Ur Leukocyte Esterase Negative (Negative) Urine WBC (Auto) 0-5 (0-5) /hpf Urine RBC (Auto) 0-2 (0-2) /hpf U Hyaline Cast (Auto) >20 H (0-2) /lpf U Epithel Cells (Auto) 3-5 H (0-2) /hpf Urine Bacteria (Auto) None Seen (None Seen) Medications Administered Current Inpatient Medications Acetaminophen (Acetaminophen 325 Mg Tab) 650 mg PO Q4H PRN PRN Reason: Moderate Pain (Scale 4, 5, 6) Stop: 04/16/24 19:12 Dextrose (Dextrose 50% 50 Ml Syringe) 25 - 50 ml IV UD PRN; Protocol PRN Reason: Hypoglycemia Protocol Stop: 04/16/24 19:12 Digoxin (Digoxin 0.125 Mg Tab) 0.125 mg PO DAILY [facility] Stop: 04/17/24 08:59 Last Admin: 03/18/24 08:22 Dose: 0.125 mg Glucagon (Glucagon For Inj 1 Mg Vial) 1 mg SQ UD PRN; Protocol PRN Reason: Hypoglycemia Protocol Stop: 04/16/24 19:12 Glucose (Glucose 40% Gel 15 Gm Tube) 15 - 30 gm PO UD PRN; Protocol PRN Reason: Hypoglycemia Protocol Stop: 04/16/24 19:12 Glucose (Glucose 10 Tab/Tube) 4 - 8 tab PO UD PRN; Protocol PRN Reason: Hypoglycemia Treatment Stop: 04/16/24 19:12 Heparin Sodium/Dextrose (Heparin Sodium/Dextrose) 25,000 units in 500 mls @ 0 mls/hr IV .Q0M BRITANY; Protocol Stop: 04/16/24 20:29 Last Titration: 03/18/24 08:03 Dose: 0 units/hr, 0 mls/hr Sodium Chloride (Nss) 1,000 mls @ 60 mls/hr IV .[id number] BRITANY Stop: 03/19/24 06:04 Last Admin: 03/17/24 23:28 Dose: 60 mls/hr Piperacillin Sod/Tazobactam Sod (Zosyn) 4.5 gm in 100 mls @ 200 mls/hr IV NOW ONE; Protocol Stop: 03/18/24 09:44 Piperacillin Sod/Tazobactam Sod (Zosyn) 4.5 gm in 100 mls @ 25 mls/hr IV Q8H BRITANY; Protocol Stop: 03/25/24 15:59 Daptomycin 525 mg/ Syringe 10.5 mls @ 5.25 mls/min IV Q24H [facility]; Protocol Stop: 03/25/24 17:59 Insulin Aspart (Insulin Aspart Per Unit Charge) 0 units SC ACHS [facility] Stop: 04/16/24 20:59 Last Admin: 03/17/24 23:31 Dose: Not Given Insulin Glargine (Lantus Per Unit Charge) [facility] Stop: 04/17/24 09:29 Magnesium Chloride (Magnesium Chloride W/Calcium 64mg Delayed Rel Tab) 64 mg PO DAILY [facility] Stop: 04/17/24 08:59 Last Admin: 03/18/24 08:22 Dose: 64 mg Metoprolol Succinate (Metoprolol Succ 50mg Ext Rel Tab) 400 mg PO QAM [facility] Stop: 04/17/24 08:59 Last Admin: 03/18/24 09:12 Dose: 400 mg Miscellaneous (Carbohydrates For Hypoglycemia ) 15 - 30 gm PO UD PRN PRN Reason: Hypoglycemia Protocol Stop: 04/16/24 19:12 Miscellaneous (Icosapent Ethyl [Vascepa] ~ Order Awaiting Action) 1 each N/A QS [facility] Stop: 04/17/24 00:00 Last Admin: 03/18/24 08:28 Dose: Not Given Multivitamins (Multivitamin Tab) 1 tab PO QAM [facility] Stop: 04/17/24 08:59 Last Admin: 03/18/24 08:22 Dose: 1 tab Ondansetron HCl (Ondansetron Inj 2 Mg/Ml 2 Ml Vial) 4 mg IV Q4H PRN PRN Reason: Nausea And Vomiting Stop: 04/16/24 19:12 (4) CAD (coronary artery disease) Associated angina: without angina Coronary Disease-Associated Artery/Lesion type: [place] artery [place] vs. transplanted heart: [place] heart Qualified Code(s): I25.10 - Atherosclerotic heart disease of [place] coronary artery without angina pectoris (7) HTN (hypertension) Hypertension type: unspecified Qualified Code(s): I10 - Essential (primary) hypertension
[2024-03-18] MEDS: LANTUS PER UNIT CHARGE SC SCH ×2 (09:49→09:53)
[2024-03-18 10:11] LABS: ANTI-Xa, UFH(UnfractionatedHep 1.03 IU/ml (0.3-0.7)
[2024-03-18] MEDS: PIPERACILLIN/TAZOBACTAM 4.5 GM/100 ML BAG IV ONE (10:41)
[2024-03-18 12:48] LABS: ANTI-Xa, UFH(UnfractionatedHep 0.93 IU/ml (0.3-0.7)
[2024-03-18] MEDS: ADVANCED PROBIOTIC 625 MG CAPSULE PO SCH (14:24)
[2024-03-18 15:42] LABS: ANTI-Xa, UFH(UnfractionatedHep 0.75 IU/ml (0.3-0.7)
[2024-03-18] MEDS: PIPERACILLIN/TAZOBACTAM 4.5 GM/100 ML BAG IV SCH (16:47)
--- NOTE | 2024-03-18 17:05 | Podiatry Consultation ---
Date of Consultation March 18, 2024 Assessment & Plan (1) Open wound of left foot: (2) Osteomyelitis of foot: Laterality: right Osteomyelitis type: unspecified type Qualified Code(s): M86.9 - Osteomyelitis, unspecified (3) Necrotizing fasciitis: (4) Diabetic peripheral neuropathy associated with type 2 diabetes mellitus: (5) Diabetes mellitus type II, uncontrolled: Glycemic state: with hyperglycemia Qualified Code(s): E11.65 - Type 2 diabetes mellitus with hyperglycemia Plan patient was examined and evaluated. We discussed at length the etiology and treatment of his left foot ulceration and infection. This wound was sharply debrided aggressively at bedside to help encourage any anaerobic bacteria growth in addition. He would benefit from continued use of IV antibiotics. Deep cultures were obtained from the deeper probing aspect of the wound. He will require further surgical debridement, which we will plan for . If he worsens prior to then, he may need more emergent care, though with his current stability and bedside debridement performed, he is likely able to wait until this can be scheduled. The wound was dressed with Betadine gauze, Xeroform, 4 x 4 gauze, and Kaden wrap. We will continue to follow in the next few days prior to surgery. History of Present Illness Reason for Consultation: Left foot wound Attending Physician: Manny Ordaz MD History of Present Illness patient seen at bedside. He states that in the last day or 2 at most he has noticed an increasing ulceration and wound to the outside of the left foot. he does have a history of right digital amputations but has not had a problem left foot until recently. He states that he had started to feel sick and thought maybe it was because of his feet overall. He does have a history of Charcot foot deformity on this left foot though he states that has been relatively unchanged for the last 3 years or so. Further, this is around when he had his right toe amputations and some attempt of right foot reconstruction as well. His prior surgeon is no longer in practice here in the area and has not followed up with him in some time. He does admit to some systemic signs of infection which lead him to seek treatment. This includes swelling and malodor of the foot as well as some relative weakness recently. Still, despite all this, he states the wound has only been present for a day, when he noticed it stepping out of the shower. Allergies Allergy/AdvReac Type Severity Reaction Status Date / Time Bactrim Allergy Unknown "severe Verified 05/24/17 08:28 vomiting" sulfamethoxazole AdvReac Mild "severe Verified 02/18/24 09:18 vomiting" trimethoprim AdvReac Mild "severe Verified 02/18/24 09:18 vomiting" Home Medications Medication Instructions Recorded Confirmed Type insulin lispro 100 unit/mL 10 unit subcut TIDM 12/10/19 03/17/24 History subcutaneous pen (Humalog KwikPen (U-100) Insulin) multivitamin 1 tab PO QAM 10/25/20 03/17/24 History magnesium chloride 64 mg 64 mg PO DAILY #90 tabs 01/18/21 03/17/24 Rx (magnesium chloride) tablet,delayed release apixaban 5 mg tablet (Eliquis) 5 mg PO BID #180 tabs 06/12/23 03/17/24 Rx empagliflozin 10 mg tablet 10 mg PO DAILY 08/13/23 03/17/24 History (Jardiance) icosapent ethyl 1 gram capsule 2 g (2 x 1 gram) PO BID #360 caps 08/16/23 03/17/24 Rx (Vascepa) digoxin 125 mcg (0.125 mg) tablet 125 mcg PO DAILY #90 tabs 09/06/23 03/17/24 Rx furosemide 20 mg tablet 40 mg (2 x 20 mg) PO QAM #180 tabs 09/06/23 03/17/24 Rx sacubitril 97 mg-valsartan 103 mg 1 tab PO BID #180 tabs 11/19/23 03/17/24 Rx tablet (Entresto) potassium chloride 10 mEq 10 meq PO QAM #90 tabs 11/22/23 03/17/24 Rx tablet,extended release rosuvastatin 20 mg tablet 20 mg PO HS #90 tabs 11/22/23 03/17/24 Rx insulin glargine 100 unit/mL (3 45 unit subcut QAM 02/18/24 03/17/24 History mL) subcutaneous pen (Lantus Solostar U-100 Insulin) tirzepatide 5 mg/0.5 mL 15 mg subcut .weekly 02/18/24 03/17/24 History subcutaneous pen injector metformin 850 mg tablet 1,000 mg PO BID 03/17/24 03/17/24 History metoprolol succinate 200 mg 400 mg PO QAM 03/17/24 03/17/24 History tablet,extended release 24 hr Patient History Medical History History of kidney stones NO SURGERY REQUIRED Thyroid goiter HX BIOSPY TO MONITOR Myocardial Infarction 2016 History of cellulitis LOWER LEG CAD (coronary artery disease) Sleep apnea CPAP Surgical History History of cardiac cath 2017 (NO STENTS) Hx of foot surgery REMOVAL OF BIG TOE AND SECOND TOE (RT FOOT) History of implantable cardiac defibrillator (ICD) 05/2017 MEDTRON[employer] H/O vasectomy Hx of CABG 2017 [place], HEART CATH - UNABLE TO STENT AND THEN CABG X 4 - [facility] FOLLOWS WITH DR KIMBLE Family History Father Family history of diabetes mellitus Other Diabetes Heart disease No family history of adverse response to anesthesia Social History Smoking Status: Never smoker Second Hand Exposure: No; Do You Dip or Chew Tobacco: No; Hx Alcohol Use: Yes Alcohol type: beer Hx Substance Use: No Preferred Language: Croatian Communication Ability: Effective Visual Impairment: No Limitations Stonecutter Required: No Beliefs That Will Affect Care: None marital status: Current Living Situation: Spouse current occupational status: employed Feels Safe at Home: Yes Assistive Devices: None Review of Systems Review of Systems: All systems reviewed & are unremarkable except as noted in HPI & below Constitutional: + fever, + fatigue and + weakness; no ch ills Eyes: no problem reported Ear, Nose, Mouth, Throat: no problem reported Respiratory: no problem reported Cardiovascular: + edema; no problem reported Gastrointestinal: no nausea, no vomiting and no problem reported Musculoskeletal: + deformity and + limited range of motio n Integumentary: + skin ulcer, + wounds and + erythema Neurologic: + loss of sensation, + numbness and + pa resthesia; no generalized weakness Psychiatric: no problem reported Physical Exam Physical Exam: lower extremity focused exam: DP/PT pulses 1/4 bilaterally, likely diminished by the pitting edema to the bilateral lower extremity. Advanced trophic changes are noted otherwise, with thinning of the skin, atrophy of the skin, and this nonhealing ulceration to the lateral aspect of the left foot. CFT is brisk to the digits. right hallux amputation is noted with evidence of other right foot reconstruction and scar formation to the first ray. This was likely a Charcot foot reconstruction. The left foot medial longitudinal arch is collapsed, consistent with chronic Charcot neuroarthropathy as well. This large lateral plantar foot ulceration is consistent with cuboid subluxation and chronic pressure underlying the cuboid bone. There is significant malodor consistent with anaerobic bacterial infection. After debriding the overlying hyperkeratotic skin, the wound probes directly to the dorsal aspect of the foot through a tunnel lateral to the fifth metatarsal bone. The wound is large measuring 3.5 x 3.5 cm in diameter and with this dorsal extension measures close to 4 cm in depth. The wound bed is 100% fibrotic and necrotic with no evidence of granulation tissue present. No significant bleeding or underlying abscess formation is noted after sharp debridement as well. Constitutional: WD/WN, vitals as above + ill appearing and + morbidly obese; no acute distress Eyes: PERRL, conjunctivae normal, anicteric sclerae ENMT: external ear and nose normal, oropharynx normal Neck: trachea midline, no thyromegaly normal visual inspection Respiratory: normal respiratory effort; no respiratory distress Cardiovascular: Rate/Rhythm: regular rate and regular rhythm Chest (Breasts): Chest: normal inspection of chest Gastrointestinal (Abdomen): Inspection/Auscultation: abdomen normal to inspection Percussion/Palpation: + abdomen tender and abdomen soft Musculoskeletal: no cyanosis or clubbing, extremities motor strength 5/5 Head/Neck/Chest: normocephalic and head atraumatic Extremities: extremities normal to inspection Skin: + ulcer, + wound, + skin atrophy, + scar and + nails dystrophic Neurologic: normal sensation to monofilament, moves all extremities and awake; + abnormal touch/pain/proprioception and no focal motor deficits Psychiatric: A+Ox3, euthymic affect Results & Data Vital Signs (Past 12 Hours) Vital Signs Temp Pulse Pulse Resp BP Pulse Ox O2 Del Method 03/18/24 15:52 36.6 C 84 18 146/77 H 97 Room Air 03/18/24 12:55 36.4 C L 75 18 121/68 96 Room Air 03/18/24 11:14 Room Air 03/18/24 10:34 92 H 03/18/24 10:31 36.7 C 91 H 18 131/76 96 Room Air 03/18/24 09:03 94 H 123/69 03/18/24 08:39 37.1 C 94 H 16 93/61 L 97 Room Air 03/18/24 08:22 97 H 03/18/24 07:21 37.3 C 97 H 18 100/65 99 Room Air 03/18/24 05:30 80 Diagnostic Findings plain film imaging was reviewed and reveals the chronic Charcot neuroarthropathy changes. CT confirms this and also reveals some subcutaneous gas, consistent with the malodor and concerning for gangrene of the foot. No evidence of acute osteomyelitis is noted on CT exam.
[2024-03-18 17:29] LABS: ANTI-Xa, UFH(UnfractionatedHep 0.69 IU/ml (0.3-0.7)
[2024-03-18] MEDS: DAPTOmycin 525 MG in SYRINGE 0 ML IV SCH (18:14)
[2024-03-19 01:22] LABS: ANTI-Xa, UFH(UnfractionatedHep 0.41 IU/ml (0.3-0.7)
[2024-03-19 06:28] LABS: BUN Creatinine Ratio 24.2 (10-20); Calcium 8.3 mg/dl (8.6-10.3); Creatinine Clr Calc Pharmacy 53.4 ml/min; Hematocrit (blood only) 31.2 % (42.0-52.0); Hemoglobin 10.3 g/dl (14.0-18.0); Magnesium 2.2 mg/dl (1.7-2.4); Mean Corpuscular Hemoglobin 27.8 pg (25.0-34.0); Mean Corpuscular Volume 84.3 fL (80.0-100.0); Mean Platelet Volume 10.4 fL (9.4-12.4); Phosphorus 3.6 mg/dl (2.5-4.9); Platelet Count 155 K/uL (130-400); RDW Coefficient of Variation 13.2 % (11.5-14.5); RDW Standard Deviation 40.6 fL (36.4-46.3); White Blood Count 7.44 K/ul (4.8-10.8)
[2024-03-19 06:40] LABS: ANTI-Xa, UFH(UnfractionatedHep 0.31 IU/ml (0.3-0.7)
--- NOTE | 2024-03-19 06:40 | Anesthesiology Consultation ---
Date of Service March 19, 2024 Assessment & Plan Chart Review Chart Review: Acceptable Risk for Surgery and Patient NOT seen in Pre Admission Testing History Surgery Operation Date: 03/19/24 07:00 Proposed Procedures p Left Foot Incision and Drainage - Marc Ramirez DPM Height/Weight Height: 5 ft 8 in Weight: 109.8 kg Allergies Allergy/AdvReac Type Severity Reaction Status Date / Time Bactrim Allergy Unknown "severe Verified 05/24/17 08:28 vomiting" sulfamethoxazole AdvReac Mild "severe Verified 02/18/24 09:18 vomiting" trimethoprim AdvReac Mild "severe Verified 02/18/24 09:18 vomiting" Medications Home Medications Medication Instructions Recorded Confirmed Last Taken insulin lispro 100 unit/mL 10 unit subcut TIDM 12/10/19 03/17/24 03/17/24 subcutaneous pen (Humalog KwikPen (U-100) Insulin) multivitamin 1 tab PO QAM 10/25/20 03/17/24 03/17/24 magnesium chloride 64 mg 64 mg PO DAILY #90 tabs 01/18/21 03/17/24 03/17/24 (magnesium chloride) tablet,delayed release apixaban 5 mg tablet (Eliquis) 5 mg PO BID #180 tabs 06/12/23 03/17/24 03/17/24 empagliflozin 10 mg tablet 10 mg PO DAILY 08/13/23 03/17/24 03/17/24 (Jardiance) icosapent ethyl 1 gram capsule 2 g (2 x 1 gram) PO BID #360 caps 08/16/23 03/17/24 03/17/24 (Vascepa) digoxin 125 mcg (0.125 mg) tablet 125 mcg PO DAILY #90 tabs 09/06/23 03/17/24 03/17/24 furosemide 20 mg tablet 40 mg (2 x 20 mg) PO QAM #180 tabs 09/06/23 03/17/24 03/17/24 sacubitril 97 mg-valsartan 103 mg 1 tab PO BID #180 tabs 11/19/23 03/17/24 03/17/24 tablet (Entresto) potassium chloride 10 mEq 10 meq PO QAM #90 tabs 11/22/23 03/17/24 03/17/24 tablet,extended release rosuvastatin 20 mg tablet 20 mg PO HS #90 tabs 11/22/23 03/17/24 03/17/24 insulin glargine 100 unit/mL (3 45 unit subcut QAM 02/18/24 03/17/24 03/17/24 mL) subcutaneous pen (Lantus Solostar U-100 Insulin) tirzepatide 5 mg/0.5 mL 15 mg subcut .weekly 02/18/24 03/17/24 03/16/24 subcutaneous pen injector metformin 850 mg tablet 1,000 mg PO BID 03/17/24 03/17/24 03/17/24 metoprolol succinate 200 mg 400 mg PO QAM 03/17/24 03/17/24 03/17/24 tablet,extended release 24 hr Active Medications Generic Name Dose Route Start Last Admin Trade Name Freq PRN Reason Stop Dose Admin Digoxin 0.125 mg 03/18/24 09:00 03/18/24 08:22 Digoxin 0.125 Mg Tab PO 04/17/24 08:59 0.125 mg DAILY [facility] Administration Heparin Sodium/Dextrose 25,000 units in 500 mls @ 20 mls/hr 03/17/24 20:30 03/19/24 01:39 Heparin Sodium/Dextrose IV 04/16/24 20:29 1,000 units/hr .Q24H [facility] 20 mls/hr Titration Protocol 1,000 UNITS/HR Piperacillin Sod/Tazobactam Sod 4.5 gm in 100 mls @ 25 mls/hr 03/18/24 16:00 03/19/24 04:03 Zosyn IV 03/25/24 15:59 Infused Q8H [facility] Infusion Protocol Daptomycin 525 mg/ Syringe 10.5 mls @ 5.25 mls/min 03/18/24 18:00 03/18/24 18:14 IV 03/25/24 17:59 5.25 mls/min Q24H [facility] Administration Protocol Insulin Aspart 0 units 03/17/24 21:00 03/18/24 20:52 Insulin Aspart Per Unit Charge SC 04/16/24 20:59 Not Given ACHS [facility] Insulin Glargine 25 units 03/18/24 09:30 03/18/24 09:49 Lantus Per Unit Charge SC 04/17/24 09:29 25 units QAM [facility] Administration Lactobacillus Acidophilus 1,250 mg 03/18/24 13:00 03/18/24 14:24 Advanced Probiotic 625 Mg Capsule PO 04/17/24 12:59 1,250 mg DAILY [facility] Administration Magnesium Chloride 64 mg 03/18/24 09:00 03/18/24 08:22 Magnesium Chloride W/Calcium 64mg Delayed Rel Tab PO 04/17/24 08:59 64 mg DAILY [facility] Administration Metoprolol Succinate 400 mg 03/18/24 09:00 03/18/24 09:12 Metoprolol Succ 50mg Ext Rel Tab PO 04/17/24 08:59 400 mg QAM [facility] Administration Miscellaneous 1 each 03/18/24 00:00 03/19/24 01:07 Icosapent Ethyl [Vascepa] ~ Order Awaiting Action N/A 04/17/24 00:00 1 each QS [facility] Administration Multivitamins 1 tab 03/18/24 09:00 03/18/24 08:22 Multivitamin Tab PO 04/17/24 08:59 1 tab QAM [facility] Administration Past Medical History Medical History History of kidney stones NO SURGERY REQUIRED Thyroid goiter HX BIOSPY TO MONITOR Myocardial Infarction 2017 History of cellulitis LOWER LEG CAD (coronary artery disease) Sleep apnea CPAP Past Family History Family History Father Family history of diabetes mellitus Other Diabetes Heart disease No family history of adverse response to anesthesia Past Surgical History Surgical History History of cardiac cath 2017 (NO STENTS) Hx of foot surgery REMOVAL OF BIG TOE AND SECOND TOE (RT FOOT) History of implantable cardiac defibrillator (ICD) 05/2017 [employer] H/O vasectomy Hx of CABG 2017 CT, HEART CATH - UNABLE TO STENT AND THEN [facility]G [facility] KIMBLE Social History Smoking Status: Never smoker Do You Dip or Chew Tobacco: No Hx Alcohol Use: Yes Alcohol type: beer alcohol intake frequency: holidays/special occasions only Hx Substance Use: No substance use type: does not use Physical Exam Vital Signs Last Vital Signs Temp 36.5 C 03/19/24 03:13 Pulse 82 03/19/24 03:13 Resp 20 03/19/24 03:13 BP 159/84 H 10/16/24 03:13 Pulse Ox 97 03/19/24 03:13 O2 Del Method Room Air, CPAP 03/19/24 03:13 Testing Laboratory Results 03/19/24 05:44 03/19/24 05:44 PT 13.0 Seconds (9.0-12.0) H 03/17/24 22:24 INR 1.2 (0.9-1.1) H 03/17/24 22:24 APTT 32 Seconds (21-31) H 03/17/24 22:24 Hemoglobin A1c 5.0 % (4.5-5.6) 03/18/24 05:42 Urine Color Yellow 03/17/24 16:45 Urine Appearance Cloudy (Clear) A 03/17/24 16:45 Urine pH 5.0 (4.5-7.5) 03/17/24 16:45 Ur Specific [place] 1.022 (1.000-1.030) 03/17/24 16:45 Urine Protein 2+ (Negative) H 03/17/24 16:45 Urine Glucose (UA) 3+ (Negative) H 03/17/24 16:45 Urine Ketones 1+ (Negative) H 03/17/24 16:45 Urine Nitrite Negative (Negative) 03/17/24 16:45 Ur Leukocyte Esterase Negative (Negative) 03/17/24 16:45 Urine WBC (Auto) 0-5 /hpf (0-5) 03/17/24 16:45 Urine RBC (Auto) 0-2 /hpf (0-2) 03/17/24 16:45 U Hyaline Cast (Auto) >20 /lpf (0-2) H 03/17/24 16:45 U Epithel Cells (Auto) 3-5 /hpf (0-2) H 03/17/24 16:45 Urine Bacteria (Auto) None Seen (None Seen) 03/17/24 16:45 03/17/24 16:52 Aerobic Blood Culture - Preliminary Blood No growth in Aerobic bottle after 24 hours. Anaerobic Blood Culture - Preliminary No growth in Anaerobic bottle after 24 hours. 03/17/24 Unknown Gram Stain - Final Foot,Left Wound Culture - Preliminary Group G Beta Strep 03/18/24 19:57 POC Glucose 137 H
--- NOTE | 2024-03-19 09:00 | Hospitalist Progress Note ---
Date of Service March 19, 2024 Assessment & Plan (1) Open wound of left foot: (2) Diabetes mellitus type II, uncontrolled: (3) Diabetic peripheral neuropathy associated with type 2 diabetes mellitus: (4) CAD (coronary artery disease): (5) PAF (paroxysmal atrial fibrillation): (6) Ischemic cardiomyopathy: (7) HTN (hypertension): (8) CKD (chronic kidney disease) stage 3, GFR 30-59 ml/min: Plan: Diabetic Left Foot Wound Osteomyelitis of foot Peripheral neuropathy -Admit to [facility] -Podiatry consult and wound consultation -WBC 16.30, procalcitonin elevated at 1.49, CRP-pending -Afebrile currently, BP is stable -Blood culture x 1 - pending -wound cultx -pending -Initiated daptomycin and Zosyn IV in the ER, continue for now -X-ray foot: No fractures are present. Extensive destructive changes are seen in the mid foot. Plantar and Achilles enthesophytes are seen. Soft tissue swelling is seen about the foot. Suggestion of an ulcer in the lateral foot. - CT foot with/wo contrast (pt has a pacemaker) FINDINGS: The osseous structures are without fracture or dislocation. The joint spaces are maintained. Soft tissue swelling and subcutaneous emphysema are seen in the medial and lateral midfoot with associated prominent fluid. IMPRESSION: Soft tissue swelling and subcutaneous emphysema compatible with cellulitis. No evidence of bone erosions to suggest osteomyelitis. -Podiatry consult and wound care consulted - Per podiatry - (1) Open wound of left foot: (2) Osteomyelitis of foot: (3) Necrotizing fasciitis: (4) Diabetic peripheral neuropathy associated with type 2 diabetes mellitus: (5) Diabetes mellitus type II, uncontrolled: Plan patient was examined and evaluated. - Scheduled for excisional debridement/Incision and Drainage of left foot wound tomorrow, 03/20 - Primary closure is unlikely and will likely require wound vac for closure over time. - exterminator prognosis for foot is guarded; underlying Charcot deformity is significant and this bacterial soft tissue infection is aggressive DM II -Last A1C 5.4 in September 2023, current A1c 5.0% -ISS with Accu-Cheks ACHS, continue glargine (at home 45 units QAM) CAD History of cardiac quadruple bypass surgery in 2017 HTN chronic CHF -Follows with [facility] cardiology, Dr. Pagan -Continue statin therapy, metoprolol succinate - Entresto, lasix, jardiance on hold Paroxysymal Atrial Fibrillation s/p Pacemaker insertion - Rate controlled on digoxin, metoprolol succinate - Anticoagulated on Eliquis - Pacemaker last interrogated on 02/09/24 ith battery status of 3 years, longest period of afib from 01/13-02/03 was 12 hours at that time. nsSVT occurred for 1 minute during same timeframe. - iv heparin for now ISIDORO on CKD stage III -BUN 59, creatinine 2.27, baseline creatinine of 1.5-1.7 reviewed in epic -Avoid nephrotoxic medications, renally reduce meds including IV antibiotics -Trend BMP with a.m. labs DVT ppx: iv heparin Lines: PIV x 2 CODE: Full code Dispo: From home Admission and Anticipated Discharge Date Admission Date: March 17, 2024 Subjective Pt seen in follow up of diabetic foot infection Currently sitting up in bed in [facility] Overall feels well, denies any fever, chills, chest pain, shortness of breath Left foot in dressings - s/p debridement at the bedside by podiatry, + soaking through dressings. Plan for I&D in OR possibly tomorrow Podiatry consulted blood cultx, wound cultx pending Review of Systems Review of Systems: All systems reviewed & are unremarkable except as noted in Subjective Physical Exam Physical Exam: General: obese M in NAD Head: Normocephalic, atraumatic ENT: PERRL, EOMI,mucous membranes moist Chest: Clear to auscultation, on room air, no adventitious breath sounds Cardiac: Regular rate and rhythm, no murmur Abdominal: soft, nondistended, nontender to palpation Extremities: Left foot ulceration , erythema, + drains, + foul smell. Dressings applied Psych: Normal mood and affect Neuro: AAO x 3, speech fluent, answers appropriately, moves extremities Results & Data Results & Data Vital Signs (Past 12 Hours) Vital Signs Temp Pulse Pulse Resp BP Pulse Ox O2 Del Method 03/19/24 07:45 82 03/19/24 07:36 36.6 C 85 18 135/82 99 Room Air 03/19/24 03:13 36.5 C 82 20 159/84 H 97 Room Air, CPAP 03/18/24 23:55 37.4 C 83 20 153/85 H 97 Room Air 03/18/24 23:54 Room Air 03/18/24 21:55 87 Laboratory Results 03/19/24 03/19/24 03/18/24 Range/Units 08:14 05:44 23:38 WBC 7.44 (4.8-10.8) K/ul RBC 3.70 L (4.70-6.10) M/uL Hgb 10.3 L (14.0-18.0) g/dl Hct 31.2 L (42.0-52.0) % MCV 84.3 (80.0-100.0) fL MCH 27.8 (25.0-34.0) pg MCHC 33.0 (32.0-36.0) g/dL RDW Std Deviation 40.6 (36.4-46.3) fL RDW Coeff of Baldo 13.2 (11.5-14.5) % Plt Count 155 (130-400) K/uL MPV 10.4 (9.4-12.4) fL Heparin Anti-Xa, Unfract 0.31 0.41 (0.3-0.7) IU/ml Sodium 139 (136-145) mmol/L Potassium 4.0 (3.5-5.1) mmol/L Chloride 107 (98-107) mmol/L Carbon Dioxide 21 (21-32) mmol/L Anion Gap 11 (3-11) BUN 46 H (6-23) mg/dl Creatinine 1.90 H D (0.6-1.4) mg/dl Est Cr Clr Drug Dosing 53.4 ml/min eGFR 41.40 BUN/Creatinine Ratio 24.2 H (10-20) Glucose 100 H (70-99(Fasting)) mg/dl POC Glucose 111 H (70-99) mg/dl Calcium 8.3 L (8.6-10.3) mg/dl Phosphorus 3.6 (2.5-4.9) mg/dl Magnesium 2.2 (1.7-2.4) mg/dl 03/18/24 03/18/24 03/18/24 Range/Units 19:57 16:58 16:41 WBC (4.8-10.8) K/ul RBC (4.70-6.10) M/uL Hgb (14.0-18.0) g/dl Hct (42.0-52.0) % MCV (80.0-100.0) fL MCH (25.0-34.0) pg MCHC (32.0-36.0) g/dL RDW Std Deviation (36.4-46.3) fL RDW Coeff of Baldo (11.5-14.5) % Plt Count (130-400) K/uL MPV (9.4-12.4) fL Heparin Anti-Xa, Unfract 0.69 (0.3-0.7) IU/ml Sodium (136-145) mmol/L Potassium (3.5-5.1) mmol/L Chloride (98-107) mmol/L Carbon Dioxide (21-32) mmol/L Anion Gap (3-11) BUN (6-23) mg/dl Creatinine (0.6-1.4) mg/dl Est Cr Clr Drug Dosing ml/min eGFR BUN/Creatinine Ratio (10-20) Glucose (70-99(Fasting)) mg/dl POC Glucose 137 H 101 H (70-99) mg/dl Calcium (8.6-10.3) mg/dl Phosphorus (2.5-4.9) mg/dl Magnesium (1.7-2.4) mg/dl 03/18/24 03/18/24 03/18/24 Range/Units 14:16 12:19 11:14 WBC (4.8-10.8) K/ul RBC (4.70-6.10) M/uL Hgb (14.0-18.0) g/dl Hct (42.0-52.0) % MCV (80.0-100.0) fL MCH (25.0-34.0) pg MCHC (32.0-36.0) g/dL RDW Std Deviation (36.4-46.3) fL RDW Coeff of Baldo (11.5-14.5) % Plt Count (130-400) K/uL MPV (9.4-12.4) fL Heparin Anti-Xa, Unfract 0.75 H* 0.93 H* (0.3-0.7) IU/ml Sodium (136-145) mmol/L Potassium (3.5-5.1) mmol/L Chloride (98-107) mmol/L Carbon Dioxide (21-32) mmol/L Anion Gap (3-11) BUN (6-23) mg/dl Creatinine (0.6-1.4) mg/dl Est Cr Clr Drug Dosing ml/min eGFR BUN/Creatinine Ratio (10-20) Glucose (70-99(Fasting)) mg/dl POC Glucose 92 (70-99) mg/dl Calcium (8.6-10.3) mg/dl Phosphorus (2.5-4.9) mg/dl Magnesium (1.7-2.4) mg/dl 03/18/24 Range/Units 08:59 WBC (4.8-10.8) K/ul RBC (4.70-6.10) M/uL Hgb (14.0-18.0) g/dl Hct (42.0-52.0) % MCV (80.0-100.0) fL MCH (25.0-34.0) pg MCHC (32.0-36.0) g/dL RDW Std Deviation (36.4-46.3) fL RDW Coeff of Baldo (11.5-14.5) % Plt Count (130-400) K/uL MPV (9.4-12.4) fL Heparin Anti-Xa, Unfract 1.03 H* (0.3-0.7) IU/ml Sodium (136-145) mmol/L Potassium (3.5-5.1) mmol/L Chloride (98-107) mmol/L Carbon Dioxide (21-32) mmol/L Anion Gap (3-11) BUN (6-23) mg/dl Creatinine (0.6-1.4) mg/dl Est Cr Clr Drug Dosing ml/min eGFR BUN/Creatinine Ratio (10-20) Glucose (70-99(Fasting)) mg/dl POC Glucose (70-99) mg/dl Calcium (8.6-10.3) mg/dl Phosphorus (2.5-4.9) mg/dl Magnesium (1.7-2.4) mg/dl Medications Administered Current Inpatient Medications Acetaminophen (Acetaminophen 325 Mg Tab) 650 mg PO Q4H PRN PRN Reason: Moderate Pain (Scale 4, 5, 6) Stop: 04/16/24 19:12 Dextrose (Dextrose 50% 50 Ml Syringe) 25 - 50 ml IV UD PRN; Protocol PRN Reason: Hypoglycemia Protocol Stop: 04/16/24 19:12 Digoxin (Digoxin 0.125 Mg Tab) 0.125 mg PO DAILY [facility] Stop: 04/17/24 08:59 Last Admin: 03/18/24 08:22 Dose: 0.125 mg Glucagon (Glucagon For Inj 1 Mg Vial) 1 mg SQ UD PRN; Protocol PRN Reason: Hypoglycemia Protocol Stop: 04/16/24 19:12 Glucose (Glucose 40% Gel 15 Gm Tube) 15 - 30 gm PO UD PRN; Protocol PRN Reason: Hypoglycemia Protocol Stop: 04/16/24 19:12 Glucose (Glucose 10 Tab/Tube) 4 - 8 tab PO UD PRN; Protocol PRN Reason: Hypoglycemia Treatment Stop: 04/16/24 19:12 Heparin Sodium/Dextrose (Heparin Sodium/Dextrose) 25,000 units in 500 mls @ 20 mls/hr IV .Q24H BR[facility]ANY; Protocol Stop: 04/16/24 20:29 Last Titration: 03/19/24 07:22 Dose: 1,000 units/hr, 20 mls/hr Piperacillin Sod/Tazobactam Sod (Zosyn) 4.5 gm in 100 mls @ 25 mls/hr IV Q8H [facility]; Protocol Stop: 03/25/24 15:59 Last Infusion: 03/19/24 04:03 Dose: Infused Daptomycin 525 mg/ Syringe 10.5 mls @ 5.25 mls/min IV Q24H [facility]; Protocol Stop: 03/25/24 17:59 Last Admin: 03/18/24 18:14 Dose: 5.25 mls/min Insulin Aspart (Insulin Aspart Per Unit Charge) 0 units SC ACHS [facility] Stop: 04/16/24 20:59 Last Admin: 03/18/24 20:52 Dose: Not Given Insulin Glargine (Lantus Per Unit Charge) 25 units SC QAM [facility] Stop: 04/17/24 09:29 Last Admin: 03/18/24 09:49 Dose: 25 units Lactobacillus Acidophilus (Advanced Probiotic 625 Mg Capsule) 1,250 mg PO DAILY [facility] Stop: 04/17/24 12:59 Last Admin: 03/18/24 14:24 Dose: 1,250 mg Magnesium Chloride (Magnesium Chloride W/Calcium 64mg Delayed Rel Tab) 64 mg PO DAILY [facility] Stop: 04/17/24 08:59 Last Admin: 03/18/24 08:22 Dose: 64 mg Metoprolol Succinate (Metoprolol Succ 50mg Ext Rel Tab) 400 mg PO QAM [facility] Stop: 04/17/24 08:59 Last Admin: 03/18/24 09:12 Dose: 400 mg Miscellaneous (Carbohydrates For Hypoglycemia ) 15 - 30 gm PO UD PRN PRN Reason: Hypoglycemia Protocol Stop: 04/16/24 19:12 Miscellaneous (Icosapent Ethyl [Vascepa] ~ Order Awaiting Action) 1 each N/A QS [facility] Stop: 04/17/24 00:00 Last Admin: 03/19/24 01:07 Dose: 1 each Multivitamins (Multivitamin Tab) 1 tab PO QAM [facility] Stop: 04/17/24 08:59 Last Admin: 03/18/24 08:22 Dose: 1 tab Ondansetron HCl (Ondansetron Inj 2 Mg/Ml 2 Ml Vial) 4 mg IV Q4H PRN PRN Reason: Nausea And Vomiting Stop: 04/16/24 19:12 (2) Diabetes mellitus type II, uncontrolled Glycemic state: with hyperglycemia Qualified Code(s): E11.65 - Type 2 diabetes mellitus with hyperglycemia (4) CAD (coronary artery disease) Associated angina: without angina Coronary Disease-Associated Artery/Lesion type: [place] artery [place] vs. transplanted heart: [place] heart Qualified Code(s): I25.10 - Atherosclerotic heart disease of [place] coronary artery without angina pectoris (7) HTN (hypertension) Hypertension type: unspecified Qualified Code(s): I10 - Essential (primary) hypertension
--- NOTE | 2024-03-19 09:21 | Podiatry Progress Note ---
Date of Service March 19, 2024 Assessment & Plan (1) Open wound of left foot: (2) Osteomyelitis of foot: (3) Necrotizing fasciitis: (4) Diabetic peripheral neuropathy associated with type 2 diabetes mellitus: (5) Diabetes mellitus type II, uncontrolled: Plan patient was examined and evaluated. - Scheduled for excisional debridement/Incision and Drainage of left foot wound tomorrow, 03/20 - Primary closure is unlikely and will likely require wound vac for closure over time. - FPC prognosis for foot is guarded; underlying Charcot deformity is significant and this bacterial soft tissue infection is aggressive - Will continue to follow Admission and Anticipated Discharge Date Admission Date: March 17, 2024 Subjective Pt seen at bedside. No new concerns. Is feeling good today, denies significant pain to left foot. Has had continued drainage to the dressing, still malodorous. No new/worsening symptoms of infection. Review of Systems Constitutional: + fever, + fatigue and + weakness; no ch ills Eyes: no problem reported Ear, Nose, Mouth, Throat: no problem reported Respiratory: no problem reported Cardiovascular: + edema; no problem reported Gastrointestinal: no nausea, no vomiting and no problem reported Musculoskeletal: + deformity and + limited range of motio n Integumentary: + skin ulcer, + wounds and + erythema Neurologic: + loss of sensation, + numbness and + pa resthesia; no generalized weakness Psychiatric: no problem reported Physical Exam Physical Exam: lower extremity focused exam: DP/PT pulses 1/4 bilaterally, likely diminished by the pitting edema to the bilateral lower extremity. Advanced trophic changes are noted otherwise, with thinning of the skin, atrophy of the skin, and this nonhealing ulceration to the lateral aspect of the left foot. CFT is brisk to the digits. right hallux amputation is noted with evidence of other right foot reconstruction and scar formation to the first ray. This was likely a Charcot foot reconstruction. The left foot medial longitudinal arch is collapsed, consistent with chronic Charcot neuroarthropathy as well. This large lateral plantar foot ulceration is consistent with cuboid subluxation and chronic pressure underlying the cuboid bone. There is significant malodor consistent with anaerobic bacterial infection. After debriding the overlying hyperkeratotic skin, the wound probes directly to the dorsal aspect of the foot through a tunnel lateral to the fifth metatarsal bone. The wound is large measuring 3.5 x 3.5 cm in diameter and with this dorsal extension measures close to 4 cm in depth. The wound bed is 100% fibrotic and necrotic with no evidence of granulation tissue present. No significant bleeding or underlying abscess formation is noted after sharp debridement as well. Constitutional: WD/WN, vitals as above + ill appearing and + morbidly obese ; no acute distress Eyes: PERRL, conjunctivae normal, anicteric sclerae ENMT: external ear and nose normal, oropharynx normal Neck: trachea midline, no thyromegaly normal visual inspection Respiratory: normal respiratory effort; no respiratory distress Cardiovascular: Rate/Rhythm: regular rate and regular rhythm Chest (Breasts): Chest: normal inspection of chest Gastrointestinal (Abdomen): Inspection/Auscultation: abdomen normal to inspection Percussion/Palpation: + abdomen tender and abdomen soft Musculoskeletal: no cyanosis or clubbing, extremities motor strength 5/5 Head/Neck/Chest: normocephalic and head atraumatic Extremities: extremities normal to inspection Skin: + ulcer, + wound, + skin atrophy, + scar and + nails dystrophic Neurologic: normal sensation to monofilament, moves all extremities and awake; + abnormal touch/pain/proprioception and no focal motor deficits Psychiatric: A+Ox3, euthymic affect Results & Data Results & Data Vital Signs (Past 12 Hours) Vital Signs Temp Pulse Pulse Resp BP Pulse Ox O2 Del Method 03/19/24 07:45 82 03/19/24 07:36 36.6 C 85 18 135/82 99 Room Air 03/19/24 03:13 36.5 C 82 20 159/84 H 97 Room Air, CPAP 03/18/24 23:55 37.4 C 83 20 153/85 H 97 Room Air 03/18/24 23:54 Room Air 03/18/24 21:55 87 (1) Open wound of left foot Encounter type: initial encounter Qualified Code(s): S91.302A - Unspecified open wound, left foot, initial encounter (2) Osteomyelitis of foot Laterality: right Osteomyelitis type: unspecified type Qualified Code(s): M86.9 - Osteomyelitis, unspecified (5) Diabetes mellitus type II, uncontrolled Glycemic state: with hyperglycemia Qualified Code(s): E11.65 - Type 2 diabetes mellitus with hyperglycemia
[2024-03-19 10:02] LABS: C-Reactive Protein High Sens. >20.0 mg/L
[2024-03-20 06:51] LABS: Hematocrit (blood only) 31.1 % (42.0-52.0); Hemoglobin 10.6 g/dl (14.0-18.0); Mean Corpuscular Hemoglobin 28.4 pg (25.0-34.0); Mean Corpuscular Hgb Conc 34.1 g/dL (32.0-36.0); Mean Corpuscular Volume 83.4 fL (80.0-100.0); Mean Platelet Volume 10.5 fL (9.4-12.4); Platelet Count 165 K/uL (130-400); RDW Coefficient of Variation 13.2 % (11.5-14.5); RDW Standard Deviation 40.9 fL (36.4-46.3); Red Blood Count 3.73 M/uL (4.70-6.10); White Blood Count 8.21 K/ul (4.8-10.8)
[2024-03-20 07:17] LABS: Calcium 8.5 mg/dl (8.6-10.3); Potassium 3.9 mmol/L (3.5-5.1)
[2024-03-20 07:23] LABS: BUN Creatinine Ratio 17.7 (10-20); Creatinine Clr Calc Pharmacy 53.1 ml/min; Phosphorus 3.3 mg/dl (2.5-4.9)
[2024-03-20 07:29] LABS: ANTI-Xa, UFH(UnfractionatedHep < 0.10 IU/ml (0.3-0.7)
[2024-03-20] MEDS ORDERED: ONDANSETRON INJ 2 MG/ML 2 ML VIAL IV PRN (08:45)
[2024-03-20] MEDS ORDERED: ATROPINE SULFATE 0.1 MG/ML 10ML SYR IV PRN (08:45)
[2024-03-20] MEDS ORDERED: fentaNYL citrate PF 100 MCG/2 ML VIAL IV PRN (08:45)
[2024-03-20] MEDS ORDERED: MIDAZOLAM HCL 1 MG/ML 2ML VIAL ONE ×3 (08:52→09:31)
[2024-03-20] MEDS ORDERED: fentaNYL citrate PF 100 MCG/2 ML VIAL ONE (08:52)
[2024-03-20] MEDS: LACTATED RINGER'S 1,000 ML IV SCH (08:55)
--- NOTE | 2024-03-20 09:01 | History & Physical Bridge Note ---
Date of Service March 20, 2024 History & Physical Bridge Note I have examined the patient, reviewed the History & Physical and in the interval since the performance of the History & Physical I have noted the following changes of clinical significance: no changes noted. Plan for left foot excisional debridement. Consent obtained. All questions answered.
[2024-03-20] MEDS: BUPIVACAINE 0.5 % 5 MG/1 ML MPF 30ML VIAL ONE (09:20)
[2024-03-20] MEDS ORDERED: ONDANSETRON INJ 2 MG/ML 2 ML VIAL ONE (09:38)
--- NOTE | 2024-03-20 09:48 | Post Operative Brief Note ---
Immediate Post Op Note Date of Surgery March 20, 2024 Pre & Post Diagnosis Operation Date: 03/20/24 09:00 Pre-Op Diagnosis: Open wound of left foot, Osteomyelitis of foot, Necrotizing fasciitis Post-Op Diagnosis: Open wound of left foot, Necrotizing fasciitis I identified the patient and participated in the time-out.: Yes Procedure Operation Date: 03/20/24 09:00 Actual Procedures p Left Foot Incision and Drainage(Left) - Marc Ramirez DPM Surgeon Marc Ramirez DPM [place] None Estimated Blood Loss 20 Findings Consistent with Post-Op Diagnosis Specimens Left foot ulcer/wound soft tissue for culture Anesthesia Type MAC Complications none Disposition Accompanied Patient To Recovery: Yes Disposition: Recovery Room Overlapping Procedure I was present for: the critical portions of procedure.
--- NOTE | 2024-03-20 10:09 | Operative Report ---
Post Operative Report Pre & Post Diagnosis Operation Date: 03/20/24 09:00 Pre-Op Diagnosis: Open wound of left foot, Osteomyelitis of foot, Necrotizing fasciitis Post-Op Diagnosis: Open wound of left foot, Necrotizing fasciitis I identified the patient and participated in the time-out.: Yes Procedure Operation Date: 03/20/24 09:00 Actual Procedures p Left Foot Incision and Drainage(Left) - Marc Ramirez DPM Surgeon Marc Ramirez DPM Accreditation Manager None Estimated Blood Loss 20 Findings Consistent with Post-Op Diagnosis Specimens Soft tissue sent for deep culture Anesthesia Type MAC Complications none Disposition Accompanied Patient To Recovery: Yes Disposition: Recovery Room Indications This patient is a recent hospital patient consult of [facility] who presented to the hospital with a recent onset of ulceration underlying the left foot. 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 Now, he has developed an infection underlying the outside of the left foot, consistent with further neuroarthropathy collapse. There was no extension to the level of the bone on clinical exam, however, the wound has worsened rapidly since admission. There was even some semblance of soft tissue gas on initial CT scan. Because of this, an incision and drainage with excisional debridement of the wound was performed to hopefully diminish infectious burden and allow for increased healing of potential necrotizing fasciitis. Preoperative instructions, postoperative instructions, relative risks, and outcomes were all discussed at length. Consent was obtained for this left foot excisional debridement and incision and drainage. All questions were answered. Description of Procedure Patient was brought to the operating room placed on the operating table in the supine position. Following administration of IV sedation, local analgesia was obtained utilizing 20 cc of half percent Marcaine in a local block fashion. The left lower extremity was then scrubbed, prepped, and draped in the usual aseptic manner. No tourniquet was utilized for the duration of the case due to suspected underlying arterial insufficiency. Attention was directed to the lateral aspect of the patient's left foot where a plantar ulceration was immediately identified. There was extensive fall odor and purulent drainage on initial incision. The wound probed directly dorsally along the lateral aspect of the fifth metatarsal with no direct extension to the bone. Still, a tunneling was identified along the soft tissue. This was able to be excised with coverage of the fifth metatarsal still noted. All necrotic nonviable tissue was debrided and no proximal extension was appreciated along the tendon sheaths. This was relatively localized, though aggressive ulceration and infection. Once all nonviable tissue was excised utilizing a combination of 15 blade, curette, and rongeur, the ulceration was flushed with copious amounts of sterile saline and the wound was packed with iodoform packing gauze. 2 retention stitches were placed to temporarily hold the packing in place until definitive wound VAC can be applied, likely in the next day or 2. The patient tolerated the procedure well and was transferred to the recovery r o with vital signs stable and vascular status intact to the feet. Following postoperative monitoring, the patient be given prescriptions and instructions which were discussed with her prior to surgery. The patient will then be transferred back to the floor for further monitoring and discharge once he is medically stable. I attest to the content of the Intraoperative Record and any orders documented therein. Any exceptions are noted below.
--- NOTE | 2024-03-20 10:27 | Anesthesiology Progress Note ---
Date of Service March 20, 2024 Anesthesia Post Procedure Vital Signs Vital Signs: Temp Pulse Pulse Pulse Resp BP Pulse Ox 03/20/24 10:25 36.6 C 93 H 20 102/58 L 92 03/20/24 10:20 100 H 13 99/61 L 93 03/20/24 10:10 88 12 97/64 L 94 03/20/24 10:00 100 H 16 97/60 L 96 03/20/24 09:52 36.6 C 88 12 104/91 95 03/20/24 08:18 37.2 C 92 H 18 120/79 100 03/20/24 07:38 90 03/20/24 07:31 37.2 C 97 H 18 138/71 98 03/20/24 07:30 03/20/24 07:28 98 H 03/20/24 03:21 37.6 C H 99 H 20 147/80 H 97 03/19/24 23:40 37.1 C 87 20 131/80 97 03/19/24 21:25 03/19/24 20:00 37.1 C 97 H 20 146/92 H 97 03/19/24 16:00 86 03/19/24 15:17 36.7 C 86 18 144/87 H 98 03/19/24 11:38 36.7 C 76 18 135/82 100 O2 Del Method 03/20/24 10:25 Room Air 03/20/24 10:20 Room Air 03/20/24 10:10 Room Air 03/20/24 10:00 Room Air 03/20/24 09:52 Room Air 03/20/24 08:18 Room Air 03/20/24 07:38 03/20/24 07:31 Room Air 03/20/24 07:30 Room Air, CPAP 03/20/24 07:28 03/20/24 03:21 Room Air, CPAP 03/19/24 23:40 Room Air, CPAP 03/19/24 21:25 Room Air 03/19/24 20:00 Room Air 03/19/24 16:00 03/19/24 15:17 Room Air 03/19/24 11:38 Room Air Pain Intensity Left Foot: Pain Intensity: 3 Transfer of Care Handoff Completed per policy Notes Mental Status: alert / awake / arousable Patient Amnestic to Procedure: Yes Nausea / Vomiting: adequately controlled Pain: adequately controlled Airway Patency, RR, SpO2: stable & adequate BP & HR: stable & adequate Hydration State: stable & adequate Anesthetic Complications: no major complications apparent
--- NOTE | 2024-03-20 16:29 | Hospitalist Progress Note ---
Date of Service March 20, 2024 Assessment & Plan (1) Necrotizing fasciitis of ankle and foot: (2) Type 2 diabetes mellitus: (3) CKD (chronic kidney disease) stage 3, GFR 30-59 ml/min: (4) Diabetic peripheral neuropathy associated with type 2 diabetes mellitus: (5) CAD (coronary artery disease): (6) PAF (paroxysmal atrial fibrillation): (7) Ischemic cardiomyopathy: (8) HTN (hypertension): Plan Communication with podiatry, able to resume oral anticoagulation today Reviewed sensitivities, narrow antibiotics to Zosyn Patient will need wound VAC and outpatient wound clinic follow-up. Osteomyelitis was ruled out, anticipate will be able to transition to oral antibiotics in the next 1 to 2 days and outpatient follow-up with podiatry and wound care Continue insulin management of the diabetes, short acting insulin as needed to control glucose Continue digoxin For rhythm control Therapies, patient will need to be nonweightbearing on left foot Admission and Anticipated Discharge Date Admission Date: March 17, 2024 Subjective Patient seen status post I&D of left foot. Tolerated procedure well. Requiring some pain medication. Physical Exam Physical Exam: Constitutional: Alert, nontoxic HEENT: Mucous membranes moist. Lungs: Clear to auscultation, decreased, no wheezes rales or rhonchi CV: S1-S2, regular Abdomen: Soft, nontender, nondistended Extremities: Left foot in large post surgical bandage. Clean and dry. Neuro: No focal deficits Psych: Cooperative, normal mood Results & Data Results & Data Vital Signs (Past 12 Hours) Vital Signs Temp Pulse Pulse Pulse Resp BP Pulse Ox 03/20/24 14:42 36.7 C 92 H 18 131/79 100 03/20/24 13:12 37.4 C 88 18 123/69 98 03/20/24 12:35 36.7 C 86 16 129/67 97 03/20/24 12:14 36.6 C 85 18 101/64 96 03/20/24 11:56 36.4 C L 71 16 101/62 97 03/20/24 11:36 36.6 C 78 16 97/61 L 98 03/20/24 10:54 36.4 C L 87 16 106/62 97 03/20/24 10:38 36.8 C 83 18 111/65 97 03/20/24 10:25 36.6 C 93 H 20 102/58 L 92 03/20/24 10:20 100 H 13 99/61 L 93 03/20/24 10:10 88 12 97/64 L 94 03/20/24 10:00 100 H 16 97/60 L 96 03/20/24 09:52 36.6 C 88 12 104/91 95 03/20/24 08:18 37.2 C 92 H 18 120/79 100 03/20/24 07:38 90 03/20/24 07:31 37.2 C 97 H 18 138/71 98 03/20/24 07:30 03/20/24 07:28 98 H O2 Del Method 03/20/24 14:42 Room Air 03/20/24 13:12 Room Air 03/20/24 12:35 Room Air 03/20/24 12:14 Room Air 03/20/24 11:56 Room Air 03/20/24 11:36 Room Air 03/20/24 10:54 Room Air 03/20/24 10:38 Room Air 03/20/24 10:25 Room Air 03/20/24 10:20 Room Air 03/20/24 10:10 Room Air 03/20/24 10:00 Room Air 03/20/24 09:52 Room Air 03/20/24 08:18 Room Air 03/20/24 07:38 03/20/24 07:31 Room Air 03/20/24 07:30 Room Air, CPAP 03/20/24 07:28 Diagnostic Findings Reviewed imaging, laboratory and diagnostic studies. Pertinent findings as below. WBCs 8.2 Hemoglobin 10.6 Creatinine 1[address] of the foot showed no evidence of osteomyelitis Reviewed operative report. No evidence of osteomyelitis on gross exam Wound cultures reviewed, group B strep and Proteus, sensitivities reviewed (5) CAD (coronary artery disease) Coronary Disease-Associated Artery/Lesion type: [place] artery [place] vs. transplanted heart: [place] heart Associated angina: without angina Qualified Code(s): I25.10 - Atherosclerotic heart disease of [place] coronary artery without angina pectoris (8) HTN (hypertension) Hypertension type: unspecified Qualified Code(s): I10 - Essential (primary) hypertension
[2024-03-21 06:54] LABS: Hemoglobin 9.9 g/dl (14.0-18.0); Mean Corpuscular Hemoglobin 28.4 pg (25.0-34.0); Mean Platelet Volume 10.1 fL (9.4-12.4); Platelet Count 153 K/uL (130-400); RDW Coefficient of Variation 13.5 % (11.5-14.5); Red Blood Count 3.49 M/uL (4.70-6.10); White Blood Count 8.39 K/ul (4.8-10.8)
[2024-03-21 07:21] LABS: BUN Creatinine Ratio 15.7 (10-20); Calcium 8.6 mg/dl (8.6-10.3); Creatinine Clr Calc Pharmacy 55.1 ml/min; Magnesium 1.9 mg/dl (1.7-2.4); Phosphorus 3.1 mg/dl (2.5-4.9); Potassium 4.1 mmol/L (3.5-5.1)
[2024-03-21] MEDS: APIXABAN 5 MG TABLET PO SCH (11:09)
--- NOTE | 2024-03-21 13:06 | Hospitalist Progress Note ---
Date of Service March 21, 2024 Assessment & Plan (1) Necrotizing fasciitis of ankle and foot: (2) Type 2 diabetes mellitus: (3) CKD (chronic kidney disease) stage 3, GFR 30-59 ml/min: (4) Diabetic peripheral neuropathy associated with type 2 diabetes mellitus: (5) CAD (coronary artery disease): (6) PAF (paroxysmal atrial fibrillation): (7) Ischemic cardiomyopathy: (8) HTN (hypertension): Plan Patient status post debridement of necrotizing fasciitis of diabetic foot wound. Wound consult pending, anticipate placing wound VAC Follow wound cultures Therapies Renal function has stabilized and improved, WBCs normalized Glucose was well-controlled, continue current diabetes management Anticipate transitioning to oral antibiotics and coordinating outpatient wound care with possible discharge in the next 1 to 2 days Admission and Anticipated Discharge Date Admission Date: March 17, 2024 Subjective No acute issues overnight. Patient reports pain is controlled, dull ache. Did not need any significant pain medications. Physical Exam Physical Exam: Constitutional: Alert, nontoxic, obese HEENT: Mucous membranes moist. Lungs: Clear to auscultation, decreased, no wheezes rales or rhonchi CV: S1-S2, regular Abdomen: Soft, nontender, nondistended Extremities: Left foot dressing dry and intact with Kaden wrap Neuro: No focal deficits, able to move toes, chronic peripheral neuropathy Psych: Cooperative, normal mood Results & Data Results & Data Vital Signs (Past 12 Hours) Vital Signs Temp Pulse Pulse Resp BP Pulse Ox O2 Del Method 03/21/24 08:39 86 03/21/24 08:16 36.7 C 86 16 155/90 H 96 CPAP Diagnostic Findings Reviewed imaging, laboratory and diagnostic studies. Pertinent findings as below. Creatinine 1.85, stable Hemoglobin 9.9 WBCs 8.3 Wound cultures reviewed Proteus and group B strep growing sensitive to Zosyn (5) CAD (coronary artery disease) Coronary Disease-Associated Artery/Lesion type: [place] artery [place] vs. transplanted heart: [place] heart Associated angina: without angina Qualified Code(s): I25.10 - Atherosclerotic heart disease of [place] coronary artery without angina pectoris (8) HTN (hypertension) Hypertension type: unspecified Qualified Code(s): I10 - Essential (primary) hypertension
[2024-03-21 15:40] VITALS: RESP 18
--- NOTE | 2024-03-21 21:12 | Podiatry Progress Note ---
Date of Service March 21, 2024 Assessment & Plan (1) Open wound of left foot: (2) Osteomyelitis of foot: (3) Necrotizing fasciitis: (4) Diabetic peripheral neuropathy associated with type 2 diabetes mellitus: (5) Diabetes mellitus type II, uncontrolled: Plan patient was examined and evaluated. - Packing pulled at bedside, wound cleaned, redressed with betadine soaked gauze, kerlix, macario wrap. - Can benefit press tender long goods from wound vac, given extensive nature of the wound. - Will likely need 2 weeks oral antibiotics without obvious bone involvement but significant soft tissue infection. - If stable and can't get wound before discharge, can likely d/c home and follow-up with us and [facility] wound care next week. We can certainly get him scheduled within one week. - If easier, logistically, can continue with IV antibiotics, dressing changes until early next week for wound vac placement early next week. Admission and Anticipated Discharge Date Admission Date: March 17, 2024 Subjective Pt seen at bedside. No pain to foot. Has been walking around in surgical boot without issue. Has noticed bleeding/drainage to outer layer of dressing since late yesterday. Feeling better overall since admission. Review of Systems Constitutional: + fever, + fatigue and + weakness; no ch ills Eyes: no problem reported Ear, Nose, Mouth, Throat: no problem reported Respiratory: no problem reported Cardiovascular: + edema; no problem reported Gastrointestinal: no nausea, no vomiting and no problem reported Musculoskeletal: + deformity and + limited range of motio n Integumentary: + skin ulcer, + wounds and + erythema Neurologic: + loss of sensation, + numbness and + pa resthesia; no generalized weakness Psychiatric: no problem reported Physical Exam Physical Exam: lower extremity focused exam: DP/PT pulses 1/4 bilaterally, likely diminished by the pitting edema to the bilateral lower extremity. Advanced trophic changes are noted otherwise, with thinning of the skin, atrophy of the skin, and this nonhealing ulceration to the lateral aspect of the left foot. CFT is brisk to the digits. right hallux amputation is noted with evidence of other right foot reconstruction and scar formation to the first ray. This was likely a Charcot foot reconstruction. Left foot ulceration with 3 retention sutures intact, packing inserted. Removed proximal suture to remove packing; wound bed more viable, granular. No active purulence. No retained malodor. No palpable bone directly within wound. No necrotic tissue noted. Constitutional: WD/WN, vitals as above + ill appearing and + morbidly obese; no acute distress Eyes: PERRL, conjunctivae normal, anicteric sclerae ENMT: external ear and nose normal, oropharynx normal Neck: trachea midline, no thyromegaly normal visual inspection Respiratory: normal respiratory effort; no respiratory distress Cardiovascular: Rate/Rhythm: regular rate and regular rhythm Chest (Breasts): Chest: normal inspection of chest Gastrointestinal (Abdomen): Inspection/Auscultation: abdomen normal to inspection Percussion/Palpation: + abdomen tender and abdomen soft Musculoskeletal: no cyanosis or clubbing, extremities motor strength 5/5 Head/Neck/Chest: normocephalic and head atraumatic Extremities: extremities normal to inspection Skin: + ulcer, + wound, + skin atrophy, + scar and + nails dystrophic Neurologic: normal sensation to monofilament, moves all extremities and awake; + abnormal touch/pain/proprioception and no focal motor deficits Psychiatric: A+Ox3, euthymic affect Results & Data Results & Data Vital Signs (Past 12 Hours) Vital Signs Temp Pulse Resp BP Pulse Ox O2 Del Method 03/21/24 15:40 37.6 C H 87 18 139/82 97 Room Air (1) Open wound of left foot Encounter type: initial encounter Qualified Code(s): S91.302A - Unspecified open wound, left foot, initial encounter (2) Osteomyelitis of foot Laterality: right Osteomyelitis type: unspecified type Qualified Code(s): M86.9 - Osteomyelitis, unspecified (5) Diabetes mellitus type II, uncontrolled Glycemic state: with hyperglycemia Qualified Code(s): E11.65 - Type 2 diabetes mellitus with hyperglycemia
--- NOTE | 2024-03-22 13:38 | Hospitalist Progress Note ---
Date of Service March 22, 2024 Assessment & Plan (1) Necrotizing fasciitis of ankle and foot: (2) Type 2 diabetes mellitus: (3) CKD (chronic kidney disease) stage 3, GFR 30-59 ml/min: (4) Diabetic peripheral neuropathy associated with type 2 diabetes mellitus: (5) CAD (coronary artery disease): (6) PAF (paroxysmal atrial fibrillation): (7) Ischemic cardiomyopathy: (8) HTN (hypertension): Plan Communication with wound care team yesterday, hesitant to place wound VAC with possibility of need for recurrent debridement with a diagnosis of necrotizing fasciitis. Communication with podiatry, Dr. Ramirez, recommending Betadine soaked wet-to-dry dressings daily and lieu of wound VAC and could follow-up with them outpatient. Wound is clean, no additional necrotic tissue, not anticipating need for any further debridement at this time. Today nurse reports that the wound is clean, no necrotic tissue, tolerated dressing change Case management to help patient coordinate home health for wound dressings and follow-up in wound clinic and with Dr. Ramirez Transition to oral antibiotics based on sensitivities Will need 2 weeks of oral antibiotics in setting of severe cellulitis, possible mild necrotizing fasciitis Encourage activity Follow-up labs in the a.m. Instructed patient that he needs to help and coordinate dressing changes anticipate he will need to have somebody do it for him at least several days a week at home in between wound clinic visits. Admission and Anticipated Discharge Date Admission Date: March 17, 2024 Subjective Patient states no significant pain. Unsure that he has somebody who will be able to do dressing changes at home Physical Exam Physical Exam: Constitutional: Alert, nontoxic HEENT: Mucous membranes moist. Lungs: Clear to auscultation, decreased, no wheezes rales or rhonchi CV: S1-S2, regular Abdomen: Soft, nontender, nondistended Extremities: Left foot with dressing and Kaden wrap that is clean and dry Neuro: No focal deficits Psych: Cooperative, normal mood Results & Data Results & Data Vital Signs (Past 12 Hours) Vital Signs Temp Pulse Pulse Resp BP Pulse Ox O2 Del Method 03/22/24 08:12 87 03/22/24 08:02 36.7 C 87 18 142/82 H 98 Room Air Diagnostic Findings Reviewed imaging, laboratory and diagnostic studies. Pertinent findings as below. Foot cultures growing Proteus sensitive to Zosyn and Augmentin (5) CAD (coronary artery disease) Coronary Disease-Associated Artery/Lesion type: [place] artery [place] vs. transplanted heart: [place] heart Associated angina: without angina Qualified Code(s): I25.10 - Atherosclerotic heart disease of [place] coronary artery without angina pectoris (8) HTN (hypertension) Hypertension type: unspecified Qualified Code(s): I10 - Essential (primary) hypertension
[2024-03-22] MEDS: AMOXICILLIN/CLAVULANATE 875 MG TAB PO SCH (17:23)
[2024-03-23 06:24] LABS: Hematocrit (blood only) 29.9 % (42.0-52.0); Hemoglobin 9.7 g/dl (14.0-18.0); Mean Corpuscular Hemoglobin 27.9 pg (25.0-34.0); Mean Corpuscular Hgb Conc 32.4 g/dL (32.0-36.0); Mean Corpuscular Volume 85.9 fL (80.0-100.0); Mean Platelet Volume 10.2 fL (9.4-12.4); Platelet Count 168 K/uL (130-400); RDW Coefficient of Variation 13.4 % (11.5-14.5); RDW Standard Deviation 41.6 fL (36.4-46.3); Red Blood Count 3.48 M/uL (4.70-6.10); White Blood Count 6.99 K/ul (4.8-10.8)
[2024-03-23 06:59] LABS: BUN Creatinine Ratio 16.7 (10-20); Creatinine Clr Calc Pharmacy 70.8 ml/min; Potassium 4.1 mmol/L (3.5-5.1)
--- NOTE | 2024-03-23 12:48 | Hospitalist Progress Note ---
Date of Service March 23, 2024 Assessment & Plan (1) Necrotizing fasciitis of ankle and foot: (2) Type 2 diabetes mellitus: (3) CKD (chronic kidney disease) stage 3, GFR 30-59 ml/min: (4) Diabetic peripheral neuropathy associated with type 2 diabetes mellitus: (5) CAD (coronary artery disease): (6) PAF (paroxysmal atrial fibrillation): (7) Ischemic cardiomyopathy: (8) HTN (hypertension): Plan Patient status post debridement of suspected necrotizing fasciitis of the left foot. Surgical wound continues to look good without additional necrosis. Continue daily wound dressings Continue oral Augmentin Patient's renal function appears to be back to normal, blood pressure slightly increased will start his Entresto at half dose tonight Continue anticoagulation for secondary stroke prevention the setting of paroxysmal atrial fibrillation Coordinate follow-up wound care tomorrow with anticipated discharge tomorrow. Voicemail left for patient's to expect discharge tomorrow Admission and Anticipated Discharge Date Admission Date: March 17, 2024 Subjective No acute issues overnight. No pain in the foot. Patient asking about wound VAC and restarting his Entresto. Physical Exam Physical Exam: Constitutional: Alert, nontoxic HEENT: Mucous membranes moist. Lungs: Clear to auscultation, decreased, no wheezes rales or rhonchi CV: S1-S2, regular Abdomen: Soft, nontender, nondistended Extremities: No significant edema, foot dressing dry and intact, wearing surgical boot Neuro: No focal deficits Psych: Cooperative, normal mood Results & Data Results & Data Vital Signs (Past 12 Hours) Vital Signs Temp Pulse Pulse Resp BP Pulse Ox O2 Del Method 03/23/24 08:16 36.9 C 87 18 156/95 H 96 Room Air 03/23/24 08:12 88 Diagnostic Findings Reviewed imaging, laboratory and diagnostic studies. Pertinent findings as below. Hemoglobin 9.7 Creatinine 1.44 Glucoses reviewed (5) CAD (coronary artery disease) Coronary Disease-Associated Artery/Lesion type: [place] artery [place] vs. transplanted heart: [place] heart Associated angina: without angina Qualified Code(s): I25.10 - Atherosclerotic heart disease of [place] coronary artery without angina pectoris (8) HTN (hypertension) Hypertension type: unspecified Qualified Code(s): I10 - Essential (primary) hypertension
[2024-03-23] MEDS: VALSARTAN/SACUBITRIL 51/49 MG TAB PO SCH (21:01)
[2024-03-24 06:39] LABS: Hematocrit (blood only) 31.5 % (42.0-52.0); Hemoglobin 10.2 g/dl (14.0-18.0); Mean Corpuscular Hemoglobin 27.9 pg (25.0-34.0); Mean Corpuscular Hgb Conc 32.4 g/dL (32.0-36.0); Mean Corpuscular Volume 86.3 fL (80.0-100.0); Mean Platelet Volume 10.1 fL (9.4-12.4); Platelet Count 175 K/uL (130-400); RDW Coefficient of Variation 13.4 % (11.5-14.5); RDW Standard Deviation 42.4 fL (36.4-46.3); Red Blood Count 3.65 M/uL (4.70-6.10); White Blood Count 6.68 K/ul (4.8-10.8)
[2024-03-24 07:02] LABS: BUN Creatinine Ratio 19.4 (10-20); Calcium 9.1 mg/dl (8.6-10.3); Creatinine Clr Calc Pharmacy 65.8 ml/min; Potassium 4.1 mmol/L (3.5-5.1)
[2024-03-24 07:45] VITALS: TEMP 98.1; O2SAT 97
--- NOTE | 2024-03-24 10:06 | Discharge Summary ---
Discharge Summary Date of Service March 24, 2024 Principal Dx & Hospital Course #1 = Principal Diagnosis (1) Necrotizing fasciitis of ankle and foot: (2) Type 2 diabetes mellitus: (3) CKD (chronic kidney disease) stage 3, GFR 30-59 ml/min: (4) Diabetic peripheral neuropathy associated with type 2 diabetes mellitus: (5) CAD (coronary artery disease): (6) PAF (paroxysmal atrial fibrillation): (7) Ischemic cardiomyopathy: (8) HTN (hypertension): Plan Patient presented to the emergency room with chronic wound infection of his feet. However started to feel more generalized malaise and noticed increasing redness on the lateral aspect of his foot. In the emergency room noted to have an elevated white blood cell count and imaging consistent with cellulitis of his foot. Patient was admitted to the hospital. He is placed on broad-spectrum IV antibiotics. Podiatry consultation was obtained. Patient underwent additional imaging of the foot. There was no definitive signs of osteomyelitis but significant cellulitis and myositis. Podiatry evaluation was concerning for necrotizing fasciitis. Patient underwent surgical intervention including an incision and debridement of his left foot On 03/20/2024. His postoperative course was uneventful. Initial removal surgical bandages by podiatry indicates that there was no necrotic tissue and no further need for recurrent or subsequent debridements. Recommended Betadine wet-to-dry dressing changes daily. Wound care was consulted. They felt at this time until was certain that he would not need any further debridements a wound VAC would not be indicated. They can continue to follow the patient in the wound clinic. Wound cultures were resulted. OR specimens growing Proteus group B strep. There was no evidence of osteomyelitis on imaging or grossly in the operating room. He can be transition to oral antibiotics. Over the weekend is unclear that we could get him daily dressing changes. He tolerated the transition to oral antibiotics he was restarted on some of his other chronic medications that were held when he initially presented with some acute kidney injury in the setting of infection. His glucoses were monitored here in the hospital and his glucose was well- controlled even on less insulin than he takes at home. On the day of discharge he had a normal white blood cell count of 6.8 rest of his laboratory studies were stabilized. Coordinate home and outpatient wound care and he will continue his care and recuperation at home and follow-up with podiatry outpatient as well. Notes For Next Care Provider Continue to follow with wound clinic, may at some point need a wound VAC Follow-up with podiatry Patient's insulin may need to be increased as he returns to his more usual diet at home Medication Changes From Visit Augmentin for 10 days Insulin decreased based on what he was requiring here in the hospital, Admission HPI Per Admitting Provider This is a 53-year-old male with PMHx of DM type II on insulin, CAD status post quadruple coronary bypass grafting 2016, pacemaker placement 2017, paroxysmal A- fib, HTN, HLD, CKD stage III, obesity, JENNIFER on CPAP, diabetic neuropathy with hx of multiple amputations of toes on the right foot in 2019, who presents to the hospital with acute onset of left-sided foot wound. He noticed significant increase in erythema therefore came to the ER. Pt reports checking his feet regularly and last checked them on Sunday where things appeared was normal. He reports not feeling well on Sunday with some generalized malaise, fatigue but did not have any focal source of infection. He denies any recent sick contacts, and lives at home with his . Today reports there is a wound on the dorsal lateral edge of the foot and another wound developing on the plantar aspect of the mid foot. Pt has severe diabetic prudencio ropathy so denies any pain. WBC is 16.3 and procalcitonin is elevated at 1.49. Wound cultures were obtained. Pt was placed on daptomycin and zosyn IV. Blood culture x 1 also obtained. Admission Exam Per Admitting Provider See H&P Discharge Exam Constitutional: Alert, nontoxic, obese, ambulating in the room with his walking boot HEENT: Mucous membranes moist. Lungs: Clear to auscultation, decreased, no wheezes rales or rhonchi CV: S1-S2, regular Abdomen: Soft, nontender, nondistended Extremities: Left foot surgical dressing dry and intact. Neuro: No focal deficits, chronic peripheral neuropathy Psych: Cooperative, normal mood Updated Medication List Medication Instructions Recorded Confirmed Type insulin lispro 100 unit/mL 10 unit subcut TIDM 12/10/19 03/17/24 History subcutaneous pen (Humalog KwikPen (U-100) Insulin) multivitamin 1 tab PO QAM 10/25/20 03/17/24 History magnesium chloride 64 mg 64 mg PO DAILY #90 tabs 01/18/21 03/17/24 Rx (magnesium chloride) tablet,delayed release apixaban 5 mg tablet (Eliquis) 5 mg PO BID #180 tabs 06/12/23 03/17/24 Rx empagliflozin 10 mg tablet 10 mg PO DAILY 08/13/23 03/17/24 History (Jardiance) icosapent ethyl 1 gram capsule 2 g (2 x 1 gram) PO BID #360 caps 08/16/23 03/17/24 Rx (Vascepa) digoxin 125 mcg (0.125 mg) tablet 125 mcg PO DAILY #90 tabs 09/06/23 03/17/24 Rx furosemide 20 mg tablet 40 mg (2 x 20 mg) PO QAM #180 tabs 09/06/23 03/17/24 Rx sacubitril 97 mg-valsartan 103 mg 1 tab PO BID #180 tabs 11/19/23 03/17/24 Rx tablet (Entresto) potassium chloride 10 mEq 10 meq PO QAM #90 tabs 11/22/23 03/17/24 Rx tablet,extended release rosuvastatin 20 mg tablet 20 mg PO HS #90 tabs 11/22/23 03/17/24 Rx insulin glargine 100 unit/mL (3 45 unit subcut QAM 02/18/24 03/17/24 History mL) subcutaneous pen (Lantus Solostar U-100 Insulin) tirzepatide 5 mg/0.5 mL 15 mg subcut .weekly 02/18/24 03/17/24 History subcutaneous pen injector metformin 850 mg tablet 1,000 mg PO BID 03/17/24 03/17/24 History metoprolol succinate 200 mg 400 mg PO QAM 03/17/24 03/17/24 History tablet,extended release 24 hr L.acidop,casei,lactis,rham-B.lact,jerry 1 cap PO DAILY #30 caps 03/24/24 Rx 625 mg (10 billion cell) capsule (Advanced Probiotic) amoxicillin 875 mg-potassium 1 tab PO BIDM 10 days #20 tabs 03/24/24 Rx clavulanate 125 mg tablet Hospital Stay Data Consultations 03/17/24 16:37 ED Decision to Admit Stat 03/17/24 16:51 Consult Podiatry Routine Procedures Performed Operation Date: 03/20/24 09:00 Actual Procedures p Left Foot Incision and Drainage(Left) - Marc Ramirez DPM Diagnostic Imagining Performed 03/17/24 18:24 CT foot LT wo con Stat Reviewed imaging, laboratory and diagnostic studies. Pertinent findings as below. Foot CT shows soft tissue swelling and emphysema, no evidence of osteomyelitis Wound culture growing out Proteus vulgaris and group B strep WBCs 6.6 Hemoglobin 10.2 Platelets 175 Electrolytes stable Creatinine 1.55, at baseline Glucose 104 Blood cultures no growth Pending Results Patient Have Any Pending Studies at Discharge: No Discharge Instructions Given to Patient (Per Discharging Provider) Betadine gauze soaked wet-to-dry dressing to left foot daily or as directed by Dr. Lauren/wound clinic Total Time Total Time Spent Total Time Spent (In Minutes): 40
[2024-03-24 15:14] VITALS: BP 163/92; PULSE 75
== END 2024-03-24 16:00 | disposition home health service (06) | DRG 622 ==
LOC: ED 14:27 → 2N 16:51 → SUATTDRO 16:51 → 2N 18:22 → 3E 03-21 22:33